=== PATIENT | male | born 1975 | race Two or more races ===

== ENCOUNTER 2023-03-20 00:01 | Inpatient (IN) | payer MEDICAID, SELFPAY ==
--- NOTE | ~2023-03-20 | CT_ITS ---
EXAMINATION: CT ABDOMEN AND PELVIS WITHOUT CONTRAST CLINICAL INFORMATION: Question pancreatitis COMPARISON: 12/30/2011 TECHNIQUE: Multidetector volumetric imaging was performed from the superior aspect of the liver through the pubic symphysis. Sagittal and coronal reformatted images were obtained on the technologist's workstation. This CT examination was performed using dose optimization techniques as appropriate, variously including the following: *Automated exposure control *Adjustment of mA and/or kV according to patient size (this includes techniques or standardized protocols for targeted exams where dose is matched to indication/reason for exam; i.e. extremities or head) *Use of iterative reconstruction technique DLP: 356 mGy-cm FINDINGS: LUNG BASES: Limited evaluation due to motion artifact. Streaky right middle lobe opacity suggests atelectasis. There is also suspected right middle lobe bronchiolitis. LIVER, GALLBLADDER, AND BILIARY TREE: The liver is normal in size, shape, and attenuation. No focal hepatic lesion or biliary ductal dilatation is identified on this noncontrast exam. Gallbladder is contracted and not adequately evaluated. PANCREAS: No significant peripancreatic inflammation is seen, though assessment is somewhat limited in the absence of intravenous contrast. SPLEEN: Unremarkable. ADRENAL GLANDS: Unremarkable. KIDNEYS AND URETERS: Bilateral extrarenal pelvises are noted. No significant hydronephrosis or obstructing calculus identified. There is a tiny calculus in the lower left kidney. BLADDER: Partially distended with mild diffuse mural prominence. A tiny calcification along the anterior bladder wall appears similar to prior. GASTROINTESTINAL TRACT: There is a moderate volume of stool throughout the colon. No evidence of bowel obstruction. No significant bowel wall thickening is seen. No free fluid or free air is seen. ABDOMINAL WALL: No significant hernia is appreciated. LYMPH NODES: Multiple lymph nodes are noted in the retroperitoneum, a few of which measure near the upper limits of normal in size, nonspecific. VASCULAR: Mild atherosclerotic calcification. PELVIC VISCERA: Unremarkable. OSSEOUS STRUCTURES: Unremarkable. CT/CT abdomen pelvis wo IV con IMPRESSION: 1. No significant peripancreatic inflammation identified, though assessment is somewhat limited in the absence of intravenous contrast. Correlation with laboratory values would be helpful. 2. Mild diffuse mural prominence of the urinary bladder, for which cystitis would be difficult to exclude. Correlation with urinalysis is recommended. 3. Right middle lobe subsegmental atelectasis and suspected bronchiolitis. 4. Multiple retroperitoneal lymph nodes, a few of which measure near the upper limits of normal in size. These are nonspecific and may be reactive.
[2023-03-20 00:06] VITALS: BP 161/92; PULSE 83; RESP 18; TEMP 36.8; O2SAT 99; BMI 21.4
[2023-03-20 00:27] LABS: MANUAL DIFF FLAG NO
[2023-03-20 00:41] LABS: Basophils Absolute Auto 0.1 X10*3/uL (0.0-0.2); Basophils Percent Auto 0.7 % (0-2); Eosinophils Absolute Auto 0.4 X10*3/uL (0.0-0.4); Eosinophils Percent Auto 5.8 % (0-4); Hematocrit 28.4 % (42.0-52.0); Imm Gran Abs Auto 0.03 X10*3/uL (0.00-0.03); Imm Gran Pct Auto 0.4 % (0.0-0.4); Lymphocytes Absolute Auto 1.9 X10*3/uL (1.2-4.9); Lymphocytes Percent Auto 25.9 % (20-40); Mean Corpuscular HGB Conc 31.7 g/dl (31.0-36.0); Mean Corpuscular Hemoglobin 27.8 pg (27.0-33.0); Mean Corpuscular Volume 87.7 fL (80.0-98.0); Mean Platelet Volume 10.6 fL (9.4-12.4); Monocytes Absolute Auto 0.5 X10*3/uL (0.1-1.2); Monocytes Percent Auto 6.6 % (2-11); Neutrophils Absolute Auto 4.5 x10*3/uL (2.0-8.3); Neutrophils Percent Auto 60.6 % (45-73); Platelet Count 308 X10*3/uL (160-400); Red Blood Count 3.24 X10*6/uL (4.60-5.80); Red Cell Distribution Width 15.5 % (11.0-16.0); White Blood Count 7.4 X10*3/uL (4.8-10.8)
[2023-03-20 00:56] LABS: Alanine Aminotransferase 40 U/L (0-40); Albumin Level 3.5 g/dL (3.5-5.0); Alkaline Phosphatase 151 U/L (39-117); Anion Gap 14 (12-20); Aspartate Amino Transferase 20 U/L (5-37); Bilirubin Direct < 0.2 mg/dL (0.0-0.5); Bilirubin Total 0.2 mg/dL (0.0-1.0); Blood Urea Nitrogen 65 mg/dL (9-16); Calcium 8.5 mg/dL (8.4-10.2); Carbon Dioxide 15 mmol/L (22-29); Chloride 110 mmol/L (96-108); Creatinine Clr Calc Pharmacy 16.5; Estimated Glomerular Filt Rate 14; Glucose Random 558 mg/dL (60-115); Lipase 789 U/L (8-78); Potassium 5.1 mmol/L (3.3-5.1); Sodium 134 mmol/L (135-145); Total Protein 6.4 g/dL (6.5-8.0)
--- NOTE | 2023-03-20 01:09 | ED.GENADULT ---
HPI - General Adult General Chief complaint: General Medical Stated complaint: leg pain,discomfort Time Seen by Provider: 03/20/23 01:08 Source: patient, family (mother and brother) and interpreter and translator Mode of arrival: ambulatory Limitations: language barrier History of Present Illness HPI narrative: Patient is a 47 year old assigned male at with a history of diabetes presenting to the emergency department today with elevated blood sugar and weak legs. Patient states that he was in a rehab in [place] but was brought to [place] by his mother and brother. Patient states that he was told that his kidneys were close to shutting down but was not taking anything or doing anything for it. Patient states that he is on insulin for his diabetes. Patient denies any dizziness, lightheadedness, abdominal pain, nausea, vomiting, fever, chills, blurry vision, double vision, loss of vision, chest pain, difficulty breathing, shortness of breath, back pain, night sweats, pain with urination, increased urinary frequency, increased urinary urgency, blood in his urine or stool, syncope or a near syncopal episode, recent trauma or falls, bowel incontinence, bladder incontinence, bowel retention, bladder retention, or any other complaints at this time. Onset (ago): day(s) Relieving factors: none Exacerbating factors: none Associated symptoms: weakness Treatments prior to arrival: none Related Data Allergies Allergy/AdvReac Type Severity Reaction Status Date / Time No Known Allergies Allergy Unverified 11/01/19 16:01 Review of Systems Constitutional: Constitutional: Reports no additional constitutional complaints, Denies chills, Denies fever(s), Denies night sweats and Reports weakness Eyes: Eyes: Reports no additional eye complaints, Denies blurry vision, Denies change in vision, Denies diplopia, Denies eye discharge, Denies loss of vision and Denies eye pain ENT: Denies dizziness Cardiovascular: Cardiovascular: Reports no additional cardiovascular complaints, Denies chest pain, Denies lightheadedness, Denies Loss of Consciousness and Denies dyspnea Respiratory: Respiratory: Reports no additional respiratory complaints and Denies dyspnea Gastrointestinal: Gastrointestinal: Reports no additional gastrointestinal complaints, Denies abdominal pain, Denies melena, Denies hematochezia, Denies change in bowel habits and Denies change in stool character Genitourinary: Genitourinary: Reports no additional male genitourinary complaints, Denies hematuria, Denies oliguria, Denies difficulty urinating, Denies dysuria, Denies urinary frequency, Denies urinary hesitancy, Denies urinary incontinence and Denies urinary urgency Musculoskeletal: Musculoskeletal: Reports no additional musculoskeletal complaints, Denies numbness and Denies tingling Neurologic: Denies dizziness, Denies loss of vision, Denies numbness, Denies tingling and Reports weakness Psychiatric: Psychiatric: Reports no additional psychiatric complaints Endocrine: Endocrine: Reports no additional endocrine complaints Hematologic/Lymphatic: Hematologic/Lymphatic: Reports no additional hematologic/lymphatic complaints Allergic/Immunologic: Allergic/Immunologic: Reports no additional allergic/immunologic complaints PMFSH Past Medical History Attestation statement: The following information was validated with the patient. (patient's mother and brother validated all information.) Source: old records reviewed, obtained from family (patient's mother and brother provided additional history and confirmed the history provided by the patient.) and nursing notes reviewed Social History Social History Advance Directives: No Advance Directives Information Provided: No Physical Exam ED Vital Signs: Vital Signs - 24 hr 03/20/23 00:06 Temperature 98.3 F Pulse Rate 83 Respiratory Rate 18 Blood Pressure 161/92 H Pulse Oximetry 99 Oxygen Delivery Method Room Air BMI result Body Mass Index 21.4 Const General: cooperative, no acute distress, alert and awake Nutritional Appearance: well nourished Orientation/consciousness: patient oriented x3 Limitations: no limitations HENMT Head: Yes normal to inspection and Yes atraumatic Ears: hearing grossly normal bilaterally and external ears normal General nose exam: Normal external nose present, no nasal discharge noted and no epistaxis Face and sinus: Yes normal facial exam, No abrasion and No laceration Mouth: Normal oral and palatal mucosa present, no drooling and no muffled voice Eyes General: appearance normal, both eyes and all related structures Periorbital: periorbital findings normal Eyelids: Yes eyelids normal Conjunctivae: conjunctivae normal Pupils: Equal, round and reactive pupils present EOM: EOMs intact bilaterally Neck Neck: Yes normal visual inspection, Yes full ROM and Yes no lymphadenopathy Chest Chest palpation & inspection: normal inspection of the chest Resp Effort & Inspection: normal respiratory effort and able to speak in complete sentences GI Inspection: Yes normal to inspection Neuro General: patient oriented x3 and moves all extremities Cranial nerves: Yes Equal, round and reactive pupils present Cognition (Neuro): normal cognition Motor exam (neuro): 5/5 motor strength present throughout Sensory Exam: Normal double simultaneous stimulation for sensation Coordination: [id number] test normal Extrem General: Yes normal to inspection, Yes full ROM and Yes capillary refill normal Psych Appearance: grossly normal Mental Status: mental status grossly normal Affect: normal affect Attitude: cooperative Thought process: Normal thought process present Thought content: Normal thought content present Insight: Good insight present (Psych) Medical Decision Making Medical Decision Making [facility] Narrative: Patient is a 47 year old assigned male at with a history of DM presenting to the emergency department today with weakness. Patient's physical exam was unremarkable. Patient's blood work showed an elevated CR of 4.52, BUN of 65, glucose of 558, and lipase of 789. Patient's urine showed no acute process. Patient's clinical presentation is most consistent with hyperglycemia and kidney failure. I spoke to the hospitalist who agreed to admission. I explained my physical exam findings as well as all test results to the patient, the patient's mother, and the patient's brother. I answered all questions asked by the patient, the patient's mother, and the patient's brother. Patient, the patient's mother, and the patient's brother verbalized agreement and understanding with this treatment plan and admission. Differential Diagnosis Differential Diagnoses: The differential diagnosis associated with the presentation includes Kidney failure Hyperglycemia Weakness Admission/Observation Consideration of admission/observation: Escalation of care including admission/observation considered Patient admitted. Consult Healthcare Provider Management of the patient was discussed with: Hospitalist (Agreed to admission.) Lab Data [facility] Lab Attestation statement: I reviewed the patient's lab results. My interpretation of these results are in the [facility] Rationale portion of this note. 03/20/23 00:23 03/20/23 00:23 Labs: Lab Results 03/20/23 03/20/23 Range/Units 00:23 01:50 WBC 7.4 (4.8-10.8) X10*3/uL RBC 3.24 L (4.60-5.80) X10*6/uL Hgb 9.0 L (14.0-18.0) g/dl Hct 28.4 L (42.0-52.0) % MCV 87.7 (80.0-98.0) fL MCH 27.8 (27.0-33.0) pg MCHC 31.7 (31.0-36.0) g/dl RDW 15.5 (11.0-16.0) % Plt Count 308 (160-400) X10*3/uL MPV 10.6 (9.4-12.4) fL Immature Gran % (Auto) 0.4 (0.0-0.4) % Neut % (Auto) 60.6 (45-73) % Lymph % (Auto) 25.9 (20-40) % [place] % (Auto) 6.6 (2-11) % Eos % (Auto) 5.8 H (0-4) % Baso % (Auto) 0.7 (0-2) % Lymph # (Auto) 1.9 (1.2-4.9) X10*3/uL [place] # (Auto) 0.5 (0.1-1.2) X10*3/uL Eos # (Auto) 0.4 (0.0-0.4) X10*3/uL Baso # (Auto) 0.1 (0.0-0.2) X10*3/uL Abs Immat Gran (auto) 0.03 (0.00-0.03) X10*3/uL Absolute Neuts (auto) 4.5 (2.0-8.3) x10*3/uL Absolute Nucleated RBC 0.000 (0.0-0.012) X10*3/uL Nucleated RBC % (auto) 0.0 (0.0-0.2) /100WBC Sodium 134 L (135-145) mmol/L Potassium 5.1 (3.3-5.1) mmol/L Chloride 110 H (96-108) mmol/L Carbon Dioxide 15 L (22-29) mmol/L Anion Gap 14 (12-20) BUN 65 H (9-16) mg/dL Creatinine 4.52 H* (0.5-1.4) mg/dL Estim Creat Clear Calc 16.5 Estimated GFR 14 Random Glucose 558 H* (60-115) mg/dL Calcium 8.5 (8.4-10.2) mg/dL Total Bilirubin 0.2 (0.0-1.0) mg/dL Direct Bilirubin < 0.2 (0.0-0.5) mg/dL AST 20 (5-37) U/L ALT 40 (0-40) U/L Alkaline Phosphatase 151 H (39-117) U/L Total Creatine Kinase 79 (38-174) U/L Total Protein 6.4 L (6.5-8.0) g/dL Albumin 3.5 (3.5-5.0) g/dL Lipase 789 H (8-78) U/L Beta-Hydroxybutyrate 0.11 (0.02-0.27) mmol/L Urine Color Yellow Urine Appearance Clear Urine pH 5.5 (5.0-9.0) Ur Specific [place] 1.015 (1.005-1.025) Urine Protein 100 (2+) H (Neg-Trace) mg/dL Urine Glucose (UA) >=1000 H (Negative) mg/dL Urine Ketones Negative (Negative) mg/dL Urine Blood Negative (Negative) Urine Nitrite Negative (Negative) Ur Leukocyte Esterase Negative (Negative) Urine RBC 0-2 (0-2) /HPF Urine WBC 6-10 H (0-5) /HPF Ur Squamous Epith Cells 0-2 (0-2) /HPF Urine Bacteria None Seen (None Seen) Hyaline Casts 0-2 (0-2) /LPF Independent Historian Clinical information obtained from an independent historian. History obtained from or confirmed by: Parent (patient's mother provided additional history and confirmed the history provided by the patient.) and Other (patient's brother provided additional history and confirmed the history provided by the patient.) Chronic Conditions Patient?s care impacted by: Diabetes Critical Care Time Critical Care Time Critical Care Time: Yes Total Critical Care Time: 45 Attestation: I spent 45 minutes of Critical Care Time with this patient. This does not include time spent on separately reported billable procedures. Discharge Plan Discharge Clinical Impression: Hyperglycemia, Acute kidney failure Patient Disposition: Admitted As Inpatient
[2023-03-20 01:49] LABS: Beta-Hydroxybutyrate 0.11 mmol/L (0.02-0.27)
--- NOTE | 2023-03-20 01:56 | P.HPHOSP_ITS ---
History of Present Illness Date of Service: 03/20/23 Chief Complaint: Elevated blood glucose This is a 47-year-old male with pertinent history of CVA, DVT on Eliquis, mood disorder, vascular dementia, history of IV drugs (cocaine) use disorder, chronic kidney disease, gastroesophageal reflux disease, mood disorder who presents to the emergency department for evaluation of elevated blood glucose. Patient was discharged from a rehab facility in [place] after an acute CVA yesterday. He was brought to [place] to be closer to family. Patient did not picker / packer his basal insulin and was only taking sliding scale. His blood glucose was found to be elevated and he was brought to the ER. Patient states he was told at the facility in [place] that his kidney function is poor. Does not know baseline levels. He denies fever, chills, chest discomfort, palpitations, shortness of breath, abdominal pain, changes in urinary or bowel habits. In the emergency department, blood glucose and serum creatinine found to be elevated. Review of Systems 2 Constitutional: Constitutional: Reports no additional constitutional complaints Cardiovascular: Cardiovascular: Reports no additional cardiovascular complaints Respiratory: Respiratory: Reports no additional respiratory complaints Gastrointestinal: Gastrointestinal: Reports no additional gastrointestinal complaints Genitourinary: Genitourinary: Reports no additional male genitourinary complaints [facility] Medical History (Updated 03/20/23 @ 03:22 by Chaya Cesar MD) Chronic kidney disease History of insulin dependent diabetes mellitus Mood disorder Vascular dementia CVA (cerebral vascular accident) DVT (deep venous thrombosis) Pertinent family history: No family history of early CAD Social History Household Members: Family Housing: Apartment Patient Tobacco Use Status: Former Tobacco user Tobacco use type: Cigarette Smoked in Last 30 Days: No e-Cigarette/Vaping Use: Never Used Patient Interested in Nicotine Replacement: No Patient Given Instructions on How to Stop Smoking: No Second Hand Smoke Exposure: No Use of substances other than those prescribed or required for medical reasons: No Currently Displaying Signs/Symptoms of Drug Intoxication Withdrawal: No Any prior treatment program specific to substance use: No Have you been hit, kicked, punched, or otherwise hurt by someone within the past year? If so, by whom?: No Do you feel safe in your current relationship?: No Current Relationship Is there a partner from a previous relationship who is making you feel unsafe now?: No Are you made to feel afraid or neglected: No Advance Directives: No Advance Directives Information Provided: No Do you have thoughts of harming others: None Do you have a plan to hurt others: No Plan Recently lost weight without trying: No Eating poorly because of decreased appetite: No Nutrition Risks: No Nutritional Risk Poor oral hygiene: No Meds Allergies Allergy/AdvReac Type Severity Reaction Status Date / Time No Known Allergies Allergy Unverified 11/01/19 16:01 Active Medications: Current Medications Dextrose (Dextrose 50 % 25 Gm/50 Ml Syringe) 25 gm IVPUSH Q15M PRN; Protocol PRN Reason: per Hypoglycemia Standing Ord. Glucose (Glucose Gel 15 Gm Gel..Gram.) 15 gm PO Q15M PRN; Protocol PRN Reason: per Hypoglycemia Standing Ord. Lactated Ringer's (Lr) 1,000 mls @ 999 mls/hr IV .Q1H1M ONE Stop: 03/20/23 02:53 Insulin Glargine (Insulin Glargine,Hum.Rec.Anlog 100 Unit/Ml 10 Ml Vial) 10 unit SUBCUT BEDTIME JETHRO Insulin Human Lispro (Insulin Lispro 100 Unit/Ml 3 Ml Vial) 0 unit SUBCUT QIDACHS JETHRO; Protocol Insulin Human Regular (Insulin Regular, Human 100 Unit/Ml 3 Ml Vial) 10 unit IVPUSH ONCE ONE Stop: 03/20/23 01:54 Physical Exam 2 Vital Signs and Narrative: Vital Signs: Last Vital Signs Temp 98.3 F 03/20/23 00:06 Pulse 83 03/20/23 00:06 Resp 18 03/20/23 00:06 BP 161/92 H 03/20/23 00:06 Pulse Ox 99 03/20/23 00:06 O2 Del Method Room Air 03/20/23 00:06 BMI result Body Mass Index 21.4 Middle-aged male lying in bed in no distress Neck supple, no JVD Regular rate and rhythm, S1-S2 heard Regular breath sounds bilaterally, no wheezing or crackles appreciated Abdomen soft nontender, no guarding, no rigidity Patient is awake, alert and oriented to self, place, time and person ; no focal motor deficit Psych: Normal mood No pedal edema Results Labs 03/20/23 04:52 03/20/23 04:52 Labs: Laboratory Results - last 24 hr 03/20/23 00:23 MCV 87.7 MCH 27.8 MCHC 31.7 RDW 15.5 Plt Count 308 MPV 10.6 Immature Gran % (Auto) 0.4 Neut % (Auto) 60.6 Lymph % (Auto) 25.9 [place] % (Auto) 6.6 Eos % (Auto) 5.8 H Baso % (Auto) 0.7 Lymph # (Auto) 1.9 [place] # (Auto) 0.5 Eos # (Auto) 0.4 Baso # (Auto) 0.1 Abs Immat Gran (auto) 0.03 Absolute Neuts (auto) 4.5 Absolute Nucleated RBC 0.000 Nucleated RBC % (auto) 0.0 Anion Gap 14 Estim Creat Clear Calc 16.5 Estimated GFR 14 Random Glucose 558 H* Calcium 8.5 Total Bilirubin 0.2 Direct Bilirubin < 0.2 AST 20 ALT 40 Alkaline Phosphatase 151 H Total Creatine Kinase 79 Total Protein 6.4 L Albumin 3.5 Lipase 789 H Beta-Hydroxybutyrate 0.11 Assessment and Plan (1) Elevated serum creatinine: Status: Acute (2) Hyperglycemia: Status: Acute Plan This is a 47-year-old male with pertinent history of CVA, DVT on Eliquis, mood disorder, vascular dementia, history of IV drugs (cocaine) use disorder, chronic kidney disease, gastroesophageal reflux disease, mood disorder who presents to the emergency department for evaluation of elevated blood glucose. #. Uncontrolled Insulin-dependent diabetes mellitus with hyperglycemia: Initiating basal plus insulin regimen. Monitor glucose and titrate insulin regimen accordingly #. Elevated serum creatinine, unknown baseline: Does have a history of CKD. On serum bicarb. Urine studies pending. Consulting Nephrology to establish care. Obtain records #. History of CVA: On Plavix and high-intensity statin #. Vascular dementia: Maintain sleep-wake cycle. On Aricept #. History of DVT: On Eliquis #. Gastroesophageal reflux disease: On PPI #. Mood disorder: Continue home mood stabilizers #. Normocytic anemia, likely of chronic disease: On iron and folic acid supplementation. Hemoglobin above transfusion threshold #. Elevated serum lipase: Likely in a setting of renal failure and uncontrolled diabetes mellitus. Patient without abdominal pain, no clinical concern for pancreatitis Med rec pending DVT prophylaxis: Eliquis Full code Admit as inpatient and will require two night minimum hospital stay for close monitoring of serum glucose, serum creatinine (as above), which is not possible in a lesser acute setting. Specialist consult pending Quality Stroke Does the patient have a stroke diagnosis?: No VTE Prior VTE?: No VTE Risk Level:: Medical - moderate - high VTE Device Contraindication: Treatment Not Indicated VTE Drug Contraindication: N/A - Med Ordered
[2023-03-20 01:59] LABS: Venous Blood Gas Refer to POC result
[2023-03-20 01:59] LABS: Appearance Urine Clear; Color Urine Yellow; Glucose Urine UA >=1000 mg/dL (Negative); Leukocyte Esterase Urine Negative (Negative); Nitrite Urine Negative (Negative); PH 5.5 (5.0-9.0); Specific Gravity - Urine 1.015 (1.005-1.025); UMIC TRIGGER UACC YES; Urine Blood Negative (Negative); Urine Ketones Negative (Negative); Urine Protein 100 (2+) mg/dL (Neg-Trace)
[2023-03-20 02:01] LABS: VBG Base Excess -8.2 mmol/L; VBG HCO3 16 mmol/L (22-26); VBG pCO2 30 mmHg; VBG pH 7.33 (7.32-7.43); VBG pO2 83 mmHg
[2023-03-20 02:02] LABS: Bacteria Urine None Seen (None Seen); Hyaline Casts Urine 0-2 /LPF (0-2); RBC Urine 0-2 /HPF (0-2); Squamous Epithelial Cell Urine 0-2 /HPF (0-2); UACC Culture Trigger YES
[2023-03-20] MEDS: Insulin Glargine,Hum.rec.anlog 100 UNIT/ML 10 ML VIAL 10 UNIT SUBCUT ×2 (02:31→21:36)
[2023-03-20] MEDS: Lactated Ringers 1,000 ML 999 ML IV (02:31)
[2023-03-20] MEDS: Insulin Regular, Human 100 UNIT/ML 3 ML VIAL 10 UNIT IVPUSH (02:31)
[2023-03-20 03:32] LABS: Glucose, Whole Blood 208 mg/dL (60-115)
[2023-03-20 03:35] VITALS: BP 171/98; PULSE 91; RESP 14; O2SAT 100
[2023-03-20] MEDS: Melatonin 3 MG TABLET 6 MG PO (03:38)
[2023-03-20 04:57] LABS: MANUAL DIFF FLAG NO
[2023-03-20 05:01] LABS: Basophils Percent Auto 0.4 % (0-2); Eosinophils Absolute Auto 0.5 X10*3/uL (0.0-0.4); Eosinophils Percent Auto 6.1 % (0-4); Hematocrit 26.8 % (42.0-52.0); Hemoglobin 8.6 g/dl (14.0-18.0); Imm Gran Abs Auto 0.02 X10*3/uL (0.00-0.03); Imm Gran Pct Auto 0.3 % (0.0-0.4); Lymphocytes Absolute Auto 2.1 X10*3/uL (1.2-4.9); Lymphocytes Percent Auto 28.3 % (20-40); Mean Corpuscular HGB Conc 32.1 g/dl (31.0-36.0); Mean Platelet Volume 9.9 fL (9.4-12.4); Monocytes Absolute Auto 0.6 X10*3/uL (0.1-1.2); Monocytes Percent Auto 7.8 % (2-11); Neutrophils Absolute Auto 4.2 x10*3/uL (2.0-8.3); Neutrophils Percent Auto 57.1 % (45-73); Platelet Count 289 X10*3/uL (160-400); Red Blood Count 3.19 X10*6/uL (4.60-5.80); Red Cell Distribution Width 15.3 % (11.0-16.0); White Blood Count 7.4 X10*3/uL (4.8-10.8)
[2023-03-20 05:18] LABS: Anion Gap 15 (12-20); Blood Urea Nitrogen 66 mg/dL (9-16); Calcium 8.3 mg/dL (8.4-10.2); Carbon Dioxide 16 mmol/L (22-29); Chloride 115 mmol/L (96-108); Creatinine Clr Calc Pharmacy 17.6; Estimated Glomerular Filt Rate 15; Glucose Random 183 mg/dL (60-115); Potassium 4.7 mmol/L (3.3-5.1); Sodium 141 mmol/L (135-145)
[2023-03-20 06:06] VITALS: BMI 21.1
[2023-03-20 06:29] VITALS: BP 149/89; PULSE 79; RESP 20; TEMP 36.9; O2SAT 97
[2023-03-20 07:32] VITALS: BP 164/92; PULSE 85; RESP 18; TEMP 36.8; O2SAT 99
[2023-03-20 07:37] LABS: Glucose, Whole Blood 228 mg/dL (60-115)
[2023-03-20] MEDS: Insulin Lispro 100 UNIT/ML 3 ML VIAL SUBCUT ×4 (08:55→21:36)
--- NOTE | 2023-03-20 09:31 | PM.EVENT ---
Event Note Date of Service: 03/20/23 Event Note: This is a 47-year-old male with pertinent history of CVA, DVT on Eliquis, mood disorder, vascular dementia, history of IV drugs (cocaine) use disorder, chronic kidney disease, gastroesophageal reflux disease, mood disorder who presents to the emergency department for evaluation of elevated blood glucose. Uncontrolled Insulin-dependent diabetes mellitus with hyperglycemia 2 Initiating basal plus insulin regimen. Monitor glucose and titrate insulin regimen accordingly Elevated serum creatinine, unknown baseline Does have a history of CKD. On serum bicarb. Urine studies pending. Consulting Nephrology to establish care. Obtain records if able History of CVA On Plavix and high-intensity statin Vascular dementia Maintain sleep-wake cycle. On Aricept History of DVT On Eliquis Gastroesophageal reflux disease On PPI Mood disorder Continue home mood stabilizers Normocytic anemia, likely of chronic disease On iron and folic acid supplementation. Hemoglobin above transfusion threshold Elevated serum lipase Likely in a setting of renal failure and uncontrolled diabetes mellitus. Patient without abdominal pain, no clinical concern for pancreatitis DVT prophylaxis: Lionel Attending Dr. Doyle Full code Admit as inpatient and will require two night minimum hospital stay for close monitoring of serum glucose, serum creatinine (as above), which is not possible in a lesser acute setting. Specialist consult pending Time Spent With Patient Time: Total time managing care of this patient today ____ minutes.
[2023-03-20 11:22] LABS: Glucose, Whole Blood 166 mg/dL (60-115)
--- NOTE | 2023-03-20 12:14 | PHA.MEDREC ---
Pharmacy Consult ? Medication Reconciliation Pharmacy has completed the medication reconciliation. used list from [facility] in [place]. Per MD note, patient did not pick up operator basal insulin after discharge.
[2023-03-20] MEDS: Acetaminophen 325 MG TABLET 650 MG PO (13:46)
[2023-03-20 15:46] VITALS: BP 161/84; PULSE 78; RESP 18; TEMP 36.1; O2SAT 100
[2023-03-20 16:14] LABS: Glucose, Whole Blood 342 mg/dL (60-115)
--- NOTE | 2023-03-20 16:27 | PC.NURSE ---
informed MD of pt's BP
[2023-03-20 19:25] VITALS: BP 151/82; PULSE 83; RESP 18; TEMP 36.9; O2SAT 98
[2023-03-20 20:05] LABS: Glucose, Whole Blood 212 mg/dL (60-115)
[2023-03-20 20:18] LABS: Glucose, Whole Blood 197 mg/dL (60-115)
[2023-03-20] MEDS: 0.9 % Sodium Chloride Flush 3 ML SYRINGE IVFLUSH (21:37)
[2023-03-21 03:40] VITALS: BP 163/87; PULSE 80; RESP 18; TEMP 36.8; O2SAT 99
[2023-03-21 07:00] VITALS: BP 148/88; PULSE 82; RESP 16; TEMP 36.6; O2SAT 99
[2023-03-21 07:10] LABS: Glucose, Whole Blood 86 mg/dL (60-115)
[2023-03-21] MEDS: 0.9 % Sodium Chloride Flush 3 ML SYRINGE IVFLUSH (07:57)
--- NOTE | 2023-03-21 10:00 | P.CONNP_ITS ---
History of Present Illness Reason for Consult Consult date: 03/21/23 Reason for consult: Renal failure Chief Complaint Chief complaint: elevated blood sugar History of Present Illness Narrative: 47-year-old male with pertinent history of CVA, DVT on Eliquis, mood disorder, vascular dementia, history of IV drugs (cocaine) use disorder, chronic kidney disease, gastroesophageal reflux disease, mood disorder who presents to the emergency department for evaluation of elevated blood glucose. Patient was discharged from a rehab facility in [place] after an acute CVA Review of Systems Review of Systems Yes Unobtainable due to mental condition PMFSH Past Medical History Medical History (Updated 03/20/23 @ 03:22 by Chaya Cesar MD) Chronic kidney disease History of insulin dependent diabetes mellitus Mood disorder Vascular dementia CVA (cerebral vascular accident) DVT (deep venous thrombosis) Social History Social History Household Members: Family Housing: Apartment Patient Tobacco Use Status: Former Tobacco user Tobacco use type: Cigarette Smoked in Last 30 Days: No e-Cigarette/Vaping Use: Never Used Patient Interested in Nicotine Replacement: No Patient Given Instructions on How to Stop Smoking: No Second Hand Smoke Exposure: No Use of substances other than those prescribed or required for medical reasons: No Currently Displaying Signs/Symptoms of Drug Intoxication Withdrawal: No Any prior treatment program specific to substance use: No Have you been hit, kicked, punched, or otherwise hurt by someone within the past year? If so, by whom?: No Do you feel safe in your current relationship?: No Current Relationship Is there a partner from a previous relationship who is making you feel unsafe now?: No Are you made to feel afraid or neglected: No Advance Directives: No Advance Directives Information Provided: No Do you have thoughts of harming others: None Do you have a plan to hurt others: No Plan Recently lost weight without trying: No Eating poorly because of decreased appetite: No Nutrition Risks: No Nutritional Risk Poor oral hygiene: No Meds Allergies Allergy/AdvReac Type Severity Reaction Status Date / Time No Known Allergies Allergy Unverified 11/01/19 16:01 Active Medications: Current Medications Acetaminophen (Acetaminophen 325 Mg Tablet) 650 mg PO Q6H PRN PRN Reason: Pain, Mild (Pain Scale 1-3) Last Admin: 03/20/23 13:46 Dose: 650 mg Dextrose (Dextrose 50 % 25 Gm/50 Ml Syringe) 25 gm IVPUSH Q15M PRN; Protocol PRN Reason: per Hypoglycemia Standing Ord. Glucose (Glucose Gel 15 Gm Gel..Gram.) 15 gm PO Q15M PRN; Protocol PRN Reason: per Hypoglycemia Standing Ord. Insulin Glargine (Insulin Glargine,Hum.Rec.Anlog 100 Unit/Ml 10 Ml Vial) 10 unit SUBCUT BEDTIME [facility] Last Admin: 03/20/23 21:36 Dose: 10 unit Insulin Human Lispro (Insulin Lispro 100 Unit/Ml 3 Ml Vial) 0 unit SUBCUT QIDACHS [facility]; Protocol Last Admin: 03/21/23 07:25 Dose: Not Given Melatonin (Melatonin 3 Mg Tablet) 6 mg PO BEDTIME PRN PRN Reason: Insomnia Last Admin: 03/20/23 03:38 Dose: 6 mg Ondansetron HCl (Ondansetron Hcl 4 Mg/2 Ml Vial) 4 mg IVPUSH Q8H PRN PRN Reason: Nausea and Vomiting Sodium Chloride (0.9 % Sodium Chloride Flush 3 Ml Syringe) [facility] Last Admin: 03/21/23 07:57 Dose: 3 ml Home Medications Medication Instructions Recorded Confirmed Last Taken Type acetaminophen 325 mg tablet 650 mg PO Q4H PRN Fever Or Pain 03/20/23 03/20/23 Unknown History apixaban 2.5 mg tablet (Eliquis) 2.5 mg PO BID 03/20/23 03/20/23 Unknown History atorvastatin 80 mg tablet 80 mg PO BEDTIME 03/20/23 03/20/23 Unknown History clopidogrel 75 mg tablet 75 mg PO DAILY 03/20/23 03/20/23 Unknown History donepezil 5 mg tablet (Aricept) 5 mg PO BEDTIME 03/20/23 03/20/23 Unknown History ferrous sulfate 325 mg (65 mg 325 mg PO DAILY 03/20/23 03/20/23 Unknown History iron) tablet folic acid 1 mg tablet 1 mg PO DAILY 03/20/23 03/20/23 Unknown History insulin glargine 100 unit/mL (3 18 unit subcut BEDTIME 03/20/23 03/20/23 Unknown History mL) subcutaneous pen insulin lispro 100 unit/mL 1 sliding scale dose subcut 03/20/23 03/20/23 Unknown History subcutaneous pen (Humalog KwikPen USEASDIRECTD (U-100) Insulin) melatonin 3 mg tablet 6 mg PO BEDTIME 03/20/23 03/20/23 Unknown History midodrine 5 mg tablet 5 mg PO TID 03/20/23 03/20/23 Unknown History mirtazapine 30 mg tablet (Remeron) 30 mg PO BEDTIME 03/20/23 03/20/23 Unknown History multivitamin with minerals 1 tab PO DAILY 03/20/23 03/20/23 Unknown History pantoprazole 40 mg tablet,delayed 40 mg PO QAM 03/20/23 03/20/23 Unknown History release sennosides 8.6 mg tablet (senna) 8.6 mg PO QPM 03/20/23 03/20/23 Unknown History sodium bicarbonate 650 mg tablet 650 mg PO TID 03/20/23 03/20/23 Unknown History Physical Exam Vital Signs: Last Vital Signs Temp 98 F 03/21/23 07:00 Pulse 82 03/21/23 07:00 Resp 16 03/21/23 07:00 BP 148/88 H 03/21/23 07:00 Pulse Ox 99 03/21/23 07:00 O2 Del Method Room Air 03/21/23 07:00 BMI result Body Mass Index 21.1 Awake. Comfortable. Neck is supple. Mucosa moist. Lungs bilateral scattered rhonchi. Heart S1-S2 heard no gallop. Abdomen soft. Extremities no edema. No involuntary movements. No myoclonus. Results Lab Results 03/20/23 04:52 03/20/23 04:52 Lab results: Chemistry 03/20/23 03/20/23 00:23 04:52 Sodium 134 L 141 Potassium 5.1 4.7 Carbon Dioxide 15 L 16 L BUN 65 H 66 H Creatinine 4.52 H* 4.22 H* Calcium 8.5 8.3 L Hematology 03/20/23 03/20/23 00:23 04:52 WBC 7.4 7.4 Hgb 9.0 L 8.6 L Plt Count 308 289 Urinalysis 03/20/23 01:50 Urine Color Yellow Urine Appearance Clear Urine pH 5.5 Ur Specific [place] 1.015 Urine Protein 100 (2+) H Urine Glucose (UA) >=1000 H Urine Ketones Negative Urine Blood Negative Urine Nitrite Negative Ur Leukocyte Esterase Negative Urine RBC 0-2 Urine WBC 6-10 H Ur Squamous Epith Cells 0-2 Hyaline Casts 0-2 Urine Studies 03/20/23 08:15 Urine Creatinine 38.90 Assessment and Plan (1) Chronic kidney disease: Status: Acute (2) CVA (cerebral vascular accident): Status: Acute Plan 47 yr old man with CVA and h/o Cocaine abuse with renal failure Baseline unknown NO over s/s of uremia or fluid overload Probably has advanced CKD Anemia- r/o EPO deficiency Hyperchloremic metabolic acidosis - due to CKD Suggest Try to obtain old records/baseline renal function from [place] Check Iron,TIBC,FErritin, PTH ( ordered) Urine protein: creatinine (ordered) Optimize BP Continue to avoid nephrotoxins Keep I > O Needs OP follow up Procedures Date of Service Date of Service: 03/21/23
--- NOTE | 2023-03-21 10:19 | PM.DS ---
DS: Providers Provider Date of Service: 03/21/23 Date of admission: 03/20/23 01:55 Primary care physician: Unknown Physician Consults: 03/20/23 02:57 Consult to Nephrology Routine Consulting Provider: [facility] Reason for consultation: elevated creatinine DS: Diagnosis Discharge Diagnosis (1) Chronic kidney disease: Status: Acute (2) CVA (cerebral vascular accident): Status: Acute DS: Summary Hospital Course Hospital Course: History and physical as per admitting provider. This is a 47-year-old male with pertinent history of CVA, DVT on Eliquis, mood disorder, vascular dementia, history of IV drugs (cocaine) use disorder, chronic kidney disease, gastroesophageal reflux disease, mood disorder who presents to the emergency department for evaluation of elevated blood glucose. Patient was discharged from a rehab facility in [place] after an acute CVA yesterday. He was brought to [place] to be closer to family. Patient did not bulk picker his basal insulin and was only taking sliding scale. His blood glucose was found to be elevated and he was brought to the ER. Patient states he was told at the facility in [place] that his kidney function is poor. Does not know baseline levels. He denies fever, chills, chest discomfort, palpitations, shortness of breath, abdominal pain, changes in urinary or bowel habits. In the emergency department, blood glucose and serum creatinine found to be elevated. 39-year-old man admitted with uncontrolled diabetes mellitus. Apparently the patient had moved from [place] to be closer to his family and was not taking his insulin as prescribed. His blood sugar was over 500, now with good control. He was also noted to have an elevated serum creatinine but according to his mother he has a history of chronic kidney disease from [place]. Discussed with Nephrology, likely his baseline, he should follow-up with Nephrology outpatient for continued management. Plan is for discharge home with family. He needs new prescriptions for insulin lispro and Lantus, sent to patient's pharmacy History of CVA. Continue Plavix and statin Vascular dementia. On Aricept History of DVT on Eliquis GERD. Ppi Mental health. Continue home medications Normocytic anemia. Chronic. Continue supplementations Time Attestation Discharge coordination time: Greater than 30 minutes Quality: Safe Use of Opioids Does Pt have an Active Cancer Diagnosis on the Problem List?: No Quality: Stroke Does the patient have a stroke diagnosis?: No Physical Exam Vital Signs: Vital Signs: Last Vital Signs Temp 98 F 03/21/23 07:00 Pulse 82 03/21/23 07:00 Resp 16 03/21/23 07:00 BP 148/88 H 03/21/23 07:00 Pulse Ox 99 03/21/23 07:00 O2 Del Method Room Air 03/21/23 07:00 BMI result Body Mass Index 21.1 Appearing in no acute distress head is normocephalic atraumatic eyes pupils are PERRLA sclera is anicteric mouth throat mucous membranes are intact and moist neck is supple no lymphadenopathy, no JVD noted lung sounds are clear to auscultation heart regular rate rhythm, clear S1, S2 positive bowel sounds, abdomen is soft, nontender neuro patient is alert x3 but forgetful DS: Data Data Completed and Pending Labs on day of discharge: Laboratory Results - last 24 hr 03/20/23 03/20/23 03/20/23 11:18 16:10 19:16 POC Glucose 166 H 342 H 197 H 03/20/23 03/21/23 20:01 07:07 POC Glucose 212 H 86 Discharge Plan Discharge Anticipated Discharge Date/Time: 03/21/23 10:12 Patient Disposition: Home, Self-Care Discharge Diagnosis: Uncontrolled diabetes mellitus type 2 Chronic kidney disease, likely stage IV Referrals: Timi Steinberg MD [Physician] - 1 Week Discharge Medications: Continued atorvastatin 80 mg Tablet 80 mg PO BEDTIME sennosides [senna] 8.6 mg Tablet 8.6 mg PO QPM acetaminophen 325 mg Tablet 650 mg PO Q4H PRN (Reason: Fever Or Pain) donepezil [Aricept] 5 mg Tablet 5 mg PO BEDTIME midodrine 5 mg Tablet 5 mg PO TID Rx Instructions: do not give last dose of day after 6PM or within 4 hrs of bedtime hold for SBP >140 and DBP >90 melatonin 3 mg Tablet 6 mg PO BEDTIME clopidogrel 75 mg Tablet 75 mg PO DAILY sodium bicarbonate 650 mg Tablet 650 mg PO TID pantoprazole 40 mg Tablet,Delayed Release (Dr/Ec) 40 mg PO QAM mirtazapine [Remeron] 30 mg Tablet 30 mg PO BEDTIME ferrous sulfate 325 mg (65 mg iron) Tablet 325 mg PO DAILY folic acid 1 mg Tablet 1 mg PO DAILY multivitamin with minerals Tablet 1 tab PO DAILY Eliquis 2.5 mg Tablet 2.5 mg PO BID insulin lispro [Humalog KwikPen Insulin] 100 unit/mL Insulin Pen 1 sliding scale dose SUBCUT USEASDIRECTD Qty: 15 0RF Protocol: Insulin Correction Scale Less than or equal to 110 ---- Give (units): 0 111 to 150 Give (units): 0 151 to 200 Give (units): 2 201 to 250 Give (units): 4 251 to 300 Give (units): 6 301 to 350 Give (units): 8 Greater than 350 Give (units): 10 Call MD if Blood Glucose > : 450 insulin glargine 100 unit/mL (3 mL) Insulin Pen 18 unit SUBCUT BEDTIME Qty: 15 0RF Discharge Orders: Discharge Order (Routine); Ordered 03/21/23 Ordered By: Antonietta Ng Diet: Advance to usual diet Activity on Discharge: As tolerated Stand Alone Forms: Patient Portal Discharge page Care Plan Goals: Take all medications as prescribed Health Concerns: Uncontrolled diabetes mellitus type 2 Chronic kidney disease, likely stage IV Plan of Treatment: Schedule an appointment to see the seed tester Schedule an appointment for primary care provider Assessment: See discharge summary
[2023-03-21 11:04] LABS: Glucose, Whole Blood 197 mg/dL (60-115)
[2023-03-21 11:05] LABS: Iron 109 mcg/dL (45-160); Percent Iron Saturation 38 % (15-50); Total Iron Binding Capacity 288 mcg/dL (228-428); Unsaturated Iron Binding 179 ug/dL
[2023-03-21 11:08] LABS: Anion Gap 14 (12-20); Blood Urea Nitrogen 70 mg/dL (9-16); Calcium 8.3 mg/dL (8.4-10.2); Carbon Dioxide 18 mmol/L (22-29); Chloride 111 mmol/L (96-108); Creatinine Clr Calc Pharmacy 17.9; Estimated Glomerular Filt Rate 16; Glucose Random 207 mg/dL (60-115); Potassium 5.5 mmol/L (3.3-5.1); Sodium 137 mmol/L (135-145)
[2023-03-21 11:13] LABS: Parathyroid Hormone Intact 158.2 pg/mL (8.7-77.1)
[2023-03-21] MEDS: Insulin Lispro 100 UNIT/ML 3 ML VIAL SUBCUT (11:16)
--- NOTE | 2023-03-21 13:35 | MHC.CM.PN ---
pt dcd home no services pordered by
== END 2023-03-21 13:08 | disposition home or self-care (01) | DRG 638 ==
LOC: HO.ED 01:08 → HO.EDOVER 01:59 → HO.S3 04:50
PROVIDERS: Internal Medicine Hypertension Specialist; Admitting Provider Student in an Organized Health Care Education/Training Program; Emergency Provider Emergency Medicine; Visit Provider Nurse Practitioner Acute Care
DX: E11.65 Type 2 diabetes mellitus with hyperglycemia (principal); E87.0 Hyperosmolality and hypernatremia; N17.9 Acute kidney failure, unspecified; K21.9 Gastro-esophageal reflux disease without esophagitis; F39 Unspecified mood [affective] disorder; I12.9 Hypertensive chronic kidney disease with stage 1 through stage 4 chronic kidney disease, or unspecified chronic kidney disease; N18.9 Chronic kidney disease, unspecified; E11.22 Type 2 diabetes mellitus with diabetic chronic kidney disease; D63.1 Anemia in chronic kidney disease; F01.50 Vascular dementia, unspecified severity, without behavioral disturbance, psychotic disturbance, mood disturbance, and anxiety; Z87.891 Personal history of nicotine dependence; Z86.718 Personal history of other venous thrombosis and embolism; Z86.73 Personal history of transient ischemic attack (TIA), and cerebral infarction without residual deficits; Z79.4 Long term (current) use of insulin; Z79.01 Long term (current) use of anticoagulants; Z79.02 Long term (current) use of antithrombotics/antiplatelets; Z79.899 Other long term (current) drug therapy
CPT/HCPCS: 36415; 74176; 80048; 80076; 81001; 82010; 82550; 82570; 82803; 82947; 83540; 83690; 83970; 84300; 85025; 87086; 99285; J7120

== ENCOUNTER → 2023-03-20 01:55 | Outpatient (BNV) | payer MEDICAID, SELFPAY | PROVIDERS: Admitting Provider Student in an Organized Health Care Education/Training Program; Emergency Provider Emergency Medicine; Visit Provider Student in an Organized Health Care Education/Training Program | DX: N18.9 Chronic kidney disease, unspecified (principal); I63.9 Cerebral infarction, unspecified; E11.69 Type 2 diabetes mellitus with other specified complication | CPT/HCPCS: 99222; 99239; 99499 ==

== ENCOUNTER → 2023-03-20 01:55 | Outpatient (BNV) | payer MEDICAID, SELFPAY | PROVIDERS: Admitting Provider Student in an Organized Health Care Education/Training Program; Emergency Provider Emergency Medicine; Visit Provider Internal Medicine Hypertension Specialist | DX: N18.9 Chronic kidney disease, unspecified (principal); I63.9 Cerebral infarction, unspecified; N25.89 Other disorders resulting from impaired renal tubular function | CPT/HCPCS: 99223 ==

== ENCOUNTER 2023-03-24 13:45 | Outpatient (AMB) | payer MEDICAID, SELFPAY ==
[2023-03-24 13:51] VITALS: BP 148/82; PULSE 88; O2SAT 99
--- NOTE | 2023-03-24 13:51 | HO.NEPHOV ---
HPI HPI Comments History of Present Illness Details 47-year-old male with pertinent history of CVA, DVT on Eliquis, mood disorder, vascular dementia, history of IV drugs (cocaine) use disorder, chronic kidney disease, gastroesophageal reflux disease, mood disorder who presents to the emergency department for evaluation of elevated blood glucose. Patient was discharged from a rehab facility in [place] after an acute CVA Recently seen in [facility] for GRIS[facility] Creatinine is trending down Accompanied by brother and mother Interpretor service was used [facility] Medical History (Updated 03/20/23 @ 03:22 by Chaya Cesar MD) Chronic kidney disease History of insulin dependent diabetes mellitus Mood disorder Vascular dementia CVA (cerebral vascular accident) DVT (deep venous thrombosis) Social History Household Members: Family Housing: Apartment Patient Tobacco Use Status: Former Tobacco user Tobacco use type: Cigarette e-Cigarette/Vaping Use: Never Used Second Hand Smoke Exposure: No Vital Signs 03/24/23 13:51 Height 55 ft Weight 132 lb 4 oz BMI 0.2 BP 148/82 H Blood Pressure Location Rt brachial Position Sitting Pulse 88 Pulse Source Pulse Oximeter Pulse Oximetry (%) 99 Oxygen Delivery Method Room Air Physical Exam Vital Signs: Last Vital Signs Pulse 88 03/24/23 13:51 BP 148/82 H 03/24/23 13:51 Pulse Ox 99 03/24/23 13:51 Oxygen Delivery Method Room Air 03/24/23 13:51 BMI result Body Mass Index 0.2 Const General: comfortable Nutritional Appearance: well nourished Orientation/consciousness: patient oriented x3 HEENT Head: No normal to inspection Mouth: moist mucous membranes Neck Neck: Yes supple and Yes no JVD Resp Auscultation: clear to auscultation bilaterally, no rales and rub present Cardio Jugular venous distension: no JVD Palpation: no palpable S3 and no palpable S4 Heart sounds: no rubs GI Palpation (GI): Soft to palpation and nontender Percussion: No Fluid wave present General: Yes no CVA tenderness Back/Spine/Pelvis Back: no CVA tenderness Skin General skin exam: no rashes or lesions noted Neuro General: patient oriented x3 Extrem General: Yes no pedal edema and No clubbing Assessment & Plan Assessment & Plan (1) Chronic kidney disease: Code(s): N18.9 - Chronic kidney disease, unspecified (2) Vascular dementia: Code(s): F01.50 - Vascular dementia, unspecified severity, without behavioral disturbance, psychotic disturbance, mood disturbance, and anxiety Plan 47 yr old man with CVA and h/o Cocaine abuse with renal failure Baseline unknown NO over s/s of uremia or fluid overload Probably has advanced CKD Anemia- r/o EPO deficiency Hyperchloremic metabolic acidosis - due to CKD Suggest obtain old records/baseline renal function from [place] Check Iron,TIBC,FErritin, PTH ( ordered) Urine protein: creatinine (ordered) Optimize BP Continue to avoid nephrotoxins Keep I > O Will arrange for EPO if needed At families request, will refer to psychiatry No absolute indication for dialysis Discussed possible need for dialysis in near future. Orders: Referrals Psychiatry Referral F39 - Unspecified mood [affective] disorder Coding Level of Care Code Est Pt Level 4 (61897) Diagnoses Chronic kidney disease N18.9 Vascular dementia F01.50 Results Reviewed Nephrology Results: Hgb 8.6 g/dl (14.0-18.0) L 03/20/23 WBC 7.4 X10*3/uL (4.8-10.8) 03/20/23 Plt Count 289 X10*3/uL (160-400) 03/20/23 Sodium 137 mmol/L (135-145) 03/21/23 Potassium 5.5 mmol/L (3.3-5.1) H 03/21/23 Chloride 111 mmol/L (96-108) H 03/21/23 Carbon Dioxide 18 mmol/L (22-29) L 03/21/23 BUN 70 mg/dL (9-16) H 03/21/23 Creatinine 4.11 mg/dL (0.5-1.4) H* 03/21/23 Calcium 8.3 mg/dL (8.4-10.2) L 03/21/23 PTH Intact 158.2 pg/mL (8.7-77.1) H 03/21/23 Urine Protein 100 (2+) mg/dL (Neg-Trace) H 03/20/23 Urine Creatinine 38.90 mg/dL 03/20/23
== END 2023-03-24 14:22 | disposition home or self-care (01) ==
PROVIDERS: Visit Provider Internal Medicine Hypertension Specialist
DX: N18.9 Chronic kidney disease, unspecified (principal); F01.50 Vascular dementia, unspecified severity, without behavioral disturbance, psychotic disturbance, mood disturbance, and anxiety
CPT/HCPCS: 99214

== ENCOUNTER → 2023-03-24 13:45 | Outpatient (BNVA) | payer MEDICAID, SELFPAY | PROVIDERS: Visit Provider Internal Medicine Hypertension Specialist | DX: N18.9 Chronic kidney disease, unspecified (principal); F01.50 Vascular dementia, unspecified severity, without behavioral disturbance, psychotic disturbance, mood disturbance, and anxiety; D64.9 Anemia, unspecified; Z86.73 Personal history of transient ischemic attack (TIA), and cerebral infarction without residual deficits | CPT/HCPCS: 99212 ==

== ENCOUNTER 2023-03-30 18:15 | Inpatient (IN) | payer MEDICAID, SELFPAY ==
--- NOTE | ~2023-03-30 | XR_ITS ---
EXAMINATION: XR chest 1V CLINICAL INFORMATION: Reason for Exam hypoxia COMPARISON: 1 day earlier TECHNIQUE: Single portable frontal view. Tubes and lines: None Lungs and pleura: Redemonstration of diffuse pulmonary opacification diffuse infiltrates, slightly worsened.. There are bilateral subpulmonic pleural effusions right more than left. Heart and mediastinum: The mediastinum is within normal limits.. Bones/soft tissue: Skeletal structures included are normal for patient's age. XR/XR chest 1V IMPRESSION: 1. Worsening diffuse pulmonary opacification diffuse infiltrates. 2. Bilateral subpulmonic pleural effusions right more than left.
--- NOTE | ~2023-03-30 | XR_ITS ---
EXAMINATION: XR CHEST CLINICAL INFORMATION: Rhonchi. COMPARISON: Chest radiograph 06/15/2013. TECHNIQUE: Frontal view of the chest was obtained. FINDINGS: Extensive multifocal patchy and consolidative airspace opacities with fatty sparing of the subpleural margins. No significant pleural effusion. No pneumothorax. Heart is mildly enlarged. No acute osseous findings. XR/XR chest 1V IMPRESSION: Extensive multifocal airspace opacities with relative sparing of the subpleural lung, nonspecific differential considerations include pneumonia, alveolar hemorrhage, drug toxicity, severe inflammatory response, among others. Recommend close attention on follow-up.
--- NOTE | ~2023-03-30 | US_ITS ---
EXAMINATION: US VENOUS ULTRASOUND WITH DOPPLER LOWER EXTREMITY, RIGHT CLINICAL INFORMATION: Calf pain. COMPARISON: None available. TECHNIQUE: Ultrasound of the deep veins is performed from the hip to the calf with compression sonography and color and pulse Doppler assessment. Spectral analysis with color-flow imaging is performed. FINDINGS: There is normal venous compression and respiratory variation and augmented flow. The visualized common femoral vein, superficial femoral vein, profunda femoral vein, popliteal vein, and the trifurcation region shows no evidence of deep venous thrombosis. There is no significant popliteal fossa cyst. Prominent right groin lymph nodes are noted measuring up to 1.7 cm. If the patient's symptoms persist, followup ultrasound in 5 days 7 days might be of value to exclude proximal propagation from a non-visualized calf vein. US/US venous duplex LE RT IMPRESSION: No DVT demonstrated in the right lower extremity.
--- NOTE | ~2023-03-30 | US_ITS ---
EXAMINATION: US RETROPERITONEAL LIMITED (RENAL ONLY) CLINICAL INFORMATION: Renal failure. COMPARISON: None available. TECHNIQUE: Bilateral renal ultrasound performed. FINDINGS: RIGHT KIDNEY: 11.4 x 4 by 5.4 cm (SAG x AP x TRV). The kidney is normal in size, and contour. The right kidney is of mildly increased parenchymal echotexture. Renal cortical thickness is normal. No calculi or focal parenchymal lesions. No hydronephrosis. LEFT KIDNEY: 11 x 5.4 x 5.1 cm (SAG x AP x TRV). The kidney is normal in size, and contour. The left kidney is of mildly increased parenchymal echotexture Renal cortical thickness is normal. No calculi or focal parenchymal lesions. No hydronephrosis. US/US renal BI IMPRESSION: 1. There is mild increase in renal parenchymal echotexture, suggests medical renal disease. 2. No renal mass, calculus or hydronephrosis is seen bilaterally.
[2023-03-30 18:39] VITALS: BP 155/95; PULSE 88; RESP 18; TEMP 36.6; O2SAT 96; BMI 31.3
--- NOTE | 2023-03-30 18:45 | ED.GENADULT ---
HPI - General Adult General Chief complaint: Extremity Injury, Lower Stated complaint: leg pain Time Seen by Provider: 03/30/23 22:19 Source: patient and RN notes reviewed Mode of arrival: ambulatory Limitations: no limitations History of Present Illness HPI narrative: This is a 47-year-old citizen of [place] speaking male with pertinent history of CVA, DVT on Eliquis, mood disorder, vascular dementia, history of IV drugs (cocaine) use disorder - in recovery x 11 years, chronic kidney disease, gastroesophageal reflux disease, mood disorder who presents to the emergency department for evaluation of right calf heaviness x 1.5 hours. Patient states that he is currently feeling well. No current complaints. No headaches, dizziness, chest pain, shortness of breath, abdominal pain, nausea, vomiting or diarrhea. No other complaints or concerns at this time. MD complaint: Leg pain, resolved Relieving factors: none Exacerbating factors: none Associated symptoms: denies other symptoms Treatments prior to arrival: none Related Data Home Medications Medication Instructions Recorded Confirmed acetaminophen 325 mg tablet 650 mg PO Q4H PRN Fever Or Pain 03/20/23 03/20/23 apixaban 2.5 mg tablet (Eliquis) 2.5 mg PO BID 03/20/23 03/20/23 atorvastatin 80 mg tablet 80 mg PO BEDTIME 03/20/23 03/20/23 clopidogrel 75 mg tablet 75 mg PO DAILY 03/20/23 03/20/23 donepezil 5 mg tablet (Aricept) 5 mg PO BEDTIME 03/20/23 03/20/23 ferrous sulfate 325 mg (65 mg 325 mg PO DAILY 03/20/23 03/20/23 iron) tablet folic acid 1 mg tablet 1 mg PO DAILY 03/20/23 03/20/23 melatonin 3 mg tablet 6 mg PO BEDTIME 03/20/23 03/20/23 midodrine 5 mg tablet 5 mg PO TID 03/20/23 03/20/23 mirtazapine 30 mg tablet (Remeron) 30 mg PO BEDTIME 03/20/23 03/20/23 multivitamin with minerals 1 tab PO DAILY 03/20/23 03/20/23 pantoprazole 40 mg tablet,delayed 40 mg PO QAM 03/20/23 03/20/23 release sennosides 8.6 mg tablet (senna) 8.6 mg PO QPM 03/20/23 03/20/23 sodium bicarbonate 650 mg tablet 650 mg PO TID 03/20/23 03/20/23 Previous Rx's Medication Instructions Recorded insulin glargine 100 unit/mL (3 18 unit (0.18 mL) subcut BEDTIME 03/21/23 mL) subcutaneous pen #15 mL insulin lispro 100 unit/mL 1 sliding scale dose subcut 03/21/23 subcutaneous pen (Humalog KwikPen USEASDIRECTD #15 mL (U-100) Insulin) Allergies Allergy/AdvReac Type Severity Reaction Status Date / Time No Known Allergies Allergy Verified 03/30/23 18:39 Review of Systems Review of Systems: Yes all other systems are reviewed and are negative Constitutional: Constitutional: Reports as per [facility] Past Medical History Medical History Hyperglycemia Elevated serum creatinine Chronic kidney disease History of insulin dependent diabetes mellitus Mood disorder Vascular dementia CVA (cerebral vascular accident) DVT (deep venous thrombosis) Social History Social History Household Members: Family Housing: Apartment Patient Tobacco Use Status: Former Tobacco user Tobacco use type: Cigarette e-Cigarette/Vaping Use: Never Used Second Hand Smoke Exposure: No Advance Directives: No Advance Directives Information Provided: No Physical Exam ED Vital Signs: Vital Signs - 24 hr 03/30/23 18:39 03/30/23 20:49 03/30/23 23:16 Temperature 97.8 F 98.6 F 98.6 F Pulse Rate 88 91 90 Respiratory Rate 18 15 18 Blood Pressure 155/95 H 167/97 H 147/82 H Pulse Oximetry 96 98 95 Oxygen Delivery Method Room Air Room Air Room Air BMI result Body Mass Index 31.3 Const General: cooperative, comfortable and no acute distress Orientation/consciousness: patient oriented x3 Limitations: no limitations HENMT Head: Yes normal to inspection, Yes normocephalic and Yes atraumatic Ears: hearing grossly normal bilaterally General nose exam: Normal external nose present Face and sinus: Yes normal facial exam Mouth: Normal oral and palatal mucosa present, oropharynx normal and moist mucous membranes Throat: Yes posterior oropharynx normal Eyes General: appearance normal, both eyes and all related structures Eyelids: Yes eyelids normal Conjunctivae: conjunctivae normal Sclerae: sclerae normal Pupils: Equal, round and reactive pupils present EOM: EOMs intact bilaterally Neck Neck: Yes normal visual inspection, Yes full ROM and Yes no lymphadenopathy Lymphatic: no lymphadenopathy noted Chest Chest palpation & inspection: normal inspection of the chest Resp Effort & Inspection: normal respiratory effort and able to speak in complete sentences Auscultation: clear to auscultation bilaterally, no crackles, no rales, no rhonchi and no wheezes Cardio Rate: regular rate Rhythm: regular rhythm Heart sounds: S1 normal heart sound present and S2 normal heart sound present GI Inspection: Yes normal to inspection Skin General skin exam: no rashes or lesions noted Trauma: no lacerations or abrasions Wounds: no wounds Neuro General: patient oriented x3 and moves all extremities Cranial nerves: Yes Equal, round and reactive pupils present Extrem Other: Calf is nontender, nonedematous, nonerythematous, DP pulse 2 +, full range of motion of the right knee and ankle. General: Yes normal to inspection Right upper extremity: normal to inspection Left upper extremity: normal to inspection Right lower extremity: normal to inspection Left lower extremity: normal to inspection Course Course Course Narrative: Patient complains of left leg and foot tingling as well as pain in the left leg, he does have renal failure Labs are ordered, he can walk and bear weight which he says is at his baseline This is rapid medical exam done in triage pending full evaluation and dispo from ER provider Call from lab for potassium of 5.8 and bicarb of 9 EKG ordered Discussed case with attending physician kojo who advised initiate 10 mg of Lokelma Spoke with charge nurse and patient to be placed on monitor Reevaluation(s) Reevaluation #1: VBG significant for pH 7.28 HCO3 10. Chloride 116, BUN 73, creatinine 4.04 consistent with hyperchloremic metabolic acidosis secondary to DKA. Spoke to Dr. Chucho Bates, from Nephrology, recommending D5w 1L with 150 mEq NaHCO3 @ 100/hr. Recommending renal ultrasound after discontinuing PO NaHCO3 which he has not received in the ER today. Recommends labs in the morning and Dr. Chucho Bates will see in the morning. Discussed case with Dr. Cesar, transfer of care initiated. Time: 00:25 Medications Administered Discontinued Medications Generic Name Dose Route Start Last Admin Trade Name Freq PRN Reason Stop Dose Admin Insulin Glargine 10 unit 03/31/23 00:38 03/31/23 00:53 Insulin Glargine,Hum.Rec.Anlog 100 Unit/Ml 10 Ml Vial SUBCUT 03/31/23 00:39 10 unit ONCE ONE Administration Sodium Zirconium Cyclosilicate 10 gm 03/30/23 19:50 03/30/23 20:49 Sodium Zirconium Cyclosilicate 10 Gm Powd.Pack PO 03/30/23 19:51 10 gm ONCE ONE Administration Medical Decision Making Medical Decision Making [facility] Narrative: This is a 47-year-old citizen of [place] speaking male with pertinent history of CVA, DVT on Eliquis, mood disorder, vascular dementia, history of IV drugs (cocaine) use disorder - in recovery x 11 years, chronic kidney disease, gastroesophageal reflux disease, mood disorder who presents to the emergency department for evaluation of right calf heaviness x 1.5 hours. Patient was discharged from a rehab facility in [place] after an acute CVA which occurred on 05/04/2023. He was brought to [place] to be closer to family. He was seen in the emergency department on 03/20/2023 due to elevated blood sugar and weak legs. He was admitted for hyperglycemia and acute kidney failure. He was discharged on March 21, 2023 with follow-up with Nephrology. He was seen by Dr. Steinberg on 03/24/2023 we discussed possible need for dialysis in the near future however was not initiated time. Today's visit, he was only complaining of an episode of calf heaviness which lasted for an hour and a half and resolved on its own. Calf is nontender, nonedematous however given history of DVT, will obtain ultrasound. Labs were ordered out in triage, significant for hyperkalemia at 5.8 as well as hyperchloremia at 116 and CO2 at 9. VBG was added as well as lactic acid. Plan: Labs, ultrasound, UA Differential Diagnosis Differential Diagnoses: The differential diagnosis associated with the presentation includes GRISEL, chronic kidney disease, hyperchloremic metabolic acidosis, electrolyte derangement, DVT Consult Healthcare Provider Management of the patient was discussed with: Hospitalist and Perforator See course Lab Data [facility] Lab Attestation statement: I reviewed the patient's lab results. No leukocytosis, normocytic anemia noted at 9.1/29.8 similar to previous. pH 7.28, PCO2 21, HCO3 10, K 5.8, Chloride 116, Carbon dioxide 9, BUN 73, Creatinine 4.04 unclear what patient's baseline is as patient is new to the area. 03/30/23 19:07 03/30/23 19:07 Labs: Lab Results 03/30/23 03/30/23 03/30/23 Range/Units 19:07 22:59 23:06 WBC 10.4 (4.8-10.8) X10*3/uL RBC 3.35 L (4.60-5.80) X10*6/uL Hgb 9.1 L (14.0-18.0) g/dl Hct 29.8 L (42.0-52.0) % MCV 89.0 (80.0-98.0) fL MCH 27.2 (27.0-33.0) pg MCHC 30.5 L (31.0-36.0) g/dl RDW 16.1 H (11.0-16.0) % Plt Count 144 L D (160-400) X10*3/uL MPV 10.9 (9.4-12.4) fL Immature Gran % (Auto) 0.3 (0.0-0.4) % Neut % (Auto) 65.0 (45-73) % Lymph % (Auto) 23.6 (20-40) % [place] % (Auto) 6.4 (2-11) % Eos % (Auto) 4.1 H (0-4) % Baso % (Auto) 0.6 (0-2) % Lymph # (Auto) 2.5 (1.2-4.9) X10*3/uL [place] # (Auto) 0.7 (0.1-1.2) X10*3/uL Eos # (Auto) 0.4 (0.0-0.4) X10*3/uL Baso # (Auto) 0.1 (0.0-0.2) X10*3/uL Abs Immat Gran (auto) 0.03 (0.00-0.03) X10*3/uL Absolute Neuts (auto) 6.8 (2.0-8.3) x10*3/uL Absolute Nucleated RBC 0.000 (0.0-0.012) X10*3/uL Nucleated RBC % (auto) 0.0 (0.0-0.2) /100WBC Smear Tech's Comments VERIFIED VBG pH 7.28 L (7.32-7.43) VBG pCO2 21 mmHg VBG pO2 182 mmHg VBG HCO3 10 L (22-26) mmol/L VBG O2 Saturation 98.0 % VBG Base Excess -14.2 mmol/L Sodium 138 (135-145) mmol/L Potassium 5.8 H (3.3-5.1) mmol/L Chloride 116 H (96-108) mmol/L Carbon Dioxide 9 L* D (22-29) mmol/L Anion Gap 19 (12-20) BUN 73 H (9-16) mg/dL Creatinine 4.04 H* (0.5-1.4) mg/dL Estim Creat Clear Calc 22.4 Estimated GFR 16 Random Glucose 168 H (60-115) mg/dL Lactic Acid 0.7 (0.5-2.0) mmol/L Calcium 8.8 D (8.4-10.2) mg/dL Magnesium 2.1 (1.6-2.6) mg/dL Total Bilirubin 0.4 (0.0-1.0) mg/dL Direct Bilirubin 0.2 (0.0-0.5) mg/dL AST 29 (5-37) U/L ALT 28 (0-40) U/L Alkaline Phosphatase 152 H (39-117) U/L Total Protein 7.2 (6.5-8.0) g/dL Albumin 3.9 (3.5-5.0) g/dL Radiology Impression Discussion of test interpretation with radiology: I have reviewed the radiologist's reading. Radiologist Impression: EXAMINATION: US VENOUS ULTRASOUND WITH DOPPLER LOWER EXTREMITY, RIGHT CLINICAL INFORMATION: Calf pain. COMPARISON: None available. TECHNIQUE: Ultrasound of the deep veins is performed from the hip to the calf with compression sonography and color and pulse Doppler assessment. Spectral analysis with color-flow imaging is performed. FINDINGS: There is normal venous compression and respiratory variation and augmented flow. The visualized common femoral vein, superficial femoral vein, profunda femoral vein, popliteal vein, and the trifurcation region shows no evidence of deep venous thrombosis. There is no significant popliteal fossa cyst. Prominent right groin lymph nodes are noted measuring up to 1.7 cm. If the patient's symptoms persist, followup ultrasound in 5 days 7 days might be of value to exclude proximal propagation from a non-visualized calf vein. US/US venous duplex LE RT IMPRESSION: No DVT demonstrated in the right lower extremity. Dictated By: Robert Garcia External Record Review External record reviewed: Inpatient record, Office record, Outpatient record and Prior outpatient labs Chronic Conditions Patient?s care impacted by: Other (CVA, DVT on Eliquis) Social Determinants Patient?s care significantly limited by Social Determinants of Health including: Alcoholism and drug addiction in family Critical Care Time Critical Care Time Critical Care Time: Yes Total Critical Care Time: 40 Attestation: I have personally provided critical care time exclusive of time spent on separately billable procedures. Time includes review of lab data, radiology results, discussion with consultants, and monitoring for potential decompensation. Intervention performed as documented. Discharge Plan Discharge Clinical Impression: CKD (chronic kidney disease), Hyperchloremic metabolic acidosis, GRISEL (acute kidney injury) Patient Disposition: Admitted As Inpatient
[2023-03-30 19:14] LABS: Basophils Absolute Auto 0.1 X10*3/uL (0.0-0.2); Basophils Percent Auto 0.6 % (0-2); Eosinophils Absolute Auto 0.4 X10*3/uL (0.0-0.4); Eosinophils Percent Auto 4.1 % (0-4); Hematocrit 29.8 % (42.0-52.0); Hemoglobin 9.1 g/dl (14.0-18.0); Imm Gran Abs Auto 0.03 X10*3/uL (0.00-0.03); Imm Gran Pct Auto 0.3 % (0.0-0.4); Lymphocytes Absolute Auto 2.5 X10*3/uL (1.2-4.9); Lymphocytes Percent Auto 23.6 % (20-40); MANUAL DIFF FLAG SCAN; Mean Corpuscular HGB Conc 30.5 g/dl (31.0-36.0); Mean Corpuscular Hemoglobin 27.2 pg (27.0-33.0); Mean Platelet Volume 10.9 fL (9.4-12.4); Monocytes Absolute Auto 0.7 X10*3/uL (0.1-1.2); Monocytes Percent Auto 6.4 % (2-11); Neutrophils Absolute Auto 6.8 x10*3/uL (2.0-8.3); PLT CLUMP 1; Red Blood Count 3.35 X10*6/uL (4.60-5.80); Red Cell Distribution Width 16.1 % (11.0-16.0); SCAN SMEAR FLAG 1
[2023-03-30 19:33] LABS: Platelet Count 144 X10*3/uL (160-400); SLIDE REVIEW VERIFIED; White Blood Count 10.4 X10*3/uL (4.8-10.8)
[2023-03-30 19:38] LABS: Alanine Aminotransferase 28 U/L (0-40); Albumin Level 3.9 g/dL (3.5-5.0); Alkaline Phosphatase 152 U/L (39-117); Anion Gap 19 (12-20); Aspartate Amino Transferase 29 U/L (5-37); Bilirubin Direct 0.2 mg/dL (0.0-0.5); Bilirubin Total 0.4 mg/dL (0.0-1.0); Blood Urea Nitrogen 73 mg/dL (9-16); Calcium 8.8 mg/dL (8.4-10.2); Carbon Dioxide 9 mmol/L (22-29); Chloride 116 mmol/L (96-108); Creatinine Clr Calc Pharmacy 22.4; Estimated Glomerular Filt Rate 16; Glucose Random 168 mg/dL (60-115); Magnesium 2.1 mg/dL (1.6-2.6); Potassium 5.8 mmol/L (3.3-5.1); Sodium 138 mmol/L (135-145); Total Protein 7.2 g/dL (6.5-8.0)
--- NOTE | 2023-03-30 19:42 | ECG_ITS ---
Test Reason : hyperkalemia Blood Pressure : / mmHG Vent. Rate : 089 BPM Atrial Rate : 089 BPM P-R Int : 106 ms QRS Dur : 076 ms QT Int : 378 ms P-R-T Axes : 014 026 093 degrees QTc Int : 459 ms Sinus rhythm with short NC Nonspecific ST and T wave abnormality Abnormal ECG When compared to the previous EKG of No significant changes seen Referred By: Thong Zhang Electronically Signed By:Otis Robles
[2023-03-30 20:49] VITALS: BP 167/97; PULSE 91; RESP 15; TEMP 37; O2SAT 98
[2023-03-30] MEDS: Sodium Zirconium Cyclosilicate 10 GM POWD.PACK PO (20:49)
--- NOTE | 2023-03-30 22:21 | ED_ITS ---
HPI - General Adult General Chief complaint: Extremity Injury, Lower Stated complaint: leg pain Time Seen by Provider: 03/30/23 22:19 Related Data Home Medications Medication Instructions Recorded Confirmed acetaminophen 325 mg tablet 650 mg PO Q4H PRN Fever Or Pain 03/20/23 03/20/23 apixaban 2.5 mg tablet (Eliquis) 2.5 mg PO BID 03/20/23 03/20/23 atorvastatin 80 mg tablet 80 mg PO BEDTIME 03/20/23 03/20/23 clopidogrel 75 mg tablet 75 mg PO DAILY 03/20/23 03/20/23 donepezil 5 mg tablet (Aricept) 5 mg PO BEDTIME 03/20/23 03/20/23 ferrous sulfate 325 mg (65 mg 325 mg PO DAILY 03/20/23 03/20/23 iron) tablet folic acid 1 mg tablet 1 mg PO DAILY 03/20/23 03/20/23 melatonin 3 mg tablet 6 mg PO BEDTIME 03/20/23 03/20/23 midodrine 5 mg tablet 5 mg PO TID 03/20/23 03/20/23 mirtazapine 30 mg tablet (Remeron) 30 mg PO BEDTIME 03/20/23 03/20/23 multivitamin with minerals 1 tab PO DAILY 03/20/23 03/20/23 pantoprazole 40 mg tablet,delayed 40 mg PO QAM 03/20/23 03/20/23 release sennosides 8.6 mg tablet (senna) 8.6 mg PO QPM 03/20/23 03/20/23 sodium bicarbonate 650 mg tablet 650 mg PO TID 03/20/23 03/20/23 Previous Rx's Medication Instructions Recorded insulin glargine 100 unit/mL (3 18 unit (0.18 mL) subcut BEDTIME 03/21/23 mL) subcutaneous pen #15 mL insulin lispro 100 unit/mL 1 sliding scale dose subcut 03/21/23 subcutaneous pen (Humalog KwikPen USEASDIRECTD #15 mL (U-100) Insulin) Allergies Allergy/AdvReac Type Severity Reaction Status Date / Time No Known Allergies Allergy Verified 03/30/23 18:39 [facility] Past Medical History Medical History (Updated 03/29/23 @ 00:01 by Background Rachel) Hyperglycemia Elevated serum creatinine Chronic kidney disease History of insulin dependent diabetes mellitus Mood disorder Vascular dementia CVA (cerebral vascular accident) DVT (deep venous thrombosis) Social History Social History Household Members: Family Housing: Apartment Patient Tobacco Use Status: Former Tobacco user Tobacco use type: Cigarette e-Cigarette/Vaping Use: Never Used Second Hand Smoke Exposure: No Advance Directives: No Advance Directives Information Provided: No Physical Exam ED Vital Signs: Vital Signs - 24 hr 03/30/23 18:39 03/30/23 20:49 Temperature 97.8 F 98.6 F Pulse Rate 88 91 Respiratory Rate 18 15 Blood Pressure 155/95 H 167/97 H Pulse Oximetry 96 98 Oxygen Delivery Method Room Air Room Air BMI result Body Mass Index 31.3 Medications Administered Discontinued Medications Generic Name Dose Route Start Last Admin Trade Name Freq PRN Reason Stop Dose Admin Sodium Zirconium Cyclosilicate 10 gm 03/30/23 19:50 03/30/23 20:49 Sodium Zirconium Cyclosilicate 10 Gm Powd.Pack PO 03/30/23 19:51 10 gm ONCE ONE Administration Medical Decision Making Lab Data 03/30/23 19:07 03/30/23 19:07 Labs: Lab Results 03/30/23 Range/Units 19:07 WBC 10.4 (4.8-10.8) X10*3/uL RBC 3.35 L (4.60-5.80) X10*6/uL Hgb 9.1 L (14.0-18.0) g/dl Hct 29.8 L (42.0-52.0) % MCV 89.0 (80.0-98.0) fL MCH 27.2 (27.0-33.0) pg MCHC 30.5 L (31.0-36.0) g/dl RDW 16.1 H (11.0-16.0) % Plt Count 144 L D (160-400) X10*3/uL MPV 10.9 (9.4-12.4) fL Immature Gran % (Auto) 0.3 (0.0-0.4) % Neut % (Auto) 65.0 (45-73) % Lymph % (Auto) 23.6 (20-40) % [place] % (Auto) 6.4 (2-11) % Eos % (Auto) 4.1 H (0-4) % Baso % (Auto) 0.6 (0-2) % Lymph # (Auto) 2.5 (1.2-4.9) X10*3/uL [place] # (Auto) 0.7 (0.1-1.2) X10*3/uL Eos # (Auto) 0.4 (0.0-0.4) X10*3/uL Baso # (Auto) 0.1 (0.0-0.2) X10*3/uL Abs Immat Gran (auto) 0.03 (0.00-0.03) X10*3/uL Absolute Neuts (auto) 6.8 (2.0-8.3) x10*3/uL Absolute Nucleated RBC 0.000 (0.0-0.012) X10*3/uL Nucleated RBC % (auto) 0.0 (0.0-0.2) /100WBC Smear Tech's Comments VERIFIED Sodium 138 (135-145) mmol/L Potassium 5.8 H (3.3-5.1) mmol/L Chloride 116 H (96-108) mmol/L Carbon Dioxide 9 L* D (22-29) mmol/L Anion Gap 19 (12-20) BUN 73 H (9-16) mg/dL Creatinine 4.04 H* (0.5-1.4) mg/dL Estim Creat Clear Calc 22.4 Estimated GFR 16 Random Glucose 168 H (60-115) mg/dL Calcium 8.8 D (8.4-10.2) mg/dL Magnesium 2.1 (1.6-2.6) mg/dL Total Bilirubin 0.4 (0.0-1.0) mg/dL Direct Bilirubin 0.2 (0.0-0.5) mg/dL AST 29 (5-37) U/L ALT 28 (0-40) U/L Alkaline Phosphatase 152 H (39-117) U/L Total Protein 7.2 (6.5-8.0) g/dL Albumin 3.9 (3.5-5.0) g/dL Discharge Plan Discharge Prescriptions: No Action atorvastatin 80 mg Tablet 80 mg PO BEDTIME sennosides [senna] 8.6 mg Tablet 8.6 mg PO QPM acetaminophen 325 mg Tablet 650 mg PO Q4H PRN (Reason: Fever Or Pain) donepezil [Aricept] 5 mg Tablet 5 mg PO BEDTIME midodrine 5 mg Tablet 5 mg PO TID Rx Instructions: do not give last dose of day after 6PM or within 4 hrs of bedtime hold for SBP >140 and DBP >90 melatonin 3 mg Tablet 6 mg PO BEDTIME clopidogrel 75 mg Tablet 75 mg PO DAILY sodium bicarbonate 650 mg Tablet 650 mg PO TID pantoprazole 40 mg Tablet,Delayed Release (Dr/Ec) 40 mg PO QAM mirtazapine [Remeron] 30 mg Tablet 30 mg PO BEDTIME ferrous sulfate 325 mg (65 mg iron) Tablet 325 mg PO DAILY folic acid 1 mg Tablet 1 mg PO DAILY multivitamin with minerals Tablet 1 tab PO DAILY Eliquis 2.5 mg Tablet 2.5 mg PO BID insulin lispro [Humalog KwikPen Insulin] 100 unit/mL Insulin Pen 1 sliding scale dose SUBCUT USEASDIRECTD Qty: 15 0RF Protocol: Insulin Correction Scale Less than or equal to 110 ---- Give (units): 0 111 to 150 Give (units): 0 151 to 200 Give (units): 2 201 to 250 Give (units): 4 251 to 300 Give (units): 6 301 to 350 Give (units): 8 Greater than 350 Give (units): 10 Call MD if Blood Glucose > : 450 insulin glargine 100 unit/mL (3 mL) Insulin Pen 18 unit SUBCUT BEDTIME Qty: 15 0RF
[2023-03-30 23:11] LABS: Venous Blood Gas Refer to POC result
[2023-03-30 23:12] LABS: VBG Base Excess -14.2 mmol/L; VBG HCO3 10 mmol/L (22-26); VBG pCO2 21 mmHg; VBG pH 7.28 (7.32-7.43); VBG pO2 182 mmHg
[2023-03-30 23:16] VITALS: BP 147/82; PULSE 90; RESP 18; TEMP 37; O2SAT 95
[2023-03-30 23:17] LABS: Lactic Acid 0.7 mmol/L (0.5-2.0)
--- NOTE | 2023-03-31 00:41 | P.HPHOSP_ITS ---
History of Present Illness Date of Service: 03/31/23 Chief Complaint: Leg pain This is a 47-year-old male with pertinent history of CVA, DVT on Eliquis, mood disorder, vascular dementia, history of IV drugs (cocaine) use disorder, chronic kidney disease, gastroesophageal reflux disease, mood disorder who presents to the emergency department for evaluation of right leg discomfort. Patient states he started having right leg tingling and numbness on the day of presentation. It had resolved during my evaluation. Patient recently moved about 2 weeks ago from [place] to [place] to be closer to family. He denies loose stools, abdominal discomfort, nausea, vomiting. He has no complaints at the time of my evaluation. Patient's bicarb was found to be low and Nephrology was consulted who requested admission and initiating patient on bicarb fluids. No fever, chills, chest discomfort, palpitations, shortness of breath, changes in urinary or bowel habits. Review of Systems 2 Constitutional: Constitutional: Reports no additional constitutional complaints Cardiovascular: Cardiovascular: Reports no additional cardiovascular complaints Respiratory: Respiratory: Reports no additional respiratory complaints Gastrointestinal: Gastrointestinal: Reports no additional gastrointestinal complaints Genitourinary: Genitourinary: Reports no additional male genitourinary complaints [facility] Medical History Hyperglycemia Elevated serum creatinine Chronic kidney disease History of insulin dependent diabetes mellitus Mood disorder Vascular dementia CVA (cerebral vascular accident) DVT (deep venous thrombosis) Pertinent family history: No family history of early CAD Social History Household Members: Family Housing: Apartment Patient Tobacco Use Status: Former Tobacco user Tobacco use type: Cigarette e-Cigarette/Vaping Use: Never Used Second Hand Smoke Exposure: No Advance Directives: No Advance Directives Information Provided: No Meds Allergies Allergy/AdvReac Type Severity Reaction Status Date / Time No Known Allergies Allergy Verified 03/30/23 18:39 Active Medications: Current Medications Acetaminophen (Acetaminophen 325 Mg Tablet) 650 mg PO Q6H PRN PRN Reason: Pain, Mild (Pain Scale 1-3) Sodium Bicarbonate 150 meq/ (Dextrose) 1,000 mls @ 100 mls/hr IV .Q10H JETHRO Insulin Glargine (Insulin Glargine,Hum.Rec.Anlog 100 Unit/Ml 10 Ml Vial) 10 unit SUBCUT ONCE ONE Stop: 03/31/23 00:39 Melatonin (Melatonin 3 Mg Tablet) 6 mg PO BEDTIME PRN PRN Reason: Insomnia Ondansetron HCl (Ondansetron Hcl 4 Mg/2 Ml Vial) 4 mg IVPUSH Q8H PRN PRN Reason: Nausea and Vomiting Sodium Chloride (0.9 % Sodium Chloride Flush 3 Ml Syringe) 3 ml IVFLUSH [facility] Medications Medication Instructions Recorded Confirmed Last Taken Type acetaminophen 325 mg tablet 650 mg PO Q4H PRN Fever Or Pain 03/20/23 03/20/23 Unknown History apixaban 2.5 mg tablet (Eliquis) 2.5 mg PO BID 03/20/23 03/20/23 Unknown History atorvastatin 80 mg tablet 80 mg PO BEDTIME 03/20/23 03/20/23 Unknown History clopidogrel 75 mg tablet 75 mg PO DAILY 03/20/23 03/20/23 Unknown History donepezil 5 mg tablet (Aricept) 5 mg PO BEDTIME 03/20/23 03/20/23 Unknown History ferrous sulfate 325 mg (65 mg 325 mg PO DAILY 03/20/23 03/20/23 Unknown History iron) tablet folic acid 1 mg tablet 1 mg PO DAILY 03/20/23 03/20/23 Unknown History melatonin 3 mg tablet 6 mg PO BEDTIME 03/20/23 03/20/23 Unknown History midodrine 5 mg tablet 5 mg PO TID 03/20/23 03/20/23 Unknown History mirtazapine 30 mg tablet (Remeron) 30 mg PO BEDTIME 03/20/23 03/20/23 Unknown History multivitamin with minerals 1 tab PO DAILY 03/20/23 03/20/23 Unknown History pantoprazole 40 mg tablet,delayed 40 mg PO QAM 03/20/23 03/20/23 Unknown History release sennosides 8.6 mg tablet (senna) 8.6 mg PO QPM 03/20/23 03/20/23 Unknown History sodium bicarbonate 650 mg tablet 650 mg PO TID 03/20/23 03/20/23 Unknown History Physical Exam 2 Vital Signs and Narrative: Vital Signs: Last Vital Signs Temp 98.6 F 03/30/23 23:16 Pulse 90 03/30/23 23:16 Resp 18 03/30/23 23:16 BP 147/82 H 03/30/23 23:16 Pulse Ox 95 03/30/23 23:16 O2 Del Method Room Air 03/30/23 23:16 BMI result Body Mass Index 31.3 Middle-aged male lying in bed in no distress Neck supple, no JVD Regular rate and rhythm, S1-S2 heard Regular breath sounds bilaterally, no wheezing or crackles appreciated Abdomen soft nontender, no guarding, no rigidity Patient is awake, alert and oriented to self, place, time and person ; no focal motor deficit Psych: Normal mood No pedal edema Results Labs 03/30/23 19:07 03/30/23 19:07 Labs: Laboratory Results - last 24 hr 03/30/23 03/30/23 03/30/23 19:07 22:59 23:06 MCV 89.0 MCH 27.2 MCHC 30.5 L RDW 16.1 H Plt Count 144 L D MPV 10.9 Immature Gran % (Auto) 0.3 Neut % (Auto) 65.0 Lymph % (Auto) 23.6 Bowman % (Auto) 6.4 Eos % (Auto) 4.1 H Baso % (Auto) 0.6 Lymph # (Auto) 2.5 Bowman # (Auto) 0.7 Eos # (Auto) 0.4 Baso # (Auto) 0.1 Abs Immat Gran (auto) 0.03 Absolute Neuts (auto) 6.8 Absolute Nucleated RBC 0.000 Nucleated RBC % (auto) 0.0 Smear Tech's Comments VERIFIED VBG pH 7.28 L VBG pCO2 21 VBG pO2 182 VBG HCO3 10 L VBG O2 Saturation 98.0 VBG Base Excess -14.2 Anion Gap 19 Estim Creat Clear Calc 22.4 Estimated GFR 16 Random Glucose 168 H Lactic Acid 0.7 Calcium 8.8 D Magnesium 2.1 Total Bilirubin 0.4 Direct Bilirubin 0.2 AST 29 ALT 28 Alkaline Phosphatase 152 H Total Protein 7.2 Albumin 3.9 Imaging Radiologist's Impressions: Impressions Venous Duplex 03/30/23 22:56 IMPRESSION: No DVT demonstrated in the right lower extremity. Assessment and Plan (1) Hyperchloremic metabolic acidosis: Status: Acute Plan This is a 47-year-old male with pertinent history of CVA, DVT on Eliquis, mood disorder, vascular dementia, history of IV drugs (cocaine) use disorder, chronic kidney disease, gastroesophageal reflux disease, mood disorder who presents to the emergency department for evaluation of right leg discomfort. #. Metabolic acidosis, hyperchloremic non-anion gap: Patient initiated on bicarb fluids. Consulted Nephrology, appreciate assistance. Urine studies pending. #. Chronic kidney disease: Creatinine appears to be at baseline #. Insulin-dependent diabetes mellitus: Initiating basal plus insulin regimen #. History of CVA: On Plavix and high-intensity statin #. Vascular dementia: Maintain sleep-wake cycle. On Aricept #. History of DVT: On Eliquis #. Gastroesophageal reflux disease: On PPI #. Mood disorder: Continue home mood stabilizers #. Anemia of chronic kidney disease: On iron and folic acid supplementation. Hemoglobin above transfusion threshold Med rec pending DVT prophylaxis: Eliquis Full code Admit as inpatient and will require two night minimum hospital stay for close monitoring of electrolytes, kidney function (as above), which is not possible in a lesser acute setting. Specialist consult pending Quality Stroke Does the patient have a stroke diagnosis?: No VTE Prior VTE?: No VTE Risk Level:: Medical - moderate - high VTE Device Contraindication: Treatment Not Indicated VTE Drug Contraindication: N/A - Med Ordered
[2023-03-31] MEDS: Insulin Glargine,Hum.rec.anlog 100 UNIT/ML 10 ML VIAL 10 UNIT SUBCUT (00:53)
[2023-03-31 01:23] LABS: Appearance Urine Clear; Color Urine Yellow; Glucose Urine UA Negative (Negative); Leukocyte Esterase Urine Negative (Negative); Nitrite Urine Negative (Negative); PH 5.5 (5.0-9.0); UMIC TRIGGER UACC YES; Urine Blood Trace (Negative); Urine Ketones Negative (Negative); Urine Protein 100 (2+) mg/dL (Neg-Trace)
[2023-03-31 01:28] LABS: Bacteria Urine None Seen (None Seen); Hyaline Casts Urine 0-2 /LPF (0-2); RBC Urine 0-2 /HPF (0-2); Squamous Epithelial Cell Urine 0-2 /HPF (0-2); WBC Urine 0-5 /HPF (0-5)
[2023-03-31 01:31] LABS: Potassium Urine Random 17.7 mmol/L
[2023-03-31 01:36] LABS: Creatinine Urine 36.79 mg/dL
[2023-03-31 01:39] LABS: Osmolality Urine 394 mosm/kg (373-1093)
[2023-03-31] MEDS: Sodium Bicarbonate 8.4% 150 MEQ in Dextrose 5 % 850 ML 100 MEQ IV (02:13)
--- NOTE | 2023-03-31 02:14 | PC.NURSE ---
IV established after multiple attempts. Sod Bicarb infusing per MAR.
[2023-03-31 02:28] VITALS: BP 161/91; PULSE 94; RESP 22; TEMP 37.3; O2SAT 93
[2023-03-31 05:29] LABS: Basophils Absolute Auto 0.1 X10*3/uL (0.0-0.2); Basophils Percent Auto 0.5 % (0-2); Eosinophils Absolute Auto 0.3 X10*3/uL (0.0-0.4); Eosinophils Percent Auto 3.5 % (0-4); Hematocrit 24.2 % (42.0-52.0); Hemoglobin 7.8 g/dl (14.0-18.0); Imm Gran Abs Auto 0.03 X10*3/uL (0.00-0.03); Imm Gran Pct Auto 0.3 % (0.0-0.4); Lymphocytes Absolute Auto 1.9 X10*3/uL (1.2-4.9); Lymphocytes Percent Auto 20.5 % (20-40); MANUAL DIFF FLAG NO; Mean Corpuscular HGB Conc 32.2 g/dl (31.0-36.0); Mean Corpuscular Hemoglobin 27.9 pg (27.0-33.0); Mean Corpuscular Volume 86.4 fL (80.0-98.0); Mean Platelet Volume 10.6 fL (9.4-12.4); Monocytes Absolute Auto 0.6 X10*3/uL (0.1-1.2); Monocytes Percent Auto 6.8 % (2-11); Neutrophils Absolute Auto 6.3 x10*3/uL (2.0-8.3); Neutrophils Percent Auto 68.4 % (45-73); Platelet Count 170 X10*3/uL (160-400); Red Cell Distribution Width 15.9 % (11.0-16.0); White Blood Count 9.2 X10*3/uL (4.8-10.8)
[2023-03-31 05:50] VITALS: BP 157/82; PULSE 104; RESP 18; TEMP 37.2; O2SAT 97
[2023-03-31 05:51] LABS: Anion Gap 18 (12-20); Blood Urea Nitrogen 74 mg/dL (9-16); Calcium 8.4 mg/dL (8.4-10.2); Carbon Dioxide 12 mmol/L (22-29); Chloride 115 mmol/L (96-108); Creatinine Clr Calc Pharmacy 23.5; Estimated Glomerular Filt Rate 17; Glucose Random 191 mg/dL (60-115); Potassium 4.8 mmol/L (3.3-5.1); Sodium 140 mmol/L (135-145)
--- NOTE | 2023-03-31 07:00 | CA_ITS ---
Transthoracic Echocardiogram Patient (Last, First, Middle): Ben Soto, Gender: Male Date of : 1975 Age: 47 Procedure Date: 03/31/2023 Procedure Type: Transthoracic Echocardiogram Location: ER Height: 165.1 cm Weight: 85.28 kg BSA: 1.93 m2 Heart Rate: bpm BP: 172 / 92 mmHg Pants Busheler: CARIE Referring MD: Catrachita Laam MD Symptoms: r/o amyloid Study Quality: Adequate Conclusions: - Normal left ventricular cavity size. There is mildly increased left ventricular wall thickness. The left ventricular systolic function is low normal. The visually estimated ejection fraction is between 50-55%. - Global strain is low -12%. Francis on top appearance on strain imaging- suspicious for amyloidosis. - Normal right ventricular cavity size and systolic function. - Mildly elevated right atrial pressure. Mild pulmonary hypertension is present. Findings Left Ventricle Normal left ventricular cavity size. There is mildly increased left ventricular wall thickness. The left ventricular systolic function is low normal. The visually estimated ejection fraction is between 50-55%. Abnormal diastolic function is noted. Spectral Doppler is indicative of a pseudonormal filling pattern. Elevated filling pressures. Global strain is low -12%. Francis on top appearance on strain imaging- suspicious for amyloidosis. Right Ventricle Normal right ventricular cavity size and systolic function. Atria The left atrium is likely dilated. The right atrium is normal in size. Aortic Valve Normal aortic valve structure and function. There is no aortic valve stenosis. There is no aortic valve regurgitation. Mitral Valve The mitral valve appears normal. There is trace mitral valve regurgitation. There is no mitral valve stenosis. Pulmonic Valve The pulmonic valve is likely normal. Tricuspid Valve Normal tricuspid valve structure. There is no tricuspid valve regurgitation. The right ventricular systolic pressure is 44 mmHg. Mildly elevated right atrial pressure. Mild pulmonary hypertension is present. Great Vessels All visible segments of the aorta are normal in size. Venous The inferior vena cava is dilated and collapses greater than 50% with inspiration. Pericardium/Pleural There is no evidence of pericardial effusion. Prior Study Comparison No prior study available for comparison. Measurements 2D Linear Measurements IVSd: 1.28 0.6-0.9/0.6-1.0 cm LVIDd: 4.81 3.9-5.3/4.2-5.9 cm LVIDd Index: 2.49 2.4-3.2/2.2-3.1 cm/m2 LVIDs: 3.75 2.0-3.6 cm LVPWd: 1.22 0.7-1.1 cm LA Diam: 3.70 2.7-3.8/3.0-4.0 cm LAIDs Index: 1.92 1.5-2.3 cm/m2 LV Mass: 290.51 67-162/88-224 g LV Mass Index: 150.52 43-95/49-115 g/m2 LVOT Diam: 2.00 3.0+(-)1.3 cm 2D Systolic Function EF 4C: 47.30 >55% EF 2C: 51.40 >55% EF BiP: 51.00 >55% Mitral Valve MV Pk E: 1.15 MV PK A: 0.71 MV Decel Time: 125.00 E/A: 1.60 E'Lateral: 7.62 E'Medial: 6.42 E/E' Med: 17.90 E/E' Lat: 15.10 PHT: 36.00 MVA PHT: 6.11 Decel Kerr: 9.22 Aortic Valve AoV Pk Deandre: 1.22 AoV Mn Deandre: 0.84 AoV VTI: 0.26 AoV Pk Grad: 6.00 Aov Mn Grad: 3.00 NOE Cont.VTI: 2.92 LVOT LVOT Pk Deandre: 1.21 LVOT Mn Deandre: 0.89 LVOT VTI: 0.24 LVOT Pk Grad: 6.00 LVOT Mn Grad: 4.00 LVOT Diam: 2.00 LVOT Area: 3.14 Diastolic Function MV Pk E: 1.15 MV Pk A: 0.71 E/A: 1.60 E'Medial: 6.42 E/E' Med: 17.90 E' Laterial: 7.62 E/E' Lat: 15.10 Right Ventricle TAPSE (mm): 20.70 TVS' Deandre: 11.50 Tricuspid Valve TR Pk Deandre: 3.00 TR Pk Grad: 36.00 RA Press: 8.00 RVSP: 44.00 Great Vessels Aorta Sinus of Valsalva: 2.99 2.0-3.[address] Ridge: 2.18 1.7-3.4 cm Ao Asc: 3.20 2.1-3.4 cm Updated in Other Vendor System with Status of Final Otis Robles MD electronically signed on 03/31/2023 1:06:30 PM with status of Final
[2023-03-31 08:35] VITALS: BP 172/92; PULSE 102; RESP 16; TEMP 37.6; O2SAT 95
[2023-03-31 08:49] LABS: Amphetamine Screen Urine Not Detected (Not Detect); Barbiturates, Urine Not Detected (Not Detect); Benzodiazepines Screen Urine Not Detected (Not Detect); Cannabinoid Screen Urine Not Detected (Not Detect); Cocaine Screen Urine Not Detected (Not Detect); Fentanyl, urine Not Detected (Not Detect); Opiate Screen Urine Not Detected (Not Detect); Phencyclidine Screen Urine Not Detected (Not Detect)
[2023-03-31 08:50] LABS: Total Protein Urine Random 145 mg/dL (<12)
[2023-03-31 08:52] LABS: Iron 24 mcg/dL (45-160); Percent Iron Saturation 9 % (15-50); Total Iron Binding Capacity 266 mcg/dL (228-428); Unsaturated Iron Binding 242 ug/dL
[2023-03-31 09:14] LABS: Ferritin 329 ng/mL (20-250)
--- NOTE | 2023-03-31 10:29 | PHA.MEDREC ---
Pharmacy Consult ? Medication Reconciliation Pharmacy has completed the medication reconciliation. Spoke to patient (via truck caterer). Patient was discharged on 03/21/23 and said he's taking all the meds that were on the discharge list.
--- NOTE | 2023-03-31 10:47 | PC.NURSE ---
pharmacy called to make iron/bicarb drips
--- NOTE | 2023-03-31 11:14 | PC.NURSE ---
pharmacy called for iron/bicarb drips stating they have not started making iron infusion yet and will send once it is made
[2023-03-31 11:19] LABS: Creatinine Urine 37.31 mg/dL; Protein/Creatinine Ratio, Ur 4.88 (<0.2); Total Protein Urine Random 182 mg/dL (<12)
[2023-03-31] MEDS: Sodium Bicarbonate 8.4% 150 MEQ in Dextrose 5 % 850 ML IV ×2 (11:23→18:19)
[2023-03-31] MEDS: Iron Sucrose Complex 200 MG in 0.9 % Sodium Chloride 100 ML 440 MG IV (11:23)
[2023-03-31 11:50] LABS: Glucose, Whole Blood 211 mg/dL (60-115)
[2023-03-31] MEDS: Insulin Lispro 100 UNIT/ML 3 ML VIAL SUBCUT ×2 (12:02→20:29)
[2023-03-31] MEDS: Benzonatate 100 MG CAPSULE 200 MG PO ×2 (12:35→20:47)
--- NOTE | 2023-03-31 13:14 | PM.EVENT ---
Event Note Date of Service: 03/31/23 Event Note: Day hospitalist update S: denies pain mild dry cough previously lived in [place], [place] but doesn't remember the names of his doctors O: VS- T 99.6, BP 172/92, P 102, R 16, SaO2 95 on RA Gen: in no acute distress HEENT: sclera anicteric, moist mucus membranes Neck: supple Lungs: clear to auscultation bilaterally Heart: regular rate and rhythm, no murmurs Abd: soft, non-tender, non-distended Ext: no edema Skin: warm/well-perfused Neuro: alert and oriented x3, no focal findings Psych: appropriate affect Labs: FeSat 9%, iron 24, BUN 74, Cr 3.85, Hb 7.8 A/P: d1 47yo M who recently moved to the area, PMHx of CVA, DVT on apixaban, mood disorder, vascular dementia, cocaine abuse, CKD ?stage, GERD presented with RLE discomfort [resolved], found to have severe acidosis non-anion gap metabolic acidosis CKD ?stage - bicarbonate IV, Nephrology consult, monitor BMP anemia of CKD + iron deficiency - replete Fe; per Nephrology 200 mg of Fe sucrose daily x 5 doses - recheck H+H in AM and also T+S - FOBT DM2 - basal-bolus insulin hx CVA - statin, clopidogrel vascular dementia? - donepezil hx DVT - apixaban GERD - PPI mood disorder - mirtazapine VTE ppx - apixaban dispo - TBD In my clinical judgment, the patient requires continued inpatient hospitalization for the following reasons: severe acidosis - Time Spent With Patient Time: Total time managing care of this patient today ____ minutes.
[2023-03-31 13:16] LABS: Influenza A PCR NEGATIVE (Negative); Influenza B PCR NEGATIVE (Negative); Resp Syncy Virus RNA Qual PCR NEGATIVE (Negative); SARS COV2 PCR INHOUSE NEGATIVE (Negative)
--- NOTE | 2023-03-31 14:08 | PM.CNNEP ---
History of Present Illness Reason for Consult Consult date: 03/31/23 Chief Complaint Chief complaint: leg pain History of Present Illness Narrative: 47-year-old male with pertinent history of CVA, DVT on Eliquis, history of IV drugs (cocaine) use disorder, advanced chronic kidney disease presented to the emergency department for evaluation of right leg discomfort. Patient states he started having right leg tingling and numbness on the day of presentation. It had resolved . Patient recently moved about 2 weeks ago from [place] to [place] to be closer to family. He denies loose stools, abdominal discomfort, nausea, vomiting. He has no specific complaints . No fever, chills, chest discomfort, palpitations, shortness of breath, changes in urinary or bowel habits. His bicarb was profoundly low and was admitted for further management. Nephrology has been consulted to assist in his clinical care during his current hospital stay Review of Systems Review of Systems Yes all other systems are reviewed and are negative PMFSH Past Medical History Medical History Hyperglycemia Elevated serum creatinine Chronic kidney disease History of insulin dependent diabetes mellitus Mood disorder Vascular dementia CVA (cerebral vascular accident) DVT (deep venous thrombosis) Social History Social History Household Members: Family Housing: Apartment Patient Tobacco Use Status: Former Tobacco user Tobacco use type: Cigarette e-Cigarette/Vaping Use: Never Used Second Hand Smoke Exposure: No Advance Directives: No Advance Directives Information Provided: No Meds Allergies Allergy/AdvReac Type Severity Reaction Status Date / Time No Known Allergies Allergy Verified 03/30/23 18:39 Active Medications: Current Medications Acetaminophen (Acetaminophen 325 Mg Tablet) 650 mg PO Q6H PRN PRN Reason: Pain, Mild (Pain Scale 1-3) Apixaban (Apixaban 2.5 Mg Tablet) 2.5 mg PO BID JETHRO Atorvastatin Calcium (Atorvastatin Calcium 80 Mg Tablet) 80 mg PO BEDTIME JETHRO Benzonatate (Benzonatate 100 Mg Capsule) 200 mg PO TID PRN PRN Reason: cough Last Admin: 03/31/23 12:35 Dose: 200 mg Clopidogrel Bisulfate (Clopidogrel Bisulfate 75 Mg Tablet) 75 mg PO DAILY JETHRO Dextrose (Dextrose 50 % 25 Gm/50 Ml Syringe) 25 gm IVPUSH Q15M PRN; Protocol PRN Reason: per Hypoglycemia Standing Ord. Donepezil HCl (Donepezil Hcl 5 Mg Tablet) 5 mg PO BEDTIME [facility] Folic Acid (Folic Acid 1 Mg Tablet) 1 mg PO DAILY [facility] Glucose (Glucose Gel 15 Gm Gel..Gram.) 15 gm PO Q15M PRN; Protocol PRN Reason: per Hypoglycemia Standing Ord. Sodium Bicarbonate 150 meq/ (Dextrose) 1,000 mls @ 150 mls/hr IV .Q6H40M [facility] Last Infusion: 03/31/23 11:34 Dose: 150 mls/hr Iron Sucrose 200 mg/ Sodium (Chloride) 110 mls @ 440 mls/hr IV DAILY [facility] Stop: 04/04/23 09:14 Last Infusion: 03/31/23 12:13 Dose: Infused Insulin Glargine (Insulin Glargine,Hum.Rec.Anlog 100 Unit/Ml 10 Ml Vial) 18 unit SUBCUT BEDTIME [facility] Insulin Human Lispro (Insulin Lispro 100 Unit/Ml 3 Ml Vial) 0 unit SUBCUT QIDACHS [facility]; Protocol Last Admin: 03/31/23 12:02 Dose: 4 unit Melatonin (Melatonin 3 Mg Tablet) 6 mg PO BEDTIME PRN PRN Reason: Insomnia Midodrine (Midodrine Hcl 5 Mg Tablet) 5 mg PO TID [facility] Mirtazapine (Mirtazapine 30 Mg Tablet) 30 mg PO BEDTIME [facility] Multivitamins/Vitamin C (Multivitamin Tablet) 1 tab PO DAILY [facility] Nicotine Polacrilex (Nicotine Polacrilex 2 Mg Gum) 2 mg BUCCAL Q1H PRN PRN Reason: Nicotine Cravings Omeprazole (Omeprazole 20 Mg Capsule.Dr) 20 mg PO DAILY@0630 [facility] Ondansetron HCl (Ondansetron Hcl 4 Mg/2 Ml Vial) 4 mg IVPUSH Q8H PRN PRN Reason: Nausea and Vomiting Senna (Sennosides 8.6 Mg Tablet) 8.6 mg PO BEDTIME [facility] Sodium Chloride (0.9 % Sodium Chloride Flush 3 Ml Syringe) 3 ml IVFLUSH QSHIFT [facility] Last Admin: 03/31/23 07:19 Dose: Not Given Home Medications Medication Instructions Recorded Confirmed Last Taken Type acetaminophen 325 mg tablet 650 mg PO Q4H PRN Fever Or Pain 03/20/23 03/31/23 03/29/23 History apixaban 2.5 mg tablet (Eliquis) 2.5 mg PO BID 03/20/23 03/31/23 03/29/23 History atorvastatin 80 mg tablet 80 mg PO BEDTIME 03/20/23 03/31/23 03/29/23 History clopidogrel 75 mg tablet 75 mg PO DAILY 03/20/23 03/31/23 03/29/23 History donepezil 5 mg tablet (Aricept) 5 mg PO BEDTIME 03/20/23 03/31/23 03/29/23 History ferrous sulfate 325 mg (65 mg 325 mg PO DAILY 03/20/23 03/31/23 03/29/23 History iron) tablet folic acid 1 mg tablet 1 mg PO DAILY 03/20/23 03/31/23 03/29/23 History melatonin 3 mg tablet 6 mg PO BEDTIME 03/20/23 03/31/23 03/29/23 History midodrine 5 mg tablet 5 mg PO TID 03/20/23 03/31/23 03/29/23 History mirtazapine 30 mg tablet (Remeron) 30 mg PO BEDTIME 03/20/23 03/31/23 03/29/23 History multivitamin with minerals 1 tab PO DAILY 03/20/23 03/31/23 03/29/23 History pantoprazole 40 mg tablet,delayed 40 mg PO QAM 03/20/23 03/31/23 03/29/23 History release sennosides 8.6 mg tablet (senna) 8.6 mg PO QPM 03/20/23 03/31/23 03/29/23 History sodium bicarbonate 650 mg tablet 650 mg PO TID 03/20/23 03/31/23 03/29/23 History Physical Exam Vital Signs: Last Vital Signs Temp 99.6 F 03/31/23 08:35 Pulse 102 H 03/31/23 08:35 Resp 16 03/31/23 08:35 BP 172/92 H 03/31/23 08:35 Pulse Ox 95 03/31/23 08:35 O2 Del Method Room Air 03/31/23 08:35 BMI result Body Mass Index 31.3 Const General: comfortable and no acute distress Orientation/consciousness: patient oriented x3 HEENT Head: Yes normocephalic Mouth: Normal oral and palatal mucosa present Eyes EOM: EOMs intact bilaterally Neck Neck: Yes supple Resp Auscultation: clear to auscultation bilaterally Cardio Jugular venous distension: no JVD Rate: regular rate GI Palpation (GI): Soft to palpation Auscultation: normal bowel sounds General: Yes no CVA tenderness Back/Spine/Pelvis Back: no CVA tenderness Skin General skin exam: no rashes or lesions noted Neuro General: patient oriented x3 and moves all extremities Extrem General: Yes no pedal edema Results Lab Results 03/31/23 04:34 03/31/23 04:34 Lab results: Chemistry 03/30/23 03/31/23 19:07 04:34 Sodium 138 140 Potassium 5.8 H 4.8 Carbon Dioxide 9 L* D 12 L BUN 73 H 74 H Creatinine 4.04 H* 3.85 H Calcium 8.8 D 8.4 Hematology 03/30/23 03/31/23 19:07 04:34 WBC 10.4 9.2 Hgb 9.1 L 7.8 L Plt Count 144 L D 170 Urinalysis 03/31/23 01:14 Urine Color Yellow Urine Appearance Clear Urine pH 5.5 Ur Specific Balko 1.010 Urine Protein 100 (2+) H Urine Glucose (UA) Negative Urine Ketones Negative Urine Blood Trace H Urine Nitrite Negative Ur Leukocyte Esterase Negative Urine RBC 0-2 Urine WBC 0-5 Ur Squamous Epith Cells 0-2 Hyaline Casts 0-2 Urine Studies 03/31/23 03/31/23 01:14 10:57 Urine Osmolality 394 Urine Creatinine 36.79 37.31 Assessment and Plan (1) GRISEL (acute kidney injury): Status: Acute (2) CKD (chronic kidney disease) stage 4, GFR 15-29 ml/min: Status: Acute (3) Iron deficiency: Status: Acute (4) Anemia in chronic kidney disease (CKD): Qualifiers: Chronic kidney disease stage: stage 4 (severe) Qualified Code(s): N18.4 - Chronic kidney disease, stage 4 (severe); D63.1 - Anemia in chronic kidney disease Status: Acute Plan Ben has advanced chronic kidney disease at baseline. He has GRISEL due to compromise in renal perfusion. He is profoundly metabolically acidotic. He has been started on intravenous bicarb which I will increase to 150 mL/hour. We shall watch his serum potassium closely. Serum bicarb is marginally better since presentation. He has iron deficient. Will start him on Venofer 200 mg IV once daily for 5 days for a total of 1 g. Once his transferrin saturation is over 20% he will be a candidate for Procrit injections. I have ordered a calcium, phosphorus, PTH, vitamin-D levels as well. There is no indication for any renal replacement therapy. Further management is pending wellbeing data. Procedures Date of Service Date of Service: 03/31/23
[2023-03-31 14:55] VITALS: BP 147/84; RESP 18
[2023-03-31 17:06] VITALS: BMI 22.0
[2023-03-31 17:14] LABS: Glucose, Whole Blood 149 mg/dL (60-115)
[2023-03-31 17:15] VITALS: BP 165/96; PULSE 70; RESP 20; TEMP 37; O2SAT 92
[2023-03-31] MEDS: Acetaminophen 325 MG TABLET 650 MG PO (18:52)
[2023-03-31 19:09] VITALS: BP 149/79; PULSE 95; RESP 20; TEMP 36.9; O2SAT 92
[2023-03-31] MEDS: Insulin Glargine,Hum.rec.anlog 100 UNIT/ML 10 ML VIAL 18 UNIT SUBCUT (20:29)
[2023-03-31] MEDS: Midodrine HCl 5 MG TABLET PO (20:30)
[2023-03-31] MEDS: Atorvastatin Calcium 80 MG TABLET PO (20:30)
[2023-03-31] MEDS: Sennosides 8.6 MG TABLET PO (20:30)
[2023-03-31] MEDS: Apixaban 2.5 MG TABLET PO (20:30)
[2023-03-31] MEDS: Donepezil HCl 5 MG TABLET PO (20:30)
[2023-03-31] MEDS: Mirtazapine 30 MG TABLET PO (20:30)
[2023-03-31] MEDS: Melatonin 3 MG TABLET 6 MG PO (20:35)
[2023-03-31 20:38] LABS: Glucose, Whole Blood 252 mg/dL (60-115)
[2023-03-31] MEDS: guaiFENesin DM 200/20/10 ML 10 ML SYRUP PO (22:40)
[2023-04-01] VITALS (11 sets, daily range): BP systolic 144–164; BP diastolic 72–88; PULSE 80–103; RESP 16–24; TEMP 36.2–37.4; O2SAT 88–95
[2023-04-01] MEDS: Sodium Bicarbonate 8.4% 150 MEQ in Dextrose 5 % 850 ML IV (03:37)
[2023-04-01] MEDS: Omeprazole 20 MG CAPSULE.DR PO (06:12)
[2023-04-01 06:42] LABS: Hemoglobin 7.6 g/dl (14.0-18.0); Mean Corpuscular Hemoglobin 27.2 pg (27.0-33.0); Mean Corpuscular Volume 82.4 fL (80.0-98.0); Mean Platelet Volume 10.8 fL (9.4-12.4); Platelet Count 181 X10*3/uL (160-400); Red Blood Count 2.79 X10*6/uL (4.60-5.80); Red Cell Distribution Width 16.2 % (11.0-16.0); White Blood Count 11.7 X10*3/uL (4.8-10.8)
[2023-04-01 07:00] LABS: Anion Gap 15 (12-20); Blood Urea Nitrogen 69 mg/dL (9-16); Calcium 8.4 mg/dL (8.4-10.2); Carbon Dioxide 25 mmol/L (22-29); Chloride 107 mmol/L (96-108); Creatinine Clr Calc Pharmacy 20.7; Estimated Glomerular Filt Rate 18; Glucose Random 157 mg/dL (60-115); Phosphorus 4.3 mg/dL (2.7-4.5); Potassium 4.1 mmol/L (3.3-5.1); Sodium 143 mmol/L (135-145)
[2023-04-01 07:03] LABS: Parathyroid Hormone Intact 288.5 pg/mL (8.7-77.1)
[2023-04-01 07:15] LABS: Glucose, Whole Blood 144 mg/dL (60-115)
[2023-04-01 07:16] LABS: Vitamin D 25-OH Total 19.3 ng/mL (>30)
[2023-04-01 07:17] LABS: HBS Num1 19.57 mIU/mL (0-7.99); HBc Num1 0.14 S/CO (0.00-0.79); HBsAGNum1 0.47 S/CO (0.00-0.99); HIV AB/AG Nonreactive (Nonreactive); HIV Num 1 0.14 S/CO (0.00-0.99); Hepatitis B Core Antibody Nonreactive (Nonreactive); Hepatitis B Surface Antigen Negative (Negative); ~HepC Num1 1.89 S/CO (0.00-0.79); ~Hepatitis B Surface Antibody REACTIVE (Nonreactive); ~Hepatitis C Antibody Reactive (Nonreactive)
[2023-04-01 07:31] LABS: Folate 12.2 ng/mL (> or = 4.0); Vitamin B12 560 pg/mL (200-900)
[2023-04-01] MEDS: Midodrine HCl 5 MG TABLET PO (08:48)
[2023-04-01] MEDS: Acetaminophen 325 MG TABLET 650 MG PO ×2 (08:48→17:17)
[2023-04-01] MEDS: Clopidogrel Bisulfate 75 MG TABLET PO (08:49)
[2023-04-01] MEDS: Folic Acid 1 MG TABLET PO (08:49)
[2023-04-01] MEDS: Multivitamin TABLET 1 TAB PO (08:49)
[2023-04-01] MEDS: 0.9 % Sodium Chloride Flush 3 ML SYRINGE IVFLUSH ×3 (08:49→20:28)
[2023-04-01] MEDS: Iron Sucrose Complex 200 MG in 0.9 % Sodium Chloride 100 ML 440 MG IV (08:49)
[2023-04-01] MEDS: Apixaban 2.5 MG TABLET PO ×2 (08:49→20:26)
--- NOTE | 2023-04-01 10:37 | MHC.CM.PN ---
CM MET WITH PT AND DAUGHTER AT BEDSIDE THEY REPORT THE PT LIVES WITH HIS MOTHER WHO ASSISTS WITH HIS CARE PT RECENTLY MOVED HERE FROM [place] DUE TO HEALTH CONCERNS PT IS NOT YET ESTABLISHED WITH A PCP OR ANY LOCAL HEALTHCARE PROVIDERS RESOURCE BOOKLET AND PCP LIST PROVIDED PT COMPLETED A HCP TODAY NAMING HIS MOTHER AND DAUGHTER HIS AGENTS DCP: HOME WITH FAMILY SUPPORT FAMILY TO TRANSPORT *PT AND DAUGHTER SPEAK BOTH [facility] AND [facility] MOTHER REQUIRES A EMPLOYEE HEALTH RN
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
[2023-04-01] MEDS: Furosemide 20 MG/2 ML VIAL IVPUSH ×2 (11:11→14:06)
[2023-04-01 11:52] LABS: Glucose, Whole Blood 273 mg/dL (60-115)
[2023-04-01] MEDS: Insulin Lispro 100 UNIT/ML 3 ML VIAL SUBCUT ×3 (11:54→20:35)
--- NOTE | 2023-04-01 12:33 | HO.PM.IMPN ---
Subjective Subjective Date of Service: 04/01/23 Interval History: denies dyspnea though is wheezing TTE suggestive of amyloidosis now hypoxic SCr improved, bicarb normalized Review of Systems Review of Systems: Yes all other systems are reviewed and are negative Physical Exam Vital Signs: Vital Signs: Last Vital Signs Temp 99.4 F 04/01/23 11:37 Pulse 80 04/01/23 11:37 Resp 16 04/01/23 11:37 BP 147/76 H 04/01/23 11:37 Pulse Ox 94 04/01/23 12:02 O2 Del Method Nasal Cannula 04/01/23 12:02 O2 Flow Rate 1.5 04/01/23 12:02 BMI result Body Mass Index 22.0 Gen: in no acute distress HEENT: sclera anicteric, moist mucus membranes Neck: supple, JVD Lungs: diffuse exp wheezing Heart: regular rate and rhythm, no murmurs Abd: soft, non-tender, non-distended Ext: no edema Skin: warm/well-perfused Neuro: alert and oriented x3, no focal findings Psych: appropriate affect Objective Data Active Medications Acetaminophen (Acetaminophen 325 Mg Tablet) 650 mg PO Q6H PRN PRN Reason: Pain, Mild (Pain Scale 1-3) Last Admin: 04/01/23 08:48 Dose: 650 mg Documented By: WILL Apixaban (Apixaban 2.5 Mg Tablet) 2.5 mg PO BID [facility] Last Admin: 04/01/23 08:49 Dose: 2.5 mg Documented By: WILL Atorvastatin Calcium (Atorvastatin Calcium 80 Mg Tablet) 80 mg PO BEDTIME [facility] Last Admin: 03/31/23 20:30 Dose: 80 mg Documented By: HELEN Benzonatate (Benzonatate 100 Mg Capsule) 200 mg PO TID PRN PRN Reason: cough Last Admin: 03/31/23 20:47 Dose: 200 mg Documented By: HELEN Clopidogrel Bisulfate (Clopidogrel Bisulfate 75 Mg Tablet) 75 mg PO DAILY [facility] Last Admin: 04/01/23 08:49 Dose: 75 mg Documented By: WILL Dextrose (Dextrose 50 % 25 Gm/50 Ml Syringe) 25 gm IVPUSH Q15M PRN; Protocol PRN Reason: per Hypoglycemia Standing Ord. Donepezil HCl (Donepezil Hcl 5 Mg Tablet) 5 mg PO BEDTIME [facility] Last Admin: 03/31/23 20:30 Dose: 5 mg Documented By: HELEN Folic Acid (Folic Acid 1 Mg Tablet) 1 mg PO DAILY [facility] Last Admin: 04/01/23 08:49 Dose: 1 mg Documented By: WILL Furosemide (Furosemide 20 Mg/2 Ml Vial) 20 mg IVPUSH ONCE ONE; Protocol Stop: 04/01/23 16:01 Glucose (Glucose Gel 15 Gm Gel..Gram.) 15 gm PO Q15M PRN; Protocol PRN Reason: per Hypoglycemia Standing Ord. Guaifenesin/Dextromethorphan (Guaifenesin Dm 200/20/10 Ml 10 Ml Syrup) 10 ml PO Q4H PRN PRN Reason: Cough Last Admin: 03/31/23 22:40 Dose: 10 ml Documented By: HELEN Iron Sucrose 200 mg/ Sodium (Chloride) 110 mls @ 440 mls/hr IV DAILY [facility] Stop: 04/04/23 09:14 Last Infusion: 04/01/23 10:04 Dose: Infused Documented By: WILL Insulin Glargine (Insulin Glargine,Hum.Rec.Anlog 100 Unit/Ml 10 Ml Vial) 18 unit SUBCUT BEDTIME [facility] Last Admin: 03/31/23 20:29 Dose: 18 unit Documented By: HELEN Insulin Human Lispro (Insulin Lispro 100 Unit/Ml 3 Ml Vial) 0 unit SUBCUT QIDACHS [facility]; Protocol Last Admin: 04/01/23 11:54 Dose: 6 unit Documented By: WILL Melatonin (Melatonin 3 Mg Tablet) 6 mg PO BEDTIME PRN PRN Reason: Insomnia Last Admin: 03/31/23 20:35 Dose: 6 mg Documented By: HELEN Midodrine (Midodrine Hcl 5 Mg Tablet) 5 mg PO TID [facility] Last Admin: 04/01/23 08:48 Dose: 5 mg Documented By: WILL Mirtazapine (Mirtazapine 30 Mg Tablet) 30 mg PO BEDTIME [facility] Last Admin: 03/31/23 20:30 Dose: 30 mg Documented By: HELEN Multivitamins/Vitamin C (Multivitamin Tablet) 1 tab PO DAILY [facility] Last Admin: 04/01/23 08:49 Dose: 1 tab Documented By: WILL Nicotine Polacrilex (Nicotine Polacrilex 2 Mg Gum) 2 mg BUCCAL Q1H PRN PRN Reason: Nicotine Cravings Omeprazole (Omeprazole 20 Mg Capsule.Dr) 20 mg PO DAILY@0630 [facility] Last Admin: 04/01/23 06:12 Dose: 20 mg Documented By: HELEN Ondansetron HCl (Ondansetron Hcl 4 Mg/2 Ml Vial) 4 mg IVPUSH Q8H PRN PRN Reason: Nausea and Vomiting Senna (Sennosides 8.6 Mg Tablet) 8.6 mg PO BEDTIME [facility] Last Admin: 03/31/23 20:30 Dose: 8.6 mg Documented By: HELEN Sodium Chloride (0.9 % Sodium Chloride Flush 3 Ml Syringe) 3 ml IVFLUSH QSHIFT [facility] Last Admin: 04/01/23 08:49 Dose: 3 ml Documented By: WILL Labs 04/01/23 06:26 04/01/23 06:26 Labs: Laboratory Results - last 24 hr 03/31/23 03/31/23 03/31/23 12:14 17:10 20:17 MCV MCH MCHC RDW Plt Count MPV Absolute Nucleated RBC Nucleated RBC % (auto) Anion Gap Estim Creat Clear Calc Estimated GFR POC Glucose 149 H 252 H Random Glucose Calcium Phosphorus Vitamin B12 25-OH Vitamin D Total Folate PTH Intact Hep Bs Antigen Hep Bs Antibody Hep B Core Total Ab Hepatitis C Ab (EIA) HIV 1&2 Ab/P24 Ag 4thGn Influenza Type A (PCR) NEGATIVE Influenza Type B (PCR) NEGATIVE RSV RNA Qual (PCR) NEGATIVE SARS-CoV-2 RNA (RT-PCR) NEGATIVE Blood Type Antibody Screen Crossmatch 04/01/23 04/01/23 04/01/23 06:26 07:01 07:10 MCV 82.4 MCH 27.2 MCHC 33.0 RDW 16.2 H Plt Count 181 MPV 10.8 Absolute Nucleated RBC 0.000 Nucleated RBC % (auto) 0.0 Anion Gap 15 Estim Creat Clear Calc 20.7 Estimated GFR 18 POC Glucose 144 H Random Glucose 157 H Calcium 8.4 Phosphorus 4.3 Vitamin B12 560 25-OH Vitamin D Total 19.3 L Folate 12.2 PTH Intact 288.5 H Hep Bs Antigen Negative Hep Bs Antibody REACTIVE Hep B Core Total Ab Nonreactive Hepatitis C Ab (EIA) Reactive H HIV 1&2 Ab/P24 Ag 4thGn Nonreactive Influenza Type A (PCR) Influenza Type B (PCR) RSV RNA Qual (PCR) SARS-CoV-2 RNA (RT-PCR) Blood Type A Positive Antibody Screen NEGATIVE Crossmatch See Detail 04/01/23 11:38 MCV MCH MCHC RDW Plt Count MPV Absolute Nucleated RBC Nucleated RBC % (auto) Anion Gap Estim Creat Clear Calc Estimated GFR POC Glucose 273 H Random Glucose Calcium Phosphorus Vitamin B12 25-OH Vitamin D Total Folate PTH Intact Hep Bs Antigen Hep Bs Antibody Hep B Core Total Ab Hepatitis C Ab (EIA) HIV 1&2 Ab/P24 Ag 4thGn Influenza Type A (PCR) Influenza Type B (PCR) RSV RNA Qual (PCR) SARS-CoV-2 RNA (RT-PCR) Blood Type Antibody Screen Crossmatch TTE 03/31/23 - Normal left ventricular cavity size. There is mildly increased left ventricular wall thickness. The left ventricular systolic function is low normal. The visually estimated ejection fraction is between 50-55%. - Global strain is low -12%. Francis on top appearance on strain imaging- suspicious for amyloidosis. - Normal right ventricular cavity size and systolic function. - Mildly elevated right atrial pressure. Mild pulmonary hypertension is present. Assessment and Plan (1) Congestive heart failure: Status: Acute Plan d2 47yo M who recently moved to the area, PMHx of CVA, DVT on apixaban, mood disorder, vascular dementia, cocaine abuse, CKD ?stage, GERD presented with RLE discomfort [resolved], found to have severe acidosis question of amyloidosis on TTE anemic and in CHF exacerbation non-anion gap metabolic acidosis CKD4 - acidosis normalized, will d/c bicarbonate drip. Needs close Nephrology follow-up including renal biopsy and genetic testing given question of amyloidosis infiltrative cardiomyopathy acute hypoxic resp failure due to acute-chronic HFpEF - will diurses with IV furosemide. Cardiology consulted. Will need cose outpt Cardiology follow-up including cardiac MRI. wean O2 as tolerated anemia of CKD + iron deficiency - repleting Fe; per Nephrology 200 mg of Fe sucrose daily x 5 doses - will transfuse 1u pRBCs and give IV furosemide before and after HCV Ab+ - viral load pending DM2 - basal-bolus insulin hx CVA - statin, clopidogrel vascular dementia? - donepezil hx DVT - apixaban GERD - PPI mood disorder - mirtazapine VTE ppx - apixaban dispo - anticipate home with VNA In my clinical judgment, the patient requires continued inpatient hospitalization for the following reasons: diuresis Total time managing care of this patient today: 50 minutes. Quality Stroke Does the patient have a stroke diagnosis?: No VTE Prior VTE?: No VTE Risk Level:: Medical - moderate - high VTE Device Contraindication: Treatment Not Indicated VTE Drug Contraindication: N/A - Med Ordered
[2023-04-01 15:12] LABS: OBS Int Ctl Valid YES; OBS1 NEGATIVE (NEGATIVE)
[2023-04-01 16:10] LABS: Glucose, Whole Blood 161 mg/dL (60-115)
[2023-04-01] MEDS: guaiFENesin DM 200/20/10 ML 10 ML SYRUP PO (17:10)
[2023-04-01] MEDS: Albuterol Sulfate 2.5 MG, Albuterol/Iprat 2.5/0.5MG 3 ML 3 ML INHALE (18:10)
[2023-04-01] MEDS: Furosemide 40 MG/4 ML VIAL IVPUSH (18:40)
--- NOTE | 2023-04-01 18:57 | P.PNNP_ITS ---
Subjective Subjective Date of Service: 04/01/23 Interval history: Seen AM. D/W cardiology, Med Attending/ daughter; TTE suggestive of amyloidosis; SCr improved, bicarb normalized Physical Exam 2 Vital Signs: Vital Signs: Last Vital Signs Temp 97.2 F 04/01/23 16:00 Pulse 103 H 04/01/23 18:10 Resp 24 H 04/01/23 18:10 BP 144/77 H 04/01/23 16:00 Pulse Ox 90 L 04/01/23 16:00 O2 Del Method Nasal Cannula 04/01/23 16:00 O2 Flow Rate 1.0 04/01/23 16:00 BMI result Body Mass Index 22.0 Const: General: comfortable and no acute distress HEENT: Head: Yes normocephalic Mouth: Normal oral and palatal mucosa present Eyes: EOM: EOMs intact bilaterally Neck: Neck: Yes supple Resp: Auscultation: clear to auscultation bilaterally Cardio: Jugular venous distension: no JVD Rate: regular rate GI: Palpation (GI): Soft to palpation Auscultation: normal bowel sounds : General: Yes no CVA tenderness Back/Spine/Pelvis: Back: no CVA tenderness Skin: General skin exam: no rashes or lesions noted Neuro: General: moves all extremities Extrem: General: Yes no pedal edema Objective Data Labs 04/01/23 06:26 04/01/23 06:26 Labs: Laboratory Results - last 24 hr 03/31/23 04/01/23 04/01/23 20:17 06:26 07:01 WBC 11.7 H RBC 2.79 L Hgb 7.6 L Hct 23.0 L MCV 82.4 MCH 27.2 MCHC 33.0 RDW 16.2 H Plt Count 181 MPV 10.8 Absolute Nucleated RBC 0.000 Nucleated RBC % (auto) 0.0 Sodium 143 Potassium 4.1 Chloride 107 Carbon Dioxide 25 Anion Gap 15 BUN 69 H Creatinine 3.69 H Estim Creat Clear Calc 20.7 Estimated GFR 18 POC Glucose 252 H Random Glucose 157 H Calcium 8.4 Phosphorus 4.3 Vitamin B12 560 25-OH Vitamin D Total 19.3 L Folate 12.2 PTH Intact 288.5 H Stool Occult Blood Hep Bs Antigen Negative Hep Bs Antibody REACTIVE Hep B Core Total Ab Nonreactive Hepatitis C Ab (EIA) Reactive H HIV 1&2 Ab/P24 Ag 4thGn Nonreactive Blood Type A Positive Antibody Screen NEGATIVE Crossmatch See Detail 04/01/23 04/01/23 04/01/23 07:10 11:38 14:38 WBC RBC Hgb Hct MCV MCH MCHC RDW Plt Count MPV Absolute Nucleated RBC Nucleated RBC % (auto) Sodium Potassium Chloride Carbon Dioxide Anion Gap BUN Creatinine Estim Creat Clear Calc Estimated GFR POC Glucose 144 H 273 H Random Glucose Calcium Phosphorus Vitamin B12 25-OH Vitamin D Total Folate PTH Intact Stool Occult Blood NEGATIVE Hep Bs Antigen Hep Bs Antibody Hep B Core Total Ab Hepatitis C Ab (EIA) HIV 1&2 Ab/P24 Ag 4thGn Blood Type Antibody Screen Crossmatch 04/01/23 16:07 WBC RBC Hgb Hct MCV MCH MCHC RDW Plt Count MPV Absolute Nucleated RBC Nucleated RBC % (auto) Sodium Potassium Chloride Carbon Dioxide Anion Gap BUN Creatinine Estim Creat Clear Calc Estimated GFR POC Glucose 161 H Random Glucose Calcium Phosphorus Vitamin B12 25-OH Vitamin D Total Folate PTH Intact Stool Occult Blood Hep Bs Antigen Hep Bs Antibody Hep B Core Total Ab Hepatitis C Ab (EIA) HIV 1&2 Ab/P24 Ag 4thGn Blood Type Antibody Screen Crossmatch Procedures Date of Service Date of Service: 04/01/23 Assessment & Plan Assessment and plan (1) Anemia in chronic kidney disease (CKD): Status: Acute (2) Infiltrative cardiomyopathy: Status: Acute (3) CKD (chronic kidney disease) stage 4, GFR 15-29 ml/min: Status: Acute Time Spent With Patient Time: Ben has advanced chronic kidney disease at baseline. He has GRISEL due to compromise in renal perfusion. His renal functions are better. . Metabolic acidosis resolved. Hypervolemic. Initiated diuresis. Will need cardiac MRI/ renal biopsy/ EMG as outpatient. He has iron deficient. On Venofer 200 mg IV . Once his transferrin saturation is over 20% he will be a candidate for Procrit injections. There is no indication for any renal replacement therapy. Further management is pending evolving data. Progress Note: Quality Stroke Does the patient have a stroke diagnosis?: No
[2023-04-01] MEDS: Donepezil HCl 5 MG TABLET PO (20:26)
[2023-04-01] MEDS: Mirtazapine 30 MG TABLET PO (20:26)
[2023-04-01] MEDS: Sennosides 8.6 MG TABLET PO (20:26)
[2023-04-01] MEDS: Atorvastatin Calcium 80 MG TABLET PO (20:26)
[2023-04-01 20:34] LABS: Glucose, Whole Blood 202 mg/dL (60-115)
[2023-04-01] MEDS: Insulin Glargine,Hum.rec.anlog 100 UNIT/ML 10 ML VIAL 18 UNIT SUBCUT (20:35)
--- NOTE | 2023-04-02 | ECG_ITS ---
Test Reason : chest pain Blood Pressure : / mmHG Vent. Rate : 092 BPM Atrial Rate : 092 BPM P-R Int : 102 ms QRS Dur : 080 ms QT Int : 380 ms P-R-T Axes : 015 047 065 degrees QTc Int : 469 ms Sinus rhythm with short HI Nonspecific T wave abnormality Prolonged QT Abnormal ECG When compared with ECG of 30-MAR-2023 19:54, No significant change was found Referred By: Catrachita Lama Electronically Signed By:Otis Robles
[2023-04-02 04:00] VITALS: BP 140/70; PULSE 98; RESP 19; TEMP 36.8; O2SAT 91
[2023-04-02] MEDS: Omeprazole 20 MG CAPSULE.DR PO (05:55)
[2023-04-02 06:29] LABS: Hematocrit 25.1 % (42.0-52.0); Hemoglobin 8.1 g/dl (14.0-18.0); Mean Corpuscular HGB Conc 32.3 g/dl (31.0-36.0); Mean Corpuscular Hemoglobin 27.7 pg (27.0-33.0); Mean Platelet Volume 11.3 fL (9.4-12.4); Platelet Count 170 X10*3/uL (160-400); Red Blood Count 2.92 X10*6/uL (4.60-5.80); Red Cell Distribution Width 16.3 % (11.0-16.0); White Blood Count 9.7 X10*3/uL (4.8-10.8)
[2023-04-02 06:57] LABS: Anion Gap 17 (12-20); Blood Urea Nitrogen 73 mg/dL (9-16); Calcium 8.5 mg/dL (8.4-10.2); Carbon Dioxide 24 mmol/L (22-29); Chloride 103 mmol/L (96-108); Creatinine Clr Calc Pharmacy 20.1; Estimated Glomerular Filt Rate 17; Glucose Random 157 mg/dL (60-115); Potassium 4.5 mmol/L (3.3-5.1); Sodium 139 mmol/L (135-145)
[2023-04-02] MEDS: 0.9 % Sodium Chloride Flush 3 ML SYRINGE IVFLUSH ×3 (07:08→20:10)
[2023-04-02 07:10] VITALS: BP 174/94; PULSE 93; RESP 18; TEMP 36.5
[2023-04-02 07:18] LABS: Glucose, Whole Blood 124 mg/dL (60-115)
--- NOTE | 2023-04-02 08:13 | PC.NURSE ---
EKG shows sinus rhythm with short GA, Nonspecific T wave abnormality, prolonged QT, abnormal ECG, MD notified. via [place].
[2023-04-02 08:27] LABS: Procalcitonin 0.63 ng/mL
[2023-04-02] MEDS: Multivitamin TABLET 1 TAB PO (08:30)
[2023-04-02] MEDS: Clopidogrel Bisulfate 75 MG TABLET PO (08:31)
[2023-04-02] MEDS: Folic Acid 1 MG TABLET PO (08:31)
[2023-04-02] MEDS: Apixaban 2.5 MG TABLET PO ×2 (08:31→20:11)
[2023-04-02] MEDS: Furosemide 40 MG/4 ML VIAL IVPUSH ×2 (08:31→17:00)
[2023-04-02] MEDS: Iron Sucrose Complex 200 MG in 0.9 % Sodium Chloride 100 ML 440 MG IV (08:44)
[2023-04-02] MEDS: Acetaminophen 325 MG TABLET 650 MG PO ×2 (09:02→19:22)
--- NOTE | 2023-04-02 09:23 | PC.NURSE ---
New orders to question transfusion reaction from yesterday? TRALI/CHF/Hypoxia? Documented in [facility], Urine sent to the lab, CXR completed, MD notified.
[2023-04-02 09:33] LABS: Urine Hemoglobin Trace
[2023-04-02 09:39] LABS: Troponin-I High Sensitivity 30.8 ng/L (<3.5-35.0)
--- NOTE | 2023-04-02 10:47 | PM.PNCARD ---
Subjective Subjective Date of Service: 04/02/23 Interval history: Seen examined at bedside. Sitting upright on supplemental oxygen. Denying any symptoms currently. Chest x-ray has raise concern for congestive heart failure. Physical Exam Vital Signs: Last Vital Signs Temp 97.7 F 04/02/23 07:10 Pulse 93 04/02/23 07:10 Resp 18 04/02/23 07:10 BP 174/94 H 04/02/23 07:10 Pulse Ox 91 L 04/02/23 04:00 O2 Del Method Room Air 04/02/23 07:10 O2 Flow Rate 2 04/02/23 07:10 BMI result Body Mass Index 22.0 GENERAL APPEARANCE: In no distress. On supplemental oxygen. NECK: no carotid bruit, + jugular venous distention. SKIN: no suspicious lesions, warm and dry. HEART: no murmurs, regular rate and rhythm. LUNGS: Bilateral rhonchi and wheezes. Basilar crackles. ABDOMEN: soft, nontender. EXTREMITIES: no edema. PERIPHERAL PULSES: equal. NEUROLOGIC: No gross deficits. Objective Labs and Meds 04/02/23 05:41 04/02/23 05:41 Lab results: Laboratory Results - last 24 hr 04/01/23 04/01/23 04/01/23 07:01 11:38 14:38 WBC RBC Hgb Hct MCV MCH MCHC RDW Plt Count MPV Absolute Nucleated RBC Nucleated RBC % (auto) Sodium Potassium Chloride Carbon Dioxide Anion Gap BUN Creatinine Estim Creat Clear Calc Estimated GFR POC Glucose 273 H Random Glucose Calcium Troponin I High Sens Procalcitonin Urine Hemoglobin Stool Occult Blood NEGATIVE Blood Type A Positive Antibody Screen NEGATIVE Crossmatch See Detail 04/01/23 04/01/23 04/02/23 16:07 20:25 05:41 WBC 9.7 RBC 2.92 L Hgb 8.1 L Hct 25.1 L MCV 86.0 MCH 27.7 MCHC 32.3 RDW 16.3 H Plt Count 170 MPV 11.3 Absolute Nucleated RBC 0.000 Nucleated RBC % (auto) 0.0 Sodium 139 Potassium 4.5 Chloride 103 Carbon Dioxide 24 Anion Gap 17 BUN 73 H Creatinine 3.79 H Estim Creat Clear Calc 20.1 Estimated GFR 17 POC Glucose 161 H 202 H Random Glucose 157 H Calcium 8.5 Troponin I High Sens Procalcitonin 0.63 Urine Hemoglobin Stool Occult Blood Blood Type Antibody Screen Crossmatch 02/17/24 02/17/24 02/17/24 07:13 09:06 09:15 WBC RBC Hgb Hct MCV MCH MCHC RDW Plt Count MPV Absolute Nucleated RBC Nucleated RBC % (auto) Sodium Potassium Chloride Carbon Dioxide Anion Gap BUN Creatinine Estim Creat Clear Calc Estimated GFR POC Glucose 124 H Random Glucose Calcium Troponin I High Sens 30.8 Procalcitonin Urine Hemoglobin Trace H Stool Occult Blood Blood Type Antibody Screen Crossmatch Imaging Radiologist's impression: Impressions Chest X-Ray 04/01/23 18:35 IMPRESSION: Extensive multifocal airspace opacities with relative sparing of the subpleural lung, nonspecific differential considerations include pneumonia, alveolar hemorrhage, drug toxicity, severe inflammatory response, among others. Recommend close attention on follow-up. Chest X-Ray 04/02/23 08:23 IMPRESSION: 1. Worsening diffuse pulmonary opacification diffuse infiltrates. 2. Bilateral subpulmonic pleural effusions right more than left. Progress Note: A&P Assessment and plan (1) Congestive heart failure: Status: Acute Plan [age] year gentleman with multiple comorbidities who presented with leg and back pain and was noticed to have significant kidney issues, anemia and metabolic acidosis. Clinically he was overloaded yesterday and was given IV diuretics. Chest x-ray is showing evidence of congestive heart failure. Start him on IV Lasix 40 mg twice a day. Monitor electrolytes closely. He is on midodrine, unclear why he is on that. He was a heavy drinker and diabetic and it is possible that he had some autonomic issues due to that. Currently blood pressure is too high and midodrine should be decreased to 2.5 mg 3 times a day. Other possibility is to put a hold parameter on 2 so it has not given if his blood pressure is more than 130s. He will need workup for amyloid as outpatient and we will arrange a cardiac MRI for him. Thank you for allowing me to participate in the care of your patient. Please feel free to contact me if you have any questions. Time Spent With Patient Time: Total time managing care of this patient today ____ minutes. Progress Note: Quality Stroke Does the patient have a stroke diagnosis?: No Procedures Date of Service Date of Service: 04/02/23
[2023-04-02 11:39] LABS: Glucose, Whole Blood 260 mg/dL (60-115)
[2023-04-02 11:43] LABS: Troponin-I High Sensitivity 23.7 ng/L (<3.5-35.0)
[2023-04-02] MEDS: Insulin Lispro 100 UNIT/ML 3 ML VIAL SUBCUT ×3 (11:45→20:19)
[2023-04-02 11:52] VITALS: O2SAT 96
[2023-04-02 11:52] LABS: B Type Natriuretic Peptide 1472 pg/mL (<100)
[2023-04-02 12:00] LABS: B Type Natriuretic Peptide 542 pg/mL (<100)
[2023-04-02 12:56] LABS: B Type Natriuretic Peptide 1311 pg/mL (<100)
--- NOTE | 2023-04-02 13:24 | P.PNIM_ITS ---
Subjective Subjective Date of Service: 04/02/23 Interval History: Became hypoxic and short of breath yesterday Diuresing now and feels better Review of Systems Review of Systems: Yes all other systems are reviewed and are negative Physical Exam 2 Vital Signs: Vital Signs: Last Vital Signs Temp 97.7 F 04/02/23 07:10 Pulse 93 04/02/23 07:10 Resp 18 04/02/23 07:10 BP 174/94 H 04/02/23 07:10 Pulse Ox 96 04/02/23 11:52 O2 Del Method Nasal Cannula 04/02/23 11:52 O2 Flow Rate 2 04/02/23 07:10 BMI result Body Mass Index 22.0 Gen: in no acute distress HEENT: sclera anicteric, moist mucus membranes Neck: supple, JVD Lungs: diffuse insp crackles Heart: regular rate and rhythm, no murmurs Abd: soft, non-tender, non-distended Ext: no edema Skin: warm/well-perfused Neuro: alert and oriented x3, no focal findings Psych: appropriate affect Objective Data Active Medications Acetaminophen (Acetaminophen 325 Mg Tablet) 650 mg PO Q6H PRN PRN Reason: Pain, Mild (Pain Scale 1-3) Last Admin: 04/02/23 09:02 Dose: 650 mg Documented By: MALU Albuterol/Ipratropium (Albuterol/Iprat 2.5/0.5mg 3 Ml Ampul.Neb) 3 ml INHALE RQ4H WHILE AWAKE PRN PRN Reason: sob Apixaban (Apixaban 2.5 Mg Tablet) 2.5 mg PO BID [facility] Last Admin: 04/02/23 08:31 Dose: 2.5 mg Documented By: MALU Atorvastatin Calcium (Atorvastatin Calcium 80 Mg Tablet) 80 mg PO BEDTIME [facility] Last Admin: 04/01/23 20:26 Dose: 80 mg Documented By: SHLOMO Benzonatate (Benzonatate 100 Mg Capsule) 200 mg PO TID PRN PRN Reason: cough Last Admin: 03/31/23 20:47 Dose: 200 mg Documented By: HELEN Clopidogrel Bisulfate (Clopidogrel Bisulfate 75 Mg Tablet) 75 mg PO DAILY [facility] Last Admin: 04/02/23 08:31 Dose: 75 mg Documented By: MALU Dextrose (Dextrose 50 % 25 Gm/50 Ml Syringe) 25 gm IVPUSH Q15M PRN; Protocol PRN Reason: per Hypoglycemia Standing Ord. Donepezil HCl (Donepezil Hcl 5 Mg Tablet) 5 mg PO BEDTIME [facility] Last Admin: 04/01/23 20:26 Dose: 5 mg Documented By: SHLOMO Folic Acid (Folic Acid 1 Mg Tablet) 1 mg PO DAILY [facility] Last Admin: 04/02/23 08:31 Dose: 1 mg Documented By: MALU Furosemide (Furosemide 40 Mg/4 Ml Vial) 40 mg IVPUSH BID@0900,1800 [facility]; Protocol Last Admin: 04/02/23 08:31 Dose: 40 mg Documented By: MALU Glucose (Glucose Gel 15 Gm Gel..Gram.) 15 gm PO Q15M PRN; Protocol PRN Reason: per Hypoglycemia Standing Ord. Guaifenesin/Dextromethorphan (Guaifenesin Dm 200/20/10 Ml 10 Ml Syrup) 10 ml PO Q4H PRN PRN Reason: Cough Last Admin: 04/01/23 17:10 Dose: 10 ml Documented By: SHLOMO Iron Sucrose 200 mg/ Sodium (Chloride) 110 mls @ 440 mls/hr IV DAILY [facility] Stop: 04/04/23 09:14 Last Infusion: 04/02/23 09:00 Dose: Infused Documented By: MALU Insulin Glargine (Insulin Glargine,Hum.Rec.Anlog 100 Unit/Ml 10 Ml Vial) 18 unit SUBCUT BEDTIME [facility] Last Admin: 04/01/23 20:35 Dose: 18 unit Documented By: SHLOMO Insulin Human Lispro (Insulin Lispro 100 Unit/Ml 3 Ml Vial) 0 unit SUBCUT QIDACHS [facility]; Protocol Last Admin: 04/02/23 11:45 Dose: 6 unit Documented By: MALU Melatonin (Melatonin 3 Mg Tablet) 6 mg PO BEDTIME PRN PRN Reason: Insomnia Last Admin: 03/31/23 20:35 Dose: 6 mg Documented By: HELEN Midodrine (Midodrine Hcl 2.5 Mg Tablet) 2.5 mg PO TID [facility] Mirtazapine (Mirtazapine 30 Mg Tablet) 30 mg PO BEDTIME [facility] Last Admin: 04/01/23 20:26 Dose: 30 mg Documented By: SHLOMO Multivitamins/Vitamin C (Multivitamin Tablet) 1 tab PO DAILY [facility] Last Admin: 04/02/23 08:30 Dose: 1 tab Documented By: MALU Nicotine Polacrilex (Nicotine Polacrilex 2 Mg Gum) 2 mg BUCCAL Q1H PRN PRN Reason: Nicotine Cravings Omeprazole (Omeprazole 20 Mg Capsule.) 20 mg PO DAILY@0630 [facility] Last Admin: 04/02/23 05:55 Dose: 20 mg Documented By: SHLOMO Ondansetron HCl (Ondansetron Hcl 4 Mg/2 Ml Vial) 4 mg IVPUSH Q8H PRN PRN Reason: Nausea and Vomiting Senna (Sennosides 8.6 Mg Tablet) 8.6 mg PO BEDTIME [facility] Last Admin: 04/01/23 20:26 Dose: 8.6 mg Documented By: SHLOMO Sodium Chloride (0.9 % Sodium Chloride Flush 3 Ml Syringe) 3 ml IVFLUSH QSHIFT [facility] Last Admin: 04/02/23 07:08 Dose: 3 ml Documented By: MALU Labs 04/02/23 05:41 04/02/23 05:41 Labs: Laboratory Results - last 24 hr 03/31/23 04/01/23 04/01/23 04:34 06:26 07:01 MCV MCH MCHC RDW Plt Count MPV Absolute Nucleated RBC Nucleated RBC % (auto) Anion Gap Estim Creat Clear Calc Estimated GFR POC Glucose Random Glucose Calcium Troponin I High Sens B-Natriuretic Peptide 542 H 1472 H Procalcitonin Urine Hemoglobin Stool Occult Blood Crossmatch See Detail Clerical Work Check Hemolysis Bld Bag Check Icterus Blood Bag Check Pre-Trans Blood Type Post-Trans Blood Type Post-Trans ANIYAH Poly Post-Tx Rxn ANIYAH Result 04/01/23 04/01/23 04/01/23 14:38 16:07 20:25 MCV MCH MCHC RDW Plt Count MPV Absolute Nucleated RBC Nucleated RBC % (auto) Anion Gap Estim Creat Clear Calc Estimated GFR POC Glucose 161 H 202 H Random Glucose Calcium Troponin I High Sens B-Natriuretic Peptide Procalcitonin Urine Hemoglobin Stool Occult Blood NEGATIVE Crossmatch Clerical Work Check Hemolysis Bld Bag Check Icterus Blood Bag Check Pre-Trans Blood Type Post-Trans Blood Type Post-Trans ANIYAH Poly Post-Tx Rxn ANIYAH Result 04/02/23 04/02/23 04/02/23 05:41 07:13 09:06 MCV 86.0 MCH 27.7 MCHC 32.3 RDW 16.3 H Plt Count 170 MPV 11.3 Absolute Nucleated RBC 0.000 Nucleated RBC % (auto) 0.0 Anion Gap 17 Estim Creat Clear Calc 20.1 Estimated GFR 17 POC Glucose 124 H Random Glucose 157 H Calcium 8.5 Troponin I High Sens 30.8 B-Natriuretic Peptide Cancelled Procalcitonin 0.63 Urine Hemoglobin Stool Occult Blood Crossmatch Clerical Work Check Hemolysis Bld Bag Check Icterus Blood Bag Check Pre-Trans Blood Type Post-Trans Blood Type Post-Trans ANIYAH Poly Post-Tx Rxn ANIYAH Result 04/02/23 04/02/23 04/02/23 09:06 09:15 11:04 MCV MCH MCHC RDW Plt Count MPV Absolute Nucleated RBC Nucleated RBC % (auto) Anion Gap Estim Creat Clear Calc Estimated GFR POC Glucose Random Glucose Calcium Troponin I High Sens 23.7 B-Natriuretic Peptide 1311 H Procalcitonin Urine Hemoglobin Trace H Stool Occult Blood Crossmatch Clerical Work Check No Error Found Hemolysis Bld Bag Check None in Pre and Post Icterus Blood Bag Check None in Pre and Post Pre-Trans Blood Type A POSITIVE Post-Trans Blood Type A Positive Post-Trans ANIYAH Poly NEGATIVE Post-Tx Rxn ANIYAH Result TNP 04/02/23 11:34 MCV MCH MCHC RDW Plt Count MPV Absolute Nucleated RBC Nucleated RBC % (auto) Anion Gap Estim Creat Clear Calc Estimated GFR POC Glucose 260 H Random Glucose Calcium Troponin I High Sens B-Natriuretic Peptide Procalcitonin Urine Hemoglobin Stool Occult Blood Crossmatch Clerical Work Check Hemolysis Bld Bag Check Icterus Blood Bag Check Pre-Trans Blood Type Post-Trans Blood Type Post-Trans ANIYAH Poly Post-Tx Rxn ANIYAH Result Assessment and Plan (1) Congestive heart failure: Status: Acute Plan d3 47yo M who recently moved to the area, PMHx of CVA, DVT on apixaban, mood disorder, vascular dementia, cocaine abuse, CKD4, GERD presented with RLE discomfort [resolved], found to have severe acidosis suspicion of amyloidosis on TTE anemic and in CHF exacerbation non-anion gap metabolic acidosis CKD4 - acidosis normalized, stopped bicarbonate drip 04/01. Needs close Nephrology follow-up including renal biopsy and genetic testing given suspicion of amyloidosis infiltrative cardiomyopathy acute hypoxic resp failure due to acute-chronic HFpEF - Diurese with IV furosemide 40 mg bid. Cardiology following. Will need close outpt Cardiology follow-up including cardiac MRI. Wean O2 as tolerated anemia of CKD + iron deficiency - repleting Fe; per Nephrology 200 mg of Fe sucrose daily 03/31-04/04; epo per Nephrology - transfused 1u pRBCs 04/01. CHF exacerbation possibly due to transfusion [though got furosemide before and afterwards]; doubt TRALI but will do transfusion reaction workup HCV Ab+ - viral load pending DM2 - basal-bolus insulin hx CVA - statin, clopidogrel vascular dementia? - could also be due to amyloidosis - donepezil hx DVT - apixaban GERD - PPI mood disorder - mirtazapine VTE ppx - apixaban dispo - anticipate home with VNA In my clinical judgment, the patient requires continued inpatient hospitalization for the following reasons: diuresis, hypoxia Total time managing care of this patient today: 50 minutes. Quality Stroke Does the patient have a stroke diagnosis?: No VTE Prior VTE?: No VTE Risk Level:: Medical - moderate - high VTE Device Contraindication: Treatment Not Indicated VTE Drug Contraindication: N/A - Med Ordered
[2023-04-02 14:04] VITALS: BP 162/83; PULSE 82
--- NOTE | 2023-04-02 15:01 | P.CDIM_ITS ---
PROVIDER RESPONSE TEXT: To clarify, the appropriate diagnosis supported by the clinical indicators: Acute QUERY TEXT: PHYSICIAN'S DOCUMENTATION REQUEST Date of Query: 04/01/2023 08:13 AM EST Patient Name: Ben Soto Admit Date: 03/31/2023 Dear Catrachita Lama, A review of the medical record indicates additional documentation may be needed. Please review below and update the documentation accordingly. Clinical Indicators: H&P: Plan: Metabolic acidosis, hyperchloremic non-anion gap. Patient initiated on bicarb fluids. Clarify which of the following accurately represents the acuity of the metabolic acidosis: Possible options might include: Acute Acute on chronic Other Other (explain) Clinically unable to determine (explain) Thank you, Darlyn Patel, CCS, CDIS Use of terms such as suspected, likely, concern for, or probable (associated with a specific diagnosi s that is being evaluated, monitored, or treated as if it exists) are acceptable and can be coded in the inpatient se tting, when documented at the time of discharge. Please use your independent medical judgment in providing your response. THIS QUERY IS PART OF THE PERMANENT MEDICAL RECORD
[2023-04-02 15:21] VITALS: BP 142/74; PULSE 91; RESP 18; TEMP 36.6; O2SAT 94
[2023-04-02 16:14] LABS: Glucose, Whole Blood 251 mg/dL (60-115)
--- NOTE | 2023-04-02 16:41 | PC.NURSE ---
Pt asked if he could stand with his mother in the room next to him to void. This sports writer OK with that, pt staeady on his feet. Camera for vascular dementia.
[2023-04-02 19:33] VITALS: BP 150/75; PULSE 97; RESP 18; TEMP 36.8; O2SAT 92
[2023-04-02] MEDS: Atorvastatin Calcium 80 MG TABLET PO (20:11)
[2023-04-02] MEDS: Sennosides 8.6 MG TABLET PO (20:11)
[2023-04-02] MEDS: Mirtazapine 30 MG TABLET PO (20:11)
[2023-04-02] MEDS: Melatonin 3 MG TABLET 6 MG PO (20:11)
[2023-04-02] MEDS: Donepezil HCl 5 MG TABLET PO (20:11)
[2023-04-02 20:15] LABS: Glucose, Whole Blood 227 mg/dL (60-115)
[2023-04-02] MEDS: Insulin Glargine,Hum.rec.anlog 100 UNIT/ML 10 ML VIAL 18 UNIT SUBCUT (20:20)
[2023-04-03 03:21] VITALS: BP 156/88; PULSE 88; RESP 18; TEMP 37.2; O2SAT 95
[2023-04-03] MEDS: Omeprazole 20 MG CAPSULE.DR PO (05:30)
[2023-04-03 06:18] LABS: Hematocrit 27.8 % (42.0-52.0); Hemoglobin 8.9 g/dl (14.0-18.0); Mean Corpuscular Hemoglobin 27.6 pg (27.0-33.0); Mean Corpuscular Volume 86.3 fL (80.0-98.0); Mean Platelet Volume 10.8 fL (9.4-12.4); Platelet Count 223 X10*3/uL (160-400); Red Blood Count 3.22 X10*6/uL (4.60-5.80); Red Cell Distribution Width 15.9 % (11.0-16.0); White Blood Count 11.3 X10*3/uL (4.8-10.8)
[2023-04-03 06:37] LABS: B Type Natriuretic Peptide 914 pg/mL (<100)
[2023-04-03 06:44] LABS: Anion Gap 17 (12-20); Blood Urea Nitrogen 79 mg/dL (9-16); Calcium 8.6 mg/dL (8.4-10.2); Carbon Dioxide 25 mmol/L (22-29); Chloride 101 mmol/L (96-108); Creatinine Clr Calc Pharmacy 18.5; Estimated Glomerular Filt Rate 16; Glucose Random 83 mg/dL (60-115); Magnesium 1.7 mg/dL (1.6-2.6); Potassium 4.6 mmol/L (3.3-5.1); Sodium 138 mmol/L (135-145)
[2023-04-03 07:50] LABS: Glucose, Whole Blood 89 mg/dL (60-115)
[2023-04-03 08:00] VITALS: BP 168/92; PULSE 87; RESP 18; TEMP 36.9; O2SAT 95
[2023-04-03] MEDS: Apixaban 2.5 MG TABLET PO (08:02)
[2023-04-03] MEDS: Clopidogrel Bisulfate 75 MG TABLET PO (08:02)
[2023-04-03] MEDS: Midodrine HCl 2.5 MG TABLET PO (08:02)
[2023-04-03] MEDS: Folic Acid 1 MG TABLET PO (08:03)
[2023-04-03] MEDS: 0.9 % Sodium Chloride Flush 3 ML SYRINGE IVFLUSH (08:04)
[2023-04-03] MEDS: Furosemide 40 MG/4 ML VIAL IVPUSH (08:06)
[2023-04-03] MEDS: Iron Sucrose Complex 200 MG in 0.9 % Sodium Chloride 100 ML 440 MG IV (08:09)
[2023-04-03] MEDS: Multivitamin TABLET 1 TAB PO (08:17)
--- NOTE | 2023-04-03 08:38 | P.PNIM_ITS ---
Subjective Subjective Date of Service: 04/03/23 Interval History: much improved Physical Exam 2 Vital Signs: Vital Signs: Last Vital Signs Temp 98.4 F 04/03/23 08:00 Pulse 87 04/03/23 08:00 Resp 18 04/03/23 08:00 BP 168/92 H 04/03/23 08:00 Pulse Ox 95 04/03/23 08:00 O2 Del Method Nasal Cannula 04/03/23 08:00 O2 Flow Rate 2 04/03/23 08:00 BMI result Body Mass Index 22.0 General: AO X 3, no acute distress Resp: CTA bilateral, no accessory muscles used CVS: S1,S2,RRR GI: soft, non tender, non distended Neuro: motor grossly intact, alert Psych: appropriate affect, appropriate insight Objective Data Active Medications Acetaminophen (Acetaminophen 325 Mg Tablet) 650 mg PO Q6H PRN PRN Reason: Pain, Mild (Pain Scale 1-3) Last Admin: 04/02/23 19:22 Dose: 650 mg Documented By: ASUNCION Albuterol/Ipratropium (Albuterol/Iprat 2.5/0.5mg 3 Ml Ampul.Neb) 3 ml INHALE RQ4H WHILE AWAKE PRN PRN Reason: sob Apixaban (Apixaban 2.5 Mg Tablet) 2.5 mg PO BID [facility] Last Admin: 04/03/23 08:02 Dose: 2.5 mg Documented By: DIANA Atorvastatin Calcium (Atorvastatin Calcium 80 Mg Tablet) 80 mg PO BEDTIME [facility] Last Admin: 04/02/23 20:11 Dose: 80 mg Documented By: ASUNCION Benzonatate (Benzonatate 100 Mg Capsule) 200 mg PO TID PRN PRN Reason: cough Last Admin: 03/31/23 20:47 Dose: 200 mg Documented By: HELEN Clopidogrel Bisulfate (Clopidogrel Bisulfate 75 Mg Tablet) 75 mg PO DAILY [facility] Last Admin: 04/03/23 08:02 Dose: 75 mg Documented By: DIANA Dextrose (Dextrose 50 % 25 Gm/50 Ml Syringe) 25 gm IVPUSH Q15M PRN; Protocol PRN Reason: per Hypoglycemia Standing Ord. Donepezil HCl (Donepezil Hcl 5 Mg Tablet) 5 mg PO BEDTIME [facility] Last Admin: 04/02/23 20:11 Dose: 5 mg Documented By: ASUNCION Folic Acid (Folic Acid 1 Mg Tablet) 1 mg PO DAILY [facility] Last Admin: 04/03/23 08:03 Dose: 1 mg Documented By: DIANA Furosemide (Furosemide 40 Mg/4 Ml Vial) 40 mg IVPUSH BID@0900,1800 [facility]; Protocol Last Admin: 04/03/23 08:06 Dose: 40 mg Documented By: DIANA Glucose (Glucose Gel 15 Gm Gel..Gram.) 15 gm PO Q15M PRN; Protocol PRN Reason: per Hypoglycemia Standing Ord. Guaifenesin/Dextromethorphan (Guaifenesin Dm 200/20/10 Ml 10 Ml Syrup) 10 ml PO Q4H PRN PRN Reason: Cough Last Admin: 04/01/23 17:10 Dose: 10 ml Documented By: SHLOMO Iron Sucrose 200 mg/ Sodium (Chloride) 110 mls @ 440 mls/hr IV DAILY [facility] Stop: 04/04/23 09:14 Last Infusion: 04/03/23 08:30 Dose: Infused Documented By: DIANA Insulin Glargine (Insulin Glargine,Hum.Rec.Anlog 100 Unit/Ml 10 Ml Vial) 18 unit SUBCUT BEDTIME [facility] Last Admin: 04/02/23 20:20 Dose: 18 unit Documented By: ASUNCION Insulin Human Lispro (Insulin Lispro 100 Unit/Ml 3 Ml Vial) 0 unit SUBCUT QIDACHS [facility]; Protocol Last Admin: 04/03/23 07:52 Dose: Not Given Documented By: DIANA Non-Admin Reason: No Insulin Coverage Melatonin (Melatonin 3 Mg Tablet) 6 mg PO BEDTIME PRN PRN Reason: Insomnia Last Admin: 04/02/23 20:11 Dose: 6 mg Documented By: ASUNCION Midodrine (Midodrine Hcl 2.5 Mg Tablet) 2.5 mg PO TID [facility] Last Admin: 04/03/23 08:02 Dose: 2.5 mg Documented By: DIANA Mirtazapine (Mirtazapine 30 Mg Tablet) 30 mg PO BEDTIME [facility] Last Admin: 04/02/23 20:11 Dose: 30 mg Documented By: ASUNCION Multivitamins/Vitamin C (Multivitamin Tablet) 1 tab PO DAILY [facility] Last Admin: 04/03/23 08:17 Dose: 1 tab Documented By: DIANA Nicotine Polacrilex (Nicotine Polacrilex 2 Mg Gum) 2 mg BUCCAL Q1H PRN PRN Reason: Nicotine Cravings Omeprazole (Omeprazole 20 Mg Capsule.) 20 mg PO DAILY@0630 [facility] Last Admin: 04/03/23 05:30 Dose: 20 mg Documented By: ASUNCION Ondansetron HCl (Ondansetron Hcl 4 Mg/2 Ml Vial) 4 mg IVPUSH Q8H PRN PRN Reason: Nausea and Vomiting Senna (Sennosides 8.6 Mg Tablet) 8.6 mg PO BEDTIME [facility] Last Admin: 04/02/23 20:11 Dose: 8.6 mg Documented By: ASUNCION Sodium Chloride (0.9 % Sodium Chloride Flush 3 Ml Syringe) 3 ml IVFLUSH QSHIFT [facility] Last Admin: 04/03/23 08:04 Dose: 3 ml Documented By: DIANA Labs 04/03/23 05:44 04/03/23 05:44 Labs: Laboratory Results - last 24 hr 03/31/23 04/01/23 04/02/23 04:34 06:26 09:06 MCV MCH MCHC RDW Plt Count MPV Absolute Nucleated RBC Nucleated RBC % (auto) Anion Gap Estim Creat Clear Calc Estimated GFR POC Glucose Random Glucose Calcium Magnesium Troponin I High Sens 30.8 B-Natriuretic Peptide 542 H 1472 H Cancelled Urine Hemoglobin Clerical Work Check Hemolysis Bld Bag Check Icterus Blood Bag Check Pre-Trans Blood Type Post-Trans Blood Type Post-Trans ANIYAH Poly Post-Trans Add Testing Post-Tx Rxn ANIYAH Result 04/02/23 04/02/23 04/02/23 09:06 09:15 11:04 MCV MCH MCHC RDW Plt Count MPV Absolute Nucleated RBC Nucleated RBC % (auto) Anion Gap Estim Creat Clear Calc Estimated GFR POC Glucose Random Glucose Calcium Magnesium Troponin I High Sens 23.7 B-Natriuretic Peptide 1311 H Urine Hemoglobin Trace H Clerical Work Check No Error Found Hemolysis Bld Bag Check None in Pre and Post Icterus Blood Bag Check None in Pre and Post Pre-Trans Blood Type A POSITIVE Post-Trans Blood Type A Positive Post-Trans ANIYAH Poly NEGATIVE Post-Trans Add Testing TNP Post-Tx Rxn ANIYAH Result TNP 04/02/23 04/02/23 04/02/23 11:34 16:10 20:11 MCV MCH MCHC RDW Plt Count MPV Absolute Nucleated RBC Nucleated RBC % (auto) Anion Gap Estim Creat Clear Calc Estimated GFR POC Glucose 260 H 251 H 227 H Random Glucose Calcium Magnesium Troponin I High Sens B-Natriuretic Peptide Urine Hemoglobin Clerical Work Check Hemolysis Bld Bag Check Icterus Blood Bag Check Pre-Trans Blood Type Post-Trans Blood Type Post-Trans ANIYAH Poly Post-Trans Add Testing Post-Tx Rxn ANIYAH Result 04/03/23 04/03/23 05:44 07:46 MCV 86.3 MCH 27.6 MCHC 32.0 RDW 15.9 Plt Count 223 D MPV 10.8 Absolute Nucleated RBC 0.000 Nucleated RBC % (auto) 0.0 Anion Gap 17 Estim Creat Clear Calc 18.5 Estimated GFR 16 POC Glucose 89 Random Glucose 83 Calcium 8.6 Magnesium 1.7 Troponin I High Sens B-Natriuretic Peptide 914 H Urine Hemoglobin Clerical Work Check Hemolysis Bld Bag Check Icterus Blood Bag Check Pre-Trans Blood Type Post-Trans Blood Type Post-Trans ANIYAH Poly Post-Trans Add Testing Post-Tx Rxn ANIYAH Result Assessment and Plan (1) Congestive heart failure: Status: Acute Plan d4 47yo M who recently moved to the area, PMHx of CVA, DVT on apixaban, mood disorder, vascular dementia, cocaine abuse, CKD4, GERD presented with RLE discomfort [resolved], found to have severe acidosis suspicion of amyloidosis on TTE anemic and in CHF exacerbation non-anion gap metabolic acidosis CKD4 - acidosis normalized, stopped bicarbonate drip 04/01. Needs close Nephrology follow-up including renal biopsy and genetic testing given suspicion of amyloidosis infiltrative cardiomyopathy acute hypoxic resp failure due to acute-chronic HFpEF - Diurese with IV furosemide 40 mg bid. Cardiology following. Will need close outpt Cardiology follow-up including cardiac MRI. Wean O2 as tolerated anemia of CKD + iron deficiency - repleting Fe; per Nephrology 200 mg of Fe sucrose daily 03/31-04/04; epo per Nephrology - transfused 1u pRBCs 04/01. CHF exacerbation possibly due to transfusion [though got furosemide before and afterwards]; doubt TRALI but will do transfusion reaction workup HCV Ab+ - viral load pending DM2 - basal-bolus insulin hx CVA - statin, clopidogrel vascular dementia? - could also be due to amyloidosis - donepezil hx DVT - apixaban GERD - PPI mood disorder - mirtazapine VTE ppx - apixaban dispo - anticipate home with VNA In my clinical judgment, the patient requires continued inpatient hospitalization for the following reasons: diuresis, hypoxia Total time managing care of this patient today: 50 minutes. Quality Stroke Does the patient have a stroke diagnosis?: No VTE Prior VTE?: No VTE Risk Level:: Medical - moderate - high VTE Device Contraindication: Treatment Not Indicated VTE Drug Contraindication: N/A - Med Ordered
--- NOTE | 2023-04-03 09:48 | P.DS_ITS ---
DS: Providers Provider Date of Service: 04/03/23 Date of admission: 03/31/23 00:38 Primary care physician: Unknown Physician Consults: 03/31/23 00:40 Consult to Nephrology Routine Consulting Provider: [facility] Reason for consultation: non anion gap metabolic acidosis 04/01/23 08:23 Consult to Cardiology Routine Consulting Provider: [facility] Reason for consultation: Suspect amyloid on TTE DS: Diagnosis Discharge Diagnosis (1) Congestive heart failure: Status: Acute DS: Summary Hospital Course Hospital Course: from initial hpi: 47-year-old male with pertinent history of CVA, DVT on Eliquis, mood disorder, vascular dementia, history of IV drugs (cocaine) use disorder, chronic kidney disease, gastroesophageal reflux disease, mood disorder who presents to the emergency department for evaluation of right leg discomfort. Patient states he started having right leg tingling and numbness on the day of presentation. It had resolved during my evaluation. Patient recently moved about 2 weeks ago from [place] to [place] to be closer to family. He denies loose stools, abdominal discomfort, nausea, vomiting. He has no complaints at the time of my evaluation. Patient's bicarb was found to be low and Nephrology was consulted who requested admission and initiating patient on bicarb fluids. No fever, chills, chest discomfort, palpitations, shortness of breath, changes in urinary or bowel habits. hospital course: Patient was admitted for non anion gap metabolic acidosis. Was treated with bicarbonate drip and acidosis resolved. Bicarbonate was discontinued. Also noted to have acute hypoxic respiratory failure secondary to acute on chronic CHF with preserved ejection fraction. 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 He was treated with IV Lasix and significantly improved. He was weaned off oxygen. He will continue on Lasix 20 mg daily for maintenance. He should follow up with Cardiology as outpatient to arrange for cardiac MRI. For anemia of chronic kidney disease IV with iron deficiency he received IV iron infusion and 1 unit of PRBC. He should follow up closely with Nephrology as outpatient, may need Procrit. May also need kidney biopsy. 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 Viral load was sent and is still pending. This should be followed up as outpatient. For diabetes he received basal bolus insulin. For history of CVA was continued on statin and Plavix. For dementia due to possible vascular versus amyloid he was continued on Aricept. For history of DVT was continued on apixaban. For GERD he was continued on PPI. For mood disorder he was continued on mirtazapine. Patient is feeling much better will be discharged home with VNA. Time Attestation Discharge coordination time: Greater than 30 minutes Quality: Safe Use of Opioids Does Pt have an Active Cancer Diagnosis on the Problem List?: No Quality: Stroke Does the patient have a stroke diagnosis?: No Physical Exam Vital Signs: Vital Signs: Last Vital Signs Temp 98.4 F 04/03/23 08:00 Pulse 87 04/03/23 08:00 Resp 18 04/03/23 08:00 BP 168/92 H 04/03/23 08:00 Pulse Ox 95 04/03/23 08:00 O2 Del Method Nasal Cannula 04/03/23 08:00 O2 Flow Rate 2 04/03/23 08:00 BMI result Body Mass Index 22.0 General: AO X 3, no acute distress Resp: CTA bilateral, no accessory muscles used CVS: S1,S2,RRR GI: soft, non tender, non distended Neuro: motor grossly intact, alert Psych: appropriate affect, appropriate insight DS: Data Data Completed and Pending Labs on day of discharge: Laboratory Results - last 24 hr 03/31/23 04/01/23 04/02/23 04:34 06:26 09:06 WBC RBC Hgb Hct MCV MCH MCHC RDW Plt Count MPV Absolute Nucleated RBC Nucleated RBC % (auto) Sodium Potassium Chloride Carbon Dioxide Anion Gap BUN Creatinine Estim Creat Clear Calc Estimated GFR POC Glucose Random Glucose Calcium Magnesium Troponin I High Sens B-Natriuretic Peptide 542 H 1472 H Cancelled Clerical Work Check Hemolysis Bld Bag Check Icterus Blood Bag Check Pre-Trans Blood Type Post-Trans Blood Type Post-Trans ANIYAH Poly Post-Trans Add Testing Post-Tx Rxn ANIYAH Result 04/02/23 04/02/23 04/02/23 09:06 11:04 11:34 WBC RBC Hgb Hct MCV MCH MCHC RDW Plt Count MPV Absolute Nucleated RBC Nucleated RBC % (auto) Sodium Potassium Chloride Carbon Dioxide Anion Gap BUN Creatinine Estim Creat Clear Calc Estimated GFR POC Glucose 260 H Random Glucose Calcium Magnesium Troponin I High Sens 23.7 B-Natriuretic Peptide 1311 H Clerical Work Check No Error Found Hemolysis Bld Bag Check None in Pre and Post Icterus Blood Bag Check None in Pre and Post Pre-Trans Blood Type A POSITIVE Post-Trans Blood Type A Positive Post-Trans ANIYAH Poly NEGATIVE Post-Trans Add Testing TNP Post-Tx Rxn ANIYAH Result TNP 04/02/23 04/02/23 04/03/23 16:10 20:11 05:44 WBC 11.3 H RBC 3.22 L Hgb 8.9 L Hct 27.8 L MCV 86.3 MCH 27.6 MCHC 32.0 RDW 15.9 Plt Count 223 D MPV 10.8 Absolute Nucleated RBC 0.000 Nucleated RBC % (auto) 0.0 Sodium 138 Potassium 4.6 Chloride 101 Carbon Dioxide 25 Anion Gap 17 BUN 79 H Creatinine 4.13 H* Estim Creat Clear Calc 18.5 Estimated GFR 16 POC Glucose 251 H 227 H Random Glucose 83 Calcium 8.6 Magnesium 1.7 Troponin I High Sens B-Natriuretic Peptide 914 H Clerical Work Check Hemolysis Bld Bag Check Icterus Blood Bag Check Pre-Trans Blood Type Post-Trans Blood Type Post-Trans ANIYAH Poly Post-Trans Add Testing Post-Tx Rxn ANIYAH Result 04/03/23 07:46 WBC RBC Hgb Hct MCV MCH MCHC RDW Plt Count MPV Absolute Nucleated RBC Nucleated RBC % (auto) Sodium Potassium Chloride Carbon Dioxide Anion Gap BUN Creatinine Estim Creat Clear Calc Estimated GFR POC Glucose 89 Random Glucose Calcium Magnesium Troponin I High Sens B-Natriuretic Peptide Clerical Work Check Hemolysis Bld Bag Check Icterus Blood Bag Check Pre-Trans Blood Type Post-Trans Blood Type Post-Trans ANIYAH Poly Post-Trans Add Testing Post-Tx Rxn ANIYAH Result Discharge Plan Discharge Anticipated Discharge Date/Time: 04/03/23 09:43 Patient Disposition: Home Health Service Discharge Diagnosis: amyloid, chf, hyupoxia Referrals: Timi Steinberg MD [Physician] - 1 Week Keren Reyes [employer] [Nurse Practitioner] - 1 Week Physician,Terry Valentin [Primary Care Provider] - 1 Week Discharge Medications: New midodrine 2.5 mg Tablet 2.5 mg PO TID Qty: 270 0RF furosemide 20 mg tablet 20 mg PO DAILY Qty: 90 0RF Continued atorvastatin 80 mg Tablet 80 mg PO BEDTIME sennosides [senna] 8.6 mg Tablet 8.6 mg PO QPM acetaminophen 325 mg Tablet 650 mg PO Q4H PRN (Reason: Fever Or Pain) donepezil [Aricept] 5 mg Tablet 5 mg PO BEDTIME melatonin 3 mg Tablet 6 mg PO BEDTIME clopidogrel 75 mg Tablet 75 mg PO DAILY pantoprazole 40 mg Tablet,Delayed Release (Dr/Ec) 40 mg PO QAM mirtazapine [Remeron] 30 mg Tablet 30 mg PO BEDTIME ferrous sulfate 325 mg (65 mg iron) Tablet 325 mg PO DAILY folic acid 1 mg Tablet 1 mg PO DAILY multivitamin with minerals Tablet 1 tab PO DAILY Eliquis 2.5 mg Tablet 2.5 mg PO BID insulin lispro [Humalog KwikPen Insulin] 100 unit/mL Insulin Pen 1 sliding scale dose SUBCUT USEASDIRECTD Qty: 15 0RF Protocol: Insulin Correction Scale Less than or equal to 110 ---- Give (units): 0 111 to 150 Give (units): 0 151 to 200 Give (units): 2 201 to 250 Give (units): 4 251 to 300 Give (units): 6 301 to 350 Give (units): 8 Greater than 350 Give (units): 10 Call MD if Blood Glucose > : 450 insulin glargine 100 unit/mL (3 mL) Insulin Pen 18 unit SUBCUT BEDTIME Qty: 15 0RF Discontinued midodrine 5 mg Tablet 5 mg PO TID Rx Instructions: do not give last dose of day after 6PM or within 4 hrs of bedtime hold for SBP >140 and DBP >90 sodium bicarbonate 650 mg Tablet 650 mg PO TID Discharge Orders: Discharge Order (Routine); Ordered 04/03/23 Ordered By: Raymond Boggs Diet: Low salt diet Activity on Discharge: As tolerated Stand Alone Forms: Patient Portal Discharge page Care Plan Goals: recovery Health Concerns: amyloid, chf, CKD, anemia Plan of Treatment: med changes as prescribed. follow up with cardiology (cardiac mri), follow up with nephro (may need biopsy, procrit) Assessment: see above Patient Instructions: Heart Failure (GEN)
--- NOTE | 2023-04-03 09:51 | W.MHC.F2F ---
Service Date Service Date: 04/03/23 Encounter Date of encounter: 04/03/23 Reasons for Services Signs and symptoms assessed: weakness Reason for [facility]: medication management, medication treatment and teach disease management Homebound: Leaving the home is medically contraindicated at this time without the asist of a device and/or another person due th the listed conditions above and below. Reason homebound: shortness of breath with minimal effort Certification: Based on the above findings, I certify that this patient is confined to the home and needs intermittent [facility] care, physical therapy and/or speech therapy, or continues to need occupational therapy. The patient is under my care, and I have initiated the establishment of the plan of care. The patient will be followed by a physician who will periodically review the plan of care. Time Spent With Patient Time: Total time managing care of this patient today ____ minutes.
--- NOTE | 2023-04-03 10:15 | MHC.CM.PN ---
PT CLEARED TO HI TODAY WITH HOME HEALTH SERVICES HOWEVER HE DOES NOT HAVE A PCP AT THIS TIME CM SPOKE TO PT AND PROVIDED A LIST OF PRIMARY CARE PROVIDERS PT REPORTS HE DID CALL HIS MOTHER BUT SHE SAID SHE COULD NOT COME GET HIM UNTIL LATER IN THE DAY CM CALLED PTS DAUGHTER, GUERDA [phone], CM DISCUSSED THE IMPORTANCE OF PT GETTING A PCP AND THE PROCESS TO GET ONE WITH HIS INSURANCE. SHE REPORTED THE PTS MOTHER WOULD BE PROVIDING HIS TRANSPORT. SHE ALSO STATED SHE DID NOT THINK THAT THE PT ACTUALLY SPOKE TO HER TODAY. CM ATTEMPTED TO CONTACT PTS MOTHER, EMILY [phone] USING [employer] #[id number] EMILY DID NOT ANSWER, A VM MESSAGE WAS LEFT INFORMING HER THE PT WOULD BE READY FOR [employer] COMM[employer]ICATIONS AFTER 1100 HOURS
[2023-04-04 16:04] LABS: HCV Log PCR <1.18 NOT DETECTED Log IU/mL (NOT DETECTED); HepC Viral Load <15 NOT DETECTED IU/mL (NOT DETECTED)
[2023-04-05 09:44] LABS: IgA 155 mg/dL (47-310); IgG 595 mg/dL (600-1640); IgM 131 mg/dL (50-300)
== END 2023-04-03 10:34 | disposition home or self-care (01) | DRG 194 ==
LOC: HO.ED 03-31 00:27 → HO.EDOVER 03-31 00:42 → HO.S3 03-31 14:06
PROVIDERS: Family Medicine; Internal Medicine Nephrology; Pathology Anatomic Pathology & Clinical Pathology; Physician Assistant Medical; Admitting Provider Student in an Organized Health Care Education/Training Program; Emergency Provider Emergency Medicine; Visit Provider Internal Medicine
DX: I50.33 Acute on chronic diastolic (congestive) heart failure (principal); N17.9 Acute kidney failure, unspecified; E85.4 Organ-limited amyloidosis; E87.21 Acute metabolic acidosis; D63.1 Anemia in chronic kidney disease; N18.4 Chronic kidney disease, stage 4 (severe); B19.20 Unspecified viral hepatitis C without hepatic coma; I43 Cardiomyopathy in diseases classified elsewhere; R20.2 Paresthesia of skin; E11.22 Type 2 diabetes mellitus with diabetic chronic kidney disease; F01.50 Vascular dementia, unspecified severity, without behavioral disturbance, psychotic disturbance, mood disturbance, and anxiety; D50.9 Iron deficiency anemia, unspecified; F14.91 Cocaine use, unspecified, in remission; K21.9 Gastro-esophageal reflux disease without esophagitis; Z20.822 Contact with and (suspected) exposure to COVID-19; Z87.891 Personal history of nicotine dependence; Z79.4 Long term (current) use of insulin; Z79.01 Long term (current) use of anticoagulants; Z79.02 Long term (current) use of antithrombotics/antiplatelets; Z79.899 Other long term (current) drug therapy
CPT/HCPCS: 0241U; 36415; 71045; 76775; 80048; 80076; 80307; 81001; 82272; 82306; 82436; 82570; 82607; 82728; 82746; 82784; 82803; 82947; 83540; 83605; 83735; 83880; 83935; 83970; 84100; 84133; 84145; 84156; 84300; 84484; 85025; 85027; 86078; 86334; 86704; 86706; 86803; 86850; 86900; 86901; 86923; 87340; 87389; 87522; 93005; 93306; 93356; 93971; 94640; 97162; 99221; 99285; J1756; J1940; P9016

== ENCOUNTER → 2023-03-30 19:42 | Outpatient (BNV) | payer MEDICAID, SELFPAY | PROVIDERS: Admitting Provider Student in an Organized Health Care Education/Training Program; Emergency Provider Emergency Medicine; Visit Provider Internal Medicine Cardiovascular Disease | DX: I45.6 Pre-excitation syndrome (principal); E87.5 Hyperkalemia; R94.31 Abnormal electrocardiogram [ECG] [EKG] | CPT/HCPCS: 93010 ==

== ENCOUNTER 2023-03-31 00:38 | Outpatient (BNV) | payer MEDICAID, SELFPAY | END 2023-04-02 07:45 | PROVIDERS: Admitting Provider Student in an Organized Health Care Education/Training Program; Emergency Provider Emergency Medicine; Visit Provider Internal Medicine Cardiovascular Disease | DX: R07.9 Chest pain, unspecified (principal); I45.81 Long QT syndrome | CPT/HCPCS: 93010 ==

== ENCOUNTER 2023-03-31 00:38 | Outpatient (BNV) | payer MEDICAID, SELFPAY | END 2023-03-31 07:00 | PROVIDERS: Admitting Provider Student in an Organized Health Care Education/Training Program; Emergency Provider Emergency Medicine; Visit Provider Internal Medicine Cardiovascular Disease | DX: I27.20 Pulmonary hypertension, unspecified (principal); E87.29 Other acidosis | CPT/HCPCS: 93306 ==

== ENCOUNTER → 2023-03-31 00:38 | Outpatient (BNV) | payer MEDICAID, SELFPAY | PROVIDERS: Admitting Provider Student in an Organized Health Care Education/Training Program; Emergency Provider Emergency Medicine; Visit Provider Internal Medicine Nephrology | DX: N18.4 Chronic kidney disease, stage 4 (severe) (principal); I42.8 Other cardiomyopathies; N17.9 Acute kidney failure, unspecified; D63.1 Anemia in chronic kidney disease | CPT/HCPCS: 99223; 99232 ==

== ENCOUNTER → 2023-03-31 00:38 | Outpatient (BNV) | payer MEDICAID, SELFPAY | PROVIDERS: Admitting Provider Student in an Organized Health Care Education/Training Program; Emergency Provider Emergency Medicine; Visit Provider Student in an Organized Health Care Education/Training Program | DX: I50.9 Heart failure, unspecified (principal); E87.29 Other acidosis; J96.01 Acute respiratory failure with hypoxia; I42.9 Cardiomyopathy, unspecified | CPT/HCPCS: 99222; 99233; 99238; 99499; G0180 ==

== ENCOUNTER → 2023-03-31 00:38 | Outpatient (BNV) | payer MEDICAID, SELFPAY | PROVIDERS: Admitting Provider Student in an Organized Health Care Education/Training Program; Emergency Provider Emergency Medicine; Visit Provider Internal Medicine Cardiovascular Disease | DX: I50.9 Heart failure, unspecified (principal) | CPT/HCPCS: 99222; 99233 ==

== ENCOUNTER 2023-04-09 17:40 | Inpatient (IN) | payer OTHER, SELFPAY ==
[2023-04-09] VITALS (7 sets, daily range): BP systolic 116–156; BP diastolic 66–88; PULSE 102–125; RESP 14–20; TEMP 37.1–39.4; O2SAT 93–96; BMI 21.1
--- NOTE | ~2023-04-09 | XR_ITS ---
EXAMINATION: XR CHEST CLINICAL INFORMATION: Fever COMPARISON: Previous chest x-ray 04/02/2023 TECHNIQUE: Frontal view of the chest was obtained. FINDINGS: The cardiac silhouette does not appear enlarged. There is bilateral perihilar airspace disease, left greater than right. Differential would include pneumonia and pulmonary edema. Small bilateral pleural effusions. No pneumothorax. XR/XR chest 1V IMPRESSION: Bilateral perihilar airspace disease, left greater than right. Differential would include pneumonia and pulmonary edema.
--- NOTE | 2023-04-09 18:14 | ECG_ITS ---
Test Reason : SOB Blood Pressure : / mmHG Vent. Rate : 110 BPM Atrial Rate : 110 BPM P-R Int : 098 ms QRS Dur : 070 ms QT Int : 334 ms P-R-T Axes : 031 049 089 degrees QTc Int : 452 ms Sinus tachycardia with short MI Nonspecific ST and T wave abnormality Abnormal ECG When compared with ECG of 02-APR-2023 07:45, No significant change was found Referred By: Alexandria Lynn Electronically Signed By:SHY TRENT MD
--- NOTE | 2023-04-09 18:22 | ED.GENADULT ---
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 Did receive IV Fe and one unit PRBC. He comes back today with c/o 1 hour of shakes. He states he doesn't feel well. Family is here and states this came on abruptly no one else is sick. No other symptoms. MD complaint: chills Onset (ago): hour(s) (1) Radiation: non-radiation Severity: moderate Quality: constant Relieving factors: none Exacerbating factors: none Associated symptoms: fever/chills Treatments prior to arrival: none Related Data Home Medications Medication Instructions Recorded Confirmed acetaminophen 325 mg tablet 650 mg PO Q4H PRN Fever Or Pain 03/20/23 03/31/23 apixaban 2.5 mg tablet (Eliquis) 2.5 mg PO BID 03/20/23 03/31/23 atorvastatin 80 mg tablet 80 mg PO BEDTIME 03/20/23 03/31/23 clopidogrel 75 mg tablet 75 mg PO DAILY 03/20/23 03/31/23 donepezil 5 mg tablet (Aricept) 5 mg PO BEDTIME 03/20/23 03/31/23 ferrous sulfate 325 mg (65 mg 325 mg PO DAILY 03/20/23 03/31/23 iron) tablet folic acid 1 mg tablet 1 mg PO DAILY 03/20/23 03/31/23 melatonin 3 mg tablet 6 mg PO BEDTIME 03/20/23 03/31/23 mirtazapine 30 mg tablet (Remeron) 30 mg PO BEDTIME 03/20/23 03/31/23 multivitamin with minerals 1 tab PO DAILY 03/20/23 03/31/23 pantoprazole 40 mg tablet,delayed 40 mg PO QAM 03/20/23 03/31/23 release sennosides 8.6 mg tablet (senna) 8.6 mg PO QPM 03/20/23 03/31/23 Previous Rx's Medication Instructions Recorded insulin glargine 100 unit/mL (3 18 unit (0.18 mL) subcut BEDTIME 03/21/23 mL) subcutaneous pen #15 mL insulin lispro 100 unit/mL 1 sliding scale dose subcut 03/21/23 subcutaneous pen (Humalog KwibethPen USEASDIRECTD #15 mL (U-100) Insulin) furosemide 20 mg tablet 20 mg PO DAILY #90 tabs 04/03/23 melatonin 3 mg tablet 6 mg (2 x 3 mg) PO BEDTIME PRN 04/03/23 Insomnia #60 tabs Allergies Allergy/AdvReac Type Severity Reaction Status Date / Time No Known Allergies Allergy Verified 04/09/23 18:34 Review of Systems Review of Systems: Constitutional : No Fever, pos Chills, pos Fatigue ENT/Mouth : No sore throat, No Rhinorrhea Eyes: No Eye Pain, No Swelling, No Redness Cardiovascular : No Chest Pain, No SOB, No Dyspnea on Exertion Respiratory : No Cough, No Sputum Gastrointestinal : No Nausea, No Vomiting, No Diarrhea, No abdominal Pain Genitourinary : No Dysuria, No Urinary Frequency, No Hematuria, Musculoskeletal : No joint pain, No Myalgias, No Joint Swelling Skin : No Skin Lesions, No rash Neuro : No Weakness, No Numbness, No Dizziness, no Headache Psych : No Anxiety/Panic, No Depression Heme/Lymph: No Bruising, No Bleeding,No Lymphadenopathy All other systems reviewed and are negative [facility] Past Medical History Attestation statement: The following information was validated with the patient. Source: old records reviewed Medical History Hyperglycemia Elevated serum creatinine Chronic kidney disease History of insulin dependent diabetes mellitus Mood disorder Vascular dementia CVA (cerebral vascular accident) DVT (deep venous thrombosis) Social History Social History Household Members: Family Housing: Apartment Do you presently have visiting nurse or other home services: No Patient Tobacco Use Status: Former Tobacco user Quit Date: 4 months Tobacco use type: Cigarette Smoked in Last 30 Days: No e-Cigarette/Vaping Use: Never Used Second Hand Smoke Exposure: No Use of substances other than those prescribed or required for medical reasons: No Advance Directives: No Advance Directives Information Provided: No service: No Physical Exam ED Vital Signs: Vital Signs - 24 hr 04/09/23 18:34 04/09/23 19:38 04/09/23 20:22 Temperature 102 F H 103.0 F H 100.1 F Pulse Rate 114 H 114 H 125 H Respiratory Rate 20 14 18 Blood Pressure 150/72 H 156/88 H 147/79 H Pulse Oximetry 93 94 93 Oxygen Delivery Method Room Air Nasal Cannula Room Air Nasal Cannula Oxygen Flow Rate 2 04/09/23 20:37 04/09/23 21:37 Temperature 102.0 F H 99.2 F Pulse Rate 115 H 107 H Respiratory Rate 16 16 Blood Pressure 142/76 H 116/68 Pulse Oximetry 94 94 Oxygen Delivery Method Nasal Cannula Nasal Cannula Oxygen Flow Rate 3 2 BMI result Body Mass Index 21.1 Appearance: Alert. Oriented X 2. No acute distress. having rigors Eyes: Pupils equal, round and reactive to light. ENT: Pharynx normal. Neck: Normal inspection. Neck supple. CVS: Normal heart rate and rhythm. Pulses normal. Respiratory: No respiratory distress. Breath sounds bases are diminished Abdomen: Soft and nontender. Skin: Skin warm and dry. pale skin color. Normal skin turgor. Extremities: No lower extremity edema. Neuro: Oriented X to person and place. No motor deficit. No sensory deficit. Course Course Course Narrative: K 5.8 no EKG changes will give PO medications and repeat labs Medications Administered Discontinued Medications Generic Name Dose Route Start Last Admin Trade Name Merry PRN Reason Stop Dose Admin Acetaminophen 650 mg 04/09/23 18:34 04/09/23 19:54 Acetaminophen 325 Mg Tablet PO 04/09/23 18:35 650 mg ONCE ONE Administration Albuterol Sulfate 5 mg 04/09/23 19:39 04/09/23 19:54 Albuterol Sulfate (0.083%) 2.5 Mg/3 Ml Vial.Neb INHALE 04/09/23 19:40 5 mg ONCE ONE Administration Cefepime HCl 1 gm/ Sodium 50 mls @ 100 mls/hr 04/09/23 18:44 04/09/23 20:30 Chloride IV 04/09/23 19:13 Infused ONCE ONE Infusion Insulin Human Regular 5 unit 04/09/23 19:39 04/09/23 20:06 Insulin Regular, Human 100 Unit/Ml 3 Ml Vial IVPUSH 04/09/23 19:40 5 unit ONCE ONE Administration Oseltamivir Phosphate 30 mg 04/09/23 20:35 04/09/23 21:33 Oseltamivir Phosphate 75 Mg Capsule PO 04/09/23 20:36 30 mg ONCE ONE Administration Sodium Bicarbonate 50 meq 04/09/23 19:39 04/09/23 20:00 Sodium Bicarbonate 8.4% 50 Meq/50 Ml Syringe IVPUSH 04/09/23 19:40 50 meq ONCE ONE Administration Sodium Zirconium Cyclosilicate 5 gm 04/09/23 19:39 04/09/23 19:54 Sodium Zirconium Cyclosilicate 5 Gm Powd.Pack PO 04/09/23 19:40 5 gm ONCE ONE Administration Medical Decision Making Medical Decision Making [facility] Narrative: 47 yo male with PMH of CVA, DVT on eliquis, mood disorder, vascular dementia, prior IVDA cocaine use, CKD Cr was around 3.8 to 4.2, GERD, mood disorder, cardiomyopathy here with c/o abrupt onset of not feeling well with shaking chills and not feeling well. He has no localized symptoms. Temperature checked by me on arrival 102. Family denies sick contacts. He will need labs, cultures, PO tylenol, empiric cefepime given recent hospitalization. Viral panel. UA and CXR ordered. Likely admit. Differential Diagnosis Differential Diagnoses: The differential diagnosis associated with the presentation includes viral panel, UTI, pneumonia, fever, bacteremia Admission/Observation Consideration of admission/observation: Escalation of care including admission/observation considered plan to admit for flu, hypoxia, monitoring Consult Healthcare Provider Management of the patient was discussed with: Hospitalist (will admit) Lab Data [facility] Lab Attestation statement: I reviewed the patient's lab results. 04/09/23 19:04 04/09/23 21:17 Labs: Lab Results 04/09/23 04/09/23 04/09/23 Range/Units 19:03 19:04 19:26 WBC 10.4 (4.8-10.8) X10*3/uL RBC 3.35 L (4.60-5.80) X10*6/uL Hgb 9.3 L (14.0-18.0) g/dl Hct 28.8 L (42.0-52.0) % MCV 86.0 (80.0-98.0) fL MCH 27.8 (27.0-33.0) pg MCHC 32.3 (31.0-36.0) g/dl RDW 16.1 H (11.0-16.0) % Plt Count 457 H D (160-400) X10*3/uL MPV 10.1 (9.4-12.4) fL Immature Gran % (Auto) 0.6 H (0.0-0.4) % Neut % (Auto) 80.9 H (45-73) % Lymph % (Auto) 6.9 L (20-40) % Moore % (Auto) 6.2 (2-11) % Eos % (Auto) 4.8 H (0-4) % Baso % (Auto) 0.6 (0-2) % Lymph # (Auto) 0.7 L (1.2-4.9) X10*3/uL Moore # (Auto) 0.7 (0.1-1.2) X10*3/uL Eos # (Auto) 0.5 H (0.0-0.4) X10*3/uL Baso # (Auto) 0.1 (0.0-0.2) X10*3/uL Abs Immat Gran (auto) 0.06 H (0.00-0.03) X10*3/uL Absolute Neuts (auto) 8.4 H (2.0-8.3) x10*3/uL Absolute Nucleated RBC 0.000 (0.0-0.012) X10*3/uL Nucleated RBC % (auto) 0.0 (0.0-0.2) /100WBC VBG pH (7.32-7.43) VBG pCO2 mmHg VBG pO2 mmHg VBG HCO3 (22-26) mmol/L VBG O2 Saturation % VBG Base Excess mmol/L Sodium 138 (135-145) mmol/L Potassium 5.8 H D (3.3-5.1) mmol/L Chloride 107 (96-108) mmol/L Carbon Dioxide 16 L (22-29) mmol/L Anion Gap 21 H (12-20) BUN 84 H (9-16) mg/dL Creatinine 4.03 H* (0.5-1.4) mg/dL Estim Creat Clear Calc 18.2 Estimated GFR 16 Random Glucose 351 H* (60-115) mg/dL Lactic Acid 1.8 (0.5-2.0) mmol/L Calcium 8.8 (8.4-10.2) mg/dL Magnesium 2.1 (1.6-2.6) mg/dL Total Bilirubin 0.4 (0.0-1.0) mg/dL Direct Bilirubin 0.2 (0.0-0.5) mg/dL AST 24 (5-37) U/L ALT 44 H (0-40) U/L Alkaline Phosphatase 218 H (39-117) U/L Total Protein 7.0 (6.5-8.0) g/dL Albumin 3.5 (3.5-5.0) g/dL Procalcitonin ng/mL Urine Color Yellow Urine Appearance Clear Urine pH 5.5 (5.0-9.0) Ur Specific Gordon 1.015 (1.005-1.025) Urine Protein 300 (3+) H (Neg-Trace) mg/dL Urine Glucose (UA) 500 H (Negative) mg/dL Urine Ketones Negative (Negative) mg/dL Urine Blood Negative (Negative) Urine Nitrite Negative (Negative) Ur Leukocyte Esterase Negative (Negative) Urine RBC 0-2 (0-2) /HPF Urine WBC 0-5 (0-5) /HPF Ur Squamous Epith Cells 0-2 (0-2) /HPF Urine Bacteria None Seen (None Seen) Hyaline Casts 0-2 (0-2) /LPF COVID-19 (LASHA) (Negative) COVID-19 Clin Com Influenza Type A (PCR) (Negative) Influenza Type B (PCR) (Negative) RSV RNA Qual (PCR) (Negative) SARS-CoV-2 RNA (RT-PCR) (Negative) 04/09/23 04/09/23 04/09/23 Range/Units 19:28 19:37 20:45 WBC (4.8-10.8) X10*3/uL RBC (4.60-5.80) X10*6/uL Hgb (14.0-18.0) g/dl Hct (42.0-52.0) % MCV (80.0-98.0) fL MCH (27.0-33.0) pg MCHC (31.0-36.0) g/dl RDW (11.0-16.0) % Plt Count (160-400) X10*3/uL MPV (9.4-12.4) fL Immature Gran % (Auto) (0.0-0.4) % Neut % (Auto) (45-73) % Lymph % (Auto) (20-40) % Moore % (Auto) (2-11) % Eos % (Auto) (0-4) % Baso % (Auto) (0-2) % Lymph # (Auto) (1.2-4.9) X10*3/uL Moore # (Auto) (0.1-1.2) X10*3/uL Eos # (Auto) (0.0-0.4) X10*3/uL Baso # (Auto) (0.0-0.2) X10*3/uL Abs Immat Gran (auto) (0.00-0.03) X10*3/uL Absolute Neuts (auto) (2.0-8.3) x10*3/uL Absolute Nucleated RBC (0.0-0.012) X10*3/uL Nucleated RBC % (auto) (0.0-0.2) /100WBC VBG pH 7.42 (7.32-7.43) VBG pCO2 28 mmHg VBG pO2 57 mmHg VBG HCO3 18 L (22-26) mmol/L VBG O2 Saturation 85.0 % VBG Base Excess -4.6 mmol/L Sodium (135-145) mmol/L Potassium (3.3-5.1) mmol/L Chloride (96-108) mmol/L Carbon Dioxide (22-29) mmol/L Anion Gap (12-20) BUN (9-16) mg/dL Creatinine (0.5-1.4) mg/dL Estim Creat Clear Calc Estimated GFR Random Glucose (60-115) mg/dL Lactic Acid (0.5-2.0) mmol/L Calcium (8.4-10.2) mg/dL Magnesium (1.6-2.6) mg/dL Total Bilirubin (0.0-1.0) mg/dL Direct Bilirubin (0.0-0.5) mg/dL AST (5-37) U/L ALT (0-40) U/L Alkaline Phosphatase (39-117) U/L Total Protein (6.5-8.0) g/dL Albumin (3.5-5.0) g/dL Procalcitonin 0.20 ng/mL Urine Color Urine Appearance Urine pH (5.0-9.0) Ur Specific Gordon (1.005-1.025) Urine Protein (Neg-Trace) mg/dL Urine Glucose (UA) (Negative) mg/dL Urine Ketones (Negative) mg/dL Urine Blood (Negative) Urine Nitrite (Negative) Ur Leukocyte Esterase (Negative) Urine RBC (0-2) /HPF Urine WBC (0-5) /HPF Ur Squamous Epith Cells (0-2) /HPF Urine Bacteria (None Seen) Hyaline Casts (0-2) /LPF COVID-19 (LASHA) Negative (Negative) COVID-19 Clin Com See Note Influenza Type A (PCR) POSITIVE A (Negative) Influenza Type B (PCR) NEGATIVE (Negative) RSV RNA Qual (PCR) NEGATIVE (Negative) SARS-CoV-2 RNA (RT-PCR) NEGATIVE (Negative) 04/09/23 Range/Units 21:17 WBC (4.8-10.8) X10*3/uL RBC (4.60-5.80) X10*6/uL Hgb (14.0-18.0) g/dl Hct (42.0-52.0) % MCV (80.0-98.0) fL MCH (27.0-33.0) pg MCHC (31.0-36.0) g/dl RDW (11.0-16.0) % Plt Count (160-400) X10*3/uL MPV (9.4-12.4) fL Immature Gran % (Auto) (0.0-0.4) % Neut % (Auto) (45-73) % Lymph % (Auto) (20-40) % Moore % (Auto) (2-11) % Eos % (Auto) (0-4) % Baso % (Auto) (0-2) % Lymph # (Auto) (1.2-4.9) X10*3/uL Moore # (Auto) (0.1-1.2) X10*3/uL Eos # (Auto) (0.0-0.4) X10*3/uL Baso # (Auto) (0.0-0.2) X10*3/uL Abs Immat Gran (auto) (0.00-0.03) X10*3/uL Absolute Neuts (auto) (2.0-8.3) x10*3/uL Absolute Nucleated RBC (0.0-0.012) X10*3/uL Nucleated RBC % (auto) (0.0-0.2) /100WBC VBG pH (7.32-7.43) VBG pCO2 mmHg VBG pO2 mmHg VBG HCO3 (22-26) mmol/L VBG O2 Saturation % VBG Base Excess mmol/L Sodium (135-145) mmol/L Potassium 4.8 (3.3-5.1) mmol/L Chloride (96-108) mmol/L Carbon Dioxide (22-29) mmol/L Anion Gap (12-20) BUN (9-16) mg/dL Creatinine (0.5-1.4) mg/dL Estim Creat Clear Calc Estimated GFR Random Glucose (60-115) mg/dL Lactic Acid (0.5-2.0) mmol/L Calcium (8.4-10.2) mg/dL Magnesium (1.6-2.6) mg/dL Total Bilirubin (0.0-1.0) mg/dL Direct Bilirubin (0.0-0.5) mg/dL AST (5-37) U/L ALT (0-40) U/L Alkaline Phosphatase (39-117) U/L Total Protein (6.5-8.0) g/dL Albumin (3.5-5.0) g/dL Procalcitonin ng/mL Urine Color Urine Appearance Urine pH (5.0-9.0) Ur Specific Gordon (1.005-1.025) Urine Protein (Neg-Trace) mg/dL Urine Glucose (UA) (Negative) mg/dL Urine Ketones (Negative) mg/dL Urine Blood (Negative) Urine Nitrite (Negative) Ur Leukocyte Esterase (Negative) Urine RBC (0-2) /HPF Urine WBC (0-5) /HPF Ur Squamous Epith Cells (0-2) /HPF Urine Bacteria (None Seen) Hyaline Casts (0-2) /LPF COVID-19 (LASHA) (Negative) COVID-19 Clin Com Influenza Type A (PCR) (Negative) Influenza Type B (PCR) (Negative) RSV RNA Qual (PCR) (Negative) SARS-CoV-2 RNA (RT-PCR) (Negative) Independent Interpretation I performed an independent interpretation of an: EKG and Plain X-Ray (pneumonia vs edema) Interpretation: Rate: 110 Rhythm: sinus tachycardia Noble: normal Normal P waves. Normal [place]. Normal QRS complex. ST T wave : nonspecific ST T wave changes V5-V6, no ANNI qTC: 452 prior studies: no acute ischemia but sinus tach The study has been interpreted contemporaneously by me. . Radiology Impression Discussion of test interpretation with radiology: I have reviewed the radiologist's reading. Independent Historian Clinical information obtained from an independent historian. History obtained from or confirmed by: Parent External Record Review External record reviewed: Inpatient record Critical Care Time Critical Care Time Critical Care Time: Yes Total Critical Care Time: 60 Attestation: repeat K - correction of hyperkalemia, hypoxia intervention, review of records, sepsis protocol I attest to this time spent taking care of the patient Discharge Plan Discharge Clinical Impression: Acute hyperkalemia, Influenza A, Hypoxia CKD (chronic kidney disease) Qualifiers: Chronic kidney disease stage: unspecified stage Qualified Code(s): N18.9 - Chronic kidney disease, unspecified Fever Qualifiers: Fever type: unspecified Qualified Code(s): R50.9 - Fever, unspecified Patient Disposition: Admitted As Inpatient
[2023-04-09 19:11] LABS: MANUAL DIFF FLAG NO
[2023-04-09 19:25] LABS: Lactic Acid 1.8 mmol/L (0.5-2.0)
[2023-04-09 19:30] LABS: Basophils Absolute Auto 0.1 X10*3/uL (0.0-0.2); Basophils Percent Auto 0.6 % (0-2); Eosinophils Absolute Auto 0.5 X10*3/uL (0.0-0.4); Eosinophils Percent Auto 4.8 % (0-4); Hematocrit 28.8 % (42.0-52.0); Hemoglobin 9.3 g/dl (14.0-18.0); Imm Gran Abs Auto 0.06 X10*3/uL (0.00-0.03); Imm Gran Pct Auto 0.6 % (0.0-0.4); Lymphocytes Absolute Auto 0.7 X10*3/uL (1.2-4.9); Lymphocytes Percent Auto 6.9 % (20-40); Mean Corpuscular HGB Conc 32.3 g/dl (31.0-36.0); Mean Corpuscular Hemoglobin 27.8 pg (27.0-33.0); Mean Platelet Volume 10.1 fL (9.4-12.4); Monocytes Absolute Auto 0.7 X10*3/uL (0.1-1.2); Monocytes Percent Auto 6.2 % (2-11); Neutrophils Absolute Auto 8.4 x10*3/uL (2.0-8.3); Neutrophils Percent Auto 80.9 % (45-73); Platelet Count 457 X10*3/uL (160-400); Red Blood Count 3.35 X10*6/uL (4.60-5.80); Red Cell Distribution Width 16.1 % (11.0-16.0); White Blood Count 10.4 X10*3/uL (4.8-10.8)
[2023-04-09 19:33] LABS: Appearance Urine Clear; Color Urine Yellow; Glucose Urine UA 500 mg/dL (Negative); Leukocyte Esterase Urine Negative (Negative); Nitrite Urine Negative (Negative); PH 5.5 (5.0-9.0); Specific Gravity - Urine 1.015 (1.005-1.025); UMIC TRIGGER UACC YES; Urine Blood Negative (Negative); Urine Ketones Negative (Negative); Urine Protein 300 (3+) mg/dL (Neg-Trace)
[2023-04-09 19:35] LABS: Alanine Aminotransferase 44 U/L (0-40); Albumin Level 3.5 g/dL (3.5-5.0); Alkaline Phosphatase 218 U/L (39-117); Anion Gap 21 (12-20); Aspartate Amino Transferase 24 U/L (5-37); Bilirubin Direct 0.2 mg/dL (0.0-0.5); Bilirubin Total 0.4 mg/dL (0.0-1.0); Blood Urea Nitrogen 84 mg/dL (9-16); Calcium 8.8 mg/dL (8.4-10.2); Carbon Dioxide 16 mmol/L (22-29); Chloride 107 mmol/L (96-108); Creatinine Clr Calc Pharmacy 18.2; Estimated Glomerular Filt Rate 16; Glucose Random 351 mg/dL (60-115); Magnesium 2.1 mg/dL (1.6-2.6); Potassium 5.8 mmol/L (3.3-5.1); Sodium 138 mmol/L (135-145)
[2023-04-09 19:37] LABS: Bacteria Urine None Seen (None Seen); Hyaline Casts Urine 0-2 /LPF (0-2); RBC Urine 0-2 /HPF (0-2); Squamous Epithelial Cell Urine 0-2 /HPF (0-2); WBC Urine 0-5 /HPF (0-5)
[2023-04-09] MEDS: cefEPime HCl 1 GM in 0.9 % Sodium Chloride 50 ML IV (19:54)
[2023-04-09] MEDS: Acetaminophen 325 MG TABLET 650 MG PO (19:54)
[2023-04-09] MEDS: Sodium Zirconium Cyclosilicate 5 GM POWD.PACK PO (19:54)
[2023-04-09] MEDS: Albuterol Sulfate (0.083%) 2.5 MG/3 ML VIAL.NEB 5 MG INHALE (19:54)
[2023-04-09] MEDS: Sodium Bicarbonate 8.4% 50 MEQ/50 ML SYRINGE IVPUSH (20:00)
[2023-04-09] MEDS: Insulin Regular, Human 100 UNIT/ML 3 ML VIAL IVPUSH (20:06)
[2023-04-09 20:09] LABS: COVID-19 Test Negative (Negative); IDNOW Serial# 152EDE1D
[2023-04-09 20:27] LABS: Influenza A PCR POSITIVE (Negative); Influenza B PCR NEGATIVE (Negative); Resp Syncy Virus RNA Qual PCR NEGATIVE (Negative); SARS COV2 PCR INHOUSE NEGATIVE (Negative)
[2023-04-09 20:50] LABS: Venous Blood Gas Refer to POC result
[2023-04-09 20:50] LABS: VBG Base Excess -4.6 mmol/L; VBG HCO3 18 mmol/L (22-26); VBG pCO2 28 mmHg; VBG pH 7.42 (7.32-7.43); VBG pO2 57 mmHg
[2023-04-09 21:28] LABS: Potassium 4.8 mmol/L (3.3-5.1)
[2023-04-09] MEDS: Oseltamivir Phosphate 75 MG CAPSULE 30 MG PO (21:33)
--- NOTE | 2023-04-09 21:38 | PC.NURSE ---
pt and family educated on flu results, additional masks provided. pt and family verbalized understanding. vitals obtained and pt medicated per provider order.
[2023-04-09 22:01] LABS: Anion Gap 18 (12-20)
[2023-04-09 22:03] LABS: Blood Urea Nitrogen 82 mg/dL (9-16); Calcium 8.1 mg/dL (8.4-10.2); Carbon Dioxide 15 mmol/L (22-29); Chloride 109 mmol/L (96-108); Creatinine Clr Calc Pharmacy 18.7; Estimated Glomerular Filt Rate 16; Glucose Random 327 mg/dL (60-115); Sodium 137 mmol/L (135-145)
--- NOTE | 2023-04-09 22:48 | P.HPHOSP_ITS ---
History of Present Illness Date of Service: 04/09/23 Attending physician on admission: Edis Jimenez Chief Complaint: Shortness on breath Ben Jimenez is a 47 years old man with past medical history significant for type 2 diabetes mellitus on insulin, CVA, cardiomyopathy, chronic Hep C, CKD, DVT on Eliquis and hyperlipidemia presents to the emergency department complaining of shortness on breath that started this morning associated with chest tightness and cough. He has been having fever. He denied any headache, sore throat, abdominal pain, nausea or vomiting. He has had episodes of nonbloody diarrhea. He denies pain with urination. He is a former IV drug user (heroin). Denies tobacco smoking or alcohol use.\ He was recently discharged from the hospital (Apr 03) after he was admitted with diagnosis of acute hypoxic respiratory failure due to congestive heart failure and metabolic acidosis. At that time he was treated with bicarb drip. On discharge bicarb tablets and midodrine were discontinued. In the ED, he was found to have tachycardia and fever. According to ED physician patient is O2 sat dropped to 89%. Blood pressure stable. Blood workup showed no leukocytosis. Lactic acid is normal. His creatinine was found to have 4.03 (baseline is around (3.6-3.8). Hyperkalemia, 5.8 (resolved after bicarb IV given and Lokelma, now is 4.8) bicarb is 15. Glucose also elevated 351, however trending down. AST and alk-phos elevated. Bilirubin and AST are normal. CXR showed bilateral perihilar airspace disease. EKG showed no peaked T-waves. ED tx: Tamiflu 30 mg p.o., APAP 650, Lokelma 5 mg. Bicarb 50 mEq IV, ceftriaxone 1 g. Review of Systems 2 Review of Systems: All 12 systems were reviewed and normal except as noted in HPI. [facility] Medical History Hyperglycemia Elevated serum creatinine Chronic kidney disease History of insulin dependent diabetes mellitus Mood disorder Vascular dementia CVA (cerebral vascular accident) DVT (deep venous thrombosis) Social History Household Members: Family Housing: Apartment Do you presently have visiting nurse or other home services: No Patient Tobacco Use Status: Former Tobacco user Quit Date: 4 months Tobacco use type: Cigarette Smoked in Last 30 Days: No e-Cigarette/Vaping Use: Never Used Second Hand Smoke Exposure: No Use of substances other than those prescribed or required for medical reasons: No Advance Directives: No Advance Directives Information Provided: No service: No Meds Allergies Allergy/AdvReac Type Severity Reaction Status Date / Time No Known Allergies Allergy Verified 04/09/23 18:34 Active Medications: Current Medications Acetaminophen (Acetaminophen 325 Mg Tablet) 975 mg PO Q6H PRN PRN Reason: Pain, Mild (Pain Scale 1-3) Dextrose (Dextrose 50 % 25 Gm/50 Ml Syringe) 25 gm IVPUSH Q15M PRN; Protocol PRN Reason: per Hypoglycemia Standing Ord. Glucose (Glucose Gel 15 Gm Gel..Gram.) 15 gm PO Q15M PRN; Protocol PRN Reason: per Hypoglycemia Standing Ord. Heparin Sodium (Porcine) (Heparin Sodium,Porcine 5,000 Unit/Ml Vial) 5,000 unit SUBCUT Q8H [facility] Azithromycin 500 mg/ Sodium (Chloride) 250 mls @ 125 mls/hr IV Q24H [facility] Ceftriaxone Sodium 1 gm/ (Sodium Chloride) 50 mls @ 100 mls/hr IV DAILY [facility] Insulin Human Lispro (Insulin Lispro 100 Unit/Ml 3 Ml Vial) 0 unit SUBCUT QIDACHS [facility]; Protocol Oseltamivir Phosphate (Oseltamivir Phosphate 30 Mg Capsule) 30 mg PO Q12H [facility] Stop: 04/14/23 09:01 Sodium Chloride (0.9 % Sodium Chloride Flush 3 Ml Syringe) 3 ml IVFLUSH QSHIFT [facility] Home Medications Medication Instructions Recorded Confirmed Last Taken Type acetaminophen 325 mg tablet 650 mg PO Q4H PRN Fever Or Pain 03/20/23 03/31/23 03/29/23 History apixaban 2.5 mg tablet (Eliquis) 2.5 mg PO BID 03/20/23 04/09/23 03/29/23 History atorvastatin 80 mg tablet 80 mg PO BEDTIME 03/20/23 04/09/23 03/29/23 History clopidogrel 75 mg tablet 75 mg PO DAILY 03/20/23 03/31/23 03/29/23 History donepezil 5 mg tablet (Aricept) 5 mg PO BEDTIME 03/20/23 03/31/23 03/29/23 History ferrous sulfate 325 mg (65 mg 325 mg PO DAILY 03/20/23 04/09/23 03/29/23 History iron) tablet folic acid 1 mg tablet 1 mg PO DAILY 03/20/23 04/09/23 03/29/23 History melatonin 3 mg tablet 6 mg PO BEDTIME 03/20/23 03/31/23 03/29/23 History mirtazapine 30 mg tablet (Remeron) 30 mg PO BEDTIME 03/20/23 03/31/23 03/29/23 History multivitamin with minerals 1 tab PO DAILY 03/20/23 03/31/23 03/29/23 History pantoprazole 40 mg tablet,delayed 40 mg PO QAM 03/20/23 03/31/23 03/29/23 History release sennosides 8.6 mg tablet (senna) 8.6 mg PO QPM 03/20/23 03/31/23 03/29/23 History melatonin 3 mg tablet 6 mg PO BEDTIME PRN insomnia 04/09/23 04/09/23 Unknown History Physical Exam 2 Vital Signs and Narrative: Vital Signs: Last Vital Signs Temp 99.9 F 04/09/23 22:37 Pulse 102 H 04/09/23 22:37 Resp 16 04/09/23 22:37 BP 130/73 04/09/23 22:37 Pulse Ox 94 04/09/23 22:37 O2 Del Method Room Air 04/09/23 22:37 O2 Flow Rate 2 04/09/23 21:37 BMI result Body Mass Index 21.1 Constitutional - Awake and Alert, No apparent distress. Interactive. HEENT - normocephalic, atraumatic, no scleral icterus. Dry oral mucosa. Heart - Tachycardia. Regular rhythm. Lungs - Normal lung expansion, Normal respiratory effort, No respiratory distress, tachypnea, bilateral rhonchi. Abdomen - NT / ND; +BS; No rebound or guarding Extremities - no calf tenderness bilaterally, no swelling Musculoskeletal - Normal inspection, normal ROM Skin - Warm/Dry Neurological - Alert & oriented x3. No focal weakness. Normal speech. Normal behavior. Psychological - Appropriate affect Results Labs 04/09/23 19:04 04/09/23 21:17 Labs: Laboratory Results - last 24 hr 04/09/23 04/09/23 04/09/23 19:03 19:04 19:26 MCV 86.0 MCH 27.8 MCHC 32.3 RDW 16.1 H Plt Count 457 H D MPV 10.1 Immature Gran % (Auto) 0.6 H Neut % (Auto) 80.9 H Lymph % (Auto) 6.9 L [place] % (Auto) 6.2 Eos % (Auto) 4.8 H Baso % (Auto) 0.6 Lymph # (Auto) 0.7 L [place] # (Auto) 0.7 Eos # (Auto) 0.5 H Baso # (Auto) 0.1 Abs Immat Gran (auto) 0.06 H Absolute Neuts (auto) 8.4 H Absolute Nucleated RBC 0.000 Nucleated RBC % (auto) 0.0 VBG pH VBG pCO2 VBG pO2 VBG HCO3 VBG O2 Saturation VBG Base Excess Anion Gap 21 H Estim Creat Clear Calc 18.2 Estimated GFR 16 Random Glucose 351 H* Lactic Acid 1.8 Calcium 8.8 Magnesium 2.1 Total Bilirubin 0.4 Direct Bilirubin 0.2 AST 24 ALT 44 H Alkaline Phosphatase 218 H Total Protein 7.0 Albumin 3.5 Procalcitonin Urine Color Yellow Urine Appearance Clear Urine pH 5.5 Ur Specific [place] 1.015 Urine Protein 300 (3+) H Urine Glucose (UA) 500 H Urine Ketones Negative Urine Blood Negative Urine Nitrite Negative Ur Leukocyte Esterase Negative Urine RBC 0-2 Urine WBC 0-5 Ur Squamous Epith Cells 0-2 Urine Bacteria None Seen Hyaline Casts 0-2 COVID-19 ([facility]) COVID-19 Clin Com Influenza Type A (PCR) Influenza Type B (PCR) RSV RNA Qual (PCR) SARS-CoV-2 RNA (RT-PCR) 04/09/23 04/09/23 04/09/23 19:28 19:37 20:45 MCV MCH MCHC RDW Plt Count MPV Immature Gran % (Auto) Neut % (Auto) Lymph % (Auto) [place] % (Auto) Eos % (Auto) Baso % (Auto) Lymph # (Auto) [place] # (Auto) Eos # (Auto) Baso # (Auto) Abs Immat Gran (auto) Absolute Neuts (auto) Absolute Nucleated RBC Nucleated RBC % (auto) VBG pH 7.42 VBG pCO2 28 VBG pO2 57 VBG HCO3 18 L VBG O2 Saturation 85.0 VBG Base Excess -4.6 Anion Gap Estim Creat Clear Calc Estimated GFR Random Glucose Lactic Acid Calcium Magnesium Total Bilirubin Direct Bilirubin AST ALT Alkaline Phosphatase Total Protein Albumin Procalcitonin 0.20 Urine Color Urine Appearance Urine pH Ur Specific [place] Urine Protein Urine Glucose (UA) Urine Ketones Urine Blood Urine Nitrite Ur Leukocyte Esterase Urine RBC Urine WBC Ur Squamous Epith Cells Urine Bacteria Hyaline Casts COVID-19 ([facility]) Negative COVID-19 Clin Com See Note Influenza Type A (PCR) POSITIVE A Influenza Type B (PCR) NEGATIVE RSV RNA Qual (PCR) NEGATIVE SARS-CoV-2 RNA (RT-PCR) NEGATIVE 04/09/23 21:17 MCV MCH MCHC RDW Plt Count MPV Immature Gran % (Auto) Neut % (Auto) Lymph % (Auto) [place] % (Auto) Eos % (Auto) Baso % (Auto) Lymph # (Auto) [place] # (Auto) Eos # (Auto) Baso # (Auto) Abs Immat Gran (auto) Absolute Neuts (auto) Absolute Nucleated RBC Nucleated RBC % (auto) VBG pH VBG pCO2 VBG pO2 VBG HCO3 VBG O2 Saturation VBG Base Excess Anion Gap 18 Estim Creat Clear Calc 18.7 Estimated GFR 16 Random Glucose 327 H Lactic Acid Calcium 8.1 L D Magnesium Total Bilirubin Direct Bilirubin AST ALT Alkaline Phosphatase Total Protein Albumin Procalcitonin Urine Color Urine Appearance Urine pH Ur Specific [place] Urine Protein Urine Glucose (UA) Urine Ketones Urine Blood Urine Nitrite Ur Leukocyte Esterase Urine RBC Urine WBC Ur Squamous Epith Cells Urine Bacteria Hyaline Casts COVID-19 ([facility]) COVID-19 Clin Com Influenza Type A (PCR) Influenza Type B (PCR) RSV RNA Qual (PCR) SARS-CoV-2 RNA (RT-PCR) Imaging Radiologist's Impressions: Impressions Chest X-Ray 04/09/23 20:07 IMPRESSION: Bilateral perihilar airspace disease, left greater than right. Differential would include pneumonia and pulmonary edema. Assessment and Plan (1) Hypoxia: Status: Acute (2) Influenza A: Status: Acute (3) Acute hyperkalemia: Status: Acute (4) Infiltrative cardiomyopathy: Status: Acute (5) Congestive heart failure: Qualifiers: Heart failure type: systolic Heart failure chronicity: chronic Qualified Code(s): I50.22 - Chronic systolic (congestive) heart failure Status: Acute (6) Anemia in chronic kidney disease (CKD): Qualifiers: Chronic kidney disease stage: stage 4 (severe) Qualified Code(s): N18.4 - Chronic kidney disease, stage 4 (severe); D63.1 - Anemia in chronic kidney disease Status: Acute (7) Mood disorder: Status: Acute (8) DVT (deep venous thrombosis): Qualifiers: DVT location: non-extremity vein Chronicity: chronic Qualified Code(s): I82.91 - Chronic embolism and thrombosis of unspecified vein Status: Acute Plan Ben Jimenez is a 47 years old man admitted with: * Hypoxic respiratory failure secondary to pneumonia/influenza infection. Admit to hospitalist service. Telemetry. Pulse oximetry. Continue supplemental oxygen to keep oxygen saturation > 90%. Bronchodilator therapy as needed. Complete Tamiflu course. Empiric IV antibiotic therapy with ceftriaxone and azithromycin. * Type 2 diabetes mellitus on insulin. Blood glucose monitoring before meals at bedtime. Diabetic diet. Continue insulin. * Chronic kidney disease, stage 4. Continue to monitor renal function. Check phosphate. Nephrology consult. Avoid nephrotoxic agents. * Hx of DVT. Continue Eliquis * Metabolic acidosis likely secondary to chronic kidney disease. Start bicarb 650 mg PO t.i.d.. Continue to monitor bicarb. Nephrology consult. * Hyperkalemia secondary to chronic kidney disease, resolved after IV bicarb and Lokelma. Low-potassium diet. Continue to monitor potassium level. * Hyperlipidemia. Continue statin. * Infiltrative cardiomyopathy. ? Amyloidosis. Continue Lasix. * Chronic anemia. Continue iron pills. That hospitalization he required blood transfusions. * History of hep C. Need follow up as an outpatient * GERD. PPI IV. * Mood disorder. Continue mirtazapine. * Hx of CVA. Continue Plavix and statin. DVT prophylaxis: On Eliquis Code status: Full Patient will need hospitalization for at least 2 midnights for hypoxic respiratory failure treatment secondary to influenza treatment with supplemental oxygen, Tamiflu, bronchodilator therapy and empiric IV antibiotic therapy. Quality Stroke Does the patient have a stroke diagnosis?: Yes Reason for No Anti-thrombotic by Day Two: N/A - Med Ordered VTE Prior VTE?: Yes VTE Risk Level:: Medical - moderate - high VTE Device Contraindication: Treatment Not Indicated VTE Drug Contraindication: N/A - Med Ordered
[2023-04-09] MEDS: Azithromycin 500 MG in 0.9 % Sodium Chloride 250 ML 125 MG IV (23:00)
[2023-04-09 23:04] LABS: Glucose, Whole Blood 279 mg/dL (60-115)
[2023-04-09] MEDS: Insulin Lispro 100 UNIT/ML 3 ML VIAL SUBCUT (23:38)
[2023-04-10] VITALS (10 sets, daily range): BP systolic 106–159; BP diastolic 58–88; PULSE 82–111; RESP 16–22; TEMP 36.8–39.5; O2SAT 90–95
[2023-04-10 01:45] LABS: Glucose, Whole Blood 222 mg/dL (60-115)
[2023-04-10] MEDS: Apixaban 2.5 MG TABLET PO ×3 (02:03→20:42)
[2023-04-10] MEDS: Insulin Glargine,Hum.rec.anlog 100 UNIT/ML 10 ML VIAL 18 UNIT SUBCUT ×2 (02:03→20:43)
[2023-04-10] MEDS: Melatonin 3 MG TABLET PO ×2 (02:03→20:42)
[2023-04-10] MEDS: 0.9 % Sodium Chloride Flush 3 ML SYRINGE IVFLUSH ×4 (02:04→20:52)
[2023-04-10] MEDS: Mirtazapine 30 MG TABLET PO ×2 (02:10→20:42)
[2023-04-10 06:14] LABS: MANUAL DIFF FLAG NO
[2023-04-10] MEDS: Pantoprazole Sodium 40 MG/10 ML VIAL IVPUSH (06:14)
[2023-04-10 06:26] LABS: Basophils Percent Auto 0.5 % (0-2); Eosinophils Absolute Auto 0.1 X10*3/uL (0.0-0.4); Eosinophils Percent Auto 1.5 % (0-4); Hematocrit 25.6 % (42.0-52.0); Hemoglobin 8.2 g/dl (14.0-18.0); Imm Gran Abs Auto 0.03 X10*3/uL (0.00-0.03); Imm Gran Pct Auto 0.5 % (0.0-0.4); Lymphocytes Absolute Auto 0.7 X10*3/uL (1.2-4.9); Lymphocytes Percent Auto 10.1 % (20-40); Mean Corpuscular Hemoglobin 27.6 pg (27.0-33.0); Mean Corpuscular Volume 86.2 fL (80.0-98.0); Mean Platelet Volume 10.1 fL (9.4-12.4); Monocytes Absolute Auto 0.7 X10*3/uL (0.1-1.2); Monocytes Percent Auto 10.1 % (2-11); Neutrophils Absolute Auto 5.1 x10*3/uL (2.0-8.3); Neutrophils Percent Auto 77.3 % (45-73); Platelet Count 337 X10*3/uL (160-400); Red Blood Count 2.97 X10*6/uL (4.60-5.80); Red Cell Distribution Width 16.1 % (11.0-16.0); White Blood Count 6.6 X10*3/uL (4.8-10.8)
[2023-04-10 06:44] LABS: Alanine Aminotransferase 32 U/L (0-40); Albumin Level 2.9 g/dL (3.5-5.0); Alkaline Phosphatase 174 U/L (39-117); Anion Gap 17 (12-20); Aspartate Amino Transferase 15 U/L (5-37); Bilirubin Total 0.4 mg/dL (0.0-1.0); Blood Urea Nitrogen 82 mg/dL (9-16); Calcium 8.3 mg/dL (8.4-10.2); Carbon Dioxide 17 mmol/L (22-29); Chloride 111 mmol/L (96-108); Glucose Random 255 mg/dL (60-115); Phosphorus 4.7 mg/dL (2.7-4.5); Potassium 5.2 mmol/L (3.3-5.1); Sodium 140 mmol/L (135-145); Total Protein 5.9 g/dL (6.5-8.0)
[2023-04-10 06:47] LABS: Creatinine Clr Calc Pharmacy 17.5; Estimated Glomerular Filt Rate 15
--- NOTE | 2023-04-10 07:25 | PHA.MEDREC ---
Pharmacy Consult ? Medication Reconciliation Pharmacy has completed the medication reconciliation. Pt recently discharged 04/03/23. Utilized discharge packet and cross-referenced with claim history to confirm meds.
[2023-04-10 08:11] LABS: Glucose, Whole Blood 237 mg/dL (60-115)
[2023-04-10] MEDS: Sodium Zirconium Cyclosilicate 5 GM POWD.PACK PO (08:24)
[2023-04-10] MEDS: Sodium Bicarbonate 650 MG TABLET PO ×3 (08:25→20:42)
[2023-04-10] MEDS: Clopidogrel Bisulfate 75 MG TABLET PO (08:25)
[2023-04-10] MEDS: Ferrous Sulfate 324 MG TABLET.DR PO (08:25)
[2023-04-10] MEDS: Acetaminophen 325 MG TABLET 975 MG PO ×2 (08:25→16:59)
[2023-04-10] MEDS: Folic Acid 1 MG TABLET PO (08:25)
[2023-04-10] MEDS: Oseltamivir Phosphate 30 MG CAPSULE PO ×2 (08:25→20:42)
[2023-04-10] MEDS: Insulin Lispro 100 UNIT/ML 3 ML VIAL SUBCUT ×2 (08:25→16:59)
[2023-04-10] MEDS: cefTRIAXone sodium 1 GM in 0.9 % Sodium Chloride 50 ML IV (08:26)
[2023-04-10 11:45] LABS: Glucose, Whole Blood 106 mg/dL (60-115)
[2023-04-10 12:26] LABS: MRSA Nasal PCR NEGATIVE (Negative); SA Nasal PCR NEGATIVE (Negative)
--- NOTE | 2023-04-10 13:42 | HO.PM.IMPN ---
Subjective Subjective Date of Service: 04/10/23 Interval History: hypoxia ,influenza Review of Systems sob ,fevers, headaches denies chest pain Physical Exam Vital Signs: Vital Signs: Last Vital Signs Temp 996 F H 04/10/23 12:00 Pulse 92 04/10/23 12:00 Resp 22 H 04/10/23 12:00 BP 112/61 04/10/23 12:00 Pulse Ox 90 L 04/10/23 11:45 O2 Del Method Nasal Cannula 04/10/23 12:00 O2 Flow Rate 2 04/10/23 11:45 FiO2 90 04/10/23 12:00 BMI result Body Mass Index 21.1 Appearance: Alert.? Oriented X3.? cvs: [id number], [id number] , no murmur res: air entry fair ,has b/l rhonchii abd: no rebound or guarding ,nt, bs present. ext pulses present , no cyanosis . neuro: axo3 , nonfocal. Objective Data Active Medications Acetaminophen (Acetaminophen 325 Mg Tablet) 975 mg PO Q6H PRN PRN Reason: Pain, Mild (Pain Scale 1-3) Last Admin: 04/10/23 08:25 Dose: 975 mg Documented By: ALINA Albuterol/Ipratropium (Albuterol/Iprat 2.5/0.5mg 3 Ml Ampul.Neb) 3 ml INHALE RQ4H WHILE AWAKE PRN PRN Reason: Shortness of Breath/Wheezing Apixaban (Apixaban 2.5 Mg Tablet) 2.5 mg PO BID [facility] Last Admin: 04/10/23 08:25 Dose: 2.5 mg Documented By: ALINA Atorvastatin Calcium (Atorvastatin Calcium 80 Mg Tablet) 80 mg PO BEDTIME [facility] Clopidogrel Bisulfate (Clopidogrel Bisulfate 75 Mg Tablet) 75 mg PO DAILY [facility] Last Admin: 04/10/23 08:25 Dose: 75 mg Documented By: ALINA Dextrose (Dextrose 50 % 25 Gm/50 Ml Syringe) 25 gm IVPUSH Q15M PRN; Protocol PRN Reason: per Hypoglycemia Standing Ord. Donepezil HCl (Donepezil Hcl 5 Mg Tablet) 5 mg PO BEDTIME [facility] Ferrous Sulfate (Ferrous Sulfate 324 Mg Tablet.) 324 mg PO DAILY [facility] Last Admin: 04/10/23 08:25 Dose: 324 mg Documented By: ALINA Folic Acid (Folic Acid 1 Mg Tablet) 1 mg PO DAILY [facility] Last Admin: 04/10/23 08:25 Dose: 1 mg Documented By: ALINA Glucose (Glucose Gel 15 Gm Gel..Gram.) 15 gm PO Q15M PRN; Protocol PRN Reason: per Hypoglycemia Standing Ord. Azithromycin 500 mg/ Sodium (Chloride) 250 mls @ 125 mls/hr IV Q24H [facility] Last Infusion: 04/10/23 01:00 Dose: Infused Documented By: HELEN Ceftriaxone Sodium 1 gm/ (Sodium Chloride) 50 mls @ 100 mls/hr IV DAILY [facility] Last Infusion: 04/10/23 09:14 Dose: Infused Documented By: ALINA Insulin Glargine (Insulin Glargine,Hum.Rec.Anlog 100 Unit/Ml 10 Ml Vial) 18 unit SUBCUT BEDTIME [facility] Last Admin: 04/10/23 02:03 Dose: 18 unit Documented By: HELEN Insulin Human Lispro (Insulin Lispro 100 Unit/Ml 3 Ml Vial) 0 unit SUBCUT QIDACHS [facility]; Protocol Last Admin: 04/10/23 11:47 Dose: Not Given Documented By: ALINA Non-Admin Reason: No Insulin Coverage Comments: per sliding scale Melatonin (Melatonin 3 Mg Tablet) 3 mg PO BEDTIME [facility] Last Admin: 04/10/23 02:03 Dose: 3 mg Documented By: HELEN Melatonin (Melatonin 3 Mg Tablet) 6 mg PO BEDTIME PRN PRN Reason: insomnia Mirtazapine (Mirtazapine 30 Mg Tablet) 30 mg PO BEDTIME [facility] Last Admin: 04/10/23 02:10 Dose: 30 mg Documented By: HELEN Multivitamins/Minerals (Multivitamin With Minerals Liq 15 Ml Liquid) 15 ml PO DAILY [facility] Last Admin: 04/10/23 11:47 Dose: Not Given Documented By: ALINA Non-Admin Reason: Med Not Available Comments: called pharmacy, will send Oseltamivir Phosphate (Oseltamivir Phosphate 30 Mg Capsule) 30 mg PO Q12H [facility] Stop: 04/14/23 09:01 Last Admin: 04/10/23 08:25 Dose: 30 mg Documented By: ALINA Pantoprazole Sodium (Pantoprazole Sodium 40 Mg/10 Ml Vial) 40 mg IVPUSH DAILY@0630 [facility] Last Admin: 04/10/23 06:14 Dose: 40 mg Documented By: HELEN Senna (Sennosides 8.6 Mg Tablet) 8.6 mg PO BEDTIME [facility] Sodium Bicarbonate (Sodium Bicarbonate 650 Mg Tablet) 650 mg PO TID [facility] Last Admin: 04/10/23 08:25 Dose: 650 mg Documented By: ALINA Sodium Chloride (0.9 % Sodium Chloride Flush 3 Ml Syringe) 3 ml IVFLUSH QSHIFT [facility] Last Admin: 04/10/23 08:26 Dose: 3 ml Documented By: ALINA Labs 04/10/23 06:09 04/10/23 06:09 Labs: Laboratory Results - last 24 hr 04/09/23 04/09/23 04/09/23 19:03 19:04 19:26 MCV 86.0 MCH 27.8 MCHC 32.3 RDW 16.1 H Plt Count 457 H D MPV 10.1 Immature Gran % (Auto) 0.6 H Neut % (Auto) 80.9 H Lymph % (Auto) 6.9 L [place] % (Auto) 6.2 Eos % (Auto) 4.8 H Baso % (Auto) 0.6 Lymph # (Auto) 0.7 L [place] # (Auto) 0.7 Eos # (Auto) 0.5 H Baso # (Auto) 0.1 Abs Immat Gran (auto) 0.06 H Absolute Neuts (auto) 8.4 H Absolute Nucleated RBC 0.000 Nucleated RBC % (auto) 0.0 VBG pH VBG pCO2 VBG pO2 VBG HCO3 VBG O2 Saturation VBG Base Excess Anion Gap 21 H Estim Creat Clear Calc 18.2 Estimated GFR 16 POC Glucose Random Glucose 351 H* Lactic Acid 1.8 Calcium 8.8 Phosphorus Magnesium 2.1 Total Bilirubin 0.4 Direct Bilirubin 0.2 AST 24 ALT 44 H Alkaline Phosphatase 218 H Total Protein 7.0 Albumin 3.5 Procalcitonin Urine Color Yellow Urine Appearance Clear Urine pH 5.5 Ur Specific [place] 1.015 Urine Protein 300 (3+) H Urine Glucose (UA) 500 H Urine Ketones Negative Urine Blood Negative Urine Nitrite Negative Ur Leukocyte Esterase Negative Urine RBC 0-2 Urine WBC 0-5 Ur Squamous Epith Cells 0-2 Urine Bacteria None Seen Hyaline Casts 0-2 Nasal Screen MRSA (PCR) Nasal S. aureus Screen Nasal MRSA/S.aureus Interp COVID-19 ([facility]) COVID-19 Clin Com Influenza Type A (PCR) Influenza Type B (PCR) RSV RNA Qual (PCR) SARS-CoV-2 RNA (RT-PCR) 04/09/23 04/09/23 04/09/23 19:28 19:37 20:45 MCV MCH MCHC RDW Plt Count MPV Immature Gran % (Auto) Neut % (Auto) Lymph % (Auto) [place] % (Auto) Eos % (Auto) Baso % (Auto) Lymph # (Auto) [place] # (Auto) Eos # (Auto) Baso # (Auto) Abs Immat Gran (auto) Absolute Neuts (auto) Absolute Nucleated RBC Nucleated RBC % (auto) VBG pH 7.42 VBG pCO2 28 VBG pO2 57 VBG HCO3 18 L VBG O2 Saturation 85.0 VBG Base Excess -4.6 Anion Gap Estim Creat Clear Calc Estimated GFR POC Glucose Random Glucose Lactic Acid Calcium Phosphorus Magnesium Total Bilirubin Direct Bilirubin AST ALT Alkaline Phosphatase Total Protein Albumin Procalcitonin 0.20 Urine Color Urine Appearance Urine pH Ur Specific [place] Urine Protein Urine Glucose (UA) Urine Ketones Urine Blood Urine Nitrite Ur Leukocyte Esterase Urine RBC Urine WBC Ur Squamous Epith Cells Urine Bacteria Hyaline Casts Nasal Screen MRSA (PCR) Nasal S. aureus Screen Nasal MRSA/S.aureus Interp COVID-19 ([facility]) Negative COVID-19 Clin Com See Note Influenza Type A (PCR) POSITIVE A Influenza Type B (PCR) NEGATIVE RSV RNA Qual (PCR) NEGATIVE SARS-CoV-2 RNA (RT-PCR) NEGATIVE 04/09/23 04/09/23 04/10/23 21:17 23:01 01:42 MCV MCH MCHC RDW Plt Count MPV Immature Gran % (Auto) Neut % (Auto) Lymph % (Auto) [place] % (Auto) Eos % (Auto) Baso % (Auto) Lymph # (Auto) [place] # (Auto) Eos # (Auto) Baso # (Auto) Abs Immat Gran (auto) Absolute Neuts (auto) Absolute Nucleated RBC Nucleated RBC % (auto) VBG pH VBG pCO2 VBG pO2 VBG HCO3 VBG O2 Saturation VBG Base Excess Anion Gap 18 Estim Creat Clear Calc 18.7 Estimated GFR 16 POC Glucose 279 H 222 H Random Glucose 327 H Lactic Acid Calcium 8.1 L D Phosphorus Magnesium Total Bilirubin Direct Bilirubin AST ALT Alkaline Phosphatase Total Protein Albumin Procalcitonin Urine Color Urine Appearance Urine pH Ur Specific [place] Urine Protein Urine Glucose (UA) Urine Ketones Urine Blood Urine Nitrite Ur Leukocyte Esterase Urine RBC Urine WBC Ur Squamous Epith Cells Urine Bacteria Hyaline Casts Nasal Screen MRSA (PCR) Nasal S. aureus Screen Nasal MRSA/S.aureus Interp COVID-19 ([facility]) COVID-19 Clin Com Influenza Type A (PCR) Influenza Type B (PCR) RSV RNA Qual (PCR) SARS-CoV-2 RNA (RT-PCR) 04/10/23 04/10/23 04/10/23 06:09 08:06 10:16 MCV 86.2 MCH 27.6 MCHC 32.0 RDW 16.1 H Plt Count 337 D MPV 10.1 Immature Gran % (Auto) 0.5 H Neut % (Auto) 77.3 H Lymph % (Auto) 10.1 L [place] % (Auto) 10.1 Eos % (Auto) 1.5 Baso % (Auto) 0.5 Lymph # (Auto) 0.7 L [place] # (Auto) 0.7 Eos # (Auto) 0.1 Baso # (Auto) 0.0 Abs Immat Gran (auto) 0.03 Absolute Neuts (auto) 5.1 Absolute Nucleated RBC 0.000 Nucleated RBC % (auto) 0.0 VBG pH VBG pCO2 VBG pO2 VBG HCO3 VBG O2 Saturation VBG Base Excess Anion Gap 17 Estim Creat Clear Calc 17.5 Estimated GFR 15 POC Glucose 237 H Random Glucose 255 H Lactic Acid Calcium 8.3 L Phosphorus 4.7 H Magnesium Total Bilirubin 0.4 Direct Bilirubin AST 15 ALT 32 Alkaline Phosphatase 174 H Total Protein 5.9 L Albumin 2.9 L Procalcitonin Urine Color Urine Appearance Urine pH Ur Specific [place] Urine Protein Urine Glucose (UA) Urine Ketones Urine Blood Urine Nitrite Ur Leukocyte Esterase Urine RBC Urine WBC Ur Squamous Epith Cells Urine Bacteria Hyaline Casts Nasal Screen MRSA (PCR) NEGATIVE Nasal S. aureus Screen NEGATIVE Nasal MRSA/S.aureus Interp SEE NOTE COVID-19 ([facility]) COVID-19 Clin Com Influenza Type A (PCR) Influenza Type B (PCR) RSV RNA Qual (PCR) SARS-CoV-2 RNA (RT-PCR) 04/10/23 11:37 MCV MCH MCHC RDW Plt Count MPV Immature Gran % (Auto) Neut % (Auto) Lymph % (Auto) [place] % (Auto) Eos % (Auto) Baso % (Auto) Lymph # (Auto) [place] # (Auto) Eos # (Auto) Baso # (Auto) Abs Immat Gran (auto) Absolute Neuts (auto) Absolute Nucleated RBC Nucleated RBC % (auto) VBG pH VBG pCO2 VBG pO2 VBG HCO3 VBG O2 Saturation VBG Base Excess Anion Gap Estim Creat Clear Calc Estimated GFR POC Glucose 106 Random Glucose Lactic Acid Calcium Phosphorus Magnesium Total Bilirubin Direct Bilirubin AST ALT Alkaline Phosphatase Total Protein Albumin Procalcitonin Urine Color Urine Appearance Urine pH Ur Specific [place] Urine Protein Urine Glucose (UA) Urine Ketones Urine Blood Urine Nitrite Ur Leukocyte Esterase Urine RBC Urine WBC Ur Squamous Epith Cells Urine Bacteria Hyaline Casts Nasal Screen MRSA (PCR) Nasal S. aureus Screen Nasal MRSA/S.aureus Interp COVID-19 ([facility]) COVID-19 Clin Com Influenza Type A (PCR) Influenza Type B (PCR) RSV RNA Qual (PCR) SARS-CoV-2 RNA (RT-PCR) Assessment and Plan (1) Influenza A: Status: Acute (2) Hypoxia: Status: Acute (3) Acute hyperkalemia: Status: Acute (4) Fever: Status: Acute Assessment and Plan: 47 years old man admitted with: Hypoxic respiratory failure secondary to pneumonia/influenza infection. Telemetry and Pulse oximetry. has fevers ,blood culture pending plan: Continue supplemental oxygen to keep oxygen saturation > 90%,Bronchodilator therapy as needed, Tamiflu course,continue ceftriaxone and azithromycin, tylenol . Type 2 diabetes mellitus on insulin with hyperglycemia: moniter fs Diabetic diet and Continue insulin regimen. parminder on Chronic kidney disease, stage 4:cr some what worsening has 3+ proteinuria urine creatnine 37.3 , protein/cr : 4.88 Continue to monitor renal function. boderline phosphate. Avoid nephrotoxic agents. hyperkalemia-added loklema possible Hyperchloremic metabolic acidosis - due to CKD,continue sodium bicarbonate. ch anemia normocytic : possible aocd hold lasix,moniter renal function and electrolytes nephrology eval. Hx of DVT. Continue Eliquis Hyperlipidemia. Continue statin. Infiltrative cardiomyopathy. hold Lasix for today due to hyperglycemia and worsening renal function. Chronic anemia. Continue iron pills. That hospitalization he required blood transfusions. History of hep C.: viral load -not detected ( 04/01/23), Need follow up as an outpatient for further management . GERD. PPI IV. Mood disorder. Continue mirtazapine. Hx of CVA. Continue Plavix and statin. DVT prophylaxis: On Eliquis ongoing hospitalization need for hypoxic respiratory failure treatment secondary to influenza treatment with supplemental oxygen, Tamiflu, bronchodilator therapy and empiric IV antibiotic therapy,moniter fs for hyperglycemia as well renal function and electrolytes monitering as well as nephro consult . Quality Stroke Does the patient have a stroke diagnosis?: Yes Reason for No Anti-thrombotic by Day Two: N/A - Med Ordered VTE Prior VTE?: Yes VTE Risk Level:: Medical - moderate - high VTE Device Contraindication: Treatment Not Indicated VTE Drug Contraindication: N/A - Med Ordered
--- NOTE | 2023-04-10 13:52 | MHC.CM.PN ---
PT REPORTS HE LIVES WITH HIS MOTHER, HE RECENTLY MOVED HERE SO THAT SHE COULD ASSIST WITH HIS CARE HE REPORTS HE IS INDEPENDENT WITH AMBULATION AND SELF CARE, HOWEVER DOES HAVE MEMORY IMPAIRMENT AT TIMES PT REPORTS HE HAS NO YET BEEN ABLE TO OBTAIN A PCP OR ANY PROVIDERS IN THE AREA HE HAS A HCP FROM HIS LAST ADMISSION PT RECEIVED THE [facility] DURING HIS LAST ADMISSION AND REPORTS HE HAS IT DCP: HOME NO SERVICES VIA FAMILY TRANSPORT
[2023-04-10 16:50] LABS: Glucose, Whole Blood 160 mg/dL (60-115)
[2023-04-10 20:27] LABS: Glucose, Whole Blood 137 mg/dL (60-115)
[2023-04-10] MEDS: Atorvastatin Calcium 80 MG TABLET PO (20:42)
[2023-04-10] MEDS: Donepezil HCl 5 MG TABLET PO (20:42)
[2023-04-10] MEDS: Azithromycin 500 MG in 0.9 % Sodium Chloride 250 ML 125 MG IV (22:48)
[2023-04-11] VITALS (8 sets, daily range): BP systolic 130–144; BP diastolic 67–84; PULSE 77–98; RESP 16–20; TEMP 36.7–38.1; O2SAT 92–97
[2023-04-11] MEDS: Acetaminophen 325 MG TABLET 975 MG PO ×2 (01:11→15:18)
[2023-04-11] MEDS: Pantoprazole Sodium 40 MG/10 ML VIAL IVPUSH (05:27)
[2023-04-11 07:15] LABS: Hematocrit 24.2 % (42.0-52.0); Hemoglobin 7.8 g/dl (14.0-18.0)
[2023-04-11 07:37] LABS: Glucose, Whole Blood 96 mg/dL (60-115)
[2023-04-11 07:44] LABS: Anion Gap 16 (12-20); Blood Urea Nitrogen 74 mg/dL (9-16); Calcium 8.4 mg/dL (8.4-10.2); Carbon Dioxide 18 mmol/L (22-29); Chloride 109 mmol/L (96-108); Creatinine Clr Calc Pharmacy 16.2; Estimated Glomerular Filt Rate 14; Glucose Random 100 mg/dL (60-115); Iron 9 mcg/dL (45-160); Percent Iron Saturation 5 % (15-50); Potassium 4.4 mmol/L (3.3-5.1); Sodium 139 mmol/L (135-145); Total Iron Binding Capacity 192 mcg/dL (228-428); Unsaturated Iron Binding 183 ug/dL
[2023-04-11 07:57] LABS: Ferritin 915 ng/mL (20-250)
[2023-04-11] MEDS: Multivitamin with Minerals Liq 15 ML LIQUID PO (08:15)
[2023-04-11] MEDS: cefTRIAXone sodium 1 GM in 0.9 % Sodium Chloride 50 ML IV (08:15)
[2023-04-11] MEDS: 0.9 % Sodium Chloride Flush 3 ML SYRINGE IVFLUSH ×2 (08:16→15:15)
[2023-04-11] MEDS: Oseltamivir Phosphate 30 MG CAPSULE PO ×2 (08:16→20:22)
[2023-04-11] MEDS: Clopidogrel Bisulfate 75 MG TABLET PO (08:16)
[2023-04-11] MEDS: Ferrous Sulfate 324 MG TABLET.DR PO (08:16)
[2023-04-11] MEDS: Sodium Bicarbonate 650 MG TABLET PO ×3 (08:16→20:22)
[2023-04-11] MEDS: Folic Acid 1 MG TABLET PO (08:16)
[2023-04-11] MEDS: Apixaban 2.5 MG TABLET PO ×2 (08:16→20:22)
[2023-04-11 11:24] LABS: Glucose, Whole Blood 88 mg/dL (60-115)
--- NOTE | 2023-04-11 11:32 | MHC.CM.PN ---
Pt requiring ongoing acute care for treatment of influenza A. DC plan is home with family. CM to follow and assist as needed with DC plan.
--- NOTE | 2023-04-11 14:30 | P.PNIM_ITS ---
Subjective Subjective Date of Service: 04/11/23 Interval History: infleunza A,grisel Review of Systems sob and fever seems improved. grisel slightly worsenin Physical Exam 2 Vital Signs: Vital Signs: Last Vital Signs Temp 98.1 F 04/11/23 11:21 Pulse 97 04/11/23 11:21 Resp 20 04/11/23 11:21 BP 137/67 04/11/23 11:21 Pulse Ox 92 04/11/23 11:21 O2 Del Method Room Air 04/11/23 11:21 O2 Flow Rate 2 04/11/23 04:00 FiO2 90 04/10/23 12:00 BMI result Body Mass Index 21.1 Appearance: Alert.? Oriented X3.? cvs: rrr, [id number] , no murmur res: air entry fair ,has b/l rhonchii abd: no rebound or guarding ,nt, bs present. ext pulses present , no cyanosis . neuro: axo3 , nonfocal. Objective Data Active Medications Acetaminophen (Acetaminophen 325 Mg Tablet) 975 mg PO Q6H PRN PRN Reason: Pain, Mild (Pain Scale 1-3) Last Admin: 04/11/23 01:11 Dose: 975 mg Documented By: SARAH Albuterol/Ipratropium (Albuterol/Iprat 2.5/0.5mg 3 Ml Ampul.Neb) 3 ml INHALE RQ4H WHILE AWAKE PRN PRN Reason: Shortness of Breath/Wheezing Apixaban (Apixaban 2.5 Mg Tablet) 2.5 mg PO BID [facility] Last Admin: 04/11/23 08:16 Dose: 2.5 mg Documented By: JESENIA Atorvastatin Calcium (Atorvastatin Calcium 80 Mg Tablet) 80 mg PO BEDTIME [facility] Last Admin: 04/10/23 20:42 Dose: 80 mg Documented By: SARAH Clopidogrel Bisulfate (Clopidogrel Bisulfate 75 Mg Tablet) 75 mg PO DAILY [facility] Last Admin: 04/11/23 08:16 Dose: 75 mg Documented By: JESENIA Dextrose (Dextrose 50 % 25 Gm/50 Ml Syringe) 25 gm IVPUSH Q15M PRN; Protocol PRN Reason: per Hypoglycemia Standing Ord. Donepezil HCl (Donepezil Hcl 5 Mg Tablet) 5 mg PO BEDTIME [facility] Last Admin: 04/10/23 20:42 Dose: 5 mg Documented By: SARAH Ferrous Sulfate (Ferrous Sulfate 324 Mg [place].) 324 mg PO DAILY [facility] Last Admin: 04/11/23 08:16 Dose: 324 mg Documented By: JESENIA Folic Acid (Folic Acid 1 Mg Tablet) 1 mg PO DAILY [facility] Last Admin: 04/11/23 08:16 Dose: 1 mg Documented By: JESENIA Glucose (Glucose Gel 15 Gm Gel..Gram.) 15 gm PO Q15M PRN; Protocol PRN Reason: per Hypoglycemia Standing Ord. Azithromycin 500 mg/ Sodium (Chloride) 250 mls @ 125 mls/hr IV Q24H [facility] Last Infusion: 04/11/23 00:48 Dose: Infused Documented By: SARAH Ceftriaxone Sodium 1 gm/ (Sodium Chloride) 50 mls @ 100 mls/hr IV DAILY [facility] Last Infusion: 04/11/23 09:18 Dose: Infused Documented By: JESENIA Insulin Glargine (Insulin Glargine,Hum.Rec.Anlog 100 Unit/Ml 10 Ml Vial) 18 unit SUBCUT BEDTIME [facility] Last Admin: 04/10/23 20:43 Dose: 18 unit Documented By: SARAH Insulin Human Lispro (Insulin Lispro 100 Unit/Ml 3 Ml Vial) 0 unit SUBCUT QIDACHS [facility]; Protocol Last Admin: 04/11/23 11:31 Dose: Not Given Documented By: JESENIA Non-Admin Reason: No Insulin Coverage Melatonin (Melatonin 3 Mg Tablet) 3 mg PO BEDTIME [facility] Last Admin: 04/10/23 20:42 Dose: 3 mg Documented By: SARAH Melatonin (Melatonin 3 Mg Tablet) 6 mg PO BEDTIME PRN PRN Reason: insomnia Mirtazapine (Mirtazapine 30 Mg Tablet) 30 mg PO BEDTIME [facility] Last Admin: 04/10/23 20:42 Dose: 30 mg Documented By: SARAH Multivitamins/Minerals (Multivitamin With Minerals Liq 15 Ml Liquid) 15 ml PO DAILY [facility] Last Admin: 04/11/23 08:15 Dose: 15 ml Documented By: JESENIA Oseltamivir Phosphate (Oseltamivir Phosphate 30 Mg Capsule) 30 mg PO Q12H [facility] Stop: 04/14/23 09:01 Last Admin: 04/11/23 08:16 Dose: 30 mg Documented By: JESENIA Pantoprazole Sodium (Pantoprazole Sodium 40 Mg/10 Ml Vial) 40 mg IVPUSH DAILY@0630 [facility] Last Admin: 04/11/23 05:27 Dose: 40 mg Documented By: SARAH Senna (Sennosides 8.6 Mg Tablet) 8.6 mg PO BEDTIME [facility] Last Admin: 04/10/23 20:55 Dose: Not Given Documented By: SARAH Non-Admin Reason: Patient Refused Sodium Bicarbonate (Sodium Bicarbonate 650 Mg Tablet) 650 mg PO TID [facility] Last Admin: 04/11/23 08:16 Dose: 650 mg Documented By: JESENIA Sodium Chloride (0.9 % Sodium Chloride Flush 3 Ml Syringe) 3 ml IVFLUSH QSHIFT [facility] Last Admin: 04/11/23 08:16 Dose: 3 ml Documented By: JESENIA Labs 04/11/23 06:33 04/11/23 06:33 Labs: Laboratory Results - last 24 hr 04/10/23 04/10/23 04/11/23 16:45 20:22 06:33 Anion Gap 16 Estim Creat Clear Calc 16.2 Estimated GFR 14 POC Glucose 160 H 137 H Random Glucose 100 Calcium 8.4 Iron 9 L TIBC 192 L % Saturation 5 L Unsat Iron Binding 183 Ferritin 915 H 04/11/23 04/11/23 07:29 11:21 Anion Gap Estim Creat Clear Calc Estimated GFR POC Glucose 96 88 Random Glucose Calcium Iron TIBC % Saturation Unsat Iron Binding Ferritin Microbiology Microbiology Results: Microbiology 04/09/23 19:38 Blood Culture - Preliminary Blood - Venous No growth after 24 hours. 04/09/23 19:03 Blood Culture - Preliminary Blood - Venous No growth after 24 hours. Assessment and Plan (1) Influenza A: Status: Acute (2) GRISEL (acute kidney injury): Status: Acute Plan 47 years old man admitted with: Hypoxic respiratory failure secondary to pneumonia/influenza infection. Telemetry and Pulse oximetry. has fevers ,blood culture pending plan: Continue supplemental oxygen to keep oxygen saturation > 90%,Bronchodilator therapy as needed, Tamiflu course,continue ceftriaxone and azithromycin, tylenol . Type 2 diabetes mellitus on insulin with hyperglycemia: moniter fs Diabetic diet and Continue insulin regimen. grisel on Chronic kidney disease, stage 4:cr some what worsening has 3+ proteinuria urine creatnine 37.3 , protein/cr : 4.88 Continue to monitor renal function. boderline phosphate. Avoid nephrotoxic agents. hyperkalemia-added loklema possible Hyperchloremic metabolic acidosis - due to CKD,continue sodium bicarbonate. ch anemia normocytic : possible aocd hold lasix,moniter renal function and electrolytes nephrology eval. Hx of DVT. Continue Eliquis Hyperlipidemia. Continue statin. Infiltrative cardiomyopathy. hold Lasix for today due to hyperglycemia and worsening renal function. Chronic anemia. Continue iron pills. That hospitalization he required blood transfusions. History of hep C.: viral load -not detected ( 04/01/23), Need follow up as an outpatient for further management . GERD. PPI IV. Mood disorder. Continue mirtazapine. Hx of CVA. Continue Plavix and statin. DVT prophylaxis: On Eliquis ongoing hospitalization need for hypoxic respiratory failure treatment secondary to influenza treatment with supplemental oxygen, Tamiflu, bronchodilator therapy and empiric IV antibiotic therapy,moniter fs for hyperglycemia as well renal function and electrolytes monitering as well as nephro consult . Quality Stroke Does the patient have a stroke diagnosis?: Yes Reason for No Anti-thrombotic by Day Two: N/A - Med Ordered VTE Prior VTE?: Yes VTE Risk Level:: Medical - moderate - high VTE Device Contraindication: Treatment Not Indicated VTE Drug Contraindication: N/A - Med Ordered
[2023-04-11 16:23] LABS: Glucose, Whole Blood 113 mg/dL (60-115)
[2023-04-11 19:59] LABS: Glucose, Whole Blood 213 mg/dL (60-115)
[2023-04-11] MEDS: Insulin Lispro 100 UNIT/ML 3 ML VIAL SUBCUT (20:21)
[2023-04-11] MEDS: Insulin Glargine,Hum.rec.anlog 100 UNIT/ML 10 ML VIAL 18 UNIT SUBCUT (20:21)
[2023-04-11] MEDS: Melatonin 3 MG TABLET PO (20:22)
[2023-04-11] MEDS: Donepezil HCl 5 MG TABLET PO (20:22)
[2023-04-11] MEDS: Sennosides 8.6 MG TABLET PO (20:22)
[2023-04-11] MEDS: Mirtazapine 30 MG TABLET PO (20:22)
[2023-04-11] MEDS: Atorvastatin Calcium 80 MG TABLET PO (20:22)
[2023-04-12] VITALS (7 sets, daily range): BP systolic 111–147; BP diastolic 66–81; PULSE 74–81; RESP 16–18; TEMP 36.7–37.6; O2SAT 92–98
[2023-04-12 00:01] LABS: Glucose, Whole Blood 65 mg/dL (60-115)
[2023-04-12] MEDS: Azithromycin 500 MG in 0.9 % Sodium Chloride 250 ML 125 MG IV ×2 (00:18→22:55)
[2023-04-12] MEDS: 0.9 % Sodium Chloride Flush 3 ML SYRINGE IVFLUSH ×4 (00:19→21:01)
[2023-04-12] MEDS: Pantoprazole Sodium 40 MG/10 ML VIAL IVPUSH (05:35)
[2023-04-12 06:25] LABS: Glucose, Whole Blood 145 mg/dL (60-115)
[2023-04-12 06:25] LABS: Glucose, Whole Blood 54 mg/dL (60-115)
[2023-04-12 06:39] LABS: Hematocrit 25.2 % (42.0-52.0); Mean Corpuscular HGB Conc 31.7 g/dl (31.0-36.0); Mean Corpuscular Hemoglobin 27.6 pg (27.0-33.0); Mean Corpuscular Volume 86.9 fL (80.0-98.0); Mean Platelet Volume 10.2 fL (9.4-12.4); Platelet Count 339 X10*3/uL (160-400); Red Cell Distribution Width 15.5 % (11.0-16.0); White Blood Count 5.4 X10*3/uL (4.8-10.8)
[2023-04-12 06:59] LABS: Anion Gap 16 (12-20); Blood Urea Nitrogen 68 mg/dL (9-16); Calcium 8.1 mg/dL (8.4-10.2); Carbon Dioxide 16 mmol/L (22-29); Chloride 111 mmol/L (96-108); Creatinine Clr Calc Pharmacy 16.5; Estimated Glomerular Filt Rate 14; Glucose Random 156 mg/dL (60-115); Potassium 4.3 mmol/L (3.3-5.1); Sodium 139 mmol/L (135-145)
[2023-04-12 07:40] LABS: Glucose, Whole Blood 178 mg/dL (60-115)
[2023-04-12] MEDS: Sodium Bicarbonate 650 MG TABLET PO ×3 (08:00→21:01)
[2023-04-12] MEDS: Folic Acid 1 MG TABLET PO (08:00)
[2023-04-12] MEDS: Ferrous Sulfate 324 MG TABLET.DR PO (08:00)
[2023-04-12] MEDS: Insulin Lispro 100 UNIT/ML 3 ML VIAL SUBCUT ×3 (08:00→21:02)
[2023-04-12] MEDS: Apixaban 2.5 MG TABLET PO ×2 (08:00→21:00)
[2023-04-12] MEDS: Oseltamivir Phosphate 30 MG CAPSULE PO ×2 (08:00→21:01)
[2023-04-12] MEDS: Clopidogrel Bisulfate 75 MG TABLET PO (08:00)
[2023-04-12] MEDS: cefTRIAXone sodium 1 GM in 0.9 % Sodium Chloride 50 ML IV (08:12)
[2023-04-12] MEDS: Multivitamin with Minerals Liq 15 ML LIQUID PO (08:21)
[2023-04-12 09:38] LABS: Procalcitonin 1.41 ng/mL
[2023-04-12 11:29] LABS: Glucose, Whole Blood 131 mg/dL (60-115)
--- NOTE | 2023-04-12 13:19 | P.PNNP_ITS ---
Subjective Subjective Date of Service: 04/12/23 Interval history: Events noted. All recent data reviewed; D/W Hospitalist Physical Exam 2 Vital Signs: Vital Signs: Last Vital Signs Temp 99.3 F 04/12/23 11:21 Pulse 81 04/12/23 11:21 Resp 18 04/12/23 11:21 BP 137/78 04/12/23 11:21 Pulse Ox 96 04/12/23 11:21 O2 Del Method Room Air 04/12/23 11:21 O2 Flow Rate 2 04/11/23 04:00 FiO2 90 04/10/23 12:00 BMI result Body Mass Index 21.1 Const: General: comfortable and no acute distress HEENT: Head: Yes normocephalic Mouth: Normal oral and palatal mucosa present Eyes: EOM: EOMs intact bilaterally Neck: Neck: Yes supple Resp: Auscultation: clear to auscultation bilaterally Cardio: Jugular venous distension: no JVD Rate: regular rate GI: Palpation (GI): Soft to palpation Auscultation: normal bowel sounds : General: Yes no CVA tenderness Back/Spine/Pelvis: Back: no CVA tenderness Skin: General skin exam: no rashes or lesions noted Neuro: General: moves all extremities Extrem: General: Yes no pedal edema Objective Data Labs 04/12/23 06:30 04/12/23 06:30 Labs: Laboratory Results - last 24 hr 04/11/23 04/11/23 04/11/23 16:16 19:54 23:57 WBC RBC Hgb Hct MCV MCH MCHC RDW Plt Count MPV Absolute Nucleated RBC Nucleated RBC % (auto) Sodium Potassium Chloride Carbon Dioxide Anion Gap BUN Creatinine Estim Creat Clear Calc Estimated GFR POC Glucose 113 213 H 65 Random Glucose Calcium Procalcitonin 04/12/23 04/12/23 04/12/23 05:31 06:21 06:30 WBC 5.4 RBC 2.90 L Hgb 8.0 L Hct 25.2 L MCV 86.9 MCH 27.6 MCHC 31.7 RDW 15.5 Plt Count 339 MPV 10.2 Absolute Nucleated RBC 0.000 Nucleated RBC % (auto) 0.0 Sodium 139 Potassium 4.3 Chloride 111 H Carbon Dioxide 16 L Anion Gap 16 BUN 68 H Creatinine 4.45 H* Estim Creat Clear Calc 16.5 Estimated GFR 14 POC Glucose 54 L* 145 H Random Glucose 156 H Calcium 8.1 L Procalcitonin 1.41 04/12/23 04/12/23 07:26 11:22 WBC RBC Hgb Hct MCV MCH MCHC RDW Plt Count MPV Absolute Nucleated RBC Nucleated RBC % (auto) Sodium Potassium Chloride Carbon Dioxide Anion Gap BUN Creatinine Estim Creat Clear Calc Estimated GFR POC Glucose 178 H 131 H Random Glucose Calcium Procalcitonin Microbiology Microbiology Results: Microbiology 04/09/23 19:38 Blood - Venous Blood Culture - Preliminary No growth after 48 hours. 04/09/23 19:03 Blood - Venous Blood Culture - Preliminary No growth after 48 hours. Procedures Date of Service Date of Service: 04/12/23 Assessment & Plan Assessment and plan (1) CKD (chronic kidney disease) stage 4, GFR 15-29 ml/min: Status: Acute (2) Anemia in chronic kidney disease (CKD): Status: Acute Plan Ben has advanced chronic kidney disease at baseline. No indication for renal replacement at this visit. On NaHCO3 for metabolic acidosis. Will need cardiac MRI/ renal biopsy/ EMG as outpatient. He has been iron deficient. Would benefit from 5 more doses of Venofer 200 mg IV daily . Once his transferrin saturation is over 20% he will be a candidate for Procrit injections. Further management is pending evolving data. Progress Note: Quality Stroke Does the patient have a stroke diagnosis?: Yes Reason for No Anti-thrombotic by Day Two: N/A - Med Ordered
--- NOTE | 2023-04-12 14:12 | P.PNIM_ITS ---
Subjective Subjective Date of Service: 04/12/23 Interval History: off O2 BG low this AM Cr hopefully plateaued Review of Systems Review of Systems: Yes all other systems are reviewed and are negative Physical Exam 2 Vital Signs: Vital Signs: Last Vital Signs Temp 99.3 F 04/12/23 11:21 Pulse 81 04/12/23 11:21 Resp 18 04/12/23 11:21 BP 137/78 04/12/23 11:21 Pulse Ox 96 04/12/23 11:21 O2 Del Method Room Air 04/12/23 11:21 O2 Flow Rate 2 04/11/23 04:00 FiO2 90 04/10/23 12:00 BMI result Body Mass Index 21.1 Gen: in no acute distress HEENT: sclera anicteric, moist mucus membranes Neck: supple Lungs: clear to auscultation bilaterally Heart: regular rate and rhythm, no murmurs Abd: soft, non-tender, non-distended Ext: no edema Skin: warm/well-perfused Neuro: alert and oriented x3, mild LLE weakness Psych: appropriate affect Objective Data Active Medications Acetaminophen (Acetaminophen 325 Mg Tablet) 975 mg PO Q6H PRN PRN Reason: Pain, Mild (Pain Scale 1-3) Last Admin: 04/11/23 15:18 Dose: 975 mg Documented By: JESENIA Albuterol/Ipratropium (Albuterol/Iprat 2.5/0.5mg 3 Ml Ampul.Neb) 3 ml INHALE RQ4H WHILE AWAKE PRN PRN Reason: Shortness of Breath/Wheezing Apixaban (Apixaban 2.5 Mg Tablet) 2.5 mg PO BID [facility] Last Admin: 04/12/23 08:00 Dose: 2.5 mg Documented By: HAIM Atorvastatin Calcium (Atorvastatin Calcium 80 Mg Tablet) 80 mg PO BEDTIME [facility] Last Admin: 04/11/23 20:22 Dose: 80 mg Documented By: CLAYTON Clopidogrel Bisulfate (Clopidogrel Bisulfate 75 Mg Tablet) 75 mg PO DAILY [facility] Last Admin: 04/12/23 08:00 Dose: 75 mg Documented By: HAIM Dextrose (Dextrose 50 % 25 Gm/50 Ml Syringe) 25 gm IVPUSH Q15M PRN; Protocol PRN Reason: per Hypoglycemia Standing Ord. Donepezil HCl (Donepezil Hcl 5 Mg Tablet) 5 mg PO BEDTIME [facility] Last Admin: 04/11/23 20:22 Dose: 5 mg Documented By: CLATYON Ferrous Sulfate (Ferrous Sulfate 324 Mg Tablet.) 324 mg PO DAILY [facility] Last Admin: 04/12/23 08:00 Dose: 324 mg Documented By: HAIM Folic Acid (Folic Acid 1 Mg Tablet) 1 mg PO DAILY [facility] Last Admin: 04/12/23 08:00 Dose: 1 mg Documented By: HAIM Glucose (Glucose Gel 15 Gm Gel..Gram.) 15 gm PO Q15M PRN; Protocol PRN Reason: per Hypoglycemia Standing Ord. Azithromycin 500 mg/ Sodium (Chloride) 250 mls @ 125 mls/hr IV Q24H [facility] Last Infusion: 04/12/23 02:27 Dose: Infused Documented By: CRYSTAL Ceftriaxone Sodium 1 gm/ (Sodium Chloride) 50 mls @ 100 mls/hr IV DAILY [facility] Last Infusion: 04/12/23 08:42 Dose: Infused Documented By: HAIM Insulin Glargine (Insulin Glargine,Hum.Rec.Anlog 100 Unit/Ml 10 Ml Vial) 12 unit SUBCUT BEDTIME [facility] Insulin Human Lispro (Insulin Lispro 100 Unit/Ml 3 Ml Vial) 0 unit SUBCUT QIDAS [facility]; Protocol Last Admin: 04/12/23 11:32 Dose: Not Given Documented By: HAIM Non-Admin Reason: No Insulin Coverage Melatonin (Melatonin 3 Mg Tablet) 3 mg PO BEDTIME [facility] Last Admin: 04/11/23 20:22 Dose: 3 mg Documented By: CLAYTON Melatonin (Melatonin 3 Mg Tablet) 6 mg PO BEDTIME PRN PRN Reason: insomnia Mirtazapine (Mirtazapine 30 Mg Tablet) 30 mg PO BEDTIME [facility] Last Admin: 04/11/23 20:22 Dose: 30 mg Documented By: CLAYTON Multivitamins/Minerals (Multivitamin With Minerals Liq 15 Ml Liquid) 15 ml PO DAILY [facility] Last Admin: 04/12/23 08:21 Dose: 15 ml Documented By: HAIM Oseltamivir Phosphate (Oseltamivir Phosphate 30 Mg Capsule) 30 mg PO Q12H [facility] Stop: 04/14/23 09:01 Last Admin: 04/12/23 08:00 Dose: 30 mg Documented By: HAIM Pantoprazole Sodium (Pantoprazole Sodium 40 Mg/10 Ml Vial) 40 mg IVPUSH DAILY@0630 [facility] Last Admin: 04/12/23 05:35 Dose: 40 mg Documented By: CRYSTAL Senna (Sennosides 8.6 Mg Tablet) 8.6 mg PO BEDTIME [facility] Last Admin: 04/11/23 20:22 Dose: 8.6 mg Documented By: CLAYTON Sodium Bicarbonate (Sodium Bicarbonate 650 Mg Tablet) 650 mg PO BID [facility] Last Admin: 04/12/23 08:02 Dose: 650 mg Documented By: HAIM Sodium Chloride (0.9 % Sodium Chloride Flush 3 Ml Syringe) 3 ml IVFLUSH QSHIFT [facility] Last Admin: 04/12/23 08:01 Dose: 3 ml Documented By: HAIM Labs 04/12/23 06:30 04/12/23 06:30 Labs: Laboratory Results - last 24 hr 04/11/23 04/11/23 04/11/23 16:16 19:54 23:57 MCV MCH MCHC RDW Plt Count MPV Absolute Nucleated RBC Nucleated RBC % (auto) Anion Gap Estim Creat Clear Calc Estimated GFR POC Glucose 113 213 H 65 Random Glucose Calcium Procalcitonin 04/12/23 04/12/23 04/12/23 05:31 06:21 06:30 MCV 86.9 MCH 27.6 MCHC 31.7 RDW 15.5 Plt Count 339 MPV 10.2 Absolute Nucleated RBC 0.000 Nucleated RBC % (auto) 0.0 Anion Gap 16 Estim Creat Clear Calc 16.5 Estimated GFR 14 POC Glucose 54 L* 145 H Random Glucose 156 H Calcium 8.1 L Procalcitonin 1.41 04/12/23 04/12/23 07:26 11:22 MCV MCH MCHC RDW Plt Count MPV Absolute Nucleated RBC Nucleated RBC % (auto) Anion Gap Estim Creat Clear Calc Estimated GFR POC Glucose 178 H 131 H Random Glucose Calcium Procalcitonin Microbiology Microbiology Results: Microbiology 04/09/23 19:38 Blood Culture - Preliminary Blood - Venous No growth after 48 hours. 04/09/23 19:03 Blood Culture - Preliminary Blood - Venous No growth after 48 hours. Assessment and Plan (1) Influenza A: Status: Acute (2) GRISEL (acute kidney injury): Status: Acute Plan d4 47yo M with PMHx CVA, DVT on apixaban, mood disorder, vascular dementia, cocaine abuse, CKD4, GERD recent admission for severe metabolic acidosis during which possibility of amyloidosis was suggested on TTE re-admitted with hypoxia due to influenza with pneumonia acute hypoxic resp failure due to post-influenza PNA - oseltamivir 04/10- - ceftriaxone 04/10-, azithromcyin 04/09- - weaned off O2 - BCx negative; trend PCT GRISEL/CKD4 - Cr hopefully plateauing, Nephrology following; recheck BMP in AM - decrease bicarbonate dose - needs close outpatient follow-up with renal biopsy hyperK - resolved after Lokelma DM2 with hyperglycemia and now hypoglycemia - decrease Lantus dose, continue correction-dose Humalog anemia of CKD + ELIDA - H+H stable; continue PO Fe; got IV Fe, epo, and pRBCs last admission hx DVT - apixaban HLD - statin cardiomyopathy chronic HFpEF - furosemide held for GRISEL - outpatient Cardiology f/u for MRI GERD - PPI mood disorder - mirtazapine hx CVA - statin + clopidogrel dementia - donepezil VTE ppx - apixaban dispo - anticipate home once renal function improves In my clinical judgment, the patient requires continued inpatient hospitalization for the following reasons: renal failure Total time managing care of this patient today: 45 minutes. Quality Stroke Does the patient have a stroke diagnosis?: Yes Reason for No Anti-thrombotic by Day Two: N/A - Med Ordered VTE Prior VTE?: Yes VTE Risk Level:: Medical - moderate - high VTE Device Contraindication: Treatment Not Indicated VTE Drug Contraindication: N/A - Med Ordered
[2023-04-12 16:19] LABS: Glucose, Whole Blood 256 mg/dL (60-115)
[2023-04-12] MEDS: Magnesium Hydrox/Alum Hydrox 30 ML ORAL.SUSP PO (16:55)
[2023-04-12 19:49] LABS: Glucose, Whole Blood 194 mg/dL (60-115)
[2023-04-12] MEDS: Donepezil HCl 5 MG TABLET PO (21:00)
[2023-04-12] MEDS: Mirtazapine 30 MG TABLET PO (21:00)
[2023-04-12] MEDS: Atorvastatin Calcium 80 MG TABLET PO (21:00)
[2023-04-12] MEDS: Insulin Glargine,Hum.rec.anlog 100 UNIT/ML 10 ML VIAL 12 UNIT SUBCUT (21:01)
[2023-04-12] MEDS: Sennosides 8.6 MG TABLET PO (21:01)
[2023-04-12] MEDS: Melatonin 3 MG TABLET PO (21:05)
[2023-04-13 03:23] VITALS: BP 124/79; PULSE 72; RESP 18; TEMP 37.1; O2SAT 98
[2023-04-13] MEDS: Pantoprazole Sodium 40 MG/10 ML VIAL IVPUSH (05:36)
[2023-04-13 07:14] LABS: Anion Gap 17 (12-20); Blood Urea Nitrogen 59 mg/dL (9-16); Calcium 8.2 mg/dL (8.4-10.2); Carbon Dioxide 15 mmol/L (22-29); Chloride 112 mmol/L (96-108); Creatinine Clr Calc Pharmacy 16.6; Estimated Glomerular Filt Rate 14; Glucose Random 150 mg/dL (60-115); Potassium 4.5 mmol/L (3.3-5.1); Sodium 139 mmol/L (135-145)
[2023-04-13 07:48] VITALS: BP 143/81; PULSE 72; RESP 18; TEMP 36.7; O2SAT 95
[2023-04-13 07:58] LABS: Glucose, Whole Blood 149 mg/dL (60-115)
[2023-04-13] MEDS: Folic Acid 1 MG TABLET PO (08:42)
[2023-04-13] MEDS: Apixaban 2.5 MG TABLET PO (08:42)
[2023-04-13] MEDS: Multivitamin with Minerals Liq 15 ML LIQUID PO (08:42)
[2023-04-13] MEDS: Oseltamivir Phosphate 30 MG CAPSULE PO (08:42)
[2023-04-13] MEDS: Sodium Bicarbonate 650 MG TABLET PO (08:42)
[2023-04-13] MEDS: Ferrous Sulfate 324 MG TABLET.DR PO (08:42)
[2023-04-13] MEDS: Clopidogrel Bisulfate 75 MG TABLET PO (08:42)
[2023-04-13] MEDS: cefTRIAXone sodium 1 GM in 0.9 % Sodium Chloride 50 ML IV (08:49)
[2023-04-13] MEDS: 0.9 % Sodium Chloride Flush 3 ML SYRINGE IVFLUSH (08:49)
--- NOTE | 2023-04-13 09:18 | P.PNNP_ITS ---
Subjective Subjective Date of Service: 04/13/23 Interval history: Events noted. All recent data reviewed; D/W Hospitalist Physical Exam 2 Vital Signs: Vital Signs: Last Vital Signs Temp 98.1 F 04/13/23 07:48 Pulse 72 04/13/23 07:48 Resp 18 04/13/23 07:48 BP 143/81 H 04/13/23 07:48 Pulse Ox 95 04/13/23 07:48 O2 Del Method Room Air 04/13/23 07:48 O2 Flow Rate 2 04/11/23 04:00 FiO2 90 04/10/23 12:00 BMI result Body Mass Index 21.1 Const: General: comfortable and no acute distress O rientation/consciousness: patient oriented x3 HEENT: Head: Yes normocephalic Mouth: Normal oral and palatal mucosa present Eyes: EOM: EOMs intact bilaterally Neck: Neck: Yes supple Resp: Auscultation: clear to auscultation bilaterally Cardio: Jugular venous distension: no JVD Rate: regular rate GI: Palpation (GI): Soft to palpation Auscultation: normal bowel sounds : General: Yes no CVA tenderness Back/Spine/Pelvis: Back: no CVA tenderness Skin: General skin exam: no rashes or lesions noted Neuro: General: patient oriented x3 and moves all extremities Extrem: General: Yes no pedal edema Objective Data Labs 04/12/23 06:30 04/13/23 06:13 Labs: Laboratory Results - last 24 hr 04/12/23 04/12/23 04/12/23 06:30 11:22 16:14 Hold Purple Top Sodium Potassium Chloride Carbon Dioxide Anion Gap BUN Creatinine Estim Creat Clear Calc Estimated GFR POC Glucose 131 H 256 H Random Glucose Calcium Procalcitonin 1.41 04/12/23 04/13/23 04/13/23 19:41 06:13 07:54 Hold Purple Top SEE NOTE Sodium 139 Potassium 4.5 Chloride 112 H Carbon Dioxide 15 L Anion Gap 17 BUN 59 H Creatinine 4.42 H* Estim Creat Clear Calc 16.6 Estimated GFR 14 POC Glucose 194 H 149 H Random Glucose 150 H Calcium 8.2 L Procalcitonin Microbiology Microbiology Results: Microbiology 04/09/23 19:38 Blood - Venous Blood Culture - Preliminary No growth after 48 hours. 04/09/23 19:03 Blood - Venous Blood Culture - Preliminary No growth after 48 hours. Procedures Date of Service Date of Service: 04/13/23 Assessment & Plan Assessment and plan (1) Anemia in chronic kidney disease (CKD): Status: Acute (2) CKD (chronic kidney disease) stage 4, GFR 15-29 ml/min: Status: Acute (3) Metabolic acidosis: Status: Acute Plan Ben has advanced chronic kidney disease at baseline. No indication for renal replacement at this visit. On NaHCO3 for metabolic acidosis. Will need cardiac MRI/ renal biopsy/ EMG as outpatient. Had been iron deficient. Once his transferrin saturation is over 20% he will be a candidate for Procrit injections. Shall arrange office F/U in one week if D/[place] Progress Note: Quality Stroke Does the patient have a stroke diagnosis?: Yes Reason for No Anti-thrombotic by Day Two: N/A - Med Ordered
[2023-04-13 11:50] VITALS: BP 153/88; PULSE 79; RESP 20; TEMP 36.6; O2SAT 96
[2023-04-13 12:20] LABS: Glucose, Whole Blood 293 mg/dL (60-115)
[2023-04-13] MEDS: Insulin Lispro 100 UNIT/ML 3 ML VIAL SUBCUT (12:22)
--- NOTE | 2023-04-13 13:21 | PM.DS ---
DS: Providers Provider Date of Service: 04/13/23 Date of admission: 04/09/23 22:12 Date of discharge: 04/13/23 Primary care physician: None Physician Consults: 04/10/23 14:27 Consult to Nephrology Routine Consulting Provider: [facility] Reason for consultation: grisel ,electrolytic abnormalities Has provider been notified: No DS: Diagnosis Discharge Diagnosis (1) Anemia in chronic kidney disease (CKD): Status: Acute (2) CKD (chronic kidney disease) stage 4, GFR 15-29 ml/min: Status: Acute (3) Metabolic acidosis: Status: Acute (4) Influenza A: Status: Acute (5) GRISEL (acute kidney injury): Status: Acute (6) Acute respiratory failure with hypoxia: Status: Acute (7) Pneumonia: Status: Acute (8) Hyperkalemia: Status: Acute DS: Summary Hospital Course Hospital Course: From the history and physical by the admitting hospitalist, Edis Somers MD, 04/09/23: Ben Jimenez is a 47 years old man with past medical history significant for type 2 diabetes mellitus on insulin, CVA, cardiomyopathy, chronic Hep C, CKD, DVT on Eliquis and hyperlipidemia presents to the emergency department complaining of shortness on breath that started this morning associated with chest tightness and cough. He has been having fever. He denied any headache, sore throat, abdominal pain, nausea or vomiting. He has had episodes of nonbloody diarrhea. He denies pain with urination. He is a former IV drug user (heroin). Denies tobacco smoking or alcohol use.\ He was recently discharged from the hospital (Apr 03) after he was admitted with diagnosis of acute hypoxic respiratory failure due to congestive heart failure and metabolic acidosis. At that time he was treated with bicarb drip. On discharge bicarb tablets and midodrine were discontinued. In the ED, he was found to have tachycardia and fever. According to ED physician patient is O2 sat dropped to 89%. Blood pressure stable. Blood workup showed no leukocytosis. Lactic acid is normal. His creatinine was found to have 4.03 (baseline is around (3.6-3.8). Hyperkalemia, 5.8 (resolved after bicarb IV given and Lokelma, now is 4.8) bicarb is 15. Glucose also elevated 351, however trending down. AST and alk-phos elevated. Bilirubin and AST are normal. CXR showed bilateral perihilar airspace disease. EKG showed no peaked T-waves. ED tx: Tamiflu 30 mg p.o., APAP 650, Lokelma 5 mg. Bicarb 50 mEq IV, ceftriaxone 1 g. Mr Powell is a 47yo M who just moved to the area with PMHx CVA, DVT on apixaban, mood disorder, vascular dementia, cocaine abuse, CKD4, and GERD, with a recent admission to [facility] for severe metabolic acidosis during which possibility of amyloidosis was suggested on TTE. This time he was re-admitted with hypoxia due to influenza with pneumonia. Hospital course by problem: acute hypoxic resp failure due to influenza + pneumonia - Treated with oseltamivir x 7 doses; 3 doses prescribed upon discharge - Treated with ceftriaxone x 4 days; 3 days of cefuroxime prescribed upon discharged - Also completed azithromycin x 5 days - Weaned off of oxygen - Blood cultures negative GRISEL/CKD4 acute metabolic acidosis - Serum creatinine plateaued around 4.4-4.5. Furosemide discontinued. Started on oral bicarbonate supplementation. - Instructed to repeat BMP on 04/15/23 and then to follow up with Dr Chucho Wu from [facility] in 1 week. Needs close outpatient follow-up with renal biopsy and genetic testing for concern of amyloidosis. hyperkalemia - mild; resolved after Lokelma anemia of CKD + ELIDA - H+H stable; continue PO Fe; got IV Fe, epo, and pRBCs last admission He was discharged home and instructed to establish primary care ANIKA. Time Attestation Discharge coordination time: Greater than 30 minutes Quality: Safe Use of Opioids Does Pt have an Active Cancer Diagnosis on the Problem List?: No Quality: Stroke Does the patient have a stroke diagnosis?: No Physical Exam Vital Signs: Vital Signs: Last Vital Signs Temp 97.9 F 04/13/23 11:50 Pulse 79 04/13/23 11:50 Resp 20 04/13/23 11:50 BP 153/88 H 04/13/23 11:50 Pulse Ox 96 04/13/23 11:50 O2 Del Method Room Air 04/13/23 11:50 O2 Flow Rate 2 04/11/23 04:00 FiO2 90 04/10/23 12:00 BMI result Body Mass Index 21.1 Gen: in no acute distress HEENT: sclera anicteric, moist mucus membranes Neck: supple Lungs: clear to auscultation bilaterally Heart: regular rate and rhythm, no murmurs Abd: soft, non-tender, non-distended Ext: no edema Skin: warm/well-perfused Neuro: alert and oriented x3, mild LLE weakness Psych: appropriate affect DS: Data Data Completed and Pending Completed studies during hospitalization [Text1]: Laboratory Results WBC 5.4 X10*3/uL (4.8-10.8) 04/12/23 06:30 RBC 2.90 X10*6/uL (4.60-5.80) L 04/12/23 06:30 Hgb 8.0 g/dl (14.0-18.0) L 04/12/23 06:30 Hct 25.2 % (42.0-52.0) L 04/12/23 06:30 MCV 86.9 fL (80.0-98.0) 04/12/23 06:30 MCH 27.6 pg (27.0-33.0) 04/12/23 06:30 MCHC 31.7 g/dl (31.0-36.0) 04/12/23 06:30 RDW 15.5 % (11.0-16.0) 04/12/23 06:30 Plt Count 339 X10*3/uL (160-400) 04/12/23 06:30 MPV 10.2 fL (9.4-12.4) 04/12/23 06:30 Immature Gran % (Auto) 0.5 % (0.0-0.4) H 04/10/23 06:09 Neut % (Auto) 77.3 % (45-73) H 04/10/23 06:09 Lymph % (Auto) 10.1 % (20-40) L 04/10/23 06:09 Emery % (Auto) 10.1 % (2-11) 04/10/23 06:09 Eos % (Auto) 1.5 % (0-4) 04/10/23 06:09 Baso % (Auto) 0.5 % (0-2) 04/10/23 06:09 Lymph # (Auto) 0.7 X10*3/uL (1.2-4.9) L 04/10/23 06:09 Emery # (Auto) 0.7 X10*3/uL (0.1-1.2) 04/10/23 06:09 Eos # (Auto) 0.1 X10*3/uL (0.0-0.4) 04/10/23 06:09 Baso # (Auto) 0.0 X10*3/uL (0.0-0.2) 04/10/23 06:09 Abs Immat Gran (auto) 0.03 X10*3/uL (0.00-0.03) 04/10/23 06:09 Absolute Neuts (auto) 5.1 x10*3/uL (2.0-8.3) 04/10/23 06:09 Absolute Nucleated RBC 0.000 X10*3/uL (0.0-0.012) 04/12/23 06:30 Nucleated RBC % (auto) 0.0 /100WBC (0.0-0.2) 04/12/23 06:30 Hold Purple Top SEE NOTE 04/13/23 06:13 VBG pH 7.42 (7.32-7.43) 04/09/23 20:45 VBG pCO2 28 mmHg 04/09/23 20:45 VBG pO2 57 mmHg 04/09/23 20:45 VBG HCO3 18 mmol/L (22-26) L 04/09/23 20:45 VBG O2 Saturation 85.0 % 04/09/23 20:45 VBG Base Excess -4.6 mmol/L 04/09/23 20:45 Sodium 139 mmol/L (135-145) 04/13/23 06:13 Potassium 4.5 mmol/L (3.3-5.1) 04/13/23 06:13 Chloride 112 mmol/L (96-108) H 04/13/23 06:13 Carbon Dioxide 15 mmol/L (22-29) L 04/13/23 06:13 Anion Gap 17 (12-20) 04/13/23 06:13 BUN 59 mg/dL (9-16) H 04/13/23 06:13 Creatinine 4.42 mg/dL (0.5-1.4) H* 04/13/23 06:13 Estim Creat Clear Calc 16.6 04/13/23 06:13 Estimated GFR 14 04/13/23 06:13 POC Glucose 293 mg/dL (60-115) H 04/13/23 12:17 Random Glucose 150 mg/dL (60-115) H 04/13/23 06:13 Lactic Acid 1.8 mmol/L (0.5-2.0) 04/09/23 19:03 Calcium 8.2 mg/dL (8.4-10.2) L 04/13/23 06:13 Phosphorus 4.7 mg/dL (2.7-4.5) H 04/10/23 06:09 Magnesium 2.1 mg/dL (1.6-2.6) 04/09/23 19:04 Iron 9 mcg/dL (45-160) L 04/11/23 06:33 TIBC 192 mcg/dL (228-428) L 04/11/23 06:33 % Saturation 5 % (15-50) L 04/11/23 06:33 Unsat Iron Binding 183 ug/dL 04/11/23 06:33 Ferritin 915 ng/mL (20-250) H 04/11/23 06:33 Total Bilirubin 0.4 mg/dL (0.0-1.0) 04/10/23 06:09 Direct Bilirubin 0.2 mg/dL (0.0-0.5) 04/09/23 19:04 AST 15 U/L (5-37) 04/10/23 06:09 ALT 32 U/L (0-40) 04/10/23 06:09 Alkaline Phosphatase 174 U/L (39-117) H 04/10/23 06:09 Total Protein 5.9 g/dL (6.5-8.0) L 04/10/23 06:09 Albumin 2.9 g/dL (3.5-5.0) L 04/10/23 06:09 Procalcitonin 1.41 ng/mL 04/12/23 06:30 Urine Color Yellow 04/09/23 19:26 Urine Appearance Clear 04/09/23 19:26 Urine pH 5.5 (5.0-9.0) 04/09/23 19:26 Ur Specific Henley 1.015 (1.005-1.025) 04/09/23 19:26 Urine Protein 300 (3+) mg/dL (Neg-Trace) H 04/09/23 19:26 Urine Glucose (UA) 500 mg/dL (Negative) H 04/09/23 19:26 Urine Ketones Negative mg/dL (Negative) 04/09/23 19:26 Urine Blood Negative (Negative) 04/09/23 19:26 Urine Nitrite Negative (Negative) 04/09/23 19:26 Ur Leukocyte Esterase Negative (Negative) 04/09/23 19:26 Urine RBC 0-2 /HPF (0-2) 04/09/23 19:26 Urine WBC 0-5 /HPF (0-5) 04/09/23 19:26 Ur Squamous Epith Cells 0-2 /HPF (0-2) 04/09/23 19:26 Urine Bacteria None Seen (None Seen) 04/09/23 19: Hyaline Casts 0-2 /LPF (0-2) 04/09/23 19:26 Nasal Screen MRSA (PCR) NEGATIVE (Negative) 04/10/23 10:16 Nasal S. aureus Screen NEGATIVE (Negative) 04/10/23 10:16 Nasal MRSA/S.aureus Interp SEE NOTE 04/10/23 10:16 COVID-19 (LASHA) Negative (Negative) 04/09/23 19:28 COVID-19 Clin Com See Note 04/09/23 19:28 Influenza Type A (PCR) POSITIVE (Negative) A 04/09/23 19:28 Influenza Type B (PCR) NEGATIVE (Negative) 04/09/23 19:28 RSV RNA Qual (PCR) NEGATIVE (Negative) 04/09/23 19:28 SARS-CoV-2 RNA (RT-PCR) NEGATIVE (Negative) 04/09/23 19:28 Impressions Chest X-Ray 04/09/23 20:07 IMPRESSION: Bilateral perihilar airspace disease, left greater than right. Differential would include pneumonia and pulmonary edema. Discharge Plan Discharge Anticipated Discharge Date/Time: 04/13/23 11:45 Patient Disposition: Home, Self-Care Discharge Diagnosis: hypoxia due to influenza and pneumonia acute kidney injury plus CKD stage 4 Referrals: Chucho Bates MD [Physician] - 1 Week Otis Robles MD [Physician] - 2 Weeks Physician,None [Primary Care Provider] - 1 Week Discharge Medications: New sodium bicarbonate 650 mg Tablet 650 mg PO TID Qty: 90 0RF oseltamivir 30 mg Capsule 30 mg PO Q12H Qty: 3 0RF cefuroxime axetil 250 mg tablet 250 mg PO BID Qty: 6 0RF Continued melatonin 3 mg tablet 6 mg PO BEDTIME PRN (Reason: insomnia) atorvastatin 80 mg Tablet 80 mg PO BEDTIME sennosides [senna] 8.6 mg Tablet 8.6 mg PO BEDTIME acetaminophen 325 mg Tablet 650 mg PO Q4H PRN (Reason: Fever Or Pain) donepezil [Aricept] 5 mg Tablet 5 mg PO BEDTIME clopidogrel 75 mg Tablet 75 mg PO DAILY pantoprazole 40 mg Tablet,Delayed Release (Dr/Ec) 40 mg PO DAILY@0630 mirtazapine [Remeron] 30 mg Tablet 30 mg PO BEDTIME ferrous sulfate 325 mg (65 mg iron) Tablet 325 mg PO DAILY folic acid 1 mg Tablet 1 mg PO DAILY multivitamin with minerals Tablet 1 tab PO DAILY Eliquis 2.5 mg Tablet 2.5 mg PO BID insulin lispro [Humalog KwikPen Insulin] 100 unit/mL Insulin Pen 1 sliding scale dose SUBCUT USEASDIRECTD Qty: 15 0RF Protocol: Insulin Correction Scale Less than or equal to 110 ---- Give (units): 0 111 to 150 Give (units): 0 151 to 200 Give (units): 2 201 to 250 Give (units): 4 251 to 300 Give (units): 6 301 to 350 Give (units): 8 Greater than 350 Give (units): 10 Call MD if Blood Glucose > : 450 insulin glargine 100 unit/mL (3 mL) Insulin Pen 18 unit SUBCUT BEDTIME Qty: 15 0RF Discontinued furosemide 20 mg tablet 20 mg PO DAILY Qty: 90 0RF Discharge Orders: Discharge Order (Routine); Ordered 02/28/24 Ordered By: Catrachita Lama Diet: Diabetic diet Activity on Discharge: As tolerated Stand Alone Forms: Patient Portal Discharge page Care Plan Goals: hypoxia due to influenza and pneumonia acute kidney injury plus CKD stage 4 Health Concerns: recovery from pneumonia and flu renal health Plan of Treatment: take oseltamivir 30 mg twice daily for 3 more doses take cefuroxime 250 mg twice daily for 6 more doses [3 days] stop furosemide take sodium bicarbonate 650 mg 3x a day recheck labs [basic metabolic panel] on 04/15/[address] Wu from Nephrology in 1 week establish primary care as soon as possible Return to the hospital if you experience recurrent or worsening symptoms. Assessment: See Discharge Summary.
--- NOTE | 2023-04-13 13:27 | MHC.CM.PN ---
Pt has been medically cleared to return home, self care, family to transport.
[2023-04-13] MEDS: Azithromycin 500 MG TABLET PO (13:39)
--- NOTE | 2023-04-14 07:22 | P.CDIM_ITS ---
PROVIDER RESPONSE TEXT: To clarify, the appropriate diagnosis supported by the clinical indicators: Acute QUERY TEXT: PHYSICIAN'S DOCUMENTATION REQUEST Date of Query: 04/13/2023 07:16 AM EST Patient Name: Ben Soto Admit Date: 04/10/2023 Dear Catrachita Lama, A review of the medical record indicates additional documentation may be needed. Please review below and update the documentation accordingly. Clinical Indicators: H&P 04/09 - Assessment: Metabolic acidosis likely secondary to chronic kidney disease. Start bicarb 650 mg PO t.i.d.. Continue to monitor bicarb. Clarify which of the following accurately represents the acuity of the metabolic acidosis: Acute Acute on chronic Other (explain) Clinically unable to determine (explain) Thank you, Darlyn Patel, CCS, CDIS Use of terms such as suspected, likely, concern for, or probable (associated with a specific diagnosi s that is being evaluated, monitored, or treated as if it exists) are acceptable and can be coded in the inpatient se tting, when documented at the time of discharge. Please use your independent medical judgment in providing your response. THIS QUERY IS PART OF THE PERMANENT MEDICAL RECORD
== END 2023-04-13 14:46 | disposition home or self-care (01) | DRG 139 ==
LOC: HO.ED 20:36 → HO.EDOVER 22:22 → HO.IMC 04-10 00:41
PROVIDERS: Internal Medicine; Admitting Provider Internal Medicine; Emergency Provider Emergency Medicine; Visit Provider Family Medicine
DX: J10.00 Influenza due to other identified influenza virus with unspecified type of pneumonia (principal); E85.4 Organ-limited amyloidosis; E11.649 Type 2 diabetes mellitus with hypoglycemia without coma; N17.9 Acute kidney failure, unspecified; E87.21 Acute metabolic acidosis; D63.1 Anemia in chronic kidney disease; I43 Cardiomyopathy in diseases classified elsewhere; I50.22 Chronic systolic (congestive) heart failure; E78.5 Hyperlipidemia, unspecified; E11.22 Type 2 diabetes mellitus with diabetic chronic kidney disease; E11.65 Type 2 diabetes mellitus with hyperglycemia; D50.9 Iron deficiency anemia, unspecified; F39 Unspecified mood [affective] disorder; F01.50 Vascular dementia, unspecified severity, without behavioral disturbance, psychotic disturbance, mood disturbance, and anxiety; N18.4 Chronic kidney disease, stage 4 (severe); E87.5 Hyperkalemia; Z20.822 Contact with and (suspected) exposure to COVID-19; Z87.891 Personal history of nicotine dependence; Z86.19 Personal history of other infectious and parasitic diseases; Z86.718 Personal history of other venous thrombosis and embolism; Z79.4 Long term (current) use of insulin; Z79.01 Long term (current) use of anticoagulants; Z79.02 Long term (current) use of antithrombotics/antiplatelets; Z79.899 Other long term (current) drug therapy
CPT/HCPCS: 0241U; 36415; 71045; 80048; 80053; 80076; 81001; 82728; 82803; 82947; 83540; 83605; 83735; 84100; 84145; 85014; 85018; 85025; 85027; 87040; 87635; 87640; 87641; 93005; 97162; 99285; C9113; J0456; J0692; J0696

== ENCOUNTER → 2023-04-09 18:14 | Outpatient (BNV) | payer OTHER, SELFPAY | PROVIDERS: Admitting Provider Internal Medicine; Emergency Provider Emergency Medicine; Visit Provider Internal Medicine Cardiovascular Disease | DX: R06.02 Shortness of breath (principal); R00.0 Tachycardia, unspecified | CPT/HCPCS: 93010 ==

== ENCOUNTER → 2023-04-09 22:12 | Outpatient (BNV) | payer OTHER, SELFPAY | PROVIDERS: Admitting Provider Internal Medicine; Emergency Provider Emergency Medicine; Visit Provider Internal Medicine | DX: N17.9 Acute kidney failure, unspecified (principal); N18.4 Chronic kidney disease, stage 4 (severe); J96.01 Acute respiratory failure with hypoxia; D63.1 Anemia in chronic kidney disease; E87.21 Acute metabolic acidosis; J10.1 Influenza due to other identified influenza virus with other respiratory manifestations; J18.9 Pneumonia, unspecified organism; E87.5 Hyperkalemia | CPT/HCPCS: 99223; 99232; 99238 ==

== ENCOUNTER → 2023-04-09 22:12 | Outpatient (BNV) | payer OTHER, SELFPAY | PROVIDERS: Admitting Provider Internal Medicine; Emergency Provider Emergency Medicine; Visit Provider Internal Medicine Nephrology | DX: N18.4 Chronic kidney disease, stage 4 (severe) (principal); D63.1 Anemia in chronic kidney disease; E87.21 Acute metabolic acidosis | CPT/HCPCS: 99232 ==

== ENCOUNTER 2023-04-21 12:46 | Outpatient (AMB) | payer MEDICAID, SELFPAY ==
--- NOTE | 2023-04-21 13:02 | HO.NEPHOV_ITS ---
HPI HPI Comments History of Present Illness Details 47-year-old male with pertinent history of CVA, DVT on Eliquis, mood disorder, vascular dementia, history of IV drugs (cocaine) use disorder, chronic kidney disease, gastroesophageal reflux disease, mood disorder who presents to the emergency department for evaluation of elevated blood glucose. Patient was discharged from a rehab facility in [place] after an acute CVA Currently home with family Appetite is good No nausea or vomiting [facility] Medical History (Updated 04/21/23 @ 13:11 by Timi Steinberg MD) CKD (chronic kidney disease) stage 4, GFR 15-29 ml/min Infiltrative cardiomyopathy Congestive heart failure Anemia in chronic kidney disease (CKD) GRISEL (acute kidney injury) CKD (chronic kidney disease) Hyperglycemia Elevated serum creatinine Chronic kidney disease History of insulin dependent diabetes mellitus Mood disorder Vascular dementia CVA (cerebral vascular accident) DVT (deep venous thrombosis) Social History Household Members: Family Housing: Apartment Do you presently have visiting nurse or other home services: No Comment: pt is low falls risk Patient Tobacco Use Status: Former Tobacco user Quit Date: 4 months Tobacco use type: Cigarette e-Cigarette/Vaping Use: Never Used Second Hand Smoke Exposure: No Substance Use Type: Crack/Cocaine, IV Drugs and Opiates service: No Vital Signs 04/21/23 13:05 Height 5 ft 5 in Weight 127 lb BMI 21.1 BP 140/78 H Blood Pressure Location Lt brachial Position Sitting Pulse 81 Pulse Source Pulse Oximeter Pulse Oximetry (%) 98 Oxygen Delivery Method Room Air Physical Exam Vital Signs: Last Vital Signs Pulse 81 04/21/23 13:05 BP 140/78 H 04/21/23 13:05 Pulse Ox 98 04/21/23 13:05 Oxygen Delivery Method Room Air 04/21/23 13:05 BMI result Body Mass Index 21.1 Const General: comfortable Nutritional Appearance: well nourished Orientation/consciousness: patient oriented x3 HEENT Head: No normal to inspection Mouth: moist mucous membranes Neck Neck: Yes supple and Yes no JVD Resp Auscultation: clear to auscultation bilaterally, no rales and rub present Cardio Jugular venous distension: no JVD Palpation: no palpable S3 and no palpable S4 Heart sounds: no rubs GI Palpation (GI): Soft to palpation and nontender Percussion: No Fluid wave present General: Yes no CVA tenderness Back/Spine/Pelvis Back: no CVA tenderness Skin General skin exam: no rashes or lesions noted Neuro General: patient oriented x3 Extrem General: Yes no pedal edema and No clubbing Assessment & Plan Assessment & Plan (1) CKD (chronic kidney disease) stage 4, GFR 15-29 ml/min: Code(s): N18.4 - Chronic kidney disease, stage 4 (severe) Plan CKD approaching ESRD NO s/s of uremia Discussed renal replacement therapy in the very near future Once they agree, i will arrnage for AVF Will arrange for JESENIA based on HgB of 8.0 Optimze BP Low salt diet SHPT: Start Calcitriol No indication for dialysis today Discussed with family Orders: Orders Basic Metabolic Panel Today N18.4 - Chronic kidney disease, stage 4 (severe) Parathyroid Hormone Intact Today N18.4 - Chronic kidney disease, stage 4 (severe) Complete Blood Count Auto Diff Today N18.30 - Chronic kidney disease, stage 3 unspecified Medications: New calcitriol 0.25 mcg PO DAILY 30 caps 2RF Coding Level of Care Code Est Pt Level 4 (55124) Diagnoses CKD (chronic kidney disease) stage 4, GFR 15-29 ml/min N18.4 Results Reviewed Nephrology Results: Hgb 8.0 g/dl (14.0-18.0) L 04/12/23 WBC 5.4 X10*3/uL (4.8-10.8) 04/12/23 Plt Count 339 X10*3/uL (160-400) 04/12/23 Sodium 139 mmol/L (135-145) 04/13/23 Potassium 4.5 mmol/L (3.3-5.1) 04/13/23 Chloride 112 mmol/L (96-108) H 04/13/23 Carbon Dioxide 15 mmol/L (22-29) L 04/13/23 BUN 59 mg/dL (9-16) H 04/13/23 Creatinine 4.42 mg/dL (0.5-1.4) H* 04/13/23 Calcium 8.2 mg/dL (8.4-10.2) L 04/13/23 Phosphorus 4.7 mg/dL (2.7-4.5) H 04/10/23 PTH Intact 288.5 pg/mL (8.7-77.1) H 04/01/23 Urine Protein 300 (3+) mg/dL (Neg-Trace) H 04/09/23 Urine Creatinine 37.31 mg/dL 03/31/23 Protein/Creatinin Ratio 4.88 (<0.2) H 03/31/23 Renal US 03/31/23
[2023-04-21 13:05] VITALS: BP 140/78; PULSE 81; O2SAT 98; BMI 21.1
== END 2023-04-21 13:26 | disposition home or self-care (01) ==
PROVIDERS: Visit Provider Internal Medicine Hypertension Specialist
DX: N18.4 Chronic kidney disease, stage 4 (severe) (principal)
CPT/HCPCS: 99214

== ENCOUNTER → 2023-04-21 12:46 | Outpatient (BNVA) | payer MEDICAID, SELFPAY | PROVIDERS: Visit Provider Internal Medicine Hypertension Specialist | DX: I42.8 Other cardiomyopathies (principal); N18.4 Chronic kidney disease, stage 4 (severe); I50.22 Chronic systolic (congestive) heart failure | CPT/HCPCS: 99212 ==

== ENCOUNTER 2023-04-21 13:38 | Outpatient (AMB) | payer MEDICAID, SELFPAY ==
[2023-04-21 14:45] VITALS: BP 140/76; PULSE 79; BMI 21.1
--- NOTE | 2023-04-21 14:45 | A.OFFVIS_ITS ---
Intake Vital Signs 04/21/23 14:45 Height 5 ft 5 in Weight 126 lb 15.78 oz BMI 21.1 BP 140/76 H Pulse 79 Intake Visit Reasons: C dc fu /KM pt Intake Note: [place] [facility] [place] No Known Allergies Allergy (Verified 04/21/23 14:52) Medication List - Last Reconciled 04/21/23 by Katerin Hogue NP acetaminophen 650 mg PO Q4H PRN apixaban (Eliquis) 2.5 mg PO BID atorvastatin 80 mg PO BEDTIME calcitriol 0.25 mcg PO DAILY clopidogrel 75 mg PO DAILY donepezil (Aricept) 5 mg PO BEDTIME insulin glargine 18 units (0.18 mL) subcut BEDTIME insulin lispro (Humalog KwikPen (U-100) Insulin) 1 sliding scale dose See Protocol subcut USEASDIRECTD melatonin 6 mg PO BEDTIME PRN mirtazapine (Remeron) 30 mg PO BEDTIME multivitamin with minerals 1 tab PO DAILY pantoprazole 40 mg PO DAILY@0630 HPI HPI Comments History of Present Illness Details 47-year-old male presents today for a fo llow-up after being discharge from the hospital. He has a medical history of chronic kidney disease, diabetes, vascular dementia, and anemia. He was found to be fluid overloaded, with acute kidney injury, and his echo revealed suspicion for amyloidosis. He presents with his brother and mother today. His brother and mother do most of the talking. They all deny any reports of chest pains, shortness of breath, dizziness, or any other concerns. He has been eating well and home and has not smoked or drank. [facility] Medical History Infiltrative cardiomyopathy CKD (chronic kidney disease) stage 4, GFR 15-29 ml/min Congestive heart failure Anemia in chronic kidney disease (CKD) GRISEL (acute kidney injury) CKD (chronic kidney disease) Hyperglycemia Elevated serum creatinine Chronic kidney disease History of insulin dependent diabetes mellitus Mood disorder Vascular dementia CVA (cerebral vascular accident) DVT (deep venous thrombosis) Social History Household Members: Family Housing: Apartment Do you presently have visiting nurse or other home services: No Comment: pt is low falls risk Patient Tobacco Use Status: Former Tobacco user Quit Date: 4 months Tobacco use type: Cigarette e-Cigarette/Vaping Use: Never Used Second Hand Smoke Exposure: No Substance Use Type: Crack/Cocaine, IV Drugs and Opiates service: No Review of Systems Const Denies weakness ENT Denies dizziness Card Denies chest pain, Denies chest pain with activity, Denies syncope, Denies rapid heart rate, Denies pedal edema, Denies edema, Denies leg edema, Denies lightheadedness, Denies palpitations, Denies dyspnea, Denies dyspnea on exertion and Denies orthopnea Resp Denies cough, Denies dyspnea and Denies dyspnea on exertion GI Denies hematochezia and Denies change in stool character Musc Denies abnormal gait, Denies muscle cramps, Denies muscle weakness, Denies numbness, Denies radiating pain into limb and Denies tingling Neuro Denies abnormal gait, Denies dizziness, Denies syncope, Denies numbness, Denies tingling and Denies weakness Endo Denies palpitations Physical Exam Vital Signs: Last Vital Signs Pulse 79 04/21/23 14:45 BP 140/76 H 04/21/23 14:45 BMI result Body Mass Index 21.1 Const General: cooperative and no acute distress HEENT Head: Yes normal to inspection Eyes General: appearance normal, both eyes and all related structures Neck Neck: Yes normal visual inspection Chest Chest palpation & inspection: normal inspection of the chest Resp Effort & Inspection: normal respiratory effort Auscultation: clear to auscultation bilaterally Cardio Jugular venous distension: no JVD Palpation: normal PMI Rate: regular rate Rhythm: regular rhythm Heart sounds: S1 normal heart sound present, S2 normal heart sound present, no click, no gallops, no murmurs and no rubs GI Inspection: Yes normal to inspection Palpation (GI): Soft to palpation Skin General skin exam: no rashes or lesions noted Extrem General: Yes normal to inspection Psych Appearance: grossly normal Assessment & Plan Assessment & Plan (1) Infiltrative cardiomyopathy: Code(s): I42.8 - Other cardiomyopathies (2) CKD (chronic kidney disease) stage 4, GFR 15-29 ml/min: Code(s): N18.4 - Chronic kidney disease, stage 4 (severe) (3) Congestive heart failure: Code(s): I50.9 - Heart failure, unspecified Qualifiers: Heart failure chronicity: chronic Heart failure type: systolic Qualified Code(s): I50.22 - Chronic systolic (congestive) heart failure Plan 04/02/23 Echocardiogram showed suspicion of amyloidosis. Ordered Cardiac MRI to assess for amyloidosis. He just seen nephrology today. He has CKD approaching ESD. Dr Steinberg and myself discussed about a low salt diet. Does not appear to be fluid overloaded today. Continue to not smoke or drink alcohol. Orders: Orders MR cardiac morph fnct w con 04/21/23 I42.8 - Other cardiomyopathies Coding Level of Care Code Est Pt Level 4 (72684) Diagnoses Infiltrative cardiomyopathy I42.8 CKD (chronic kidney disease) stage 4, GFR 15-29 ml/min N18.4 Chronic systolic congestive heart failure I50.22 Heart failure chronicity: chronic Heart failure type: systolic
== END 2023-04-21 15:38 | disposition home or self-care (01) ==
PROVIDERS: Visit Provider Nurse Practitioner
DX: I42.8 Other cardiomyopathies (principal); N18.4 Chronic kidney disease, stage 4 (severe); I50.22 Chronic systolic (congestive) heart failure
CPT/HCPCS: 99214

== ENCOUNTER 2023-05-08 13:38 | Inpatient (IN) | payer MEDICAID, SELFPAY ==
--- NOTE | ~2023-05-08 | CT_ITS ---
EXAMINATION: CT CHEST WITHOUT CONTRAST CLINICAL INFORMATION: Hypoxia COMPARISON: Chest x-ray 05/08/2023 TECHNIQUE: Multidetector volumetric CT imaging of the chest was done. Axial MIP volume rendering provided. Sagittal and coronal reformatted images were obtained. This CT examination was performed using dose optimization techniques as appropriate, variously including the following: *Automated exposure control *Adjustment of mA and/or kV according to patient size (this includes techniques or standardized protocols for targeted exams where dose is matched to indication/reason for exam; i.e. extremities or head) *Use of iterative reconstruction technique DLP: 221 mGy-cm FINDINGS: FERRULER: Somewhat inflated lungs with diffuse bilateral parahilar interstitial and groundglass opacity. LUNGS: The lungs are somewhat expanded with diffuse patchy groundglass opacity seen all segments of both lungs consistent panlobular infiltrate. No focal or discrete mass or nodule seen. MEDIASTINUM: The thyroid lobes are symmetrical and normal. Central trachea and the bronchi are widely patent. Heart size and the great vessels are normal caliber. There are reactive left para-aortic and precarinal abnormal lymph nodes. Largest precarinal lymph node measures 2.2 x 1.3 cm.. No pericardial effusion seen CORONARY ARTERY CALCIFICATION: There is mild coronary artery calcifications. PLEURA: There are bilateral small pleural effusions minimally larger on the right no calcified pleural plaques or pneumothorax seen. AXILLA: There are reactive abnormal moderate-sized lymph nodes in bilateral axilla. The chest wall is unremarkable. UPPER ABDOMEN: Visualized liver, spleen, pancreas and bilateral adrenal glands are unremarkable. OSSEOUS STRUCTURES: No aggressive lytic or sclerotic process seen. CT/CT chest wo IV con IMPRESSION: Diffuse bilateral panlobular infiltrate with abnormal reactive lymph nodes in the mediastinum and bilateral axilla. Bilateral small pleural effusions minimally larger on the right. Fleischner guidelines were followed.
--- NOTE | ~2023-05-08 | XR_ITS ---
EXAMINATION: XR CHEST CLINICAL INFORMATION: Chest pain COMPARISON: 04/09/2023 TECHNIQUE: 2 views of the chest were obtained. FINDINGS: Lung volumes are symmetric. There are moderately extensive bilateral airspace opacities with perihilar predominance. Appearance is similar to 04/09/2023. No evidence of pneumothorax. Small right pleural effusion, increased from prior. The cardiomediastinal contour is unremarkable. No acute osseous findings are seen. XR/XR chest 2V IMPRESSION: 1. Moderately extensive bilateral airspace opacities with perihilar predominance, similar to 04/09/2023. Appearance may reflect pulmonary edema or multifocal pneumonia in the proper clinical setting. Radiographic follow-up is recommended to assess for resolution, as underlying nodules cannot be excluded. 2. Small right pleural effusion, increased from prior.
--- NOTE | 2023-05-08 13:40 | ECG_ITS ---
Test Reason : CP Blood Pressure : / mmHG Vent. Rate : 099 BPM Atrial Rate : 099 BPM P-R Int : 102 ms QRS Dur : 080 ms QT Int : 348 ms P-R-T Axes : 021 038 104 degrees QTc Int : 446 ms Sinus rhythm with short TX Nonspecific ST and T wave abnormality Abnormal ECG When compared to the previous EKG of No significant changes seen Referred By: Danika Underwood Electronically Signed By:Otis Robles
[2023-05-08 13:47] VITALS: BP 162/95; PULSE 98; RESP 18; TEMP 36.9; O2SAT 94; BMI 25.0
--- NOTE | 2023-05-08 13:47 | ED.CHESTPAIN ---
HPI - Chest Pain General Chief Complaint: Chest Pain Stated Complaint: Chest pain Time Seen by Provider: 05/08/23 16:02 Source: patient, RN notes reviewed and old records reviewed Mode of arrival: ambulatory Limitations: no limitations History of Present Illness HPI narrative: 48-year-old male past medical history significant for congestive heart failure, infiltrative cardiomyopathy, CKD, DVT on Eliquis, diabetes, history of CVA and vascular dementia presents for evaluation of chest pain and cough Patient reports his symptoms started yesterday. He reports his cough has been persistent. He also complains of shortness of breath. He denies any fevers or chills or sick contacts. The patient was admitted here and discharged 1 month ago from today with similar complaints and he was treated for both multifocal pneumonia and fluid overload The patient reports he is moved to the area over the last 5 months from [place] and does not have any local follow-up Denies any leg swelling or recent travel Related Data Home Medications Medication Instructions Recorded Confirmed apixaban 2.5 mg tablet (Eliquis) 2.5 mg PO BID 03/20/23 04/21/23 atorvastatin 80 mg tablet 80 mg PO BEDTIME 03/20/23 04/21/23 clopidogrel 75 mg tablet 75 mg PO DAILY 03/20/23 04/21/23 donepezil 5 mg tablet (Aricept) 5 mg PO BEDTIME 03/20/23 04/21/23 mirtazapine 30 mg tablet (Remeron) 30 mg PO BEDTIME 03/20/23 04/21/23 multivitamin with minerals 1 tab PO DAILY 03/20/23 04/21/23 pantoprazole 40 mg tablet,delayed 40 mg PO DAILY@0630 03/20/23 04/21/23 release melatonin 3 mg tablet 6 mg PO BEDTIME PRN insomnia 04/09/23 04/21/23 acetaminophen 325 mg tablet 650 mg PO Q4H PRN Fever Or Pain 04/21/23 04/21/23 Previous Rx's Medication Instructions Recorded insulin glargine 100 unit/mL (3 18 unit (0.18 mL) subcut BEDTIME 03/21/23 mL) subcutaneous pen #15 mL insulin lispro 100 unit/mL 1 sliding scale dose subcut 03/21/23 subcutaneous pen (Humalog KwikPen USEASDIRECTD #15 mL (U-100) Insulin) calcitriol 0.25 mcg capsule 0.25 mcg PO DAILY #30 caps 04/21/23 Allergies Allergy/AdvReac Type Severity Reaction Status Date / Time No Known Allergies Allergy Verified 05/08/23 13:47 Review of Systems Constitutional: Constitutional: Denies body ache(s), Denies chills, Denies fever(s), Reports malaise and Reports weakness Eyes: Eyes: Denies blurry vision ENT: Denies sore throat Cardiovascular: Cardiovascular: Reports chest pain, Denies leg edema and Reports dyspnea Respiratory: Respiratory: Reports cough and Reports dyspnea Musculoskeletal: Musculoskeletal: Denies back pain Integumentary/Breasts: Skin/Breast: Denies rash Neurologic: Reports weakness PMFSH Past Medical History Medical History Infiltrative cardiomyopathy CKD (chronic kidney disease) stage 4, GFR 15-29 ml/min Congestive heart failure Anemia in chronic kidney disease (CKD) GRISEL (acute kidney injury) CKD (chronic kidney disease) Hyperglycemia Elevated serum creatinine Chronic kidney disease History of insulin dependent diabetes mellitus Mood disorder Vascular dementia CVA (cerebral vascular accident) DVT (deep venous thrombosis) Social History Social History Household Members: Family Housing: Apartment Do you presently have visiting nurse or other home services: No Comment: pt is low falls risk Patient Tobacco Use Status: Former Tobacco user Quit Date: 4 months Tobacco use type: Cigarette Smoked in Last 30 Days: No e-Cigarette/Vaping Use: Never Used Second Hand Smoke Exposure: No Use of substances other than those prescribed or required for medical reasons: No Substance Use Type: Crack/Cocaine, IV Drugs and Opiates Advance Directives: No service: No Physical Exam Vital Signs: Vital Signs: Last Vital Signs Temp 98.5 F 05/08/23 18:10 Pulse 99 05/08/23 18:10 Resp 18 05/08/23 18:10 BP 165/94 H 05/08/23 18:10 Pulse Ox 90 L 05/08/23 18:10 O2 Del Method Nasal Cannula 05/08/23 18:10 O2 Flow Rate 2 05/08/23 18:10 BMI result Body Mass Index 25.0 Const: General: healthy appearing, comfortable, no acute distress, alert and awake Nutritional Appearance: well nourished Orientation/consciousness: patient oriented x3 HEENT: Head: Yes normocephalic and Yes atraumatic Eyes: Eyelids: Yes eyelids normal Conjunctivae: conjunctivae normal Sclerae: sclerae normal Corneas: corneas normal Pupils: Equal, round and reactive pupils present EOM: EOMs intact bilaterally Neck: Neck: Yes full ROM Resp: Effort & Inspection: normal respiratory effort, able to speak in complete sentences and not labored Auscultation: not clear to auscultation bilaterally and crackles (Bibasilar) Cardio: Other: No significant lower extremity edema bilaterally Rate: regular rate Rhythm: regular rhythm GI: Inspection: No distended Palpation (GI): Soft to palpation, not firm, nontender, no guarding and not rigid Skin: General skin exam: elasticity normal Neuro: General: patient oriented x3 Cranial nerves: Yes Equal, round and reactive pupils present and Yes Bilaterally intact EOM present Cognition (Neuro): normal cognition Course Course Course Narrative: RME:?48 yo male hx of CVA, stage 4 CKD, cardiomopathy, DVT on eliquis, mood disorder, vascular dementia, hx of IVDU (cocaine), GERD, initially complains of chest pain however when asked to point to wear is pain is, he points to his entire abdomen. admits to nose bleed this am that resolved on its own. denies fever, chills, n/v. denies illicit substance use or etoh consumption. patient poor historian, vague in his answers. labs, trop, ekg, and cxr ordered. Full HPI, ROS and PE to be performed by the primary ED provider. Reevaluation(s) Reevaluation #1: Patient's CT scan also shows awad lobar infiltrate suggestive of pneumonia. The patient does not meet criteria for sepsis. We will treat with vancomycin and Zosyn as he was treated for community-acquired pneumonia less than 1 month ago. He will be given a dose of Bumex for the fluid. Given the infectious process, the patient was given a small bolus of IV fluids but again, he does not meet sepsis criteria and does not require 30 mL per kg. Attempted to wean the patient off supplemental O2 the patient drops his O2 sat to 88% Time: 18:26 Medications Administered Discontinued Medications Generic Name Dose Route Start Last Admin Trade Name Freq PRN Reason Stop Dose Admin Benzonatate 200 mg 05/08/23 16:21 05/08/23 16:41 Benzonatate 100 Mg Capsule PO 05/08/23 16:22 200 mg ONCE ONE Administration Bumetanide 1 mg 05/08/23 18:12 05/08/23 18:20 Bumetanide 1 Mg/4 Ml Vial IVPUSH 05/08/23 18:13 1 mg ONCE ONE Administration Protocol Medical Decision Making Medical Decision Making [facility] Narrative: 48-year-old male with complex medical history as documented above presents for evaluation of chest pain and cough. He was admitted here a month ago for similar. Patient's initial EKG shows normal sinus rhythm with rate of [address] segment elevations or depressions. No peaked T-waves. His labs are significant for a normal white count of 8.5, a normocytic anemia consistent with his baseline labs and known history of hepatitis-C and chronic kidney disease. Patient's chemistries are significant for normal sodium potassium, chloride is elevated to 115, CO2 is low at 13 likely compensation for metabolic acidosis. His anion gap is normal at 15, BUN and creatinine are significantly elevated to 78 and 3.54 respectively. Patient's baseline creatinine is around 3.6. Initial troponin is 16.8. Plan for redraw. Patient's chest x-ray shows multifocal pneumonia versus pulmonary edema. In the absence of fever, leukocytosis or left shift in the known history of CHF, pulmonary edema so to be much more likely. Plan for CT chest to better evaluate Differential Diagnosis Differential Diagnoses: The differential diagnosis associated with the presentation includes Pulmonary edema CHF Chronic kidney disease Multifocal pneumonia Viral syndrome PE less likely Admission/Observation Consideration of admission/observation: Escalation of care including admission/observation considered Lab Data [facility] Lab Attestation statement: I reviewed the patient's lab results. Please see above 05/08/23 14:04 05/08/23 14:04 Labs: Lab Results 05/08/23 05/08/23 05/08/23 Range/Units 14:04 15:41 16:56 WBC 8.5 (4.8-10.8) X10*3/uL RBC 3.08 L (4.60-5.80) X10*6/uL Hgb 8.7 L (14.0-18.0) g/dl Hct 26.5 L (42.0-52.0) % MCV 86.0 (80.0-98.0) fL MCH 28.2 (27.0-33.0) pg MCHC 32.8 (31.0-36.0) g/dl RDW 17.1 H (11.0-16.0) % Plt Count 168 D (160-400) X10*3/uL MPV 10.4 (9.4-12.4) fL Immature Gran % (Auto) 0.7 H (0.0-0.4) % Neut % (Auto) 62.5 (45-73) % Lymph % (Auto) 22.8 (20-40) % Wilkin % (Auto) 8.7 (2-11) % Eos % (Auto) 4.9 H (0-4) % Baso % (Auto) 0.4 (0-2) % Lymph # (Auto) 1.9 (1.2-4.9) X10*3/uL Wilkin # (Auto) 0.7 (0.1-1.2) X10*3/uL Eos # (Auto) 0.4 (0.0-0.4) X10*3/uL Baso # (Auto) 0.0 (0.0-0.2) X10*3/uL Abs Immat Gran (auto) 0.06 H (0.00-0.03) X10*3/uL Absolute Neuts (auto) 5.3 (2.0-8.3) x10*3/uL Absolute Nucleated RBC 0.000 (0.0-0.012) X10*3/uL Nucleated RBC % (auto) 0.0 (0.0-0.2) /100WBC PT 11.3 (11.1-13.3) SEC INR 0.9 (0.9-1.1) VBG pH (7.32-7.43) VBG pCO2 mmHg VBG pO2 mmHg VBG HCO3 (22-26) mmol/L VBG O2 Saturation % VBG Base Excess mmol/L Sodium 138 (135-145) mmol/L Potassium 4.8 (3.3-5.1) mmol/L Chloride 115 H (96-108) mmol/L Carbon Dioxide 13 L (22-29) mmol/L Anion Gap 15 (12-20) BUN 78 H (9-16) mg/dL Creatinine 3.54 H (0.5-1.4) mg/dL Estim Creat Clear Calc 21.9 Estimated GFR 18 Random Glucose 314 H (60-115) mg/dL Calcium 8.4 (8.4-10.2) mg/dL Magnesium 2.0 (1.6-2.6) mg/dL Total Bilirubin 0.3 (0.0-1.0) mg/dL AST 17 (5-37) U/L ALT 32 (0-40) U/L Alkaline Phosphatase 159 H (39-117) U/L Troponin I High Sens 16.8 18.8 (<3.5-35.0) ng/L B-Natriuretic Peptide 1099 H (<100) pg/mL Total Protein 6.0 L (6.5-8.0) g/dL Albumin 3.4 L (3.5-5.0) g/dL Lipase 24 (8-78) U/L Urine Color Yellow Urine Appearance Clear Urine pH 5.5 (5.0-9.0) Ur Specific [place] 1.010 (1.005-1.025) Urine Protein 100 (2+) H (Neg-Trace) mg/dL Urine Glucose (UA) 500 H (Negative) mg/dL Urine Ketones Negative (Negative) mg/dL Urine Blood Negative (Negative) Urine Nitrite Negative (Negative) Ur Leukocyte Esterase Negative (Negative) Urine RBC 0-2 (0-2) /HPF Urine WBC 0-5 (0-5) /HPF Ur Squamous Epith Cells 0-2 (0-2) /HPF Urine Bacteria None Seen (None Seen) Hyaline Casts 0-2 (0-2) /LPF Urine Opiates Screen Not Detected (Not Detect) Urine Fentanyl Screen Not Detected (Not Detect) Ur Barbiturates Screen Not Detected (Not Detect) Ur Phencyclidine Scrn Not Detected (Not Detect) Ur Amphetamines Screen Not Detected (Not Detect) U Benzodiazepines Scrn Not Detected (Not Detect) Urine Cocaine Screen Not Detected (Not Detect) U Marijuana (THC) Screen Not Detected (Not Detect) 05/08/23 Range/Units 16:57 WBC (4.8-10.8) X10*3/uL RBC (4.60-5.80) X10*6/uL Hgb (14.0-18.0) g/dl Hct (42.0-52.0) % MCV (80.0-98.0) fL MCH (27.0-33.0) pg MCHC (31.0-36.0) g/dl RDW (11.0-16.0) % Plt Count (160-400) X10*3/uL MPV (9.4-12.4) fL Immature Gran % (Auto) (0.0-0.4) % Neut % (Auto) (45-73) % Lymph % (Auto) (20-40) % Wilkin % (Auto) (2-11) % Eos % (Auto) (0-4) % Baso % (Auto) (0-2) % Lymph # (Auto) (1.2-4.9) X10*3/uL Wilkin # (Auto) (0.1-1.2) X10*3/uL Eos # (Auto) (0.0-0.4) X10*3/uL Baso # (Auto) (0.0-0.2) X10*3/uL Abs Immat Gran (auto) (0.00-0.03) X10*3/uL Absolute Neuts (auto) (2.0-8.3) x10*3/uL Absolute Nucleated RBC (0.0-0.012) X10*3/uL Nucleated RBC % (auto) (0.0-0.2) /100WBC PT (11.1-13.3) SEC INR (0.9-1.1) VBG pH 7.41 (7.32-7.43) VBG pCO2 21 mmHg VBG pO2 78 mmHg VBG HCO3 14 L (22-26) mmol/L VBG O2 Saturation 97.0 % VBG Base Excess -8.6 mmol/L Sodium (135-145) mmol/L Potassium (3.3-5.1) mmol/L Chloride (96-108) mmol/L Carbon Dioxide (22-29) mmol/L Anion Gap (12-20) BUN (9-16) mg/dL Creatinine (0.5-1.4) mg/dL Estim Creat Clear Calc Estimated GFR Random Glucose (60-115) mg/dL Calcium (8.4-10.2) mg/dL Magnesium (1.6-2.6) mg/dL Total Bilirubin (0.0-1.0) mg/dL AST (5-37) U/L ALT (0-40) U/L Alkaline Phosphatase (39-117) U/L Troponin I High Sens (<3.5-35.0) ng/L B-Natriuretic Peptide (<100) pg/mL Total Protein (6.5-8.0) g/dL Albumin (3.5-5.0) g/dL Lipase (8-78) U/L Urine Color Urine Appearance Urine pH (5.0-9.0) Ur Specific [place] (1.005-1.025) Urine Protein (Neg-Trace) mg/dL Urine Glucose (UA) (Negative) mg/dL Urine Ketones (Negative) mg/dL Urine Blood (Negative) Urine Nitrite (Negative) Ur Leukocyte Esterase (Negative) Urine RBC (0-2) /HPF Urine WBC (0-5) /HPF Ur Squamous Epith Cells (0-2) /HPF Urine Bacteria (None Seen) Hyaline Casts (0-2) /LPF Urine Opiates Screen (Not Detect) Urine Fentanyl Screen (Not Detect) Ur Barbiturates Screen (Not Detect) Ur Phencyclidine Scrn (Not Detect) Ur Amphetamines Screen (Not Detect) U Benzodiazepines Scrn (Not Detect) Urine Cocaine Screen (Not Detect) U Marijuana (THC) Screen (Not Detect) Independent Interpretation I performed an independent interpretation of an: EKG (See above) Discharge Plan Discharge Clinical Impression: Chest pain, Pneumonia Patient Disposition: Admitted As Inpatient Prescriptions: No Action melatonin 3 mg tablet 6 mg PO BEDTIME PRN (Reason: insomnia) atorvastatin 80 mg Tablet 80 mg PO BEDTIME donepezil [Aricept] 5 mg Tablet 5 mg PO BEDTIME clopidogrel 75 mg Tablet 75 mg PO DAILY pantoprazole 40 mg Tablet,Delayed Release (Dr/Ec) 40 mg PO DAILY@0630 mirtazapine [Remeron] 30 mg Tablet 30 mg PO BEDTIME multivitamin with minerals Tablet 1 tab PO DAILY Eliquis 2.5 mg Tablet 2.5 mg PO BID insulin lispro [Humalog KwikPen Insulin] 100 unit/mL Insulin Pen 1 sliding scale dose SUBCUT USEASDIRECTD Qty: 15 0RF Protocol: Insulin Correction Scale Less than or equal to 110 ---- Give (units): 0 111 to 150 Give (units): 0 151 to 200 Give (units): 2 201 to 250 Give (units): 4 251 to 300 Give (units): 6 301 to 350 Give (units): 8 Greater than 350 Give (units): 10 Call MD if Blood Glucose > : 450 insulin glargine 100 unit/mL (3 mL) Insulin Pen 18 unit SUBCUT BEDTIME Qty: 15 0RF acetaminophen 325 mg tablet 650 mg PO Q4H PRN (Reason: Fever Or Pain) calcitriol 0.25 mcg capsule 0.25 mcg PO DAILY Qty: 30 2RF
[2023-05-08 14:08] LABS: MANUAL DIFF FLAG NO
[2023-05-08 14:10] LABS: Basophils Percent Auto 0.4 % (0-2); Eosinophils Absolute Auto 0.4 X10*3/uL (0.0-0.4); Eosinophils Percent Auto 4.9 % (0-4); Hematocrit 26.5 % (42.0-52.0); Hemoglobin 8.7 g/dl (14.0-18.0); Imm Gran Abs Auto 0.06 X10*3/uL (0.00-0.03); Imm Gran Pct Auto 0.7 % (0.0-0.4); Lymphocytes Absolute Auto 1.9 X10*3/uL (1.2-4.9); Lymphocytes Percent Auto 22.8 % (20-40); Mean Corpuscular HGB Conc 32.8 g/dl (31.0-36.0); Mean Corpuscular Hemoglobin 28.2 pg (27.0-33.0); Mean Platelet Volume 10.4 fL (9.4-12.4); Monocytes Absolute Auto 0.7 X10*3/uL (0.1-1.2); Monocytes Percent Auto 8.7 % (2-11); Neutrophils Absolute Auto 5.3 x10*3/uL (2.0-8.3); Neutrophils Percent Auto 62.5 % (45-73); Platelet Count 168 X10*3/uL (160-400); Red Blood Count 3.08 X10*6/uL (4.60-5.80); Red Cell Distribution Width 17.1 % (11.0-16.0); White Blood Count 8.5 X10*3/uL (4.8-10.8)
[2023-05-08 14:23] LABS: Alanine Aminotransferase 32 U/L (0-40); Albumin Level 3.4 g/dL (3.5-5.0); Alkaline Phosphatase 159 U/L (39-117); Anion Gap 15 (12-20); Aspartate Amino Transferase 17 U/L (5-37); Bilirubin Total 0.3 mg/dL (0.0-1.0); Blood Urea Nitrogen 78 mg/dL (9-16); Calcium 8.4 mg/dL (8.4-10.2); Carbon Dioxide 13 mmol/L (22-29); Chloride 115 mmol/L (96-108); Creatinine Clr Calc Pharmacy 21.9; Estimated Glomerular Filt Rate 18; Glucose Random 314 mg/dL (60-115); Lipase 24 U/L (8-78); Potassium 4.8 mmol/L (3.3-5.1); Sodium 138 mmol/L (135-145)
[2023-05-08 14:31] LABS: Troponin-I High Sensitivity 16.8 ng/L (<3.5-35.0)
[2023-05-08 15:35] VITALS: BP 153/91; PULSE 98; RESP 18; O2SAT 88
[2023-05-08 15:36] VITALS: O2SAT 94
[2023-05-08 15:47] LABS: Appearance Urine Clear; Color Urine Yellow; Glucose Urine UA 500 mg/dL (Negative); Leukocyte Esterase Urine Negative (Negative); Nitrite Urine Negative (Negative); PH 5.5 (5.0-9.0); UMIC TRIGGER UACC YES; Urine Blood Negative (Negative); Urine Ketones Negative (Negative); Urine Protein 100 (2+) mg/dL (Neg-Trace)
[2023-05-08 15:52] LABS: Bacteria Urine None Seen (None Seen); Hyaline Casts Urine 0-2 /LPF (0-2); RBC Urine 0-2 /HPF (0-2); Squamous Epithelial Cell Urine 0-2 /HPF (0-2); WBC Urine 0-5 /HPF (0-5)
[2023-05-08 16:04] LABS: Amphetamine Screen Urine Not Detected (Not Detect); Barbiturates, Urine Not Detected (Not Detect); Benzodiazepines Screen Urine Not Detected (Not Detect); Cannabinoid Screen Urine Not Detected (Not Detect); Cocaine Screen Urine Not Detected (Not Detect); Fentanyl, urine Not Detected (Not Detect); Opiate Screen Urine Not Detected (Not Detect); Phencyclidine Screen Urine Not Detected (Not Detect)
[2023-05-08] MEDS: Benzonatate 100 MG CAPSULE 200 MG PO (16:41)
[2023-05-08 17:04] LABS: VBG Base Excess -8.6 mmol/L; VBG HCO3 14 mmol/L (22-26); VBG pCO2 21 mmHg; VBG pH 7.41 (7.32-7.43); VBG pO2 78 mmHg
[2023-05-08 17:07] LABS: Venous Blood Gas Refer to POC result
[2023-05-08 17:09] LABS: INTERNATIONAL NORM RATIO 0.9 (0.9-1.1); Prothrombin Time 11.3 SEC (11.1-13.3)
[2023-05-08 17:25] LABS: B Type Natriuretic Peptide 1099 pg/mL (<100)
[2023-05-08 17:27] LABS: Troponin-I High Sensitivity 18.8 ng/L (<3.5-35.0)
[2023-05-08 18:10] VITALS: BP 165/94; PULSE 99; RESP 18; TEMP 36.9; O2SAT 90
[2023-05-08] MEDS: Bumetanide 1 MG/4 ML VIAL IVPUSH (18:20)
--- NOTE | 2023-05-08 18:23 | PC.NURSE ---
patient a&ox3, vitals obtained, pt on 2L NC and has an O2 sat in the low 90s, lungs are diminished with crackles in the bases, iv inserted, labs previously drawn, pt medicated per order, call pagan within reach, will continue to monitor
[2023-05-08 19:01] LABS: Lactic Acid 0.6 mmol/L (0.5-2.0)
[2023-05-08 20:08] VITALS: BP 163/92; PULSE 103; RESP 22; TEMP 36.8; O2SAT 92
--- NOTE | 2023-05-08 20:18 | P.HPHOSP_ITS ---
History of Present Illness Date of Service: 05/08/23 Attending physician on admission: Edis Jimenez Chief Complaint: Shortness on breath Ben Jimenez is a 47 years old man with past medical history significant for type 2 diabetes mellitus on insulin, CVA, cardiomyopathy, chronic Hep C, CKD, DVT on Eliquis and hyperlipidemia presents to the emergency department complaining of shortness on breath that started this afternoon associated with productive cough. He also complained of mid lower pressure-like chest pain with radiation. Pain has not intensity of 7/10. He has tried breathing treatments at home without significant improvement of symptoms. He denied any headache, sore throat, fever, chills, palpitation or dizziness. He denied any acute gastrointestinal genitourinary symptoms. 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 Denied tobacco smoking or alcohol abuse. Moderate who was at bedside said that patient ran out of [employer] 2 days ago. Last hospitalization was on April 09, 2023. He was diagnosed with hypoxic respiratory failure secondary to influenza infection. In the ED, he was found to have tachycardia and tachypnea. Last blood pressure is 162/92. Oxygen saturation dropped to 88% on room air. He is currently requiring 2 L/min O2 via nasal cannula. Blood workup was remarkable for creatinine of 3.54 (around baseline). BNP is 1099. There is no leukocytosis or lactic acidosis. Venous gas showed pH of 7.51. Bicarb is 13. Chest CTA without contrast showed diffuse bilateral lower infiltrate with a normal reactive lymph nodes in the mediastinum and bilateral axilla and bilateral small pleural effusion minimally larger on the right side. ED tx: Vancomycin 1.5 g IV, Zosyn 2.25 g IV, NS 250 mg IV, Zosyn 2.25 mg IV, Bumex 1 mg IV and Tessalon. Review of Systems 2 Review of Systems: All 12 systems were reviewed and normal except as noted in HPI. [facility] Medical History Infiltrative cardiomyopathy CKD (chronic kidney disease) stage 4, GFR 15-29 ml/min Congestive heart failure Anemia in chronic kidney disease (CKD) GRISEL (acute kidney injury) CKD (chronic kidney disease) Hyperglycemia Elevated serum creatinine Chronic kidney disease History of insulin dependent diabetes mellitus Mood disorder Vascular dementia CVA (cerebral vascular accident) DVT (deep venous thrombosis) Social History Household Members: Family Housing: Apartment Do you presently have visiting nurse or other home services: No Comment: pt is low falls risk Patient Tobacco Use Status: Former Tobacco user Quit Date: 4 months Tobacco use type: Cigarette Smoked in Last 30 Days: No e-Cigarette/Vaping Use: Never Used Second Hand Smoke Exposure: No Use of substances other than those prescribed or required for medical reasons: No Substance Use Type: Crack/Cocaine, IV Drugs and Opiates Advance Directives: No service: No Meds Allergies Allergy/AdvReac Type Severity Reaction Status Date / Time No Known Allergies Allergy Verified 05/08/23 13:47 Active Medications: Current Medications Acetaminophen (Acetaminophen Supp 650 Mg Supp.Rect) 650 mg [place] Q6H PRN PRN Reason: Pain, Mild (Pain Scale 1-3) Sodium Chloride (0.9 % Sodium Chloride Flush 3 Ml Syringe) 3 ml IVFLUSH [facility] Home Medications Medication Instructions Recorded Confirmed Last Taken Type apixaban 2.5 mg tablet (Eliquis) 2.5 mg PO BID 03/20/23 05/08/23 03/29/23 History atorvastatin 80 mg tablet 80 mg PO BEDTIME 03/20/23 05/08/23 03/29/23 History clopidogrel 75 mg tablet 75 mg PO DAILY 03/20/23 05/08/23 03/29/23 History donepezil 5 mg tablet (Aricept) 5 mg PO BEDTIME 03/20/23 05/08/23 03/29/23 History mirtazapine 30 mg tablet (Remeron) 30 mg PO BEDTIME 03/20/23 04/21/23 03/29/23 History multivitamin with minerals 1 tab PO DAILY 03/20/23 04/21/23 03/29/23 History pantoprazole 40 mg tablet,delayed 40 mg PO DAILY@0630 03/20/23 04/21/23 03/29/23 History release melatonin 3 mg tablet 6 mg PO BEDTIME PRN insomnia 04/09/23 04/21/23 Unknown History acetaminophen 325 mg tablet 650 mg PO Q4H PRN Fever Or Pain 04/21/23 04/21/23 Unknown History insulin glargine 100 unit/mL (3 15 unit subcut BEDTIME 05/08/23 05/08/23 Unknown History mL) subcutaneous pen Physical Exam 2 Vital Signs and Narrative: Vital Signs: Last Vital Signs Temp 98.2 F 05/08/23 20:08 Pulse 103 H 05/08/23 20:08 Resp 22 H 05/08/23 20:08 BP 163/92 H 05/08/23 20:08 Pulse Ox 92 05/08/23 20:08 O2 Del Method Nasal Cannula 05/08/23 20:08 O2 Flow Rate 2 05/08/23 20:08 BMI result Body Mass Index 25.0 Constitutional - Awake and Alert, No apparent distress. Nasal cannula in place HEENT - Pupils equally rounds. Moist oral mucosa. Heart - tachycardia. No murmur. Lungs - Normal lung expansion, Normal respiratory effort, No respiratory distress. Tachycardia. Bibasilar crackles. Abdomen - NT / ND; +BS; No rebound or guarding Extremities - no calf tenderness bilaterally, no swelling Musculoskeletal - Normal inspection, normal ROM Skin - Warm/Dry Neurological - Alert & oriented x3. No focal weakness. Normal speech. Psychological - Appropriate affect Results Labs 05/08/23 14:04 05/08/23 14:04 Labs: Laboratory Results - last 24 hr 05/08/23 05/08/23 05/08/23 14:04 15:41 16:56 MCV 86.0 MCH 28.2 MCHC 32.8 RDW 17.1 H Plt Count 168 D MPV 10.4 Immature Gran % (Auto) 0.7 H Neut % (Auto) 62.5 Lymph % (Auto) 22.8 Ed[place]ds % (Auto) 8.7 Eos % (Auto) 4.9 H Baso % (Auto) 0.4 Lymph # (Auto) 1.9 [place] # (Auto) 0.7 Eos # (Auto) 0.4 Baso # (Auto) 0.0 Abs Immat Gran (auto) 0.06 H Absolute Neuts (auto) 5.3 Absolute Nucleated RBC 0.000 Nucleated RBC % (auto) 0.0 PT 11.3 INR 0.9 VBG pH VBG pCO2 VBG pO2 VBG HCO3 VBG O2 Saturation VBG Base Excess Anion Gap 15 Estim Creat Clear Calc 21.9 Estimated GFR 18 Random Glucose 314 H Lactic Acid Calcium 8.4 Magnesium 2.0 Total Bilirubin 0.3 AST 17 ALT 32 Alkaline Phosphatase 159 H Troponin I High Sens 16.8 18.8 B-Natriuretic Peptide 1099 H Total Protein 6.0 L Albumin 3.4 L Lipase 24 Urine Color Yellow Urine Appearance Clear Urine pH 5.5 Ur Specific [place] 1.010 Urine Protein 100 (2+) H Urine Glucose (UA) 500 H Urine Ketones Negative Urine Blood Negative Urine Nitrite Negative Ur Leukocyte Esterase Negative Urine RBC 0-2 Urine WBC 0-5 Ur Squamous Epith Cells 0-2 Urine Bacteria None Seen Hyaline Casts 0-2 Urine Opiates Screen Not Detected Urine Fentanyl Screen Not Detected Ur Barbiturates Screen Not Detected Ur Phencyclidine Scrn Not Detected Ur Amphetamines Screen Not Detected U Benzodiazepines Scrn Not Detected Urine Cocaine Screen Not Detected U Marijuana (THC) Screen Not Detected 05/08/23 05/08/23 16:57 18:41 MCV MCH MCHC RDW Plt Count MPV Immature Gran % (Auto) Neut % (Auto) Lymph % (Auto) Ed[place] % (Auto) Eos % (Auto) Baso % (Auto) Lymph # (Auto) [place] # (Auto) Eos # (Auto) Baso # (Auto) Abs Immat Gran (auto) Absolute Neuts (auto) Absolute Nucleated RBC Nucleated RBC % (auto) PT INR VBG pH 7.41 VBG pCO2 21 VBG pO2 78 VBG HCO3 14 L VBG O2 Saturation 97.0 VBG Base Excess -8.6 Anion Gap Estim Creat Clear Calc Estimated GFR Random Glucose Lactic Acid 0.6 Calcium Magnesium Total Bilirubin AST ALT Alkaline Phosphatase Troponin I High Sens B-Natriuretic Peptide Total Protein Albumin Lipase Urine Color Urine Appearance Urine pH Ur Specific Wallace Urine Protein Urine Glucose (UA) Urine Ketones Urine Blood Urine Nitrite Ur Leukocyte Esterase Urine RBC Urine WBC Ur Squamous Epith Cells Urine Bacteria Hyaline Casts Urine Opiates Screen Urine Fentanyl Screen Ur Barbiturates Screen Ur Phencyclidine Scrn Ur Amphetamines Screen U Benzodiazepines Scrn Urine Cocaine Screen U Marijuana (THC) Screen Imaging Radiologist's Impressions: Impressions Chest X-Ray 05/08/23 14:05 IMPRESSION: 1. Moderately extensive bilateral airspace opacities with perihilar predominance, similar to 04/09/2023. Appearance may reflect pulmonary edema or multifocal pneumonia in the proper clinical setting. Radiographic follow-up is recommended to assess for resolution, as underlying nodules cannot be excluded. 2. Small right pleural effusion, increased from prior. Chest CT 03/24/24 16:34 IMPRESSION: Diffuse bilateral panlobular infiltrate with abnormal reactive lymph nodes in the mediastinum and bilateral axilla. Bilateral small pleural effusions minimally larger on the right. Fleischner guidelines were followed. Assessment and Plan (1) Pneumonia: Qualifiers: Pneumonia type: due to unspecified organism Laterality: unspecified laterality Lung location: unspecified part of lung Qualified Code(s): J18.9 - Pneumonia, unspecified organism Status: Acute (2) Infiltrative cardiomyopathy: Status: Acute (3) Acute respiratory failure with hypoxia: Status: Acute (4) Metabolic acidosis: Status: Acute (5) Hyperchloremic metabolic acidosis: Status: Acute (6) History of insulin dependent diabetes mellitus: Status: Acute (7) Vascular dementia: Qualifiers: Dementia severity: unspecified severity Dementia behavioral or psychological symptom: without behavioral, psychotic, or mood disturbance or anxiety Qualified Code(s): F01.50 - Vascular dementia, unspecified severity, without behavioral disturbance, psychotic disturbance, mood disturbance, and anxiety Status: Acute (8) Chest pain: Qualifiers: Chest pain type: unspecified Qualified Code(s): R07.9 - Chest pain, unspecified Status: Acute Plan Ben Jimenez is a 48 years old man admitted with: * Hypoxic respiratory failure secondary to pneumonia. Admit to hospitalist service. Telemetry. Pulse oximetry. Continue supplemental oxygen to keep O2 sat > 90%. Empiric IV antibiotic therapy with Zosyn. * Type 2 diabetes mellitus on insulin. Blood glucose monitoring before meals at bedtime. ADA diet. Continue Lantus and insulin sliding scale. * Chronic kidney disease, stage 4. Continue to monitor renal function. Check phosphate. Low salt and potassium diet. Continue calcitriol. Avoid nephrotoxic agents. Renal replacement therapy therapy in the near future has been discussed by analytics analyst. * Hx of DVT. Continue Eliquis * Acidosis likely secondary to chronic kidney disease. Normal pH. Continue 650 mg PO TID. Continue to monitor bicarb. * Hyperlipidemia. Continue statin. * Infiltrative cardiomyopathy. ?Amyloidosis. Patient does not seem to be in overload. Outpatient cardiac MRI was recommended but this has not been performed yet. * Chronic anemia. Continue ferrous sulfate. * History of hep C. Outpatient follow-up recommended. * GERD. Continue PPI * Mood disorder. Continue mirtazapine. * Hx of CVA. Continue Plavix and statin. * Vascular dementia. Continue donepezil. DVT prophylaxis: On Eliquis Code status: Full Patient will need hospitalization for at least 2 midnights for pneumonia treatment with IV antibiotics, supplemental therapy with oxygen and close monitoring of vital signs. Quality Stroke Does the patient have a stroke diagnosis?: No VTE Prior VTE?: No VTE Risk Level:: Medical - moderate - high VTE Device Contraindication: Treatment Not Indicated VTE Drug Contraindication: N/A - Med Ordered
[2023-05-08] MEDS: vancomycin HCL 1,500 MG in 0.9 % Sodium Chloride 500 ML 333.33 MG IV (20:37)
[2023-05-08] MEDS: Piperacillin Sodium/Tazobactam 2.25 GM in 0.9 % Sodium Chloride 50 ML IV (20:42)
[2023-05-08 22:54] LABS: Glucose, Whole Blood 265 mg/dL (60-115)
[2023-05-08] MEDS: Insulin Glargine,Hum.rec.anlog 100 UNIT/ML 10 ML VIAL 15 UNIT SUBCUT (23:01)
[2023-05-08] MEDS: Insulin Lispro 100 UNIT/ML 3 ML VIAL SUBCUT (23:01)
[2023-05-08] MEDS: Apixaban 2.5 MG TABLET PO (23:02)
[2023-05-08] MEDS: 0.9 % Sodium Chloride 250 ML 999 ML IV (23:04)
[2023-05-09] VITALS (7 sets, daily range): BP systolic 136–164; BP diastolic 75–92; PULSE 82–109; RESP 16–22; TEMP 36.6–37.4; O2SAT 93–97
[2023-05-09 06:26] LABS: MANUAL DIFF FLAG NO
[2023-05-09] MEDS: Pantoprazole Sodium 40 MG/10 ML VIAL IVPUSH (06:47)
[2023-05-09] MEDS: Piperacillin Sodium/Tazobactam 2.25 GM in 0.9 % Sodium Chloride 50 ML IV ×3 (06:48→20:45)
[2023-05-09 06:49] LABS: Alanine Aminotransferase 26 U/L (0-40); Albumin Level 3.3 g/dL (3.5-5.0); Alkaline Phosphatase 153 U/L (39-117); Anion Gap 15 (12-20); Aspartate Amino Transferase 12 U/L (5-37); Basophils Percent Auto 0.2 % (0-2); Bilirubin Total 0.6 mg/dL (0.0-1.0); Blood Urea Nitrogen 73 mg/dL (9-16); Calcium 8.6 mg/dL (8.4-10.2); Carbon Dioxide 15 mmol/L (22-29); Chloride 116 mmol/L (96-108); Creatinine Clr Calc Pharmacy 22.1; Eosinophils Absolute Auto 0.4 X10*3/uL (0.0-0.4); Eosinophils Percent Auto 3.8 % (0-4); Estimated Glomerular Filt Rate 19; Glucose Random 108 mg/dL (60-115); Hemoglobin 8.7 g/dl (14.0-18.0); Imm Gran Abs Auto 0.03 X10*3/uL (0.00-0.03); Imm Gran Pct Auto 0.3 % (0.0-0.4); Lymphocytes Absolute Auto 1.2 X10*3/uL (1.2-4.9); Lymphocytes Percent Auto 12.6 % (20-40); Mean Corpuscular HGB Conc 32.2 g/dl (31.0-36.0); Mean Corpuscular Volume 86.8 fL (80.0-98.0); Mean Platelet Volume 11.2 fL (9.4-12.4); Monocytes Absolute Auto 1.1 X10*3/uL (0.1-1.2); Monocytes Percent Auto 11.1 % (2-11); Neutrophils Absolute Auto 6.9 x10*3/uL (2.0-8.3); Platelet Count 197 X10*3/uL (160-400); Potassium 4.3 mmol/L (3.3-5.1); Red Blood Count 3.11 X10*6/uL (4.60-5.80); Red Cell Distribution Width 17.1 % (11.0-16.0); Sodium 142 mmol/L (135-145); Total Protein 6.1 g/dL (6.5-8.0); White Blood Count 9.5 X10*3/uL (4.8-10.8)
[2023-05-09 07:23] LABS: Glucose, Whole Blood 95 mg/dL (60-115)
[2023-05-09] MEDS: Ferrous Sulfate 324 MG TABLET.DR PO (09:37)
[2023-05-09] MEDS: Sodium Bicarbonate 650 MG TABLET PO ×4 (09:37→20:46)
[2023-05-09] MEDS: Clopidogrel Bisulfate 75 MG TABLET PO (09:37)
[2023-05-09] MEDS: 0.9 % Sodium Chloride Flush 3 ML SYRINGE IVFLUSH ×3 (09:37→20:48)
[2023-05-09] MEDS: Apixaban 2.5 MG TABLET PO ×2 (09:37→20:46)
[2023-05-09] MEDS: calcitrioL 0.25 MCG CAPSULE PO (09:46)
[2023-05-09] MEDS: Melatonin 3 MG TABLET 6 MG PO (09:46)
[2023-05-09] MEDS: Multivitamin with Minerals Liq 15 ML LIQUID PO (09:46)
--- NOTE | 2023-05-09 10:29 | PHA.MEDREC ---
Pharmacy Consult ? Medication Reconciliation Pharmacy has completed the medication reconciliation. Tried to confirm medications with patient but he's not a good historian. First he said that he hasn't had his medications in a month, then he said he hasn't had it in a week. Med rec was done based on discharge document on 04/13/23 and pharmacy claims. Patient said he no longer takes furosemide 20 mg which was discontinued on 04/13/23.
[2023-05-09 11:42] LABS: Glucose, Whole Blood 156 mg/dL (60-115)
[2023-05-09] MEDS: Insulin Lispro 100 UNIT/ML 3 ML VIAL SUBCUT ×3 (13:02→20:47)
--- NOTE | 2023-05-09 14:05 | MHC.CLN ---
NUTRITION DIET MODIFIED FOR DX DIABETES AND CKD STAGE 4. DIET=DIABETIC 1800 KCALS, 2 GRAM SODIUM.
--- NOTE | 2023-05-09 14:27 | HO.PM.IMPN ---
Subjective Subjective Date of Service: 05/09/23 Interval History: No acute issues overnight. Satting well on room air Review of Systems Denies chest pain Denies shortness of breath Denies nausea vomiting diarrhea Denies fever chills Physical Exam Vital Signs: Vital Signs: Last Vital Signs Temp 99.4 F 05/09/23 11:33 Pulse 97 05/09/23 11:33 Resp 20 05/09/23 11:33 BP 142/75 H 05/09/23 11:33 Pulse Ox 93 05/09/23 11:33 O2 Del Method Room Air 05/09/23 11:33 O2 Flow Rate 4 05/09/23 09:35 BMI result Body Mass Index 25.0 Const: Other: Awake alert no acute distress Resp: Other: Clear to auscultation bilaterally no rales or rhonchi or wheezes Cardio: Other: No S4; positive S1-S2; no S3 murmurs rubs or gallops GI: Other: Soft nontender nondistended normoactive bowel sounds Extrem: Other: No edema bilaterally Objective Data Active Medications Acetaminophen (Acetaminophen Supp 650 Mg Supp.Rect) 650 mg [place] Q6H PRN PRN Reason: Pain, Mild (Pain Scale 1-3) Apixaban (Apixaban 2.5 Mg Tablet) 2.5 mg PO BID [facility] Last Admin: 05/09/23 09:37 Dose: 2.5 mg Documented By: PENNY Atorvastatin Calcium (Atorvastatin Calcium 80 Mg Tablet) 80 mg PO BEDTIME [facility] Calcitriol (Calcitriol 0.25 Mcg Capsule) 0.25 mcg PO DAILY [facility] Last Admin: 05/09/23 09:46 Dose: 0.25 mcg Documented By: PENNY Clopidogrel Bisulfate (Clopidogrel Bisulfate 75 Mg Tablet) 75 mg PO DAILY [facility] Last Admin: 05/09/23 09:37 Dose: 75 mg Documented By: PENNY Dextrose (Dextrose 50 % 25 Gm/50 Ml Syringe) 25 gm IVPUSH Q15M PRN; Protocol PRN Reason: per Hypoglycemia Standing Ord. Ferrous Sulfate (Ferrous Sulfate 324 Mg Tablet.) 324 mg PO DAILY [facility] Last Admin: 05/09/23 09:37 Dose: 324 mg Documented By: PENNY Glucose (Glucose Gel 15 Gm Gel..Gram.) 15 gm PO Q15M PRN; Protocol PRN Reason: per Hypoglycemia Standing Ord. Piperacillin Sod/Tazobactam (Sod 2.25 gm/ Sodium Chloride) 50 mls @ 100 mls/hr IV Q8H [facility] Last Infusion: 05/09/23 13:39 Dose: Infused Documented By: PENNY Insulin Glargine (Insulin Glargine,Hum.Rec.Anlog 100 Unit/Ml 10 Ml Vial) 15 unit SUBCUT BEDTIME [facility] Last Admin: 05/08/23 23:01 Dose: 15 unit Documented By: KRISTOPHER Insulin Human Lispro (Insulin Lispro 100 Unit/Ml 3 Ml Vial) 0 unit SUBCUT QIDACHS [facility]; Protocol Last Admin: 05/09/23 13:02 Dose: 2 unit Documented By: DWAYNE Melatonin (Melatonin 3 Mg Tablet) 6 mg PO BEDTIME PRN PRN Reason: Insomnia Last Admin: 05/09/23 09:46 Dose: 6 mg Documented By: PENNY Multivitamins/Minerals (Multivitamin With Minerals Liq 15 Ml Liquid) 15 ml PO DAILY [facility] Last Admin: 05/09/23 09:46 Dose: 15 ml Documented By: PENNY Pantoprazole Sodium (Pantoprazole Sodium 40 Mg/10 Ml Vial) 40 mg IVPUSH DAILY@0630 [facility] Last Admin: 05/09/23 06:47 Dose: 40 mg Documented By: KRISTOPHER Senna (Senna [place] Extract Oral Syrup 15 Ml Syrup) 7.5 ml PO BEDTIME [facility] Sodium Bicarbonate (Sodium Bicarbonate 650 Mg Tablet) 650 mg PO QID [facility] Last Admin: 05/09/23 13:01 Dose: 650 mg Documented By: DWAYNE Sodium Chloride (0.9 % Sodium Chloride Flush 3 Ml Syringe) 3 ml IVFLUSH QSHIFT [facility] Last Admin: 05/09/23 09:37 Dose: 3 ml Documented By: PENNY Labs 05/09/23 05:06 05/09/23 05:06 Labs: Laboratory Results - last 24 hr 05/08/23 05/08/23 05/08/23 14:04 15:41 16:56 MCV MCH MCHC RDW Plt Count MPV Immature Gran % (Auto) Neut % (Auto) Lymph % (Auto) Garrett % (Auto) Eos % (Auto) Baso % (Auto) Lymph # (Auto) Garrett # (Auto) Eos # (Auto) Baso # (Auto) Abs Immat Gran (auto) Absolute Neuts (auto) Absolute Nucleated RBC Nucleated RBC % (auto) PT 11.3 INR 0.9 VBG pH VBG pCO2 VBG pO2 VBG HCO3 VBG O2 Saturation VBG Base Excess Anion Gap Estim Creat Clear Calc Estimated GFR POC Glucose Random Glucose Lactic Acid Calcium Total Bilirubin AST ALT Alkaline Phosphatase Troponin I High Sens 16.8 18.8 B-Natriuretic Peptide 1099 H Total Protein Albumin Urine Color Yellow Urine Appearance Clear Urine pH 5.5 Ur Specific [place] 1.010 Urine Protein 100 (2+) H Urine Glucose (UA) 500 H Urine Ketones Negative Urine Blood Negative Urine Nitrite Negative Ur Leukocyte Esterase Negative Urine RBC 0-2 Urine WBC 0-5 Ur Squamous Epith Cells 0-2 Urine Bacteria None Seen Hyaline Casts 0-2 Urine Opiates Screen Not Detected Urine Fentanyl Screen Not Detected Ur Barbiturates Screen Not Detected Ur Phencyclidine Scrn Not Detected Ur Amphetamines Screen Not Detected U Benzodiazepines Scrn Not Detected Urine Cocaine Screen Not Detected U Marijuana (THC) Screen Not Detected 05/08/23 05/08/23 05/08/23 16:57 18:41 22:50 MCV MCH MCHC RDW Plt Count MPV Immature Gran % (Auto) Neut % (Auto) Lymph % (Auto) Garrett % (Auto) Eos % (Auto) Baso % (Auto) Lymph # (Auto) Garrett # (Auto) Eos # (Auto) Baso # (Auto) Abs Immat Gran (auto) Absolute Neuts (auto) Absolute Nucleated RBC Nucleated RBC % (auto) PT INR VBG pH 7.41 VBG pCO2 21 VBG pO2 78 VBG HCO3 14 L VBG O2 Saturation 97.0 VBG Base Excess -8.6 Anion Gap Estim Creat Clear Calc Estimated GFR POC Glucose 265 H Random Glucose Lactic Acid 0.6 Calcium Total Bilirubin AST ALT Alkaline Phosphatase Troponin I High Sens B-Natriuretic Peptide Total Protein Albumin Urine Color Urine Appearance Urine pH Ur Specific [place] Urine Protein Urine Glucose (UA) Urine Ketones Urine Blood Urine Nitrite Ur Leukocyte Esterase Urine RBC Urine WBC Ur Squamous Epith Cells Urine Bacteria Hyaline Casts Urine Opiates Screen Urine Fentanyl Screen Ur Barbiturates Screen Ur Phencyclidine Scrn Ur Amphetamines Screen U Benzodiazepines Scrn Urine Cocaine Screen U Marijuana (THC) Screen 05/09/23 05/09/23 05/09/23 05:06 07:15 11:34 MCV 86.8 MCH 28.0 MCHC 32.2 RDW 17.1 H Plt Count 197 MPV 11.2 Immature Gran % (Auto) 0.3 Neut % (Auto) 72.0 Lymph % (Auto) 12.6 L Garrett % (Auto) 11.1 H Eos % (Auto) 3.8 Baso % (Auto) 0.2 Lymph # (Auto) 1.2 Garrett # (Auto) 1.1 Eos # (Auto) 0.4 Baso # (Auto) 0.0 Abs Immat Gran (auto) 0.03 Absolute Neuts (auto) 6.9 Absolute Nucleated RBC 0.000 Nucleated RBC % (auto) 0.0 PT INR VBG pH VBG pCO2 VBG pO2 VBG HCO3 VBG O2 Saturation VBG Base Excess Anion Gap 15 Estim Creat Clear Calc 22.1 Estimated GFR 19 POC Glucose 95 156 H Random Glucose 108 Lactic Acid Calcium 8.6 Total Bilirubin 0.6 AST 12 ALT 26 Alkaline Phosphatase 153 H Troponin I High Sens B-Natriuretic Peptide Total Protein 6.1 L Albumin 3.3 L Urine Color Urine Appearance Urine pH Ur Specific [place] Urine Protein Urine Glucose (UA) Urine Ketones Urine Blood Urine Nitrite Ur Leukocyte Esterase Urine RBC Urine WBC Ur Squamous Epith Cells Urine Bacteria Hyaline Casts Urine Opiates Screen Urine Fentanyl Screen Ur Barbiturates Screen Ur Phencyclidine Scrn Ur Amphetamines Screen U Benzodiazepines Scrn Urine Cocaine Screen U Marijuana (THC) Screen Assessment and Plan (1) Acute respiratory failure with hypoxia: Status: Acute (2) Pneumonia: Status: Acute (3) CKD (chronic kidney disease) stage 4, GFR 15-29 ml/min: Status: Acute Plan Ben Jimenez is a 48 years old man admitted with acute hypoxic respiratory failure secondary to pneumonia 1. Hypoxic respiratory failure secondary to pneumonia. -Zosyn (2) -titrate O2 to maintain sats greater than or equal to 92% 2. Diabetes type 2 -acceptable control on current therapy -lispro correctional scale -adjust as indicated 3.CKD 4 -slightly improved from baseline -follow renals/divalents 4. History of DVT -continue Eliquis 5.Hx CVA -Eliquis/statin/Plavix 6. Vascular dementia -continue donepezil. Eliquis Full Patient will need ongoing hospitalization for treatment of pneumonia with IV antibiotics Quality Stroke Does the patient have a stroke diagnosis?: No VTE Prior VTE?: No VTE Risk Level:: Medical - moderate - high VTE Device Contraindication: Treatment Not Indicated VTE Drug Contraindication: N/A - Med Ordered
--- NOTE | 2023-05-09 14:28 | MHC.CM.PN ---
Pt self-care, lives with his mother. Pts brother or mother to transport him home. HCP on file and verified. Pt has new PCP appointment on 06/02 at [facility].
[2023-05-09 16:13] LABS: Glucose, Whole Blood 170 mg/dL (60-115)
[2023-05-09] MEDS: Lidocaine 4 % Patch ADH..PATCH 1 PATCH TRANSDERMA (16:44)
[2023-05-09] MEDS: Acetaminophen 325 MG TABLET 975 MG PO ×2 (16:45→23:38)
[2023-05-09 20:34] LABS: Glucose, Whole Blood 262 mg/dL (60-115)
[2023-05-09] MEDS: Donepezil HCl 5 MG TABLET PO (20:46)
[2023-05-09] MEDS: Mirtazapine 30 MG TABLET PO (20:46)
[2023-05-09] MEDS: Atorvastatin Calcium 80 MG TABLET PO (20:46)
[2023-05-09] MEDS: Insulin Glargine,Hum.rec.anlog 100 UNIT/ML 10 ML VIAL 15 UNIT SUBCUT (20:47)
[2023-05-10 03:43] VITALS: BP 137/77; PULSE 87; RESP 18; TEMP 37.1; O2SAT 96
[2023-05-10] MEDS: Piperacillin Sodium/Tazobactam 2.25 GM in 0.9 % Sodium Chloride 50 ML IV (05:00)
[2023-05-10] MEDS: Pantoprazole Sodium 40 MG/10 ML VIAL IVPUSH (06:00)
[2023-05-10 06:49] LABS: MANUAL DIFF FLAG NO
[2023-05-10 07:06] VITALS: BP 130/69; PULSE 92; RESP 18; TEMP 37.5; O2SAT 94
[2023-05-10 07:16] LABS: Basophils Percent Auto 0.4 % (0-2); Eosinophils Absolute Auto 0.7 X10*3/uL (0.0-0.4); Eosinophils Percent Auto 8.8 % (0-4); Hemoglobin 7.8 g/dl (14.0-18.0); Imm Gran Abs Auto 0.03 X10*3/uL (0.00-0.03); Imm Gran Pct Auto 0.4 % (0.0-0.4); Lymphocytes Absolute Auto 1.7 X10*3/uL (1.2-4.9); Lymphocytes Percent Auto 20.7 % (20-40); Mean Corpuscular HGB Conc 32.5 g/dl (31.0-36.0); Mean Corpuscular Hemoglobin 27.8 pg (27.0-33.0); Mean Corpuscular Volume 85.4 fL (80.0-98.0); Mean Platelet Volume 11.1 fL (9.4-12.4); Monocytes Absolute Auto 0.9 X10*3/uL (0.1-1.2); Monocytes Percent Auto 11.5 % (2-11); Neutrophils Absolute Auto 4.7 x10*3/uL (2.0-8.3); Neutrophils Percent Auto 58.2 % (45-73); Platelet Count 173 X10*3/uL (160-400); Red Blood Count 2.81 X10*6/uL (4.60-5.80); Red Cell Distribution Width 16.5 % (11.0-16.0)
[2023-05-10 07:23] LABS: Glucose, Whole Blood 140 mg/dL (60-115)
[2023-05-10 07:36] LABS: Alanine Aminotransferase 21 U/L (0-40); Alkaline Phosphatase 132 U/L (39-117); Anion Gap 17 (12-20); Aspartate Amino Transferase 13 U/L (5-37); Bilirubin Total 0.3 mg/dL (0.0-1.0); Blood Urea Nitrogen 80 mg/dL (9-16); Calcium 8.6 mg/dL (8.4-10.2); Carbon Dioxide 17 mmol/L (22-29); Chloride 112 mmol/L (96-108); Creatinine Clr Calc Pharmacy 19.7; Estimated Glomerular Filt Rate 16; Glucose Fasting 101 mg/dL (60-99); Potassium 4.1 mmol/L (3.3-5.1); Sodium 142 mmol/L (135-145); Total Protein 5.6 g/dL (6.5-8.0)
[2023-05-10] MEDS: Clopidogrel Bisulfate 75 MG TABLET PO (08:54)
[2023-05-10] MEDS: Lidocaine 4 % Patch ADH..PATCH 1 PATCH TRANSDERMA (08:54)
[2023-05-10] MEDS: Sodium Bicarbonate 650 MG TABLET PO (08:54)
[2023-05-10] MEDS: Ferrous Sulfate 324 MG TABLET.DR PO (08:54)
[2023-05-10] MEDS: Apixaban 2.5 MG TABLET PO (08:54)
[2023-05-10] MEDS: 0.9 % Sodium Chloride Flush 3 ML SYRINGE IVFLUSH (09:08)
[2023-05-10] MEDS: Multivitamin with Minerals Liq 15 ML LIQUID PO (09:08)
[2023-05-10] MEDS: calcitrioL 0.25 MCG CAPSULE PO (09:15)
[2023-05-10 11:22] LABS: Glucose, Whole Blood 127 mg/dL (60-115)
[2023-05-10 11:30] VITALS: BP 157/89; PULSE 100; RESP 18; TEMP 36.8; O2SAT 95
--- NOTE | 2023-05-10 14:06 | P.DS_ITS ---
DS: Providers Provider Date of Service: 05/10/23 Date of admission: 05/08/23 19:37 Date of discharge: 05/10/23 Primary care physician: [facility] DS: Diagnosis Discharge Diagnosis (1) Acute respiratory failure with hypoxia: Status: Acute (2) Pneumonia: Status: Acute (3) CKD (chronic kidney disease) stage 4, GFR 15-29 ml/min: Status: Acute DS: Summary Hospital Course Hospital Course: 47 years old man with past medical history significant for type 2 diabetes mellitus on insulin, CVA, cardiomyopathy, chronic Hep C, CKD, DVT on Eliquis and hyperlipidemia presents to the emergency department complaining of shortness on breath that started this afternoon associated with productive cough. He also complained of mid lower pressure-like chest pain with radiation. Pain has not intensity of 7/10. He has tried breathing treatments at home without significant improvement of symptoms. He denied any headache, sore throat, fever, chills, palpitation or dizziness. He denied any acute gastrointestinal genitourinary symptoms. 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 Denied tobacco smoking or alcohol abuse. Moderate who was at bedside said that patient ran out of [employer] 2 days ago. Last hospitalization was on April 09, 2023. He was diagnosed with hypoxic respiratory failure secondary to influenza infection. In the ED, he was found to have tachycardia and tachypnea. Last blood pressure is 162/92. Oxygen saturation dropped to 88% on room air. He is currently requiring 2 L/min O2 via nasal cannula. Blood workup was remarkable for creatinine of 3.54 (around baseline). BNP is 1099. There is no leukocytosis or lactic acidosis. Venous gas showed pH of 7.51. Bicarb is 13. Chest CTA without contrast showed diffuse bilateral lower infiltrate with a normal reactive lymph nodes in the mediastinum and bilateral axilla and bilateral small pleural effusion minimally larger on the right side. ED tx: Vancomycin 1.5 g IV, Zosyn 2.25 g IV, NS 250 mg IV, Zosyn 2.25 mg IV, Bumex 1 mg IV and Tessalon. Hospital course Admitted to telemetry and maintained on vanco and Zosyn; vanco DC given renal function. Over the next 24 hours patient had no O2 requirement. He remained afebrile without white count. On the day of discharge his mother came in to discuss his care. When queried, she states he has not had his meds in over a month. He has follow-up with renal in approximately 3 weeks at which time they will be discussing the need for dialysis. In retrospect his picture is more consistent with fluid overload then with infiltrate. He will be discharged home however to complete a course of Augmentin and will follow-up with renal as scheduled. All of his meds have been ordered with refills to aid in his compliance Time Attestation Discharge Coordination Time (in mins): 35 Quality: Safe Use of Opioids Does Pt have an Active Cancer Diagnosis on the Problem List?: No Quality: Stroke Does the patient have a stroke diagnosis?: No Physical Exam Vital Signs: Vital Signs: Last Vital Signs Temp 98.2 F 05/10/23 11:30 Pulse 100 05/10/23 11:30 Resp 18 05/10/23 11:30 BP 157/89 H 05/10/23 11:30 Pulse Ox 95 05/10/23 11:30 O2 Del Method Room Air 05/10/23 11:30 O2 Flow Rate 4 05/09/23 09:35 BMI result Body Mass Index 25.0 Const: Other: Awake alert no acute distress Resp: Other: Clear to auscultation bilaterally no rales or rhonchi or wheezes Cardio: Other: No S4; positive S1-S2; no S3 murmurs rubs or gallops GI: Other: Soft nontender nondistended normoactive bowel sounds Extrem: Other: No edema bilaterally DS: Data Data Completed and Pending Completed studies during hospitalization [Text1]: Procedures Transfusion of Nonautologous Red Blood Cells into Peripheral Vein, Percutaneous Approach (03/31/23) Labs on day of discharge: Laboratory Results - last 24 hr 05/09/23 05/09/23 05/10/23 16:09 20:25 06:12 WBC 8.0 RBC 2.81 L Hgb 7.8 L Hct 24.0 L MCV 85.4 MCH 27.8 MCHC 32.5 RDW 16.5 H Plt Count 173 MPV 11.1 Immature Gran % (Auto) 0.4 Neut % (Auto) 58.2 Lymph % (Auto) 20.7 [place] % (Auto) 11.5 H Eos % (Auto) 8.8 H Baso % (Auto) 0.4 Lymph # (Auto) 1.7 [place] # (Auto) 0.9 Eos # (Auto) 0.7 H Baso # (Auto) 0.0 Abs Immat Gran (auto) 0.03 Absolute Neuts (auto) 4.7 Absolute Nucleated RBC 0.000 Nucleated RBC % (auto) 0.0 Sodium 142 Potassium 4.1 Chloride 112 H Carbon Dioxide 17 L Anion Gap 17 BUN 80 H Creatinine 3.93 H Estim Creat Clear Calc 19.7 Estimated GFR 16 POC Glucose 170 H 262 H Fasting Glucose 101 H Calcium 8.6 Total Bilirubin 0.3 AST 13 ALT 21 Alkaline Phosphatase 132 H Total Protein 5.6 L Albumin 3.0 L 05/10/23 05/10/23 07:11 11:15 WBC RBC Hgb Hct MCV MCH MCHC RDW Plt Count MPV Immature Gran % (Auto) Neut % (Auto) Lymph % (Auto) [place] % (Auto) Eos % (Auto) Baso % (Auto) Lymph # (Auto) [place] # (Auto) Eos # (Auto) Baso # (Auto) Abs Immat Gran (auto) Absolute Neuts (auto) Absolute Nucleated RBC Nucleated RBC % (auto) Sodium Potassium Chloride Carbon Dioxide Anion Gap BUN Creatinine Estim Creat Clear Calc Estimated GFR POC Glucose 140 H 127 H Fasting Glucose Calcium Total Bilirubin AST ALT Alkaline Phosphatase Total Protein Albumin Preliminary micro results at discharge 05/08/23 18:51 Blood Culture - Preliminary Blood - Venous No growth after 24 hours. 05/08/23 18:41 Blood Culture - Preliminary Blood - Venous No growth after 24 hours. Discharge Plan Discharge Anticipated Discharge Date/Time: 05/10/23 13:27 Patient Disposition: Home Health Service Discharge Diagnosis: Acute respiratory failure with hypoxia Referrals: [facility] [Primary Care Provider] - 1 Week Discharge Medications: New atorvastatin 80 mg Tablet 80 mg PO BEDTIME Qty: 30 3RF donepezil 5 mg Tablet 5 mg PO BEDTIME Qty: 30 3RF pantoprazole [Protonix] 40 mg Recon Soln 40 mg IVPUSH DAILY@0630 Qty: 30 3RF melatonin 3 mg Tablet 6 mg PO BEDTIME PRN (Reason: Insomnia) Qty: 60 3RF clopidogrel 75 mg Tablet 75 mg PO DAILY Qty: 30 3RF sodium bicarbonate 650 mg Tablet 650 mg PO TID Qty: 90 3RF mirtazapine 30 mg Tablet 30 mg PO BEDTIME Qty: 30 3RF ferrous sulfate 324 mg (65 mg iron) Tablet,Delayed Release (Dr/Ec) 324 mg PO DAILY Qty: 30 3RF Eliquis 2.5 mg Tablet 2.5 mg PO BID Qty: 30 3RF calcitriol 0.25 mcg Capsule 0.25 mcg PO DAILY Qty: 30 3RF omeprazole 40 mg capsule,delayed release(DR/EC) 40 mg PO DAILY Qty: 30 3RF Continued insulin lispro [Humalog KwikPen Insulin] 100 unit/mL Insulin Pen 1 sliding scale dose SUBCUT USEASDIRECTD Qty: 15 0RF Protocol: Insulin Correction Scale Less than or equal to 110 ---- Give (units): 0 111 to 150 Give (units): 0 151 to 200 Give (units): 2 201 to 250 Give (units): 4 251 to 300 Give (units): 6 301 to 350 Give (units): 8 Greater than 350 Give (units): 10 Call MD if Blood Glucose > : 450 insulin glargine 100 unit/mL (3 mL) insulin pen 15 unit SUBCUT BEDTIME Discontinued melatonin 3 mg tablet 6 mg PO BEDTIME PRN (Reason: insomnia) atorvastatin 80 mg Tablet 80 mg PO BEDTIME donepezil [Aricept] 5 mg Tablet 5 mg PO BEDTIME clopidogrel 75 mg Tablet 75 mg PO DAILY pantoprazole 40 mg Tablet,Delayed Release (Dr/Ec) 40 mg PO DAILY@0630 mirtazapine [Remeron] 30 mg Tablet 30 mg PO BEDTIME multivitamin with minerals Tablet 1 tab PO DAILY Eliquis 2.5 mg Tablet 2.5 mg PO BID acetaminophen 325 mg tablet 650 mg PO Q4H PRN (Reason: Fever Or Pain) sodium bicarbonate 650 mg tablet 650 mg PO TID calcitriol 0.25 mcg capsule 0.25 mcg PO DAILY Qty: 30 2RF Discharge Orders: Discharge Order (Routine); Ordered 05/10/23 Ordered By: Jeyson Henry Diet: Advance to usual diet Activity on Discharge: As tolerated Stand Alone Forms: Patient Portal Discharge page Care Plan Goals: Take all meds as ordered on discharge Health Concerns: Spoke with kidney doctors. For you need to follow-up with your appointment as scheduled Plan of Treatment: Make an appointment with your PCP next available Assessment: See discharge summary
--- NOTE | 2023-05-10 14:20 | P.F2F_ITS ---
Service Date Service Date: 05/10/23 Encounter Date of encounter: 05/10/23 Encounter: Acute hospitalization Reasons for Services Signs and symptoms assessed: Med compliance and respiratory status associated with end-stage renal disease Reason for long term: diabetic teaching, medication management and teach disease management Homebound: Leaving the home is medically contraindicated at this time without the asist of a device and/or another person due th the listed conditions above and below. Reason homebound: unsteady gait / fall risk and cognitively impaired / unsafe Certification: Based on the above findings, I certify that this patient is confined to the home and needs intermittent long term care, physical therapy and/or speech therapy, or continues to need occupational therapy. The patient is under my care, and I have initiated the establishment of the plan of care. The patient will be followed by a physician who will periodically review the plan of care. Time Spent With Patient Time: Total time managing care of this patient today ____ minutes.
--- NOTE | 2023-05-10 14:28 | P.CDIM_ITS ---
PROVIDER RESPONSE TEXT: To clarify, the appropriate diagnosis supported by the clinical indicators: Acute QUERY TEXT: PHYSICIAN'S DOCUMENTATION REQUEST Date of Query: 05/10/2023 07:51 AM EDT Patient Name: Ben Soto Admit Date: 05/08/2023 Dear Jeyson Henry, A review of the medical record indicates additional documentation may be needed. Please review below and update the documentation accordingly. Clinical Indicators: Per Hospitalist Progress Note 05/09/23: Hypoxic Respiratory Failure secondary to pneumonia, treated with Zosyn and oxygen respiratory rate on admission 22 Clarify which of the following accurately represents the acuity of the Hypoxic Respiratory Failure. Possible options might include: Acute Acute on chronic Compensated Chronic stable condition Remission Other (explain) Clinically unable to determine (explain) Thank you, Noemi Haynes RN Use of terms such as suspected, likely, concern for, or probable (associated with a specific diagnosi s that is being evaluated, monitored, or treated as if it exists) are acceptable and can be coded in the inpatient se tting, when documented at the time of discharge. Please use your independent medical judgment in providing your response. THIS QUERY IS PART OF THE PERMANENT MEDICAL RECORD
--- NOTE | 2023-05-10 14:55 | MHC.CM.PN ---
Patient is discharged to home today with family support and transport home.
== END 2023-05-10 14:23 | disposition home or self-care (01) | DRG 139 ==
LOC: HO.ED 18:27 → HO.EDOVER 20:11 → HO.IMC 05-09 07:38
PROVIDERS: Physician Assistant; Physician Assistant Medical; Admitting Provider Internal Medicine; Emergency Provider Emergency Medicine; Visit Provider Hospitalist
DX: J18.9 Pneumonia, unspecified organism (principal); J96.01 Acute respiratory failure with hypoxia; E11.22 Type 2 diabetes mellitus with diabetic chronic kidney disease; F01.50 Vascular dementia, unspecified severity, without behavioral disturbance, psychotic disturbance, mood disturbance, and anxiety; D63.1 Anemia in chronic kidney disease; N18.4 Chronic kidney disease, stage 4 (severe); B18.2 Chronic viral hepatitis C; E78.5 Hyperlipidemia, unspecified; Z87.891 Personal history of nicotine dependence; I42.8 Other cardiomyopathies; Z86.718 Personal history of other venous thrombosis and embolism; K21.9 Gastro-esophageal reflux disease without esophagitis; Z79.4 Long term (current) use of insulin; Z79.01 Long term (current) use of anticoagulants; Z79.02 Long term (current) use of antithrombotics/antiplatelets; Z79.899 Other long term (current) drug therapy
CPT/HCPCS: 36415; 71046; 71250; 80053; 80307; 81001; 82803; 82947; 83605; 83690; 83735; 83880; 84484; 85025; 85610; 87040; 93005; 99285; C9113; J1939; J2543; J3371

== ENCOUNTER → 2023-05-08 13:40 | Outpatient (BNV) | payer MEDICAID, SELFPAY | PROVIDERS: Admitting Provider Internal Medicine; Emergency Provider Emergency Medicine; Visit Provider Internal Medicine Cardiovascular Disease | DX: R07.9 Chest pain, unspecified (principal); I49.8 Other specified cardiac arrhythmias | CPT/HCPCS: 93010 ==

== ENCOUNTER → 2023-05-08 19:37 | Outpatient (BNV) | payer MEDICAID, SELFPAY | PROVIDERS: Admitting Provider Internal Medicine; Emergency Provider Emergency Medicine; Visit Provider Internal Medicine | DX: J96.01 Acute respiratory failure with hypoxia (principal); J18.9 Pneumonia, unspecified organism; N18.4 Chronic kidney disease, stage 4 (severe) | CPT/HCPCS: 99223; 99233; 99239; G0180 ==

== ENCOUNTER 2023-05-21 12:34 | Emergency (ER) | payer MEDICAID, SELFPAY ==
--- NOTE | ~2023-05-21 | XR_ITS ---
EXAMINATION: XR CHEST CLINICAL INFORMATION: Assess for volume overload COMPARISON: Chest x-ray and CT chest 05/08/2023 TECHNIQUE: 2 views of the chest were obtained. FINDINGS: There is persistent right pleural effusion slightly increased compared to prior. There is some persistent patchy opacities in both lungs but much improved compared to prior. The cardiomediastinal silhouette normal. Bone and soft tissues unremarkable. XR/XR chest 2V IMPRESSION: 1. Persistent right pleural effusion slightly increased compared to prior. 2. Improving bilateral airspace opacities compared with April 2023.
[2023-05-21 12:53] VITALS: BP 153/86; PULSE 83; RESP 20; TEMP 37.1; O2SAT 97; BMI 25.0
--- NOTE | 2023-05-21 12:53 | ED_ITS ---
HPI - Extremity Problem General Chief complaint: General Medical Stated complaint: Swollen Feet Time Seen by Provider: 05/21/23 18:32 Related Data Home Medications ?Medication ?Instructions ?Recorded ?Confirmed insulin glargine 100 unit/mL (3 15 unit subcut BEDTIME 05/08/23 05/08/23 mL) subcutaneous pen Previous Rx's ?Medication ?Instructions ?Recorded insulin lispro 100 unit/mL 1 sliding scale dose subcut 03/21/23 subcutaneous pen (Humalog KwikPen USEASDIRECTD #15 mL (U-100) Insulin) apixaban 2.5 mg tablet (Eliquis) 2.5 mg PO BID #30 tabs 05/10/23 atorvastatin 80 mg tablet 80 mg PO BEDTIME #30 tabs 05/10/23 calcitriol 0.25 mcg capsule 0.25 mcg PO DAILY #30 caps 05/10/23 clopidogrel 75 mg tablet 75 mg PO DAILY #30 tabs 05/10/23 donepezil 5 mg tablet 5 mg PO BEDTIME #30 tabs 05/10/23 ferrous sulfate 324 mg (65 mg 324 mg PO DAILY #30 tabs 05/10/23 iron) tablet,delayed release melatonin 3 mg tablet 6 mg (2 x 3 mg) PO BEDTIME PRN 05/10/23 Insomnia #60 tabs mirtazapine 30 mg tablet 30 mg PO BEDTIME #30 tabs 05/10/23 omeprazole 40 mg capsule,delayed 40 mg PO DAILY #30 caps 05/10/23 release pantoprazole 40 mg intravenous 40 mg IVPUSH DAILY@0630 #30 ea 05/10/23 solution (Protonix) sodium bicarbonate 650 mg tablet 650 mg PO TID #90 tabs 05/10/23 insulin lispro 100 unit/mL 1 sliding scale dose subcut 05/21/23 subcutaneous pen USEASDIRECTD #15 mL torsemide 20 mg tablet 20 mg PO BID 14 days #28 tabs 05/21/23 Allergies Allergy/AdvReac Type Severity Reaction Status Date / Time No Known Allergies Allergy Verified 05/21/23 12:54 [facility] Past Medical History Medical History Pneumonia Infiltrative cardiomyopathy CKD (chronic kidney disease) stage 4, GFR 15-29 ml/min Congestive heart failure Anemia in chronic kidney disease (CKD) GRISEL (acute kidney injury) CKD (chronic kidney disease) Hyperglycemia Elevated serum creatinine Chronic kidney disease History of insulin dependent diabetes mellitus Mood disorder Vascular dementia CVA (cerebral vascular accident) DVT (deep venous thrombosis) Social History Social History Household Members: Family Housing: Apartment Do you presently have visiting nurse or other home services: No Comment: pt is low falls risk Patient Tobacco Use Status: Former Tobacco user Quit Date: 04/09/23 Tobacco use type: Cigarette Cigarette Packs Per Day: 0.5 Cigarettes Per Day: 10.0 Years Smoked: 7 Smoked in Last 30 Days: No e-Cigarette/Vaping Use: Never Used Second Hand Smoke Exposure: No Use of substances other than those prescribed or required for medical reasons: No Substance Use Type: Crack/Cocaine, IV Drugs and Opiates Advance Directives: No Advance Directives Information Provided: Yes service: No Physical Exam 2 Vital Signs: Vital Signs: Last Vital Signs Temp 98.1 F 05/21/23 19:54 Pulse 88 05/21/23 19:54 Resp 14 05/21/23 19:54 BP 142/74 H 05/21/23 19:54 Pulse Ox 93 05/21/23 19:54 O2 Del Method Room Air, CPAP 05/21/23 19:54 BMI result Body Mass Index 25.0 Course Course Course Narrative: This is a Rapid Medical Examination (RME) in triage, full HPI, ROS, assessment and plan per primary provider in the Main ED. 48 yo male with multiple medical problems including CHF, CKD IV, DVT on Eliquisd, DM, CVA, with 2 recent admissions for multifocal PNA and volume overload who presents to the ER for evaluation of 4 days of worsening LE edema. Complaint with diuretics. No SOB. 2+ LE edema bilaterally. VSS in triage Plan: labs and CXR Medical Decision Making Lab Data 05/21/23 13:15 05/21/23 13:15 Labs: Lab Results 05/21/23 Range/Units 13:15 WBC 10.5 (4.8-10.8) X10*3/uL RBC 2.95 L (4.60-5.80) X10*6/uL Hgb 8.2 L (14.0-18.0) g/dl Hct 25.4 L (42.0-52.0) % MCV 86.1 (80.0-98.0) fL MCH 27.8 (27.0-33.0) pg MCHC 32.3 (31.0-36.0) g/dl RDW 16.6 H (11.0-16.0) % Plt Count 399 D (160-400) X10*3/uL MPV 9.7 (9.4-12.4) fL Immature Gran % (Auto) 0.8 H (0.0-0.4) % Neut % (Auto) 62.6 (45-73) % Lymph % (Auto) 23.6 (20-40) % [place] % (Auto) 6.6 (2-11) % Eos % (Auto) 5.9 H (0-4) % Baso % (Auto) 0.5 (0-2) % Lymph # (Auto) 2.5 (1.2-4.9) X10*3/uL [place] # (Auto) 0.7 (0.1-1.2) X10*3/uL Eos # (Auto) 0.6 H (0.0-0.4) X10*3/uL Baso # (Auto) 0.1 (0.0-0.2) X10*3/uL Abs Immat Gran (auto) 0.08 H (0.00-0.03) X10*3/uL Absolute Neuts (auto) 6.6 (2.0-8.3) x10*3/uL Absolute Nucleated RBC 0.000 (0.0-0.012) X10*3/uL Nucleated RBC % (auto) 0.0 (0.0-0.2) /100WBC Sodium 139 (135-145) mmol/L Potassium 4.7 (3.3-5.1) mmol/L Chloride 115 H (96-108) mmol/L Carbon Dioxide 14 L (22-29) mmol/L Anion Gap 15 (12-20) BUN 80 H (9-16) mg/dL Creatinine 4.11 H* (0.5-1.4) mg/dL Estim Creat Clear Calc 18.9 Estimated GFR 16 Random Glucose 246 H (60-115) mg/dL Calcium 8.7 (8.4-10.2) mg/dL Magnesium 2.1 (1.6-2.6) mg/dL Total Bilirubin 0.2 (0.0-1.0) mg/dL Direct Bilirubin < 0.2 (0.0-0.5) mg/dL AST 16 (5-37) U/L ALT 26 (0-40) U/L Alkaline Phosphatase 229 H (39-117) U/L B-Natriuretic Peptide 803 H (<100) pg/mL Total Protein 6.3 L (6.5-8.0) g/dL Albumin 3.3 L (3.5-5.0) g/dL Discharge Plan Discharge Clinical Impression: Pedal edema Patient Disposition: Home, Self-Care Instructions: Leg Edema (ED) Prescriptions: New torsemide 20 mg tablet 20 mg PO BID 14 Days Qty: 28 0RF insulin lispro 100 unit/mL insulin pen 1 sliding scale dose subcut USEASDIRECTD Qty: 15 0RF No Action insulin lispro [Humalog KwikPen Insulin] 100 unit/mL Insulin Pen 1 sliding scale dose SUBCUT USEASDIRECTD Qty: 15 0RF Protocol: Insulin Correction Scale Less than or equal to 110 ---- Give (units): 0 111 to 150 Give (units): 0 151 to 200 Give (units): 2 201 to 250 Give (units): 4 251 to 300 Give (units): 6 301 to 350 Give (units): 8 Greater than 350 Give (units): 10 Call MD if Blood Glucose > : 450 insulin glargine 100 unit/mL (3 mL) insulin pen 15 unit SUBCUT BEDTIME atorvastatin 80 mg Tablet 80 mg PO BEDTIME Qty: 30 3RF donepezil 5 mg Tablet 5 mg PO BEDTIME Qty: 30 3RF pantoprazole [Protonix] 40 mg Recon Soln 40 mg IVPUSH DAILY@0630 Qty: 30 3RF melatonin 3 mg Tablet 6 mg PO BEDTIME PRN (Reason: Insomnia) Qty: 60 3RF clopidogrel 75 mg Tablet 75 mg PO DAILY Qty: 30 3RF sodium bicarbonate 650 mg Tablet 650 mg PO TID Qty: 90 3RF mirtazapine 30 mg Tablet 30 mg PO BEDTIME Qty: 30 3RF ferrous sulfate 324 mg (65 mg iron) Tablet,Delayed Release (Dr/Ec) 324 mg PO DAILY Qty: 30 3RF Eliquis 2.5 mg Tablet 2.5 mg PO BID Qty: 30 3RF calcitriol 0.25 mcg Capsule 0.25 mcg PO DAILY Qty: 30 3RF omeprazole 40 mg capsule,delayed release(DR/EC) 40 mg PO DAILY Qty: 30 3RF Referrals: Chucho Bates MD [Physician] - 05/25/23 Print Language: Finnish
[2023-05-21 13:19] LABS: MANUAL DIFF FLAG NO
[2023-05-21 13:20] LABS: Basophils Absolute Auto 0.1 X10*3/uL (0.0-0.2); Basophils Percent Auto 0.5 % (0-2); Eosinophils Absolute Auto 0.6 X10*3/uL (0.0-0.4); Eosinophils Percent Auto 5.9 % (0-4); Hematocrit 25.4 % (42.0-52.0); Hemoglobin 8.2 g/dl (14.0-18.0); Imm Gran Abs Auto 0.08 X10*3/uL (0.00-0.03); Imm Gran Pct Auto 0.8 % (0.0-0.4); Lymphocytes Absolute Auto 2.5 X10*3/uL (1.2-4.9); Lymphocytes Percent Auto 23.6 % (20-40); Mean Corpuscular HGB Conc 32.3 g/dl (31.0-36.0); Mean Corpuscular Hemoglobin 27.8 pg (27.0-33.0); Mean Corpuscular Volume 86.1 fL (80.0-98.0); Mean Platelet Volume 9.7 fL (9.4-12.4); Monocytes Absolute Auto 0.7 X10*3/uL (0.1-1.2); Monocytes Percent Auto 6.6 % (2-11); Neutrophils Absolute Auto 6.6 x10*3/uL (2.0-8.3); Neutrophils Percent Auto 62.6 % (45-73); Platelet Count 399 X10*3/uL (160-400); Red Blood Count 2.95 X10*6/uL (4.60-5.80); Red Cell Distribution Width 16.6 % (11.0-16.0); White Blood Count 10.5 X10*3/uL (4.8-10.8)
[2023-05-21 13:44] LABS: B Type Natriuretic Peptide 803 pg/mL (<100)
[2023-05-21 13:51] LABS: Alanine Aminotransferase 26 U/L (0-40); Albumin Level 3.3 g/dL (3.5-5.0); Alkaline Phosphatase 229 U/L (39-117); Anion Gap 15 (12-20); Aspartate Amino Transferase 16 U/L (5-37); Bilirubin Direct < 0.2 mg/dL (0.0-0.5); Bilirubin Total 0.2 mg/dL (0.0-1.0); Blood Urea Nitrogen 80 mg/dL (9-16); Calcium 8.7 mg/dL (8.4-10.2); Carbon Dioxide 14 mmol/L (22-29); Chloride 115 mmol/L (96-108); Creatinine Clr Calc Pharmacy 18.9; Estimated Glomerular Filt Rate 16; Glucose Random 246 mg/dL (60-115); Magnesium 2.1 mg/dL (1.6-2.6); Potassium 4.7 mmol/L (3.3-5.1); Sodium 139 mmol/L (135-145); Total Protein 6.3 g/dL (6.5-8.0)
[2023-05-21 18:23] VITALS: BP 153/86; PULSE 84; RESP 18; TEMP 36.5; O2SAT 98
--- NOTE | 2023-05-21 19:13 | ED.GENADULT ---
HPI - General Adult General Chief complaint: General Medical Stated complaint: Swollen Feet Time Seen by Provider: 05/21/23 18:32 History of Present Illness HPI narrative: Patient is a 48-year-old male with a history of chronic kidney disease. Presents today with having leg swelling. Patient was seen back in March for influenza. Found to have chronic kidney disease. At that time he was told to hold the Lasix. Family complained the leg swelling is getting worse. There is no chest pain. There has no diaphoresis. Family states that patient is still taking 20 mg of Lasix per day. No fever no chills. No chest pain or shortness of breath. No diaphoresis. No new pain. Patient from home. Related Data Home Medications ?Medication ?Instructions ?Recorded ?Confirmed insulin glargine 100 unit/mL (3 15 unit subcut BEDTIME 05/08/23 05/08/23 mL) subcutaneous pen Previous Rx's ?Medication ?Instructions ?Recorded insulin lispro 100 unit/mL 1 sliding scale dose subcut 03/21/23 subcutaneous pen (Humalog KwikPen USEASDIRECTD #15 mL (U-100) Insulin) apixaban 2.5 mg tablet (Eliquis) 2.5 mg PO BID #30 tabs 05/10/23 atorvastatin 80 mg tablet 80 mg PO BEDTIME #30 tabs 05/10/23 calcitriol 0.25 mcg capsule 0.25 mcg PO DAILY #30 caps 05/10/23 clopidogrel 75 mg tablet 75 mg PO DAILY #30 tabs 05/10/23 donepezil 5 mg tablet 5 mg PO BEDTIME #30 tabs 05/10/23 ferrous sulfate 324 mg (65 mg 324 mg PO DAILY #30 tabs 05/10/23 iron) tablet,delayed release melatonin 3 mg tablet 6 mg (2 x 3 mg) PO BEDTIME PRN 05/10/23 Insomnia #60 tabs mirtazapine 30 mg tablet 30 mg PO BEDTIME #30 tabs 05/10/23 omeprazole 40 mg capsule,delayed 40 mg PO DAILY #30 caps 05/10/23 release pantoprazole 40 mg intravenous 40 mg IVPUSH DAILY@0630 #30 ea 05/10/23 solution (Protonix) sodium bicarbonate 650 mg tablet 650 mg PO TID #90 tabs 05/10/23 insulin lispro 100 unit/mL 1 sliding scale dose subcut 05/21/23 subcutaneous pen USEASDIRECTD #15 mL torsemide 20 mg tablet 20 mg PO BID 14 days #28 tabs 05/21/23 Allergies Allergy/AdvReac Type Severity Reaction Status Date / Time No Known Allergies Allergy Verified 05/21/23 12:54 Review of Systems Review of Systems: No coughing no congestion or respiratory symptoms. Yes all other systems are reviewed and are negative [facility] Past Medical History Attestation statement: The following information was validated with the patient. Medical History Pneumonia Infiltrative cardiomyopathy CKD (chronic kidney disease) stage 4, GFR 15-29 ml/min Congestive heart failure Anemia in chronic kidney disease (CKD) GRISEL (acute kidney injury) CKD (chronic kidney disease) Hyperglycemia Elevated serum creatinine Chronic kidney disease History of insulin dependent diabetes mellitus Mood disorder Vascular dementia CVA (cerebral vascular accident) DVT (deep venous thrombosis) Social History Social History Household Members: Family Housing: Apartment Do you presently have visiting nurse or other home services: No Comment: pt is low falls risk Patient Tobacco Use Status: Former Tobacco user Quit Date: 04/09/23 Tobacco use type: Cigarette Cigarette Packs Per Day: 0.5 Cigarettes Per Day: 10.0 Years Smoked: 7 Smoked in Last 30 Days: No e-Cigarette/Vaping Use: Never Used Second Hand Smoke Exposure: No Use of substances other than those prescribed or required for medical reasons: No Substance Use Type: Crack/Cocaine, IV Drugs and Opiates Advance Directives: No Advance Directives Information Provided: Yes service: No Physical Exam ED Vital Signs: Vital Signs - 24 hr 05/21/23 12:53 05/21/23 18:23 05/21/23 19:54 Temperature 98.8 F 97.7 F 98.1 F Pulse Rate 83 84 88 Respiratory Rate 20 18 14 Blood Pressure 153/86 H 153/86 H 142/74 H Pulse Oximetry 97 98 93 Oxygen Delivery Method Nasal Cannula Room Air Room Air CPAP BMI result Body Mass Index 25.0 Appearance: Alert. Oriented X3. No acute distress. Eyes: Pupils equal, round and reactive to light. ENT: Pharynx normal. Neck: Normal inspection. Neck supple. No lymph nodes noted. No crepitus CVS: Normal heart rate and rhythm. Pulses normal. Normal S1 and S2 Respiratory: No respiratory distress. Breath sounds normal. No Wheezing. No rales Abdomen: Soft and nontender. No rigidity. No distention. good BS x4 Skin: Skin warm and dry. Normal skin color. Normal skin turgor. Extremities: 2+ lower extremity edema. Neurovascular intact to all extremities. No Lacerations. No Rash Neuro: Oriented X 3. No motor deficit. No sensory deficit. Moving all extermities. No slurred speech Medical Decision Making Medical Decision Making [facility] Narrative: Patient's O2 sat is 98% on room air. Lungs are clear. Chest x-ray showed pleural effusion approximately the same maybe slightly worse there has no focal infiltrate. Patient's white count is normal. He is on Eliquis. BNP is 800 this is approximately baseline. Creatinine is for this is approximately baseline. Patient's potassium is normal. No evidence for hyperkalemia. Will require follow-up with renal. Question if patient is taking Lasix. Patient states he is taking 20 mg of Lasix daily. However on examining patient's paperwork, his discharge paperwork told him to stop taking the Lasix. Given the kidney functions about the same at this time will ask patient to follow up closely with Nephrology. Given the symptoms of bilateral he is on Eliquis it is unlikely to be DVT. Case was discussed with Dr. Bates once patient get an additional 40 mg of Lasix immediately. Start patient on furosemide 20 mg b.i.d.. Follow up with him closely on an outpatient basis. He is currently in stable condition. Differential Diagnosis Differential Diagnoses: The differential diagnosis associated with the presentation includes Admission/Observation Consideration of admission/observation: Escalation of care including admission/observation considered Consult Healthcare Provider Nephrology Dr. Wu Lab Data [facility] Lab Attestation statement: I reviewed the patient's lab results. 05/21/23 13:15 05/21/23 13:15 Labs: Lab Results 05/21/23 Range/Units 13:15 WBC 10.5 (4.8-10.8) X10*3/uL RBC 2.95 L (4.60-5.80) X10*6/uL Hgb 8.2 L (14.0-18.0) g/dl Hct 25.4 L (42.0-52.0) % MCV 86.1 (80.0-98.0) fL MCH 27.8 (27.0-33.0) pg MCHC 32.3 (31.0-36.0) g/dl RDW 16.6 H (11.0-16.0) % Plt Count 399 D (160-400) X10*3/uL MPV 9.7 (9.4-12.4) fL Immature Gran % (Auto) 0.8 H (0.0-0.4) % Neut % (Auto) 62.6 (45-73) % Lymph % (Auto) 23.6 (20-40) % [place] % (Auto) 6.6 (2-11) % Eos % (Auto) 5.9 H (0-4) % Baso % (Auto) 0.5 (0-2) % Lymph # (Auto) 2.5 (1.2-4.9) X10*3/uL [place] # (Auto) 0.7 (0.1-1.2) X10*3/uL Eos # (Auto) 0.6 H (0.0-0.4) X10*3/uL Baso # (Auto) 0.1 (0.0-0.2) X10*3/uL Abs Immat Gran (auto) 0.08 H (0.00-0.03) X10*3/uL Absolute Neuts (auto) 6.6 (2.0-8.3) x10*3/uL Absolute Nucleated RBC 0.000 (0.0-0.012) X10*3/uL Nucleated RBC % (auto) 0.0 (0.0-0.2) /100WBC Sodium 139 (135-145) mmol/L Potassium 4.7 (3.3-5.1) mmol/L Chloride 115 H (96-108) mmol/L Carbon Dioxide 14 L (22-29) mmol/L Anion Gap 15 (12-20) BUN 80 H (9-16) mg/dL Creatinine 4.11 H* (0.5-1.4) mg/dL Estim Creat Clear Calc 18.9 Estimated GFR 16 Random Glucose 246 H (60-115) mg/dL Calcium 8.7 (8.4-10.2) mg/dL Magnesium 2.1 (1.6-2.6) mg/dL Total Bilirubin 0.2 (0.0-1.0) mg/dL Direct Bilirubin < 0.2 (0.0-0.5) mg/dL AST 16 (5-37) U/L ALT 26 (0-40) U/L Alkaline Phosphatase 229 H (39-117) U/L B-Natriuretic Peptide 803 H (<100) pg/mL Total Protein 6.3 L (6.5-8.0) g/dL Albumin 3.3 L (3.5-5.0) g/dL Independent Interpretation I performed an independent interpretation of an: Plain X-Ray (Grossly lungs are clear small pleural effusion on the right side) Radiology Impression Discussion of test interpretation with radiology: I have reviewed the radiologist's reading. Independent Historian Clinical information obtained from an independent historian. History obtained from or confirmed by: Spouse External Record Review External record reviewed: Inpatient record Chronic Conditions Patient?s care impacted by: Diabetes Chronic kidney failure Social Determinants Patient?s care significantly limited by Social Determinants of Health including: Low income and Problems related to primary support group Discharge Plan Discharge Clinical Impression: Pedal edema Patient Disposition: Home, Self-Care Instructions: Leg Edema (ED) Prescriptions: New torsemide 20 mg tablet 20 mg PO BID 14 Days Qty: 28 0RF insulin lispro 100 unit/mL insulin pen 1 sliding scale dose subcut USEASDIRECTD Qty: 15 0RF No Action insulin lispro [Humalog KwikPen Insulin] 100 unit/mL Insulin Pen 1 sliding scale dose SUBCUT USEASDIRECTD Qty: 15 0RF Protocol: Insulin Correction Scale Less than or equal to 110 ---- Give (units): 0 111 to 150 Give (units): 0 151 to 200 Give (units): 2 201 to 250 Give (units): 4 251 to 300 Give (units): 6 301 to 350 Give (units): 8 Greater than 350 Give (units): 10 Call MD if Blood Glucose > : 450 insulin glargine 100 unit/mL (3 mL) insulin pen 15 unit SUBCUT BEDTIME atorvastatin 80 mg Tablet 80 mg PO BEDTIME Qty: 30 3RF donepezil 5 mg Tablet 5 mg PO BEDTIME Qty: 30 3RF pantoprazole [Protonix] 40 mg Recon Soln 40 mg IVPUSH DAILY@0630 Qty: 30 3RF melatonin 3 mg Tablet 6 mg PO BEDTIME PRN (Reason: Insomnia) Qty: 60 3RF clopidogrel 75 mg Tablet 75 mg PO DAILY Qty: 30 3RF sodium bicarbonate 650 mg Tablet 650 mg PO TID Qty: 90 3RF mirtazapine 30 mg Tablet 30 mg PO BEDTIME Qty: 30 3RF ferrous sulfate 324 mg (65 mg iron) Tablet,Delayed Release (Dr/Ec) 324 mg PO DAILY Qty: 30 3RF Eliquis 2.5 mg Tablet 2.5 mg PO BID Qty: 30 3RF calcitriol 0.25 mcg Capsule 0.25 mcg PO DAILY Qty: 30 3RF omeprazole 40 mg capsule,delayed release(DR/EC) 40 mg PO DAILY Qty: 30 3RF Referrals: Chucho Bates MD [Physician] - 05/25/23 Print Language: Cook Islander
[2023-05-21 19:54] VITALS: BP 142/74; PULSE 88; RESP 14; TEMP 36.7; O2SAT 93
[2023-05-21] MEDS: Furosemide 40 MG/4 ML VIAL IVPUSH (21:37)
[2023-05-21 21:42] VITALS: BP 146/84; PULSE 86; RESP 16; TEMP 36.7; O2SAT 97
== END 2023-05-21 21:42 | disposition home or self-care (01) ==
PROVIDERS: Physician Assistant; Emergency Provider Emergency Medicine Emergency Medical Services
DX: R60.0 Localized edema (principal); J90 Pleural effusion, not elsewhere classified; E11.9 Type 2 diabetes mellitus without complications; Z79.4 Long term (current) use of insulin; Z79.899 Other long term (current) drug therapy
CPT/HCPCS: 36415; 71046; 80048; 80076; 83735; 83880; 85025; 96374; 99284; J1940

== ENCOUNTER 2023-05-26 10:48 | Outpatient (AMB) | payer MEDICAID, SELFPAY ==
[2023-05-26 11:17] VITALS: BP 154/78; PULSE 82; O2SAT 96; BMI 23.0
--- NOTE | 2023-05-26 11:17 | HO.NEPHOV ---
HPI HPI Comments History of Present Illness Details 47-year-old male with pertinent history of CVA, DVT on Eliquis, mood disorder, vascular dementia, history of IV drugs (cocaine) use disorder, chronic kidney disease, gastroesophageal reflux disease, mood disorder who presents to the emergency department for evaluation of elevated blood glucose. Patient was discharged from a rehab facility in [place] after an acute CVA Currently home with family Appetite is good No nausea or vomiting COUNT INCLUDES [facility] Medical History (Updated 05/26/23 @ 11:38 by Timi Steinberg MD) Anemia in chronic kidney disease (CKD) Pneumonia Infiltrative cardiomyopathy CKD (chronic kidney disease) stage 4, GFR 15-29 ml/min Congestive heart failure GRISEL (acute kidney injury) CKD (chronic kidney disease) Hyperglycemia Elevated serum creatinine Chronic kidney disease History of insulin dependent diabetes mellitus Mood disorder Vascular dementia CVA (cerebral vascular accident) DVT (deep venous thrombosis) Social History Household Members: Family Housing: Apartment Do you presently have visiting nurse or other home services: No Comment: pt is low falls risk Patient Tobacco Use Status: Former Tobacco user Quit Date: 04/09/23 Tobacco use type: Cigarette Cigarette Packs Per Day: 0.5 Cigarettes Per Day: 10.0 Years Smoked: 7 e-Cigarette/Vaping Use: Never Used Second Hand Smoke Exposure: No Substance Use Type: Crack/Cocaine, IV Drugs and Opiates service: No Vital Signs 05/26/23 11:17 Height 5 ft 5 in Weight 138 lb BMI 23.0 BP 154/78 H Blood Pressure Location Lt brachial Position Sitting Pulse 82 Pulse Source Pulse Oximeter Pulse Oximetry (%) 96 Oxygen Delivery Method Room Air Physical Exam Vital Signs: Last Vital Signs Pulse 82 05/26/23 11:17 BP 154/78 H 05/26/23 11:17 Pulse Ox 96 05/26/23 11:17 Oxygen Delivery Method Room Air 05/26/23 11:17 BMI result Body Mass Index 23.0 Const General: comfortable Nutritional Appearance: well nourished Orientation/consciousness: patient oriented x3 HEENT Head: No normal to inspection Mouth: moist mucous membranes Neck Neck: Yes supple and Yes no JVD Resp Auscultation: clear to auscultation bilaterally, no rales and rub present Cardio Jugular venous distension: no JVD Palpation: no palpable S3 and no palpable S4 Heart sounds: no rubs GI Palpation (GI): Soft to palpation and nontender Percussion: No Fluid wave present General: Yes no CVA tenderness Back/Spine/Pelvis Back: no CVA tenderness Skin General skin exam: no rashes or lesions noted Neuro General: patient oriented x3 Extrem General: Yes no pedal edema and No clubbing Assessment & Plan Assessment & Plan (1) CKD (chronic kidney disease) stage 4, GFR 15-29 ml/min: Code(s): N18.4 - Chronic kidney disease, stage 4 (severe) (2) Anemia in chronic kidney disease (CKD): Code(s): N18.9 - Chronic kidney disease, unspecified; D63.1 - Anemia in chronic kidney disease Qualifiers: Chronic kidney disease stage: stage 4 (severe) Qualified Code(s): N18.4 - Chronic kidney disease, stage 4 (severe); D63.1 - Anemia in chronic kidney disease Plan CKD approaching ESRD NO s/s of uremia Discussed renal replacement therapy in the very near future Once they agree, i will arrange for AVF Anemia Administered REtacrit 86221 U sq left arm- no complications Optimze BP Low salt diet SHPT: On Calcitriol No indication for dialysis today Discussed with family Orders: Orders AMB Epoetin Injection Practice Supplied Today D63.1 - Anemia in chronic kidney disease, N18.4 - Chronic kidney disease, stage 4 (severe) Medications: New epoetin aruna-epbx 10,000 units subcut ONCE 1 mL 0RF D63.1 - Anemia in chronic kidney disease, N18.4 - Chronic kidney disease, stage 4 (severe) Coding Level of Care Code Est Pt Level 4 (10493) Diagnoses CKD (chronic kidney disease) stage 4, GFR 15-29 ml/min N18.4 Anemia in stage 4 chronic kidney disease N18.4; D63.1 Chronic kidney disease stage: stage 4 (severe) Results Reviewed Nephrology Results: Hgb 8.2 g/dl (14.0-18.0) L 05/21/23 WBC 10.5 X10*3/uL (4.8-10.8) 05/21/23 Plt Count 399 X10*3/uL (160-400) 05/21/23 Sodium 139 mmol/L (135-145) 05/21/23 Potassium 4.7 mmol/L (3.3-5.1) 05/21/23 Chloride 115 mmol/L (96-108) H 05/21/23 Carbon Dioxide 14 mmol/L (22-29) L 05/21/23 BUN 80 mg/dL (9-16) H 05/21/23 Creatinine 4.11 mg/dL (0.5-1.4) H* 05/21/23 Calcium 8.7 mg/dL (8.4-10.2) 05/21/23 Phosphorus 4.7 mg/dL (2.7-4.5) H 04/10/23 Urine Protein 100 (2+) mg/dL (Neg-Trace) H 05/08/23
== END 2023-05-26 11:39 | disposition home or self-care (01) ==
PROVIDERS: Referring Provider Family Medicine; Visit Provider Internal Medicine Hypertension Specialist
DX: N18.4 Chronic kidney disease, stage 4 (severe) (principal); D63.1 Anemia in chronic kidney disease
CPT/HCPCS: 99214

== ENCOUNTER → 2023-05-26 10:48 | Outpatient (BNVA) | payer MEDICAID, SELFPAY | PROVIDERS: Visit Provider Internal Medicine Hypertension Specialist | DX: N18.4 Chronic kidney disease, stage 4 (severe) (principal); D63.1 Anemia in chronic kidney disease | CPT/HCPCS: 99212; Q5106 ==

== ENCOUNTER 2023-06-09 10:18 | Outpatient (AMB) | payer MEDICAID, SELFPAY ==
[2023-06-09 10:21] VITALS: BP 180/100; PULSE 89; O2SAT 98; BMI 23.5
--- NOTE | 2023-06-09 10:21 | HO.NEPHOV ---
Vital Signs 06/09/23 10:21 06/09/23 10:47 Height 5 ft 5 in Weight 141 lb BMI 23.5 BP 180/100 H 160/90 H Blood Pressure Location Rt brachial Rt brachial Position Sitting Sitting Pulse 89 Pulse Source Pulse Oximeter Pulse Oximetry (%) 98 Oxygen Delivery Method Room Air Intake Visit Reasons: Anemia in CKD/ 2 weeks fu/ Confirmed Feeder Operator Automatic Required: No Accompanied by: Brother Allergies No Known Allergies Allergy (Verified 06/09/23 10:23) HPI Comments Details: 47-year-old male with pertinent history of CVA, DVT on Eliquis, mood disorder, vascular dementia, history of IV drugs (cocaine) use disorder, chronic kidney disease, gastroesophageal reflux disease, mood disorder who presents to the emergency department for evaluation of elevated blood glucose. Patient was discharged from a rehab facility in [place] after an acute CVA Currently home with family Appetite is good No nausea or vomiting As per family ,he spends 3-4 hours in hot shower!! PFSH Medical History (System 06/06/23 @ 13:54 by Doreen Reed) Anemia in chronic kidney disease (CKD) Pneumonia Infiltrative cardiomyopathy CKD (chronic kidney disease) stage 4, GFR 15-29 ml/min Congestive heart failure GRISEL (acute kidney injury) CKD (chronic kidney disease) Hyperglycemia Elevated serum creatinine Chronic kidney disease History of insulin dependent diabetes mellitus Mood disorder Vascular dementia CVA (cerebral vascular accident) DVT (deep venous thrombosis) Social History Household Members: Family Housing: Apartment Do you presently have visiting nurse or other home services: No Comment: pt is low falls risk Patient Tobacco Use Status: Former Tobacco user Quit Date: 04/09/23 Tobacco use type: Cigarette Cigarette Packs Per Day: 0.5 Cigarettes Per Day: 10.0 Years Smoked: 7 e-Cigarette/Vaping Use: Never Used Second Hand Smoke Exposure: No Substance Use Type: Crack/Cocaine, IV Drugs and Opiates service: No Physical Exam Vital Signs: Last Vital Signs Pulse 89 06/09/23 10:21 BP 180/100 H 06/09/23 10:21 Pulse Ox 98 06/09/23 10:21 Oxygen Delivery Method Room Air 06/09/23 10:21 BMI result Body Mass Index 23.5 Const General: comfortable Nutritional Appearance: well nourished Orientation/consciousness: patient oriented x3 HEENT Head: No normal to inspection Mouth: moist mucous membranes Neck Neck: Yes supple and Yes no JVD Resp Auscultation: clear to auscultation bilaterally, no rales and rub present Cardio Jugular venous distension: no JVD Palpation: no palpable S3 and no palpable S4 Heart sounds: no rubs GI Palpation (GI): Soft to palpation and nontender Percussion: No Fluid wave present General: Yes no CVA tenderness Back/Spine/Pelvis Back: no CVA tenderness Skin General skin exam: no rashes or lesions noted Neuro General: patient oriented x3 Extrem General: Yes no pedal edema and No clubbing Results Reviewed Nephrology Results: Hgb 8.2 g/dl (14.0-18.0) L 05/21/23 WBC 10.5 X10*3/uL (4.8-10.8) 05/21/23 Plt Count 399 X10*3/uL (160-400) 05/21/23 Sodium 139 mmol/L (135-145) 05/21/23 Potassium 4.7 mmol/L (3.3-5.1) 05/21/23 Chloride 115 mmol/L (96-108) H 05/21/23 Carbon Dioxide 14 mmol/L (22-29) L 05/21/23 BUN 80 mg/dL (9-16) H 05/21/23 Creatinine 4.11 mg/dL (0.5-1.4) H* 05/21/23 Calcium 8.7 mg/dL (8.4-10.2) 05/21/23 Phosphorus 4.7 mg/dL (2.7-4.5) H 04/10/23 Urine Protein 100 (2+) mg/dL (Neg-Trace) H 05/08/23 Assessment & Plan Assessment & Plan (1) CKD (chronic kidney disease) stage 4, GFR 15-29 ml/min: Code(s): N18.4 - Chronic kidney disease, stage 4 (severe) Category: Medical (2) Anemia in chronic kidney disease (CKD): Code(s): N18.9 - Chronic kidney disease, unspecified; D63.1 - Anemia in chronic kidney disease Category: Medical Qualifiers: Chronic kidney disease stage: stage 4 (severe) Qualified Code(s): N18.4 - Chronic kidney disease, stage 4 (severe); D63.1 - Anemia in chronic kidney disease Plan CKD approaching ESRD NO s/s of uremia Discussed renal replacement therapy in the very near future Once they agree, i will arrange for AVF Mom is yet to decide Anemia Administered REtacrit [id number] U sq left arm- no complications HTN Optimze BP ADD AMLODIPINE 5 mg dialy(06/09/23) Low salt diet SHPT: On Calcitriol No indication for dialysis today Discussed with family Medications: New amlodipine 5 mg PO DAILY 30 tabs 0RF Coding Level of Care Code Est Pt Level 4 (36287) Diagnoses CKD (chronic kidney disease) stage 4, GFR 15-29 ml/min N18.4 Anemia in stage 4 chronic kidney disease N18.4; D63.1 Chronic kidney disease stage: stage 4 (severe)
[2023-06-09 10:47] VITALS: BP 160/90
== END 2023-06-09 10:53 | disposition home or self-care (01) ==
PROVIDERS: PCP Family Medicine; Referring Provider Family Medicine; Visit Provider Internal Medicine Hypertension Specialist
DX: N18.4 Chronic kidney disease, stage 4 (severe) (principal); D63.1 Anemia in chronic kidney disease
CPT/HCPCS: 99214

== ENCOUNTER → 2023-06-09 10:18 | Outpatient (BNVA) | payer MEDICAID, SELFPAY | PROVIDERS: PCP Family Medicine; Visit Provider Internal Medicine Hypertension Specialist | DX: E11.22 Type 2 diabetes mellitus with diabetic chronic kidney disease (principal); N18.4 Chronic kidney disease, stage 4 (severe); D63.1 Anemia in chronic kidney disease; Z79.01 Long term (current) use of anticoagulants; Z79.899 Other long term (current) drug therapy | CPT/HCPCS: 99212; Q5106 ==

== ENCOUNTER 2023-06-15 13:17 | Outpatient (REF) | payer MEDICAID, SELFPAY ==
[2023-06-15 14:52] LABS: MANUAL DIFF FLAG NO
[2023-06-15 15:42] LABS: Basophils Absolute Auto 0.1 X10*3/uL (0.0-0.2); Basophils Percent Auto 0.5 % (0-2); Eosinophils Absolute Auto 0.8 X10*3/uL (0.0-0.4); Hematocrit 34.7 % (42.0-52.0); Hemoglobin 11.1 g/dl (14.0-18.0); Imm Gran Abs Auto 0.06 X10*3/uL (0.00-0.03); Imm Gran Pct Auto 0.6 % (0.0-0.4); Lymphocytes Absolute Auto 2.3 X10*3/uL (1.2-4.9); Mean Corpuscular Hemoglobin 27.4 pg (27.0-33.0); Mean Corpuscular Volume 85.7 fL (80.0-98.0); Mean Platelet Volume 10.4 fL (9.4-12.4); Monocytes Absolute Auto 0.8 X10*3/uL (0.1-1.2); Monocytes Percent Auto 8.4 % (2-11); Neutrophils Absolute Auto 5.9 x10*3/uL (2.0-8.3); Neutrophils Percent Auto 59.5 % (45-73); Platelet Count 325 X10*3/uL (160-400); Red Blood Count 4.05 X10*6/uL (4.60-5.80); Red Cell Distribution Width 15.3 % (11.0-16.0); White Blood Count 9.9 X10*3/uL (4.8-10.8)
[2023-06-15 16:16] LABS: B Type Natriuretic Peptide 367 pg/mL (<100)
[2023-06-15 16:43] LABS: Parathyroid Hormone Intact 238.6 pg/mL (8.7-77.1)
[2023-06-15 17:05] LABS: Alanine Aminotransferase 38 U/L (0-40); Albumin Level 4.1 g/dL (3.5-5.0); Alkaline Phosphatase 166 U/L (39-117); Anion Gap 17 (12-20); Aspartate Amino Transferase 21 U/L (5-37); Bilirubin Total 0.4 mg/dL (0.0-1.0); Blood Urea Nitrogen 90 mg/dL (9-16); Calcium 9.5 mg/dL (8.4-10.2); Carbon Dioxide 18 mmol/L (22-29); Chloride 110 mmol/L (96-108); Cholesterol 121 mg/dL (<200); Estimated Glomerular Filt Rate 13; Glucose Random 231 mg/dL (60-115); HDL Cholesterol 69 mg/dL (>40); LDL Cholesterol Calculated 44 mg/dL (<100); Potassium 5.3 mmol/L (3.3-5.1); Sodium 140 mmol/L (135-145); Total Protein 7.4 g/dL (6.5-8.0); Triglycerides 42 mg/dL (<150)
== END 2023-06-15 13:18 | disposition home or self-care (01) ==
LOC: HO.LAB 13:17
PROVIDERS: Internal Medicine Hypertension Specialist; PCP Family Medicine; Visit Provider Nurse Practitioner
DX: I42.8 Other cardiomyopathies (principal); I50.22 Chronic systolic (congestive) heart failure; N18.4 Chronic kidney disease, stage 4 (severe)
CPT/HCPCS: 36415; 80053; 80061; 83880; 83970; 85025; 86803; 99212

== ENCOUNTER 2023-06-15 13:17 | Outpatient (AMB) | payer MEDICAID, SELFPAY ==
--- NOTE | 2023-06-15 13:33 | MHC.OFFVIS ---
Vital Signs 06/15/23 13:34 Height 5 ft 5 in Weight 143 lb 4.807 oz BMI 23.8 BP 138/80 Blood Pressure Location Lt brachial Position Sitting Pulse 89 Pulse Source Pulse Oximeter Pulse Oximetry (%) 96 Oxygen Delivery Method Room Air Intake Visit Reasons: r/s 06/09/23 6 wks followup Intake Note: 6 week follow up pt legs are swollen Utilization Management Nurse Required: Yes Utilization Management Nurse Name: JOHNNIE [id number] Allergies No Known Allergies Allergy (Verified 06/09/23 10:23) Medication List - Last Reconciled 06/15/23 by Katerin Hogue NP amlodipine 5 mg PO DAILY apixaban (Eliquis) 2.5 mg PO BID atorvastatin 80 mg PO BEDTIME calcitriol 0.25 mcg PO DAILY clopidogrel 75 mg PO DAILY donepezil 5 mg PO BEDTIME ferrous sulfate 324 mg PO DAILY insulin glargine 15 units subcut BEDTIME insulin lispro (Humalog KwikPen (U-100) Insulin) 1 sliding scale dose subcut USEASDIRECTD insulin lispro (Humalog KwikPen (U-100) Insulin) 1 sliding scale dose See Protocol subcut USEASDIRECTD insulin lispro 1 sliding scale dose subcut USEASDIRECTD melatonin 6 mg (2 x 3 mg) PO BEDTIME PRN mirtazapine 30 mg PO BEDTIME omeprazole 40 mg PO DAILY pantoprazole (Protonix) 40 mg IVPUSH DAILY@0630 sodium bicarbonate 650 mg PO TID torsemide 20 mg PO BID 14 days HPI Comments Details: 48-year-old male presents today for a follow-up. He has a medical history of chronic kidney disease, diabetes, vascular dementia, and anemia. He was found to be fluid overloaded, with acute kidney injury, and his echo revealed suspicion for amyloidosis. He presents with his brother and mother today. His brother and mother do most of the talking. They all deny any reports of chest pains, shortness of breath, dizziness, or any other concerns. He has been eating well and home and has not smoked or drank. They report he has had some swelling in his ankles recently. It has gone down. He has not heard regarding the MRI yet. [facility] Medical History (Updated 06/15/23 @ 14:06 by Katerin Hogue NP) Infiltrative cardiomyopathy Anemia in chronic kidney disease (CKD) Pneumonia CKD (chronic kidney disease) stage 4, GFR 15-29 ml/min Congestive heart failure GRISEL (acute kidney injury) CKD (chronic kidney disease) Hyperglycemia Elevated serum creatinine Chronic kidney disease History of insulin dependent diabetes mellitus Mood disorder Vascular dementia CVA (cerebral vascular accident) DVT (deep venous thrombosis) Social History Household Members: Family Housing: Apartment Do you presently have visiting nurse or other home services: No Comment: pt is low falls risk Patient Tobacco Use Status: Former Tobacco user Quit Date: 04/09/23 Tobacco use type: Cigarette Cigarette Packs Per Day: 0.5 Cigarettes Per Day: 10.0 Years Smoked: 7 e-Cigarette/Vaping Use: Never Used Second Hand Smoke Exposure: No Substance Use Type: Crack/Cocaine, IV Drugs and Opiates service: No Review of Systems Const Denies weakness ENT Denies dizziness Card Denies chest pain, Denies chest pain with activity, Denies syncope, Denies rapid heart rate, Denies pedal edema, Denies edema, Denies leg edema, Denies lightheadedness, Denies palpitations, Denies dyspnea, Denies dyspnea on exertion and Denies orthopnea Resp Denies cough, Denies dyspnea and Denies dyspnea on exertion GI Denies hematochezia and Denies change in stool character Musc Denies abnormal gait, Denies muscle cramps, Denies muscle weakness, Denies numbness, Denies radiating pain into limb and Denies tingling Neuro Denies abnormal gait, Denies dizziness, Denies syncope, Denies numbness, Denies tingling and Denies weakness Endo Denies palpitations Physical Exam Vital Signs: Last Vital Signs Pulse 89 06/15/23 13:34 BP 138/80 06/15/23 13:34 Pulse Ox 96 06/15/23 13:34 Oxygen Delivery Method Room Air 06/15/23 13:34 BMI result Body Mass Index 23.8 Assessment & Plan Assessment & Plan (1) Infiltrative cardiomyopathy: Code(s): I42.8 - Other cardiomyopathies Category: Medical (2) CKD (chronic kidney disease) stage 4, GFR 15-29 ml/min: Code(s): N18.4 - Chronic kidney disease, stage 4 (severe) Category: Medical (3) Congestive heart failure: Code(s): I50.9 - Heart failure, unspecified Category: Medical Qualifiers: Heart failure type: systolic Heart failure chronicity: chronic Qualified Code(s): I50.22 - Chronic systolic (congestive) heart failure Plan 04/02/23 Echocardiogram showed suspicion of amyloidosis. Ordered Cardiac MRI to assess for amyloidosis. Has not been performed yet. We will check on this. He has CKD approaching ESD - follows with nephrology. Discussed in great detail about a low salt diet and daily weights after first void of the day. He has scant amount of swelling in his legs. Will send for lab work. Continue to not smoke or drink alcohol. Will follow-up after MRI. Orders: Orders Basic Metabolic Panel 06/15/23 I42.8 - Other cardiomyopathies B Type Natriuretic Peptide 06/15/23 I42.8 - Other cardiomyopathies Coding Level of Care Code Est Pt Level 4 (81989) Diagnoses Infiltrative cardiomyopathy I42.8 CKD (chronic kidney disease) stage 4, GFR 15-29 ml/min N18.4 Chronic systolic congestive heart failure I50.22 Heart failure type: systolic Heart failure chronicity: chronic
[2023-06-15 13:34] VITALS: BP 138/80; PULSE 89; O2SAT 96; BMI 23.8
== END 2023-06-15 14:31 | disposition home or self-care (01) ==
PROVIDERS: PCP Family Medicine; Visit Provider Nurse Practitioner
DX: I42.8 Other cardiomyopathies (principal); N18.4 Chronic kidney disease, stage 4 (severe); I50.22 Chronic systolic (congestive) heart failure
CPT/HCPCS: 99214

== ENCOUNTER 2023-06-23 11:37 | Outpatient (REF) | payer MEDICAID, SELFPAY ==
[2023-06-23 14:07] LABS: Anion Gap 17 (12-20); Blood Urea Nitrogen 84 mg/dL (9-16); Calcium 8.8 mg/dL (8.4-10.2); Carbon Dioxide 16 mmol/L (22-29); Chloride 111 mmol/L (96-108); Glucose Random 274 mg/dL (60-115); Potassium 4.4 mmol/L (3.3-5.1); Sodium 140 mmol/L (135-145)
[2023-06-23 14:17] LABS: Estimated Glomerular Filt Rate 15
== END 2023-06-23 11:38 | disposition home or self-care (01) ==
LOC: HO.HHCL 11:37
PROVIDERS: Visit Provider Internal Medicine Hypertension Specialist
DX: N18.4 Chronic kidney disease, stage 4 (severe) (principal)
CPT/HCPCS: 36415; 80048

== ENCOUNTER 2023-06-30 11:45 | Outpatient (AMB) | payer MEDICAID, SELFPAY ==
[2023-06-30 11:47] VITALS: BP 146/76; PULSE 83; O2SAT 99; BMI 24.1
--- NOTE | 2023-06-30 11:47 | HO.NEPHOV_ITS ---
Vital Signs 06/30/23 11:47 Height 5 ft 5 in Weight 145 lb BMI 24.1 BP 146/76 H Blood Pressure Location Lt brachial Position Sitting Pulse 83 Pulse Source Pulse Oximeter Pulse Oximetry (%) 99 Oxygen Delivery Method Room Air Intake Visit Reasons: Anemia in CKD/ Retacrit 3 weeks fu/ Confirmed Allergies No Known Allergies Allergy (Verified 06/30/23 11:49) HPI Comments Details: 47-year-old male with pertinent history of CVA, DVT on Eliquis, mood disorder, vascular dementia, history of IV drugs (cocaine) use disorder, chronic kidney disease, gastroesophageal reflux disease, mood disorder who presents to the emergency department for evaluation of elevated blood glucose. Patient was discharged from a rehab facility in [place] after an acute CVA Currently home with family Appetite is good No nausea or vomiting c/o edema [facility] Medical History (Updated 06/30/23 @ 12:02 by Timi Steinberg MD) CKD (chronic kidney disease) stage 4, GFR 15-29 ml/min Infiltrative cardiomyopathy Anemia in chronic kidney disease (CKD) Pneumonia Congestive heart failure GRISEL (acute kidney injury) CKD (chronic kidney disease) Hyperglycemia Elevated serum creatinine Chronic kidney disease History of insulin dependent diabetes mellitus Mood disorder Vascular dementia CVA (cerebral vascular accident) DVT (deep venous thrombosis) Social History Household Members: Family Housing: Apartment Do you presently have visiting nurse or other home services: No Comment: pt is low falls risk Patient Tobacco Use Status: Former Tobacco user Quit Date: 04/09/23 Tobacco use type: Cigarette Cigarette Packs Per Day: 0.5 Cigarettes Per Day: 10.0 Years Smoked: 7 e-Cigarette/Vaping Use: Never Used Second Hand Smoke Exposure: No Substance Use Type: Crack/Cocaine, IV Drugs and Opiates service: No Physical Exam Vital Signs: Last Vital Signs Pulse 83 06/30/23 11:47 BP 146/76 H 06/30/23 11:47 Pulse Ox 99 06/30/23 11:47 Oxygen Delivery Method Room Air 06/30/23 11:47 BMI result Body Mass Index 24.1 Const General: comfortable Nutritional Appearance: well nourished Orientation/consciousness: patient oriented x3 HEENT Head: No normal to inspection Mouth: moist mucous membranes Neck Neck: Yes supple and Yes no JVD Resp Auscultation: clear to auscultation bilaterally, no rales and rub present Cardio Jugular venous distension: no JVD Palpation: no palpable S3 and no palpable S4 Heart sounds: no rubs GI Palpation (GI): Soft to palpation and nontender Percussion: No Fluid wave present General: Yes no CVA tenderness Back/Spine/Pelvis Back: no CVA tenderness Skin General skin exam: no rashes or lesions noted Neuro General: patient oriented x3 Extrem General: Yes no pedal edema and No clubbing Results Reviewed Nephrology Results: Hgb 11.1 g/dl (14.0-18.0) L 06/15/23 WBC 9.9 X10*3/uL (4.8-10.8) 06/15/23 Plt Count 325 X10*3/uL (160-400) 06/15/23 Sodium 140 mmol/L (135-145) 06/23/23 Potassium 4.4 mmol/L (3.3-5.1) 06/23/23 Chloride 111 mmol/L (96-108) H 06/23/23 Carbon Dioxide 16 mmol/L (22-29) L 06/23/23 BUN 84 mg/dL (9-16) H 06/23/23 Creatinine 4.31 mg/dL (0.5-1.4) H* 06/23/23 Calcium 8.8 mg/dL (8.4-10.2) 06/23/23 PTH Intact 238.6 pg/mL (8.7-77.1) H 06/15/23 Urine Protein 100 (2+) mg/dL (Neg-Trace) H 05/08/23 Assessment & Plan Assessment & Plan (1) CKD (chronic kidney disease) stage 4, GFR 15-29 ml/min: Code(s): N18.4 - Chronic kidney disease, stage 4 (severe) Category: Medical (2) Anemia in chronic kidney disease (CKD): Code(s): N18.9 - Chronic kidney disease, unspecified; D63.1 - Anemia in chronic kidney disease Category: Medical Qualifiers: Chronic kidney disease stage: stage 4 (severe) Qualified Code(s): N18.4 - Chronic kidney disease, stage 4 (severe); D63.1 - Anemia in chronic kidney disease Plan CKD approaching ESRD No s/s of uremia Discussed renal replacement therapy in the very near future Once they agree, i will arrange for AVF Mom is yet to decide Anemia REceived REtacrit [id number] U in May HCT improved No Epogen today HTN Optimze BP Keep AMLODIPINE 5 mg dialy(06/09/23) Low salt diet SHPT: On Calcitriol No indication for dialysis today Discussed with family Orders: Orders Parathyroid Hormone Intact 6 Weeks D63.1 - Anemia in chronic kidney disease, N18.4 - Chronic kidney disease, stage 4 (severe) Complete Blood Count Auto Diff 6 Weeks D63.1 - Anemia in chronic kidney disease, N18.30 - Chronic kidney disease, stage 3 unspecified, N18.4 - Chronic kidney disease, stage 4 (severe) Basic Metabolic Panel 6 Weeks D63.1 - Anemia in chronic kidney disease, N18.4 - Chronic kidney disease, stage 4 (severe) Coding Level of Care Code Est Pt Level 4 (81715) Diagnoses CKD (chronic kidney disease) stage 4, GFR 15-29 ml/min N18.4 Anemia in stage 4 chronic kidney disease N18.4; D63.1 Chronic kidney disease stage: stage 4 (severe)
== END 2023-06-30 12:06 | disposition home or self-care (01) ==
PROVIDERS: PCP Family Medicine; Referring Provider Family Medicine; Visit Provider Internal Medicine Hypertension Specialist
DX: N18.4 Chronic kidney disease, stage 4 (severe) (principal); D63.1 Anemia in chronic kidney disease
CPT/HCPCS: 99214

== ENCOUNTER → 2023-06-30 11:45 | Outpatient (BNVA) | payer MEDICAID, SELFPAY | PROVIDERS: PCP Family Medicine; Visit Provider Internal Medicine Hypertension Specialist | DX: N18.4 Chronic kidney disease, stage 4 (severe) (principal); D63.1 Anemia in chronic kidney disease | CPT/HCPCS: 99212 ==

== ENCOUNTER 2023-07-05 18:34 | Emergency (ER) | payer MEDICAID, SELFPAY ==
[2023-07-05 19:07] VITALS: BP 146/76; PULSE 65; RESP 16; TEMP 36.9; O2SAT 99; BMI 23.3
[2023-07-05 19:56] LABS: MANUAL DIFF FLAG NO
[2023-07-05 19:57] LABS: Basophils Absolute Auto 0.1 X10*3/uL (0.0-0.2); Basophils Percent Auto 0.4 % (0-2); Eosinophils Absolute Auto 0.1 X10*3/uL (0.0-0.4); Eosinophils Percent Auto 0.9 % (0-4); Hematocrit 32.7 % (42.0-52.0); Hemoglobin 10.8 g/dl (14.0-18.0); Imm Gran Abs Auto 0.06 X10*3/uL (0.00-0.03); Imm Gran Pct Auto 0.5 % (0.0-0.4); Lymphocytes Absolute Auto 1.7 X10*3/uL (1.2-4.9); Lymphocytes Percent Auto 13.5 % (20-40); Mean Corpuscular Hemoglobin 27.9 pg (27.0-33.0); Mean Corpuscular Volume 84.5 fL (80.0-98.0); Mean Platelet Volume 10.6 fL (9.4-12.4); Monocytes Absolute Auto 0.7 X10*3/uL (0.1-1.2); Monocytes Percent Auto 5.8 % (2-11); Neutrophils Absolute Auto 9.9 x10*3/uL (2.0-8.3); Neutrophils Percent Auto 78.9 % (45-73); Platelet Count 224 X10*3/uL (160-400); Red Blood Count 3.87 X10*6/uL (4.60-5.80); Red Cell Distribution Width 14.4 % (11.0-16.0); White Blood Count 12.6 X10*3/uL (4.8-10.8)
[2023-07-05 20:21] LABS: Ethanol < 10 mg/dL
[2023-07-05 20:25] LABS: Alanine Aminotransferase 43 U/L (0-40); Albumin Level 4.2 g/dL (3.5-5.0); Alkaline Phosphatase 186 U/L (39-117); Anion Gap 21 (12-20); Aspartate Amino Transferase 26 U/L (5-37); Bilirubin Total 0.4 mg/dL (0.0-1.0); Blood Urea Nitrogen 86 mg/dL (9-16); Calcium 9.6 mg/dL (8.4-10.2); Carbon Dioxide 19 mmol/L (22-29); Chloride 106 mmol/L (96-108); Creatinine Clr Calc Pharmacy 14.8; Estimated Glomerular Filt Rate 12; Glucose Random 327 mg/dL (60-115); Sodium 141 mmol/L (135-145); Total Protein 7.2 g/dL (6.5-8.0)
[2023-07-05 21:10] LABS: Appearance Urine Clear; Color Urine Yellow; Glucose Urine UA 500 mg/dL (Negative); Leukocyte Esterase Urine Negative (Negative); Nitrite Urine Negative (Negative); PH 5.5 (5.0-9.0); Specific Gravity - Urine 1.015 (1.005-1.025); UMIC TRIGGER UACC YES; Urine Blood Small (1+) (Negative); Urine Ketones Negative (Negative); Urine Protein 300 (3+) mg/dL (Neg-Trace)
[2023-07-05 21:20] LABS: Amphetamine Screen Urine Not Detected (Not Detect); Barbiturates, Urine Not Detected (Not Detect); Benzodiazepines Screen Urine Not Detected (Not Detect); Buprenorphine Scr Not Detected (Not Detect); Cannabinoid Screen Urine Not Detected (Not Detect); Cocaine Screen Urine Not Detected (Not Detect); Fentanyl, urine Not Detected (Not Detect); Methadone Screen, Urine Not Detected (Not Detect); Opiate Screen Urine Not Detected (Not Detect); Oxycodone Screen Urine Not Detected (Not Detect); Phencyclidine Screen Urine Not Detected (Not Detect)
[2023-07-05 21:25] LABS: Bacteria Urine None Seen (None Seen); Calcium Oxalate Crystals Urine Present; RBC Urine 0-2 /HPF (0-2); Squamous Epithelial Cell Urine 0-2 /HPF (0-2); WBC Urine 0-5 /HPF (0-5)
[2023-07-05] MEDS: Mirtazapine 30 MG TABLET PO (22:10)
[2023-07-05] MEDS: Atorvastatin Calcium 80 MG TABLET PO (22:10)
[2023-07-05] MEDS: Donepezil HCl 5 MG TABLET PO (22:10)
[2023-07-05] MEDS: Torsemide 20 MG TABLET PO (22:10)
[2023-07-05] MEDS: Insulin Glargine,Hum.rec.anlog 100 UNIT/ML 10 ML VIAL 18 UNIT SUBCUT (22:10)
[2023-07-05] MEDS: Apixaban 2.5 MG TABLET PO (22:10)
[2023-07-05] MEDS: Sodium Bicarbonate 650 MG TABLET PO (22:10)
--- NOTE | 2023-07-05 22:12 | ED.PSYCH ---
HPI - Psych General Chief Complaint: Psychiatric Symptoms Stated Complaint: Crisis Evaluation Time Seen by Provider: 07/05/23 19:20 Source: patient and family Mode of arrival: ambulatory Limitations: no limitations History of Present Illness ED Provider: Dr. Tanya Jama HPI Narrative: Patient comes to the emergency room, patient has no idea why he is here. Patient was found in the waiting room by himself. Patient states that he feels well and has no complaints. I spoke with the patient's mother and sister. Patient has history of dementia. 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 According to the patient's mother and sister, today the patient escaped home, was lost for a few hours, police department found the patient wandering in [place]. The sister reports that last year, patient left home when they were living in [place], in the middle of the winter. Patient was found hypothermic, unresponsive and was in ?a coma for several days. Patient's mother requesting to have case management involved for permanent placement. According to the patient's sister, patient got diagnosed with dementia in [place]. Related Data Home Medications ?Medication ?Instructions ?Recorded ?Confirmed insulin glargine 100 unit/mL (3 18 unit subcut BEDTIME 07/05/23 07/05/23 mL) subcutaneous pen (Lantus Solostar U-100 Insulin) insulin lispro 100 unit/mL See Rx Instructions .Route 07/05/23 07/05/23 subcutaneous pen .COMPLEX PRN Hyperglycemia Previous Rx's ?Medication ?Instructions ?Recorded insulin lispro 100 unit/mL 1 sliding scale dose subcut 03/21/23 subcutaneous pen (Humalog KwikPen USEASDIRECTD #15 mL (U-100) Insulin) apixaban 2.5 mg tablet (Eliquis) 2.5 mg PO BID #30 tabs 05/10/23 atorvastatin 80 mg tablet 80 mg PO BEDTIME #30 tabs 05/10/23 calcitriol 0.25 mcg capsule 0.25 mcg PO DAILY #30 caps 05/10/23 clopidogrel 75 mg tablet 75 mg PO DAILY #30 tabs 05/10/23 donepezil 5 mg tablet 5 mg PO BEDTIME #30 tabs 05/10/23 ferrous sulfate 324 mg (65 mg 324 mg PO DAILY #30 tabs 05/10/23 iron) tablet,delayed release melatonin 3 mg tablet 6 mg (2 x 3 mg) PO BEDTIME PRN 05/10/23 Insomnia #60 tabs mirtazapine 30 mg tablet 30 mg PO BEDTIME #30 tabs 05/10/23 omeprazole 40 mg capsule,delayed 40 mg PO DAILY #30 caps 05/10/23 release sodium bicarbonate 650 mg tablet 650 mg PO TID #90 tabs 05/10/23 torsemide 20 mg tablet 20 mg PO BID 14 days #28 tabs 05/21/23 amlodipine 5 mg tablet 5 mg PO DAILY #30 tabs 06/09/23 Allergies Allergy/AdvReac Type Severity Reaction Status Date / Time No Known Allergies Allergy Verified 07/05/23 19:09 Review of Systems Review of Systems: Constitutional : No Weight loss, No Fever, No Chills, No Night Sweats, No Fatigue, No Malaise ENT/Mouth : No Hearing loss, No Ear Pain, No Nasal Congestion, No Sinus Pain, No Hoarseness, No sore throat, No Rhinorrhea, No Swallowing Difficulty Eyes: No Eye Pain, No Swelling, No Redness, No Foreign Body, No Discharge, No Vision Changes Cardiovascular : No Chest Pain, No SOB, No Dyspnea on Exertion, No Orthopnea, No Edema, No Palpitations Respiratory : No Cough, No Sputum, No Wheezing, No Smoke Exposure, No Dyspnea Gastrointestinal : No Nausea, No Vomiting, No Diarrhea, No Constipation, No abdominal Pain, No Hematochezia, No Melena Genitourinary : no irregular bleeding, No Dysuria, No Urinary Frequency, No Hematuria, No Urinary Incontinence, No Urgency, No Flank Pain, No Urinary Flow Changes, No Hesitancy Musculoskeletal : No joint pain, No Myalgias, No Joint Swelling Skin : No Skin Lesions, No rash Neuro : No Weakness, No Numbness, No Paresthesias, No Loss of Consciousness, No Dizziness, No Headache Psych : No Anxiety/Panic, No Depression, No SI/HI/AH/VH, No Social Issues, Heme/Lymph: No Bruising, No Bleeding,No Lymphadenopathy Endocrine : No Polyuria, No Polydipsia, No Temperature Intolerance PMFSH Past Medical History Medical History (Updated 07/05/23 @ 23:41 by Tanya Jama MD) Dementia CKD (chronic kidney disease) stage 4, GFR 15-29 ml/min Infiltrative cardiomyopathy Anemia in chronic kidney disease (CKD) Pneumonia Congestive heart failure GRISEL (acute kidney injury) CKD (chronic kidney disease) Hyperglycemia Elevated serum creatinine Chronic kidney disease History of insulin dependent diabetes mellitus Mood disorder Vascular dementia CVA (cerebral vascular accident) DVT (deep venous thrombosis) Social History Social History Household Members: Family Housing: Apartment Do you presently have visiting nurse or other home services: No Comment: pt is low falls risk Patient Tobacco Use Status: Former Tobacco user Quit Date: 04/09/23 Tobacco use type: Cigarette Cigarette Packs Per Day: 0.5 Cigarettes Per Day: 10.0 Years Smoked: 7 e-Cigarette/Vaping Use: Never Used Second Hand Smoke Exposure: No Substance Use Type: Crack/Cocaine, IV Drugs and Opiates Advance Directives: Yes Advance Directives on File: Yes Advance Directives Date on File: 04/05/23 Do you have a plan to hurt others: No Plan service: No Physical Exam Vital Signs: Vital Signs: Last Vital Signs Temp 98.4 F 07/05/23 19:07 Pulse 65 07/05/23 19:07 Resp 16 07/05/23 19:07 BP 146/76 H 07/05/23 19:07 Pulse Ox 99 07/05/23 19:07 O2 Del Method Room Air 07/05/23 19:07 BMI result Body Mass Index 23.3 Const: Other: Appearance: Alert. No acute distress, well-appearing Eyes: Pupils equal, round and reactive to light. ENT: Pharynx normal. Neck: Normal inspection. Neck supple. No lymph nodes noted. No crepitus CVS: Normal heart rate and rhythm. Pulses normal. Normal S1 and S2 Respiratory: No respiratory distress. Breath sounds normal. No Wheezing. No rales Abdomen: Soft and nontender. No rigidity. No distention. Skin: Skin warm and dry. Normal skin color. Normal skin turgor. Extremities: No lower extremity edema. No Lacerations. No Rash Neuro: No motor deficit. No sensory deficit. Moving all extremities. No slurred speech. CN 2 through 12 grossly intact Psych: calm, cooperative, normal affect Medications Administered Generic Name Dose Route Start Last Admin Trade Name Freq PRN Reason Stop Dose Admin Apixaban 2.5 mg 07/05/23 22:00 07/05/23 22:10 Apixaban 2.5 Mg Tablet PO 2.5 mg BID JETHRO Administration Atorvastatin Calcium 80 mg 07/05/23 22:00 07/05/23 22:10 Atorvastatin Calcium 80 Mg Tablet PO 80 mg BEDTIME JETHRO Administration Donepezil HCl 5 mg 07/05/23 22:00 07/05/23 22:10 Donepezil Hcl 5 Mg Tablet PO 5 mg BEDTIME JETHRO Administration Insulin Glargine 18 unit 07/05/23 22:00 07/05/23 22:10 Insulin Glargine,Hum.Rec.Anlog 100 Unit/Ml 10 Ml Vial SUBCUT 18 unit BEDTIME JETHRO Administration Mirtazapine 30 mg 07/05/23 22:00 07/05/23 22:10 Mirtazapine 30 Mg Tablet PO 30 mg BEDTIME JETHRO Administration Sodium Bicarbonate 650 mg 07/05/23 22:00 07/05/23 22:10 Sodium Bicarbonate 650 Mg Tablet PO 650 mg TID JETHRO Administration Torsemide 20 mg 07/05/23 22:00 07/05/23 22:10 Torsemide 20 Mg Tablet PO 20 mg BID JETHRO Administration Protocol Medical Decision Making Medical Decision Making [facility] Narrative: -my interpretation of labs: Patient's white blood cell count is 12.6, patient has no signs of infection. Patient's chemistry shows a creatinine of 5.05, patient known to have chronic kidney disease secondary to type 2 diabetes. Patient has a glucose of 327, patient will be receiving his home medications and insulin based on sliding scale. -case management consult pending. At this time, recommendations per case management: Care team consult, since patient is too young to have dementia, although may be vascular dementia from the CVA? -care team consult pending -patient is voluntarily here, no SI or HI, section 12 his not indicated Physician of sedation started at 22:10 Differential Diagnosis Differential Diagnoses: The differential diagnosis associated with the presentation includes (Polysubstance abuse, dementia, UTI) Admission/Observation Consideration of admission/observation: Escalation of care including admission/observation considered (Patient under physician observation willing to be seen by the care team) Lab Data [facility] Lab Attestation statement: I reviewed the patient's lab results. 07/05/23 19:50 07/05/23 19:50 Labs: Lab Results 05/21/24 05/21/24 Range/Units 19:50 21:00 WBC 12.6 H (4.8-10.8) X10*3/uL RBC 3.87 L (4.60-5.80) X10*6/uL Hgb 10.8 L (14.0-18.0) g/dl Hct 32.7 L (42.0-52.0) % MCV 84.5 (80.0-98.0) fL MCH 27.9 (27.0-33.0) pg MCHC 33.0 (31.0-36.0) g/dl RDW 14.4 (11.0-16.0) % Plt Count 224 D (160-400) X10*3/uL MPV 10.6 (9.4-12.4) fL Immature Gran % (Auto) 0.5 H (0.0-0.4) % Neut % (Auto) 78.9 H (45-73) % Lymph % (Auto) 13.5 L (20-40) % Fountain % (Auto) 5.8 (2-11) % Eos % (Auto) 0.9 (0-4) % Baso % (Auto) 0.4 (0-2) % Lymph # (Auto) 1.7 (1.2-4.9) X10*3/uL Fountain # (Auto) 0.7 (0.1-1.2) X10*3/uL Eos # (Auto) 0.1 (0.0-0.4) X10*3/uL Baso # (Auto) 0.1 (0.0-0.2) X10*3/uL Abs Immat Gran (auto) 0.06 H (0.00-0.03) X10*3/uL Absolute Neuts (auto) 9.9 H (2.0-8.3) x10*3/uL Absolute Nucleated RBC 0.000 (0.0-0.012) X10*3/uL Nucleated RBC % (auto) 0.0 (0.0-0.2) /100WBC Sodium 141 (135-145) mmol/L Potassium 5.0 (3.3-5.1) mmol/L Chloride 106 (96-108) mmol/L Carbon Dioxide 19 L (22-29) mmol/L Anion Gap 21 H (12-20) BUN 86 H (9-16) mg/dL Creatinine 5.05 H* (0.5-1.4) mg/dL Estim Creat Clear Calc 14.8 Estimated GFR 12 Random Glucose 327 H (60-115) mg/dL Calcium 9.6 D (8.4-10.2) mg/dL Total Bilirubin 0.4 (0.0-1.0) mg/dL AST 26 (5-37) U/L ALT 43 H (0-40) U/L Alkaline Phosphatase 186 H (39-117) U/L Total Protein 7.2 (6.5-8.0) g/dL Albumin 4.2 (3.5-5.0) g/dL Urine Color Yellow Urine Appearance Clear Urine pH 5.5 (5.0-9.0) Ur Specific [place] 1.015 (1.005-1.025) Urine Protein 300 (3+) H (Neg-Trace) mg/dL Urine Glucose (UA) 500 H (Negative) mg/dL Urine Ketones Negative (Negative) mg/dL Urine Blood Small (1+) H (Negative) Urine Nitrite Negative (Negative) Ur Leukocyte Esterase Negative (Negative) Urine RBC 0-2 (0-2) /HPF Urine WBC 0-5 (0-5) /HPF Ur Squamous Epith Cells 0-2 (0-2) /HPF Calcium Oxalate Crystal Present Urine Bacteria None Seen (None Seen) Hyaline Casts 6-10 (0-2) /LPF Urine Opiates Screen Not Detected (Not Detect) Ur Buprenorphine Scrn Not Detected (Not Detect) ng/mL Ur Oxycodone Screen Not Detected (Not Detect) ng/mL Urine Methadone Screen Not Detected (Not Detect) ng/mL Urine Fentanyl Screen Not Detected (Not Detect) Ur Barbiturates Screen Not Detected (Not Detect) Ur Phencyclidine Scrn Not Detected (Not Detect) Ur Amphetamines Screen Not Detected (Not Detect) U Benzodiazepines Scrn Not Detected (Not Detect) Urine Cocaine Screen Not Detected (Not Detect) U Marijuana (THC) Screen Not Detected (Not Detect) Ethyl Alcohol < 10 mg/dL Critical Care Time Critical Care Time Critical Care Time: Yes Total Critical Care Time: 35 Attestation: I have personally provided critical care time. Time includes review of lab data, radiology results, discussion with consultants, and monitoring for potential decompensation. Intervention performed as documented. Discharge Plan Discharge Clinical Impression: Dementia Patient Disposition: Home, Self-Care Prescriptions: No Action torsemide 20 mg tablet 20 mg PO BID 14 Days Qty: 28 0RF insulin glargine [Lantus Solostar U-100 Insulin] 100 unit/mL (3 mL) insulin pen 18 unit subcut BEDTIME insulin lispro 100 unit/mL insulin pen See Rx Instructions .ROUTE .COMPLEX PRN (Reason: Hyperglycemia) Rx Instructions: see above insulin lispro [Humalog KwikPen Insulin] 100 unit/mL Insulin Pen 1 sliding scale dose SUBCUT USEASDIRECTD Qty: 15 0RF Protocol: Insulin Correction Scale Less than or equal to 110 ---- Give (units): 0 111 to 150 Give (units): 0 151 to 200 Give (units): 2 201 to 250 Give (units): 4 251 to 300 Give (units): 6 301 to 350 Give (units): 8 Greater than 350 Give (units): 10 Call MD if Blood Glucose > : 450 atorvastatin 80 mg Tablet 80 mg PO BEDTIME Qty: 30 3RF donepezil 5 mg Tablet 5 mg PO BEDTIME Qty: 30 3RF melatonin 3 mg Tablet 6 mg PO BEDTIME PRN (Reason: Insomnia) Qty: 60 3RF clopidogrel 75 mg Tablet 75 mg PO DAILY Qty: 30 3RF sodium bicarbonate 650 mg Tablet 650 mg PO TID Qty: 90 3RF mirtazapine 30 mg Tablet 30 mg PO BEDTIME Qty: 30 3RF ferrous sulfate 324 mg (65 mg iron) Tablet,Delayed Release (Dr/Ec) 324 mg PO DAILY Qty: 30 3RF Eliquis 2.5 mg Tablet 2.5 mg PO BID Qty: 30 3RF calcitriol 0.25 mcg Capsule 0.25 mcg PO DAILY Qty: 30 3RF omeprazole 40 mg capsule,delayed release(DR/EC) 40 mg PO DAILY Qty: 30 3RF amlodipine 5 mg tablet 5 mg PO DAILY Qty: 30 0RF Interventions: [place]-Suicide Risk Severity Scale Last Done: 07/05/23 21:35 Print Language: Portuguese
[2023-07-06 06:26] VITALS: BP 125/78; PULSE 70; RESP 16; TEMP 36.8; O2SAT 100
--- NOTE | 2023-07-06 06:55 | PC.NURSE ---
Patient slept through the night, no distress observed/reported, VSS, case management consult ordered, pending evaluation, patient's Creatinine 5.05 provider notified/no new order, CC made aware of the case, will continue to monitor
--- NOTE | 2023-07-06 07:08 | PC.NURSE ---
Assumed care of patient at 0645. Patient is observed sleeping in their bed. No signs of distress observed/reported. Breathing is even and unlabored.
[2023-07-06] MEDS: Omeprazole 40 MG CAPSULE.DR PO (07:15)
[2023-07-06] MEDS: Torsemide 20 MG TABLET PO ×2 (08:35→20:20)
[2023-07-06] MEDS: Sodium Bicarbonate 650 MG TABLET PO ×3 (08:35→20:23)
[2023-07-06] MEDS: Ferrous Sulfate 324 MG TABLET.DR PO (08:36)
[2023-07-06] MEDS: Apixaban 2.5 MG TABLET PO ×2 (08:36→20:23)
[2023-07-06] MEDS: amLODIPine Besylate 5 MG TABLET PO (08:36)
[2023-07-06] MEDS: Clopidogrel Bisulfate 75 MG TABLET PO (08:36)
[2023-07-06] MEDS: calcitrioL 0.25 MCG CAPSULE PO (09:09)
[2023-07-06 11:39] LABS: Glucose, Whole Blood 292 mg/dL (60-115)
[2023-07-06] MEDS: Insulin Lispro 100 UNIT/ML 3 ML VIAL SUBCUT ×3 (11:57→20:24)
--- NOTE | 2023-07-06 12:57 | MHC.CM.ED ---
Received case management consult overnight. Care team consult is still pending. Will defer CM until cleared by Care Team.
[2023-07-06] MEDS: Acetaminophen 325 MG TABLET 650 MG PO (15:27)
--- NOTE | 2023-07-06 15:33 | MHC.CM.ED ---
Received case management consult overnight. Patient came to the ER after he was found wandering. Work up essentially negative. 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 Patient has been living with his mother/HCP, Tracey since then. Met with patient, mother Tracey, brother Yeyo and staff interpreter. Tracey verifies patient lives with her ambulates independently and had no services prior to coming to the hospital. Patient has been eloping recently, making it difficult to provide 24/7 care for patient. Tracey recently has developed some medical issues. Due to elopement risk, patient will need locked unit. Referral broadcasted in [facility] within 25 miles. At this time [facility] has a bed and is reviewing to see if they can offer a bed. Tracey aware and would agree to bed at [facility] if they are able to offer. Patient is agreeable to placement at this time. Continue to monitor for d/c needs.
[2023-07-06 16:49] VITALS: BP 130/74; PULSE 84; RESP 16; TEMP 37.1; O2SAT 99
[2023-07-06 18:13] LABS: Glucose, Whole Blood 167 mg/dL (60-115)
[2023-07-06 18:20] LABS: COVID-19 Test Negative (Negative); IDNOW Serial# 58CA691E
[2023-07-06 20:10] LABS: Glucose, Whole Blood 365 mg/dL (60-115)
[2023-07-06 20:20] VITALS: BP 119/72
[2023-07-06] MEDS: Mirtazapine 30 MG TABLET PO (20:20)
[2023-07-06] MEDS: Atorvastatin Calcium 80 MG TABLET PO (20:20)
[2023-07-06] MEDS: Donepezil HCl 5 MG TABLET PO (20:23)
[2023-07-06] MEDS: Insulin Glargine,Hum.rec.anlog 100 UNIT/ML 10 ML VIAL 18 UNIT SUBCUT (20:24)
[2023-07-06 20:25] VITALS: BP 119/72; PULSE 79; RESP 18; TEMP 36.8; O2SAT 98
[2023-07-07 00:20] LABS: Glucose, Whole Blood 354 mg/dL (60-115)
[2023-07-07 00:57] VITALS: BP 136/80; PULSE 82; RESP 16; TEMP 36.4; O2SAT 99
[2023-07-07] MEDS: Omeprazole 40 MG CAPSULE.DR PO (06:03)
--- NOTE | 2023-07-07 06:43 | PC.NURSE ---
Patient slept through the night, no distress observed/reported, denied SI/HI/AVH, patient is case management pending placement, VSS, meds and meals compliant, HS POC was 365 covered with 10 units as ordered, will continue to monitor
[2023-07-07 07:48] LABS: Glucose, Whole Blood 174 mg/dL (60-115)
[2023-07-07] MEDS: Insulin Lispro 100 UNIT/ML 3 ML VIAL SUBCUT ×4 (07:52→20:12)
[2023-07-07] MEDS: Apixaban 2.5 MG TABLET PO ×2 (09:06→20:11)
[2023-07-07] MEDS: Torsemide 20 MG TABLET PO ×2 (09:06→20:13)
[2023-07-07] MEDS: Ferrous Sulfate 324 MG TABLET.DR PO (09:06)
[2023-07-07] MEDS: Clopidogrel Bisulfate 75 MG TABLET PO (09:06)
[2023-07-07] MEDS: amLODIPine Besylate 5 MG TABLET PO (09:06)
[2023-07-07] MEDS: Sodium Bicarbonate 650 MG TABLET PO ×3 (09:06→20:11)
[2023-07-07 09:11] LABS: Glucose, Whole Blood 326 mg/dL (60-115)
--- NOTE | 2023-07-07 09:35 | PC.NURSE ---
Assumed care of patient at 0645, patient appears to be in no apparent distress this morning, respirations even and unlabored, skin pwd. Patient's blood sugars have been elevated today and yesterday. MD aware. Continue plan of care for case management follow up
[2023-07-07 09:39] LABS: Glucose, Whole Blood 322 mg/dL (60-115)
[2023-07-07] MEDS: calcitrioL 0.25 MCG CAPSULE PO (09:44)
[2023-07-07 13:10] LABS: Glucose, Whole Blood 282 mg/dL (60-115)
[2023-07-07 14:00] VITALS: RESP 14
--- NOTE | 2023-07-07 17:34 | PC.NURSE ---
Patient has has uneventful day thus far, had two family visitors, slept and ate 100% of meals. Patient calm and cooperative, offering no complaints. Continue plan of care for case management follow up
[2023-07-07 18:41] LABS: Glucose, Whole Blood 345 mg/dL (60-115)
[2023-07-07 20:07] LABS: Glucose, Whole Blood 360 mg/dL (60-115)
[2023-07-07] MEDS: Atorvastatin Calcium 80 MG TABLET PO (20:11)
[2023-07-07] MEDS: Donepezil HCl 5 MG TABLET PO (20:11)
[2023-07-07 20:13] VITALS: BP 145/78
[2023-07-07] MEDS: Insulin Glargine,Hum.rec.anlog 100 UNIT/ML 10 ML VIAL 18 UNIT SUBCUT (20:13)
[2023-07-07 20:15] VITALS: BP 145/78; PULSE 89; RESP 16; TEMP 36.9; O2SAT 98
[2023-07-07] MEDS: Mirtazapine 30 MG TABLET PO (20:15)
[2023-07-07 21:26] LABS: Glucose, Whole Blood 158 mg/dL (60-115)
[2023-07-08 02:42] VITALS: BP 128/79; PULSE 86; RESP 16; TEMP 36.7; O2SAT 100
[2023-07-08] MEDS: Omeprazole 40 MG CAPSULE.DR PO (06:15)
--- NOTE | 2023-07-08 06:19 | PC.NURSE ---
Patient slept through the night, no distress observed/reported, meds and meals compliant, case management pending placement, VSS, will continue to monitor
[2023-07-08 07:26] LABS: Glucose, Whole Blood 169 mg/dL (60-115)
[2023-07-08] MEDS: Insulin Lispro 100 UNIT/ML 3 ML VIAL SUBCUT ×4 (07:31→20:55)
--- NOTE | 2023-07-08 07:35 | PC.NURSE ---
Assumed care of patient at 0645, patient up in bed getting ready for breakfast. Blood glucose improving from previous days readings. 2 units administered per APR protocol. Patient offering no complaints to this RN at this time. Continue plan of care for case management follow up
[2023-07-08] MEDS: Clopidogrel Bisulfate 75 MG TABLET PO (08:22)
[2023-07-08] MEDS: calcitrioL 0.25 MCG CAPSULE PO (08:22)
[2023-07-08] MEDS: Apixaban 2.5 MG TABLET PO ×2 (08:22→20:55)
[2023-07-08] MEDS: amLODIPine Besylate 5 MG TABLET PO (08:24)
[2023-07-08] MEDS: Sodium Bicarbonate 650 MG TABLET PO ×3 (08:24→19:41)
[2023-07-08] MEDS: Torsemide 20 MG TABLET PO ×2 (08:24→19:41)
[2023-07-08] MEDS: Ferrous Sulfate 324 MG TABLET.DR PO (08:25)
--- NOTE | 2023-07-08 08:50 | MHC.CM.ED ---
Addendum entered by Huma Bull 07/08/23 12:41: [facility] is not able to offer a bed. Referral broadcasted within 50 miles to all facilities that are contracted with [facility]. Original Note: Patient remains in ER BH Pod. [facility] is not able to offer a bed due to his age. [facility] is reviewing. Continue to monitor for d/c needs.
[2023-07-08] MEDS: Acetaminophen 325 MG TABLET 650 MG PO (12:01)
[2023-07-08 13:08] LABS: Glucose, Whole Blood 379 mg/dL (60-115)
--- NOTE | 2023-07-08 13:13 | PC.NURSE ---
aware of elevated POC
[2023-07-08 14:15] VITALS: BP 124/71; PULSE 84; RESP 16; TEMP 36.3; O2SAT 99
[2023-07-08 14:21] LABS: Glucose, Whole Blood 331 mg/dL (60-115)
--- NOTE | 2023-07-08 17:44 | MHC.CM.ED ---
CM spoke with brother and mother at length, as they had questions about placement. They understand that CM has referred 50 miles, but would like something closer. They are aware that [facility] cannot offer a bed, and [facility] cannot offer a bed.They are aware that patient needs a locked unit, as he wonders. They had concerns about patient taking medications. Reviewed MAR with them; pt is med compliant. They are concerned about patient kidney and cardiac functions, as patient has specialists for this. Dr. Lam aware. Will order appropriate labs. Family very worried about patient but admit they can no longer care for him. They are both weepy. CM offered emotional support. Family has CM contact information and are aware they can visit patient. CM will follow for safe discharge plan.
[2023-07-08 18:17] LABS: Glucose, Whole Blood 377 mg/dL (60-115)
--- NOTE | 2023-07-08 19:12 | PC.NURSE ---
patient appears to remain at rest at present respirations are even are unlabored patient appears in no distress.
[2023-07-08] MEDS: Lidocaine 4 % Patch ADH..PATCH 1 PATCH TRANSDERMA (19:39)
[2023-07-08] MEDS: Insulin Glargine,Hum.rec.anlog 100 UNIT/ML 10 ML VIAL 20 UNIT SUBCUT (19:40)
[2023-07-08] MEDS: Donepezil HCl 5 MG TABLET PO (19:41)
[2023-07-08] MEDS: Mirtazapine 30 MG TABLET PO (19:41)
[2023-07-08] MEDS: Atorvastatin Calcium 80 MG TABLET PO (19:41)
[2023-07-08 19:50] VITALS: BP 141/76; PULSE 93; RESP 16; TEMP 37.3; O2SAT 99
[2023-07-08 20:54] LABS: Glucose, Whole Blood 238 mg/dL (60-115)
[2023-07-09 04:54] LABS: Glucose, Whole Blood 163 mg/dL (60-115)
[2023-07-09 04:55] VITALS: BP 123/76; PULSE 85; RESP 16; TEMP 36.8; O2SAT 100
[2023-07-09 07:18] LABS: Glucose, Whole Blood 197 mg/dL (60-115)
[2023-07-09] MEDS: Sodium Bicarbonate 650 MG TABLET PO ×3 (07:56→21:03)
[2023-07-09] MEDS: Clopidogrel Bisulfate 75 MG TABLET PO (07:56)
[2023-07-09] MEDS: Torsemide 20 MG TABLET PO ×2 (07:56→20:55)
[2023-07-09] MEDS: Apixaban 2.5 MG TABLET PO ×2 (07:56→20:55)
[2023-07-09] MEDS: Omeprazole 40 MG CAPSULE.DR PO (07:56)
[2023-07-09] MEDS: amLODIPine Besylate 5 MG TABLET PO (07:57)
[2023-07-09] MEDS: Ferrous Sulfate 324 MG TABLET.DR PO (07:58)
[2023-07-09] MEDS: Insulin Lispro 100 UNIT/ML 3 ML VIAL SUBCUT ×4 (07:58→20:56)
[2023-07-09 08:02] VITALS: BP 165/92; PULSE 88; RESP 15; TEMP 37.1; O2SAT 100
[2023-07-09] MEDS: calcitrioL 0.25 MCG CAPSULE PO (08:15)
[2023-07-09 13:04] LABS: Glucose, Whole Blood 284 mg/dL (60-115)
[2023-07-09 13:31] VITALS: RESP 18
[2023-07-09 13:43] VITALS: RESP 18
[2023-07-09 16:44] VITALS: BP 105/60; PULSE 84; RESP 16; TEMP 36.8; O2SAT 96
[2023-07-09 18:30] LABS: Glucose, Whole Blood 227 mg/dL (60-115)
--- NOTE | 2023-07-09 19:44 | PC.NURSE ---
patient appears to remain at rest at present respirations are even and unlabored patient appears in no distress.
[2023-07-09 20:44] LABS: Glucose, Whole Blood 229 mg/dL (60-115)
[2023-07-09] MEDS: Atorvastatin Calcium 80 MG TABLET PO (20:55)
[2023-07-09] MEDS: Donepezil HCl 5 MG TABLET PO (20:55)
[2023-07-09] MEDS: Mirtazapine 30 MG TABLET PO (20:55)
[2023-07-09] MEDS: Insulin Glargine,Hum.rec.anlog 100 UNIT/ML 10 ML VIAL 20 UNIT SUBCUT (20:56)
[2023-07-10 04:06] LABS: Glucose, Whole Blood 263 mg/dL (60-115)
[2023-07-10 04:07] VITALS: BP 131/78; PULSE 90; RESP 16; TEMP 36.1; O2SAT 97
[2023-07-10 06:42] LABS: Glucose, Whole Blood 265 mg/dL (60-115)
--- NOTE | 2023-07-10 07:07 | PC.NURSE ---
Assumed care of patient at 0645. Patient is observed resting quietly in their bed. No signs of distress observed. Breathing is even and unlabored. Will continue plan of care.
[2023-07-10] MEDS: Insulin Lispro 100 UNIT/ML 3 ML VIAL SUBCUT ×4 (07:36→20:38)
[2023-07-10] MEDS: Omeprazole 40 MG CAPSULE.DR PO (07:37)
[2023-07-10 07:47] VITALS: BP 143/90; PULSE 91; RESP 16; TEMP 36.8; O2SAT 100
[2023-07-10] MEDS: Ferrous Sulfate 324 MG TABLET.DR PO (08:47)
[2023-07-10] MEDS: Apixaban 2.5 MG TABLET PO ×2 (08:47→20:31)
[2023-07-10] MEDS: Torsemide 20 MG TABLET PO ×2 (08:47→20:31)
[2023-07-10] MEDS: amLODIPine Besylate 5 MG TABLET PO (08:47)
[2023-07-10] MEDS: Clopidogrel Bisulfate 75 MG TABLET PO (08:48)
[2023-07-10] MEDS: Sodium Bicarbonate 650 MG TABLET PO ×3 (08:48→20:31)
[2023-07-10] MEDS: Acetaminophen 325 MG TABLET 650 MG PO (09:09)
[2023-07-10] MEDS: calcitrioL 0.25 MCG CAPSULE PO (09:15)
[2023-07-10] MEDS: Lidocaine 4 % Patch ADH..PATCH 1 PATCH TRANSDERMA (10:51)
[2023-07-10 11:36] LABS: Glucose, Whole Blood 320 mg/dL (60-115)
[2023-07-10 16:46] LABS: Glucose, Whole Blood 257 mg/dL (60-115)
[2023-07-10] MEDS: Acetaminophen 325 MG TABLET 975 MG PO (18:03)
--- NOTE | 2023-07-10 19:34 | PC.NURSE ---
patient appears to remain at rest at present respirations are even and are unlabored, patient did ask for analgesic for back pain and had received tylenol around 1800. patient appears in no distress
[2023-07-10] MEDS: Atorvastatin Calcium 80 MG TABLET PO (20:31)
[2023-07-10] MEDS: Donepezil HCl 5 MG TABLET PO (20:31)
[2023-07-10] MEDS: Mirtazapine 30 MG TABLET PO (20:32)
[2023-07-10 20:33] VITALS: BP 166/96; PULSE 92; RESP 15; TEMP 36.8; O2SAT 98
[2023-07-10] MEDS: Insulin Glargine,Hum.rec.anlog 100 UNIT/ML 10 ML VIAL 20 UNIT SUBCUT (20:38)
[2023-07-10 20:52] LABS: Glucose, Whole Blood 290 mg/dL (60-115)
--- NOTE | 2023-07-11 03:28 | PC.NURSE ---
pt resting comfortably with eyes closed, breathing even and unlabored, no apparent distress noted at this time
--- NOTE | 2023-07-11 06:24 | PC.NURSE ---
pt reporting a slight nose bleed when he blew his nose, now resolved.
[2023-07-11 06:33] VITALS: BP 134/82; PULSE 86; RESP 15; TEMP 36.7; O2SAT 98
[2023-07-11 06:47] LABS: Glucose, Whole Blood 178 mg/dL (60-115)
--- NOTE | 2023-07-11 06:53 | PC.NURSE ---
Assumed care of patient at 0645. Patient is observed taking a shower. No signs of distress observed. Breathing is even and unlabored. Will continue plan of care.
[2023-07-11] MEDS: Insulin Lispro 100 UNIT/ML 3 ML VIAL SUBCUT ×4 (07:26→20:16)
[2023-07-11] MEDS: Omeprazole 40 MG CAPSULE.DR PO (07:26)
[2023-07-11] MEDS: Lidocaine 4 % Patch ADH..PATCH 1 PATCH TRANSDERMA (07:41)
[2023-07-11] MEDS: Acetaminophen 325 MG TABLET 975 MG PO (07:42)
[2023-07-11] MEDS: Ferrous Sulfate 324 MG TABLET.DR PO (08:51)
[2023-07-11] MEDS: amLODIPine Besylate 5 MG TABLET PO (08:51)
[2023-07-11] MEDS: Apixaban 2.5 MG TABLET PO ×2 (08:52→20:15)
[2023-07-11] MEDS: Clopidogrel Bisulfate 75 MG TABLET PO (08:52)
[2023-07-11] MEDS: Sodium Bicarbonate 650 MG TABLET PO ×3 (08:52→20:15)
[2023-07-11] MEDS: Torsemide 20 MG TABLET PO ×2 (08:52→20:18)
[2023-07-11] MEDS: Cyclobenzaprine HCl 5 MG TABLET PO (09:20)
[2023-07-11 11:34] LABS: Glucose, Whole Blood 381 mg/dL (60-115)
[2023-07-11] MEDS: calcitrioL 0.25 MCG CAPSULE PO (11:56)
--- NOTE | 2023-07-11 12:01 | PC.NURSE ---
POC Check Communication PT's POC was 381. Dr. Guzman aware. Covered with 10 units of insulin. Will continue plan of care.
[2023-07-11 14:00] VITALS: BP 157/89; PULSE 87; TEMP 37.2; O2SAT 99
[2023-07-11 16:37] LABS: Glucose, Whole Blood 166 mg/dL (60-115)
--- NOTE | 2023-07-11 17:45 | PC.NURSE ---
Nursing Communication PT was concerned about possibly having low blood sugar. Vocational Rehabilitation Counselor checked patients POC and it was a 191. At 1630 the POC was 166 and the patient got 2 units of insulin coverage per sliding scale. ZEN Maria was made aware. Orders are to monitor the patient until next scheduled POC at 2100 when the patient will be covered again by a sliding scale as well as lantus. Will continue plan of care and observation.
[2023-07-11 20:14] LABS: Glucose, Whole Blood 191 mg/dL (60-115)
[2023-07-11 20:14] LABS: Glucose, Whole Blood 347 mg/dL (60-115)
[2023-07-11] MEDS: Donepezil HCl 5 MG TABLET PO (20:15)
[2023-07-11] MEDS: Mirtazapine 30 MG TABLET PO (20:16)
[2023-07-11] MEDS: Insulin Glargine,Hum.rec.anlog 100 UNIT/ML 10 ML VIAL 20 UNIT SUBCUT (20:16)
[2023-07-11] MEDS: Atorvastatin Calcium 80 MG TABLET PO (20:16)
[2023-07-11 20:18] VITALS: BP 170/94
[2023-07-11 20:20] VITALS: BP 170/94; PULSE 92; RESP 14; TEMP 37; O2SAT 97
[2023-07-11 22:25] LABS: Glucose, Whole Blood 92 mg/dL (60-115)
--- NOTE | 2023-07-12 06:18 | PC.NURSE ---
Patient slept through the night, meds and meals compliant, denied SI/HI/AVH, no other distress observed/reported, VSS, patient is a case management case, disposition pending traffic enumerator care placement, patient POC at 2006 was 347 covered with 8 units + received 20 units of Lantus, follow up POC at 2219 was 92, provider notified/no new order, patient snacked well, showered, will continue to monitor.
[2023-07-12 06:32] VITALS: BP 135/83; PULSE 102; RESP 18; TEMP 36.7; O2SAT 95
[2023-07-12 07:32] LABS: Glucose, Whole Blood 339 mg/dL (60-115)
[2023-07-12 07:34] VITALS: BP 143/85; PULSE 90; RESP 18; TEMP 37.4; O2SAT 99
[2023-07-12] MEDS: Insulin Lispro 100 UNIT/ML 3 ML VIAL SUBCUT ×4 (07:47→21:08)
[2023-07-12] MEDS: Omeprazole 40 MG CAPSULE.DR PO (07:47)
[2023-07-12 08:03] VITALS: BP 143/85
[2023-07-12] MEDS: Apixaban 2.5 MG TABLET PO ×2 (08:03→20:09)
[2023-07-12] MEDS: amLODIPine Besylate 5 MG TABLET PO (08:03)
[2023-07-12] MEDS: Torsemide 20 MG TABLET PO ×2 (08:03→20:09)
[2023-07-12] MEDS: Clopidogrel Bisulfate 75 MG TABLET PO (08:03)
[2023-07-12] MEDS: Sodium Bicarbonate 650 MG TABLET PO ×3 (08:03→20:09)
[2023-07-12] MEDS: calcitrioL 0.25 MCG CAPSULE PO (08:03)
[2023-07-12] MEDS: Ferrous Sulfate 324 MG TABLET.DR PO (08:03)
--- NOTE | 2023-07-12 09:38 | PC.NURSE ---
Assumed care of patient at 0645, patient in no apparent distress, ambulating around BH pod with steady gait, offering no complaints to this RN. Patient has been showering more frequently for comfort. Patient's blood sugar has been elevated again, MD aware, no new orders at this time
[2023-07-12 09:39] LABS: Glucose, Whole Blood 349 mg/dL (60-115)
[2023-07-12 11:46] LABS: Glucose, Whole Blood 258 mg/dL (60-115)
[2023-07-12 13:25] LABS: Glucose, Whole Blood 215 mg/dL (60-115)
[2023-07-12 15:27] VITALS: BP 146/87; PULSE 92; RESP 20; TEMP 36.8; O2SAT 100
[2023-07-12] MEDS: Acetaminophen 325 MG TABLET 975 MG PO (17:12)
[2023-07-12 18:08] LABS: Glucose, Whole Blood 193 mg/dL (60-115)
--- NOTE | 2023-07-12 19:07 | PC.NURSE ---
patient appears to remain at rest at present respirations are even and unlabored patient appears in no distress.
[2023-07-12] MEDS: Atorvastatin Calcium 80 MG TABLET PO (20:09)
[2023-07-12] MEDS: Mirtazapine 30 MG TABLET PO (20:09)
[2023-07-12] MEDS: Donepezil HCl 5 MG TABLET PO (20:09)
[2023-07-12 20:50] VITALS: BP 173/86; PULSE 92; RESP 18; TEMP 36.5; O2SAT 100
[2023-07-12] MEDS: Insulin Glargine,Hum.rec.anlog 100 UNIT/ML 10 ML VIAL 20 UNIT SUBCUT (21:08)
[2023-07-12 21:09] LABS: Glucose, Whole Blood 212 mg/dL (60-115)
[2023-07-13 00:19] VITALS: BP 178/101; PULSE 92; RESP 18; TEMP 36.6; O2SAT 100
--- NOTE | 2023-07-13 07:19 | PC.NURSE ---
Assumed care of patient at 0645, patient appears to be sleeping, respirations even and unlabored, no apparent distress noted. Continue plan of care for case management follow up
[2023-07-13] MEDS: Omeprazole 40 MG CAPSULE.DR PO (07:35)
[2023-07-13 07:41] LABS: Glucose, Whole Blood 110 mg/dL (60-115)
[2023-07-13 08:01] VITALS: BP 125/85; PULSE 98; RESP 16; TEMP 36.5; O2SAT 99
[2023-07-13] MEDS: Torsemide 20 MG TABLET PO ×2 (08:05→20:57)
[2023-07-13] MEDS: amLODIPine Besylate 5 MG TABLET PO (08:05)
[2023-07-13] MEDS: Clopidogrel Bisulfate 75 MG TABLET PO (08:05)
[2023-07-13] MEDS: calcitrioL 0.25 MCG CAPSULE PO (08:06)
[2023-07-13] MEDS: Apixaban 2.5 MG TABLET PO ×2 (08:06→20:57)
[2023-07-13] MEDS: Ferrous Sulfate 324 MG TABLET.DR PO (08:06)
[2023-07-13] MEDS: Sodium Bicarbonate 650 MG TABLET PO ×3 (08:06→20:57)
[2023-07-13 11:48] LABS: Creatinine Clr Calc Pharmacy 13.2; Estimated Glomerular Filt Rate 11
--- NOTE | 2023-07-13 11:59 | PC.NURSE ---
Ben's daughter's number [phone]
[2023-07-13] MEDS: Insulin Lispro 100 UNIT/ML 3 ML VIAL SUBCUT ×3 (14:11→22:00)
--- NOTE | 2023-07-13 14:15 | PC.NURSE ---
MD aware of elevated blood sugar, scheduled sliding scale insulin administered
[2023-07-13 15:40] VITALS: BP 116/72; PULSE 82; RESP 13; TEMP 37; O2SAT 99
[2023-07-13] MEDS: Cyclobenzaprine HCl 5 MG TABLET PO (17:13)
[2023-07-13] MEDS: Lidocaine 4 % Patch ADH..PATCH 1 PATCH TRANSDERMA (17:13)
--- NOTE | 2023-07-13 18:18 | PC.NURSE ---
RE: belongings All Ben's belongings are in locker 6
[2023-07-13 18:24] LABS: Glucose, Whole Blood 213 mg/dL (60-115)
[2023-07-13 18:24] LABS: Glucose, Whole Blood 440 mg/dL (60-115)
--- NOTE | 2023-07-13 18:29 | MHC.CM.ED ---
Clinical updates sent locally and referrals 100 miles made.
--- NOTE | 2023-07-13 19:30 | PC.NURSE ---
patient appears in no distress patient socializing with peer in group area patient was redirected about covering up as danika was opened upon arrival
[2023-07-13 20:24] VITALS: BP 148/88; PULSE 92; RESP 16; TEMP 36.8; O2SAT 99
[2023-07-13] MEDS: Donepezil HCl 5 MG TABLET PO (20:57)
[2023-07-13] MEDS: Atorvastatin Calcium 80 MG TABLET PO (20:57)
[2023-07-13] MEDS: Mirtazapine 30 MG TABLET PO (20:57)
[2023-07-13 21:59] LABS: Glucose, Whole Blood 155 mg/dL (60-115)
[2023-07-13] MEDS: Insulin Glargine,Hum.rec.anlog 100 UNIT/ML 10 ML VIAL 20 UNIT SUBCUT (22:00)
[2023-07-14 06:17] VITALS: BP 128/74; PULSE 76; RESP 16; TEMP 37.1; O2SAT 100
[2023-07-14 06:20] LABS: Glucose, Whole Blood 129 mg/dL (60-115)
[2023-07-14] MEDS: Acetaminophen 325 MG TABLET 975 MG PO (06:22)
[2023-07-14] MEDS: Cyclobenzaprine HCl 5 MG TABLET PO (06:22)
[2023-07-14] MEDS: Omeprazole 40 MG CAPSULE.DR PO (06:22)
[2023-07-14] MEDS: amLODIPine Besylate 5 MG TABLET PO (09:09)
[2023-07-14] MEDS: Ferrous Sulfate 324 MG TABLET.DR PO (09:09)
[2023-07-14] MEDS: calcitrioL 0.25 MCG CAPSULE PO (09:09)
[2023-07-14] MEDS: Sodium Bicarbonate 650 MG TABLET PO ×3 (09:09→21:16)
[2023-07-14] MEDS: Apixaban 2.5 MG TABLET PO ×2 (09:09→21:16)
[2023-07-14] MEDS: Torsemide 20 MG TABLET PO ×2 (09:09→21:16)
[2023-07-14] MEDS: Clopidogrel Bisulfate 75 MG TABLET PO (09:09)
[2023-07-14 12:00] LABS: Glucose, Whole Blood 303 mg/dL (60-115)
[2023-07-14] MEDS: Insulin Lispro 100 UNIT/ML 3 ML VIAL SUBCUT ×2 (13:36→21:21)
[2023-07-14 14:11] VITALS: BP 137/78; PULSE 92; RESP 16; TEMP 37.3; O2SAT 99
[2023-07-14 14:50] LABS: Glucose, Whole Blood 195 mg/dL (60-115)
--- NOTE | 2023-07-14 16:00 | PC.NURSE ---
patient remains within behavioral control, no obvious signs/symptoms of distress noted. conversing freely with staff and patients in [facility]. has taken showers today, ambulates independently with steady gait. medicated per the APR.
[2023-07-14 16:09] LABS: Glucose, Whole Blood 92 mg/dL (60-115)
[2023-07-14 17:22] LABS: Glucose, Whole Blood 159 mg/dL (60-115)
--- NOTE | 2023-07-14 19:20 | PC.NURSE ---
patient appears to remain at rest at present, relxed in client room, appears in no distress.
[2023-07-14 20:12] VITALS: BP 159/91; PULSE 103; RESP 18; TEMP 37.3; O2SAT 99
[2023-07-14] MEDS: Mirtazapine 30 MG TABLET PO (21:15)
[2023-07-14] MEDS: Donepezil HCl 5 MG TABLET PO (21:16)
[2023-07-14] MEDS: Atorvastatin Calcium 80 MG TABLET PO (21:16)
[2023-07-14] MEDS: Insulin Glargine,Hum.rec.anlog 100 UNIT/ML 10 ML VIAL 20 UNIT SUBCUT (21:16)
[2023-07-14 21:24] LABS: Glucose, Whole Blood 298 mg/dL (60-115)
[2023-07-15 06:49] LABS: Glucose, Whole Blood 71 mg/dL (60-115)
[2023-07-15 06:59] VITALS: BP 156/86; PULSE 98; RESP 16; TEMP 36.7; O2SAT 99
[2023-07-15] MEDS: Cyclobenzaprine HCl 5 MG TABLET PO (07:35)
[2023-07-15] MEDS: Lidocaine 4 % Patch ADH..PATCH 1 PATCH TRANSDERMA (07:36)
[2023-07-15] MEDS: Omeprazole 40 MG CAPSULE.DR PO (07:36)
[2023-07-15] MEDS: Acetaminophen 325 MG TABLET 975 MG PO ×2 (07:36→13:37)
[2023-07-15] MEDS: amLODIPine Besylate 5 MG TABLET PO (08:48)
[2023-07-15] MEDS: Clopidogrel Bisulfate 75 MG TABLET PO (08:48)
[2023-07-15] MEDS: Apixaban 2.5 MG TABLET PO ×2 (08:48→22:24)
[2023-07-15] MEDS: Sodium Bicarbonate 650 MG TABLET PO ×3 (08:48→22:24)
[2023-07-15] MEDS: calcitrioL 0.25 MCG CAPSULE PO (08:48)
[2023-07-15] MEDS: Torsemide 20 MG TABLET PO ×2 (08:48→22:26)
[2023-07-15] MEDS: Ferrous Sulfate 324 MG TABLET.DR PO (08:48)
--- NOTE | 2023-07-15 09:19 | MHC.CM.ED ---
Addendum entered by Huma Bull 07/15/23 13:49: Patient's mother/HCP, Tracey and sister on-site. Updates provided. Both are aware that we are trying to find LTC placement. Spoke with Rosalinda from [facility]. She will be on-site on Tuesday to meet with patient. Original Note: Patient remains in ER BH pod. Patient has been coopeative with care. No bed offers at this time. Referral broadcasted to all facilities within the [facility] that are contracted with [facility] [employer]. 231 referrals made. Continue to monitor for d/c needs.
[2023-07-15 09:23] VITALS: BP 161/92; PULSE 95; RESP 18; TEMP 37.1; O2SAT 100
[2023-07-15 11:22] LABS: Glucose, Whole Blood 333 mg/dL (60-115)
[2023-07-15] MEDS: Insulin Lispro 100 UNIT/ML 3 ML VIAL SUBCUT ×3 (11:52→22:24)
[2023-07-15 13:57] LABS: Glucose, Whole Blood 110 mg/dL (60-115)
--- NOTE | 2023-07-15 16:51 | PC.NURSE ---
MD Communication Patient had a POC glucose of 380. MD aware. Coverage with 10 units. Will continue plan of care.
[2023-07-15 16:56] LABS: Glucose, Whole Blood 380 mg/dL (60-115)
[2023-07-15 16:57] VITALS: BP 151/88; PULSE 94; RESP 17; TEMP 36.8; O2SAT 100
[2023-07-15 21:15] LABS: Glucose, Whole Blood 434 mg/dL (60-115)
--- NOTE | 2023-07-15 21:50 | PC.NURSE ---
Notified provider of elevated POC. Called pharmacy for recommendation on lantus increase as requested by provider. Pharmacy recommended 25units and to encourage PT's family to not bring in non diabetic friendly snacks/meals
[2023-07-15] MEDS: Donepezil HCl 5 MG TABLET PO (22:24)
[2023-07-15] MEDS: Atorvastatin Calcium 80 MG TABLET PO (22:24)
[2023-07-15] MEDS: Mirtazapine 30 MG TABLET PO (22:24)
[2023-07-15] MEDS: Insulin Glargine,Hum.rec.anlog 100 UNIT/ML 10 ML VIAL 25 UNIT SUBCUT (22:25)
[2023-07-15 22:26] VITALS: BP 156/81
[2023-07-15 22:29] VITALS: BP 156/81; PULSE 100; RESP 16; TEMP 36.9; O2SAT 99
[2023-07-15] MEDS: Melatonin 3 MG TABLET 6 MG PO (23:18)
[2023-07-16 01:30] VITALS: BP 129/72; PULSE 87; RESP 15; TEMP 37.1; O2SAT 99
[2023-07-16 06:17] LABS: Glucose, Whole Blood 88 mg/dL (60-115)
--- NOTE | 2023-07-16 08:05 | PC.NURSE ---
Assumed care of patient at 0645, patient ambulatory around BH pod this am, now in shower. Holding POC and meds until patient gets out of shower. Continue plan of care for case management follow up
[2023-07-16 08:30] LABS: Glucose, Whole Blood 105 mg/dL (60-115)
[2023-07-16] MEDS: Sodium Bicarbonate 650 MG TABLET PO ×3 (08:33→20:05)
[2023-07-16] MEDS: Apixaban 2.5 MG TABLET PO ×2 (08:33→20:05)
[2023-07-16] MEDS: Clopidogrel Bisulfate 75 MG TABLET PO (08:33)
[2023-07-16] MEDS: calcitrioL 0.25 MCG CAPSULE PO (08:34)
[2023-07-16] MEDS: amLODIPine Besylate 5 MG TABLET PO (08:34)
[2023-07-16] MEDS: Torsemide 20 MG TABLET PO ×2 (08:34→20:06)
[2023-07-16] MEDS: Ferrous Sulfate 324 MG TABLET.DR PO (08:34)
[2023-07-16] MEDS: Omeprazole 40 MG CAPSULE.DR PO (08:34)
[2023-07-16 13:20] LABS: Glucose, Whole Blood 198 mg/dL (60-115)
[2023-07-16] MEDS: Insulin Lispro 100 UNIT/ML 3 ML VIAL SUBCUT ×3 (13:28→20:05)
[2023-07-16] MEDS: Acetaminophen 325 MG TABLET 975 MG PO (15:57)
[2023-07-16 17:23] LABS: Glucose, Whole Blood 358 mg/dL (60-115)
[2023-07-16 20:05] LABS: Glucose, Whole Blood 442 mg/dL (60-115)
[2023-07-16] MEDS: Insulin Glargine,Hum.rec.anlog 100 UNIT/ML 10 ML VIAL 25 UNIT SUBCUT (20:05)
[2023-07-16] MEDS: Donepezil HCl 5 MG TABLET PO (20:05)
[2023-07-16] MEDS: Atorvastatin Calcium 80 MG TABLET PO (20:05)
[2023-07-16] MEDS: Mirtazapine 30 MG TABLET PO (20:05)
[2023-07-16 20:06] VITALS: BP 151/90
[2023-07-16 20:12] VITALS: BP 151/90; PULSE 98; RESP 17; TEMP 37.1; O2SAT 99
[2023-07-16 21:24] LABS: Glucose, Whole Blood 327 mg/dL (60-115)
[2023-07-17 03:19] VITALS: BP 134/81; PULSE 94; RESP 16; TEMP 36.6; O2SAT 98
--- NOTE | 2023-07-17 06:49 | PC.NURSE ---
Patient slept through the night, no distress observed/reported, no behavior issues, disposition case management pending placement, meds and meals compliant, VSS, will continue to monitor.
[2023-07-17] MEDS: Omeprazole 40 MG CAPSULE.DR PO (07:26)
--- NOTE | 2023-07-17 07:29 | PC.NURSE ---
Assumed care of patient at 0645, patient is resting in his bedroom, no apparent distress is noted. POC taken, result of 66. Patient is up eating breakfast at this time, offers no complaints to this RN. Patient reports mild back pain, does not request medications for it at this time. Continue plan of care for case management follow up
[2023-07-17 07:32] LABS: Glucose, Whole Blood 66 mg/dL (60-115)
[2023-07-17 08:21] VITALS: BP 131/89
[2023-07-17] MEDS: Ferrous Sulfate 324 MG TABLET.DR PO (08:21)
[2023-07-17] MEDS: Torsemide 20 MG TABLET PO ×2 (08:21→20:43)
[2023-07-17] MEDS: Apixaban 2.5 MG TABLET PO ×2 (08:21→20:43)
[2023-07-17] MEDS: amLODIPine Besylate 5 MG TABLET PO (08:21)
[2023-07-17] MEDS: Sodium Bicarbonate 650 MG TABLET PO ×3 (08:22→20:42)
[2023-07-17] MEDS: calcitrioL 0.25 MCG CAPSULE PO (08:22)
[2023-07-17] MEDS: Clopidogrel Bisulfate 75 MG TABLET PO (08:22)
[2023-07-17] MEDS: Cyclobenzaprine HCl 5 MG TABLET PO (08:27)
[2023-07-17 12:56] LABS: Glucose, Whole Blood 175 mg/dL (60-115)
[2023-07-17] MEDS: Insulin Lispro 100 UNIT/ML 3 ML VIAL SUBCUT ×3 (13:24→20:43)
[2023-07-17] MEDS: Acetaminophen 325 MG TABLET 975 MG PO ×2 (13:47→20:05)
[2023-07-17 15:09] VITALS: BP 151/91; PULSE 96; RESP 18; TEMP 36.8; O2SAT 98
--- NOTE | 2023-07-17 16:17 | PC.NURSE ---
Patient continues to have uneventful day, offering no complaints to this RN, ambulating around BH pod with steady gait, showered without issue.
[2023-07-17 18:00] LABS: Glucose, Whole Blood 251 mg/dL (60-115)
--- NOTE | 2023-07-17 19:51 | PC.NURSE ---
this rn assumed care, pt requesting pain medication for lower back at this time. aware. pt sitting in common area, no acute distress noted.
[2023-07-17] MEDS: Lidocaine 4 % Patch ADH..PATCH 1 PATCH TRANSDERMA (20:04)
--- NOTE | 2023-07-17 20:08 | PC.NURSE ---
pt medicated per mar, tolerated well with water. pt requesting lidocaine patch as well, patch placed on lower back.
[2023-07-17 20:37] LABS: Glucose, Whole Blood 307 mg/dL (60-115)
[2023-07-17] MEDS: Mirtazapine 30 MG TABLET PO (20:42)
[2023-07-17] MEDS: Donepezil HCl 5 MG TABLET PO (20:42)
[2023-07-17] MEDS: Atorvastatin Calcium 80 MG TABLET PO (20:42)
[2023-07-17 20:43] VITALS: BP 156/84
[2023-07-17] MEDS: Insulin Glargine,Hum.rec.anlog 100 UNIT/ML 10 ML VIAL 25 UNIT SUBCUT (20:43)
--- NOTE | 2023-07-17 20:50 | PC.NURSE ---
pt medicated per mar, tolerated well with water. pt given insulin per poc protocol.
--- NOTE | 2023-07-17 23:18 | PC.NURSE ---
pt reported to this RN he feels his sugar is low, POC obtained, noted to be 53. pt given juice at this time, reports feeling better, repeat POC.
[2023-07-17 23:19] LABS: Glucose, Whole Blood 53 mg/dL (60-115)
--- NOTE | 2023-07-18 00:26 | PC.NURSE ---
pt repeat POC 167 at this time.
[2023-07-18 00:29] LABS: Glucose, Whole Blood 167 mg/dL (60-115)
[2023-07-18] MEDS: Omeprazole 40 MG CAPSULE.DR PO (06:08)
--- NOTE | 2023-07-18 06:11 | PC.NURSE ---
pt medicated per mar, pt tolerated well with water.
[2023-07-18 06:13] VITALS: BP 144/61; PULSE 94; RESP 17; TEMP 36.6; O2SAT 96
[2023-07-18 07:10] LABS: Glucose, Whole Blood 111 mg/dL (60-115)
[2023-07-18] MEDS: Ferrous Sulfate 324 MG TABLET.DR PO (08:49)
[2023-07-18] MEDS: amLODIPine Besylate 5 MG TABLET PO (08:49)
[2023-07-18] MEDS: Apixaban 2.5 MG TABLET PO ×2 (08:49→20:26)
[2023-07-18] MEDS: Torsemide 20 MG TABLET PO ×2 (08:49→20:26)
[2023-07-18] MEDS: Sodium Bicarbonate 650 MG TABLET PO ×3 (08:49→20:26)
[2023-07-18] MEDS: Clopidogrel Bisulfate 75 MG TABLET PO (08:49)
[2023-07-18] MEDS: calcitrioL 0.25 MCG CAPSULE PO (08:49)
[2023-07-18 11:50] LABS: Glucose, Whole Blood 285 mg/dL (60-115)
[2023-07-18] MEDS: Insulin Lispro 100 UNIT/ML 3 ML VIAL SUBCUT (11:52)
[2023-07-18] MEDS: Acetaminophen 325 MG TABLET 975 MG PO (15:18)
[2023-07-18] MEDS: Cyclobenzaprine HCl 5 MG TABLET PO (15:20)
[2023-07-18 15:28] VITALS: BP 141/75; PULSE 94; RESP 17; TEMP 36.3; O2SAT 99
[2023-07-18 17:01] LABS: Glucose, Whole Blood 502 mg/dL (60-115)
[2023-07-18 17:01] LABS: Glucose, Whole Blood 552 mg/dL (60-115)
[2023-07-18] MEDS: Insulin Lispro 100 UNIT/ML 3 ML VIAL 14 UNIT SUBCUT ×2 (17:25→19:15)
--- NOTE | 2023-07-18 17:32 | PC.NURSE ---
Critical POC Patient had a POC of 502. A recheck was completed with a reading of 552. MD was made aware. MD with orders. 14 units of insulin once and to recheck POC in 1 hour.
[2023-07-18 18:32] LABS: Glucose, Whole Blood 462 mg/dL (60-115)
--- NOTE | 2023-07-18 18:50 | PC.NURSE ---
Critical POC POC of 462. made aware. Awaiting orders.
[2023-07-18 20:02] LABS: Anion Gap 19 (12-20); Blood Urea Nitrogen 88 mg/dL (9-16); Calcium 9.4 mg/dL (8.4-10.2); Carbon Dioxide 19 mmol/L (22-29); Chloride 104 mmol/L (96-108); Creatinine Clr Calc Pharmacy 12.5; Estimated Glomerular Filt Rate 10; Glucose Random 448 mg/dL (60-115); Potassium 4.9 mmol/L (3.3-5.1); Sodium 137 mmol/L (135-145)
--- NOTE | 2023-07-18 20:04 | PC.NURSE ---
patient adjourns to room after sitting with peer in group area for the last hour, sent message to provider in reagrd to creatinine (compared with 07/13/23 measurement)
[2023-07-18] MEDS: Atorvastatin Calcium 80 MG TABLET PO (20:26)
[2023-07-18] MEDS: Mirtazapine 30 MG TABLET PO (20:26)
[2023-07-18] MEDS: Donepezil HCl 5 MG TABLET PO (20:26)
[2023-07-18] MEDS: Insulin Glargine,Hum.rec.anlog 100 UNIT/ML 10 ML VIAL 25 UNIT SUBCUT (21:25)
[2023-07-18 21:27] LABS: Glucose, Whole Blood 97 mg/dL (60-115)
[2023-07-19] MEDS: Melatonin 3 MG TABLET 6 MG PO (00:15)
[2023-07-19 03:22] VITALS: BP 149/91; PULSE 92; RESP 16; TEMP 36.6; O2SAT 99
[2023-07-19] MEDS: Omeprazole 40 MG CAPSULE.DR PO (07:27)
[2023-07-19] MEDS: Insulin Lispro 100 UNIT/ML 3 ML VIAL SUBCUT ×2 (07:27→19:10)
[2023-07-19 07:47] LABS: Glucose, Whole Blood 160 mg/dL (60-115)
[2023-07-19] MEDS: Torsemide 20 MG TABLET PO ×2 (09:08→20:43)
[2023-07-19] MEDS: Clopidogrel Bisulfate 75 MG TABLET PO (09:08)
[2023-07-19] MEDS: Apixaban 2.5 MG TABLET PO ×2 (09:08→20:15)
[2023-07-19] MEDS: Ferrous Sulfate 324 MG TABLET.DR PO (09:08)
[2023-07-19] MEDS: Sodium Bicarbonate 650 MG TABLET PO ×3 (09:08→20:15)
[2023-07-19] MEDS: calcitrioL 0.25 MCG CAPSULE PO (09:09)
[2023-07-19] MEDS: amLODIPine Besylate 5 MG TABLET PO (09:09)
[2023-07-19 11:57] LABS: Glucose, Whole Blood 146 mg/dL (60-115)
--- NOTE | 2023-07-19 13:42 | MHC.CM.ED ---
Patient remains in ER BH Pod. Rosalinda from [facility] on-site to visit patient. Rosalinda will report to facility and get back to if they are able to offer a bed. Continue to monitor for d/c needs.
[2023-07-19] MEDS: 0.9 % Sodium Chloride 1,000 ML 500 ML IV (17:01)
[2023-07-19 17:46] VITALS: BP 165/84; PULSE 94; RESP 17; TEMP 36.4; O2SAT 99
[2023-07-19 17:50] LABS: Glucose, Whole Blood 346 mg/dL (60-115)
[2023-07-19 20:04] LABS: Glucose, Whole Blood 291 mg/dL (60-115)
[2023-07-19] MEDS: Atorvastatin Calcium 80 MG TABLET PO (20:15)
[2023-07-19] MEDS: Mirtazapine 30 MG TABLET PO (20:15)
[2023-07-19] MEDS: Insulin Glargine,Hum.rec.anlog 100 UNIT/ML 10 ML VIAL 25 UNIT SUBCUT (20:15)
[2023-07-19 20:43] VITALS: BP 151/91
[2023-07-19] MEDS: Donepezil HCl 5 MG TABLET PO (20:45)
--- NOTE | 2023-07-20 00:11 | PC.NURSE ---
patient accompanied by security back to prev room, ericka removed, d/t eliquis t/w checked for bleeding at site, absent. patient was smiling and appeared content as settled in bed
[2023-07-20 02:35] LABS: Glucose, Whole Blood 185 mg/dL (60-115)
[2023-07-20 02:35] LABS: Glucose, Whole Blood 164 mg/dL (60-115)
[2023-07-20 03:40] VITALS: BP 155/89; PULSE 96; RESP 17; TEMP 36.9; O2SAT 99
[2023-07-20] MEDS: Melatonin 3 MG TABLET 6 MG PO (04:43)
[2023-07-20 07:46] LABS: Glucose, Whole Blood 86 mg/dL (60-115)
[2023-07-20] MEDS: Omeprazole 40 MG CAPSULE.DR PO (08:06)
[2023-07-20 08:53] VITALS: BP 129/82; PULSE 104; RESP 16; TEMP 37.1; O2SAT 100
[2023-07-20] MEDS: amLODIPine Besylate 5 MG TABLET PO (08:57)
[2023-07-20] MEDS: Ferrous Sulfate 324 MG TABLET.DR PO (08:57)
[2023-07-20] MEDS: Apixaban 2.5 MG TABLET PO ×2 (08:57→21:07)
[2023-07-20] MEDS: Sodium Bicarbonate 650 MG TABLET PO ×3 (08:57→21:07)
[2023-07-20] MEDS: Clopidogrel Bisulfate 75 MG TABLET PO (08:57)
[2023-07-20] MEDS: calcitrioL 0.25 MCG CAPSULE PO (08:57)
[2023-07-20] MEDS: Torsemide 20 MG TABLET PO ×2 (08:58→21:05)
[2023-07-20 09:38] LABS: Glucose, Whole Blood 319 mg/dL (60-115)
[2023-07-20 10:05] LABS: Anion Gap 18 (12-20); Blood Urea Nitrogen 88 mg/dL (9-16); Calcium 9.4 mg/dL (8.4-10.2); Carbon Dioxide 22 mmol/L (22-29); Chloride 104 mmol/L (96-108); Potassium 5.2 mmol/L (3.3-5.1); Sodium 139 mmol/L (135-145)
[2023-07-20 10:07] LABS: Creatinine Clr Calc Pharmacy 14.8; Estimated Glomerular Filt Rate 12; Glucose Random 355 mg/dL (60-115)
[2023-07-20] MEDS: Insulin Lispro 100 UNIT/ML 3 ML VIAL 8 UNIT SUBCUT (10:27)
[2023-07-20] MEDS: Sodium Zirconium Cyclosilicate 5 GM POWD.PACK PO (10:27)
[2023-07-20] MEDS: Acetaminophen 325 MG TABLET 975 MG PO (10:28)
[2023-07-20 11:33] LABS: Glucose, Whole Blood 245 mg/dL (60-115)
[2023-07-20] MEDS: Insulin Lispro 100 UNIT/ML 3 ML VIAL SUBCUT ×3 (11:38→21:06)
--- NOTE | 2023-07-20 12:27 | MHC.CM.ED ---
Patient remains in ER BH pod. Mine, liaison for [facility] on-site to meet with patient. Continue to monitor for d/c needs.
[2023-07-20 13:44] LABS: Glucose, Whole Blood 64 mg/dL (60-115)
--- NOTE | 2023-07-20 16:35 | PC.NURSE ---
assumed care of pt at 1500, pt resting quietly on bed w book, pt denies any needs at this time. spoke w Tracey Jimenez (mother) via airset caster to update on pt location/visiting hours.
[2023-07-20 16:47] LABS: Glucose, Whole Blood 345 mg/dL (60-115)
[2023-07-20 18:33] VITALS: BP 172/88; PULSE 102; RESP 18; TEMP 36.7; O2SAT 99
[2023-07-20 20:04] LABS: Glucose, Whole Blood 249 mg/dL (60-115)
[2023-07-20 21:05] VITALS: BP 172/88
[2023-07-20] MEDS: Donepezil HCl 5 MG TABLET PO (21:06)
[2023-07-20] MEDS: Insulin Glargine,Hum.rec.anlog 100 UNIT/ML 10 ML VIAL 25 UNIT SUBCUT (21:06)
[2023-07-20] MEDS: Mirtazapine 30 MG TABLET PO (21:07)
[2023-07-20] MEDS: Atorvastatin Calcium 80 MG TABLET PO (21:07)
[2023-07-20 22:54] LABS: Glucose, Whole Blood 153 mg/dL (60-115)
[2023-07-21 05:40] VITALS: RESP 14
--- NOTE | 2023-07-21 05:40 | PC.NURSE ---
Resumed care of pt at 0530. PT appears to be sleeping. respirations even and unlabored. safety precautions in place. call pagan within reach. plan of care ongoing
[2023-07-21 06:21] LABS: Glucose, Whole Blood 150 mg/dL (60-115)
[2023-07-21 06:30] VITALS: BP 147/76; PULSE 69; RESP 18; TEMP 36.7; O2SAT 96
[2023-07-21] MEDS: Omeprazole 40 MG CAPSULE.DR PO (06:34)
--- NOTE | 2023-07-21 07:23 | PC.NURSE ---
RE: Insulin on 07/11 @ 2870 This RN entered insulin dosage as 215 in error. Dosage was supposed to be for 4 units of insulin
[2023-07-21 08:05] LABS: Glucose, Whole Blood 115 mg/dL (60-115)
[2023-07-21] MEDS: amLODIPine Besylate 5 MG TABLET PO (10:30)
[2023-07-21] MEDS: Apixaban 2.5 MG TABLET PO ×2 (10:30→21:20)
[2023-07-21] MEDS: Sodium Bicarbonate 650 MG TABLET PO ×3 (10:30→21:20)
[2023-07-21] MEDS: Clopidogrel Bisulfate 75 MG TABLET PO (10:30)
[2023-07-21] MEDS: Ferrous Sulfate 324 MG TABLET.DR PO (10:30)
--- NOTE | 2023-07-21 10:32 | PC.NURSE ---
pt reports back ache and requests prn tylenol
[2023-07-21] MEDS: Acetaminophen 325 MG TABLET 975 MG PO ×2 (10:33→21:46)
[2023-07-21] MEDS: Torsemide 20 MG TABLET PO (11:11)
[2023-07-21] MEDS: calcitrioL 0.25 MCG CAPSULE PO (11:12)
--- NOTE | 2023-07-21 12:05 | MHC.CM.ED ---
Patient remains in ER overflow. Patient cooperative with care. Has not been exit seeking. Spoke with Mine of [facility]. They do not have a bed available but recommended sending referral to [facility]. Clinical updates sent to [facility] via [facility]. Continue to monitor for d/c needs.
[2023-07-21 12:41] LABS: Glucose, Whole Blood 272 mg/dL (60-115)
[2023-07-21] MEDS: Insulin Lispro 100 UNIT/ML 3 ML VIAL SUBCUT ×2 (12:50→21:19)
[2023-07-21 14:59] VITALS: BP 170/94; PULSE 97; RESP 20; TEMP 36.7; O2SAT 99
[2023-07-21 17:13] LABS: Glucose, Whole Blood 123 mg/dL (60-115)
[2023-07-21 21:06] LABS: Glucose, Whole Blood 294 mg/dL (60-115)
[2023-07-21] MEDS: Insulin Glargine,Hum.rec.anlog 100 UNIT/ML 10 ML VIAL 25 UNIT SUBCUT (21:20)
[2023-07-21] MEDS: Mirtazapine 30 MG TABLET PO (21:20)
[2023-07-21] MEDS: Atorvastatin Calcium 80 MG TABLET PO (21:20)
[2023-07-21] MEDS: Melatonin 3 MG TABLET 6 MG PO (21:46)
[2023-07-22] MEDS: Omeprazole 40 MG CAPSULE.DR PO (06:01)
[2023-07-22 06:08] VITALS: BP 170/93; PULSE 74; RESP 17; TEMP 36.2; O2SAT 98
[2023-07-22 08:05] LABS: Glucose, Whole Blood 64 mg/dL (60-115)
[2023-07-22] MEDS: Clopidogrel Bisulfate 75 MG TABLET PO (08:40)
[2023-07-22] MEDS: Apixaban 2.5 MG TABLET PO ×2 (08:40→20:02)
[2023-07-22] MEDS: amLODIPine Besylate 5 MG TABLET PO (08:40)
[2023-07-22] MEDS: Sodium Bicarbonate 650 MG TABLET PO ×3 (08:40→20:02)
[2023-07-22] MEDS: Torsemide 20 MG TABLET PO ×2 (08:40→20:02)
[2023-07-22] MEDS: Ferrous Sulfate 324 MG TABLET.DR PO (08:40)
[2023-07-22] MEDS: calcitrioL 0.25 MCG CAPSULE PO (08:41)
--- NOTE | 2023-07-22 09:01 | MHC.CM.ED ---
Addendum entered by Aline Taylor 07/22/23 14:05: CM SPOKE TO ALEXA AGAIN, THEY ARE NOW UNABLE TO OFFER AT [facility] BUT DO HAVE A BED OPEN AT [facility] THEY WILL NEED AN MDS AND CAN TAKE PT ON TUESDAY PENDING PTS MOTHER IS ABLE TO SIGN CONSENTS Original Note: OMAR SPOKE TO [facility] PRINTING WORKER SUPERVISOR, ALEXA [phone] SHE REPORTS SHE DID MEET WITH PT ON SITE AND WILL BE ABLE TO OFFER A BED SHE SAYS SHE WILL SPEAK TO ADMIN AT THE SNF AND HAVE THE COVERING LIAISON REACH OUT THEY WILL NOT BE ABLE TO ACCEPT OVER THE WEEKEND AND WILL BE IN TOUCH ON TUESDAY
[2023-07-22 11:45] LABS: Glucose, Whole Blood 93 mg/dL (60-115)
[2023-07-22 15:42] VITALS: BP 166/94; PULSE 97; TEMP 36.8; O2SAT 98
[2023-07-22 17:02] LABS: Glucose, Whole Blood 529 mg/dL (60-115)
[2023-07-22 18:11] LABS: MANUAL DIFF FLAG NO
[2023-07-22] MEDS: 0.9 % Sodium Chloride 1,000 ML 999 ML IV (18:20)
[2023-07-22] MEDS: Insulin Regular, Human 100 UNIT/ML 10 ML VIAL IVPUSH ×2 (18:20→19:59)
[2023-07-22 18:25] LABS: Basophils Absolute Auto 0.1 X10*3/uL (0.0-0.2); Eosinophils Absolute Auto 0.5 X10*3/uL (0.0-0.4); Eosinophils Percent Auto 6.9 % (0-4); Hematocrit 33.3 % (42.0-52.0); Hemoglobin 10.8 g/dl (14.0-18.0); Imm Gran Abs Auto 0.03 X10*3/uL (0.00-0.03); Imm Gran Pct Auto 0.4 % (0.0-0.4); Lymphocytes Absolute Auto 1.9 X10*3/uL (1.2-4.9); Mean Corpuscular HGB Conc 32.4 g/dl (31.0-36.0); Mean Corpuscular Hemoglobin 27.6 pg (27.0-33.0); Mean Corpuscular Volume 84.9 fL (80.0-98.0); Mean Platelet Volume 10.5 fL (9.4-12.4); Monocytes Absolute Auto 0.5 X10*3/uL (0.1-1.2); Monocytes Percent Auto 6.1 % (2-11); Neutrophils Absolute Auto 4.7 x10*3/uL (2.0-8.3); Neutrophils Percent Auto 60.6 % (45-73); Platelet Count 259 X10*3/uL (160-400); Red Blood Count 3.92 X10*6/uL (4.60-5.80); Red Cell Distribution Width 13.9 % (11.0-16.0); White Blood Count 7.7 X10*3/uL (4.8-10.8)
[2023-07-22 18:49] LABS: Alanine Aminotransferase 68 U/L (0-40); Albumin Level 3.9 g/dL (3.5-5.0); Alkaline Phosphatase 173 U/L (39-117); Anion Gap 18 (12-20); Aspartate Amino Transferase 55 U/L (5-37); Bilirubin Total 0.3 mg/dL (0.0-1.0); Blood Urea Nitrogen 78 mg/dL (9-16); Calcium 8.6 mg/dL (8.4-10.2); Carbon Dioxide 15 mmol/L (22-29); Chloride 109 mmol/L (96-108); Creatinine Clr Calc Pharmacy 16.5; Estimated Glomerular Filt Rate 14; Glucose Random 575 mg/dL (60-115); Lipase 17 U/L (8-78); Potassium 5.5 mmol/L (3.3-5.1); Sodium 136 mmol/L (135-145); Total Protein 6.9 g/dL (6.5-8.0)
--- NOTE | 2023-07-22 18:49 | PC.NURSE ---
Patient with elevated blood sugar prior to eating dinner, provider aware and new orders obtained. Patient difficulty to place IV, multiple attempts by multiple RNs to place IV. Fluids started per order . Critical labs reported to provider (creat 4.52, glucose 575)Patient without ss of hyperglycemia. family in to visit patient this afternoon and brought patient snacks that he has at bedside
[2023-07-22 19:13] LABS: Glucose, Whole Blood 466 mg/dL (60-115)
[2023-07-22 19:13] LABS: Glucose, Whole Blood 475 mg/dL (60-115)
--- NOTE | 2023-07-22 19:14 | PC.NURSE ---
assumed care of pt at this time. poc 474. Marlo ZALDIVAR made aware. awaiting insulin order. ivf infusing. pt axox4. denies cp/sob/n/v/d. resp even and unlabored.
--- NOTE | 2023-07-22 19:46 | PC.NURSE ---
delay in insulin administration as pt is in overflow and need 2nd rn cosign. nurse discharge planner aware.
[2023-07-22 20:02] VITALS: BP 151/84; PULSE 72; RESP 15; O2SAT 96
[2023-07-22] MEDS: Insulin Lispro 100 UNIT/ML 3 ML VIAL 10 UNIT SUBCUT (20:02)
[2023-07-22] MEDS: Atorvastatin Calcium 80 MG TABLET PO (20:02)
[2023-07-22] MEDS: Donepezil HCl 5 MG TABLET PO (20:02)
[2023-07-22] MEDS: Mirtazapine 30 MG TABLET PO (20:02)
[2023-07-22 20:36] LABS: Glucose, Whole Blood 346 mg/dL (60-115)
--- NOTE | 2023-07-22 21:13 | PC.NURSE ---
recheck glucose at 2029 at 346, 0 198. Marlo ZALDIVAR aware, to hold lispro due at 2099 d/t glucose drop from 2029 to 2109. per PA to continue with lantus administration, dose changed per PA. pt is axox4, resting comfortably in bed watching tv. call pagan within reach.
[2023-07-22 21:15] LABS: Glucose, Whole Blood 198 mg/dL (60-115)
[2023-07-22] MEDS: Insulin Glargine,Hum.rec.anlog 100 UNIT/ML 10 ML VIAL 30 UNIT SUBCUT (21:51)
--- NOTE | 2023-07-22 22:13 | PC.NURSE ---
Addendum entered by Ariane Porter 07/22/23 22:23: poc 141 Original Note: poc 147, lantus given per PA. pt resting comfortably in bed watching tv. pt denies any pain/concerns. call pagan within reach. will reassess poc.
[2023-07-22 22:18] LABS: Glucose, Whole Blood 141 mg/dL (60-115)
[2023-07-22 23:08] LABS: Glucose, Whole Blood 88 mg/dL (60-115)
--- NOTE | 2023-07-22 23:08 | PC.NURSE ---
poc 88, pt given half cup juice per request & to prevent hypoglycemia. pt is axox3, sitting up in bed reading a book. call pagan within reach.
[2023-07-22 23:54] LABS: Glucose, Whole Blood 83 mg/dL (60-115)
--- NOTE | 2023-07-22 23:56 | PC.NURSE ---
poc 83, pt reports he feels sx of hypoglycemia (weak/tired per pt). half cup of juice provided. pt resting comfortably in bed. call pagan within reach.
[2023-07-23 00:47] LABS: Glucose, Whole Blood 85 mg/dL (60-115)
--- NOTE | 2023-07-23 02:27 | PC.NURSE ---
Addendum entered by Ariane Porter 07/23/23 02:44: recheck poc 84. Original Note: poc 66, juice provided, will recheck in 15 min. pt is axox3, resp even and unlabored. tremulous at baseline, no diaphoresis noted. call pagan within reach.
[2023-07-23 02:30] LABS: Glucose, Whole Blood 66 mg/dL (60-115)
[2023-07-23 02:47] LABS: Glucose, Whole Blood 84 mg/dL (60-115)
[2023-07-23 05:02] LABS: Glucose, Whole Blood 66 mg/dL (60-115)
--- NOTE | 2023-07-23 05:02 | PC.NURSE ---
Addendum entered by Ariane Porter 07/23/23 05:42: recheck 82. pt ambulatory with steady gait to bathroom. Original Note: poc 66. juice given. will recheck poc. MD Dr. Lynn made aware.
[2023-07-23 05:05] VITALS: BP 158/90; PULSE 86; RESP 18; TEMP 36.8; O2SAT 96
[2023-07-23 05:45] LABS: Glucose, Whole Blood 82 mg/dL (60-115)
[2023-07-23] MEDS: Omeprazole 40 MG CAPSULE.DR PO (06:34)
[2023-07-23 07:35] VITALS: BP 181/100; PULSE 94; RESP 18; TEMP 37; O2SAT 99
[2023-07-23 07:51] LABS: Glucose, Whole Blood 71 mg/dL (60-115)
--- NOTE | 2023-07-23 09:13 | MHC.EDTECH ---
Patient given breakfast tray
--- NOTE | 2023-07-23 09:31 | MHC.EDTECH ---
Patient took a shower and bed was completely changed
[2023-07-23] MEDS: Apixaban 2.5 MG TABLET PO ×2 (09:37→20:30)
[2023-07-23] MEDS: Ferrous Sulfate 324 MG TABLET.DR PO (09:37)
[2023-07-23] MEDS: Clopidogrel Bisulfate 75 MG TABLET PO (09:37)
[2023-07-23] MEDS: Sodium Bicarbonate 650 MG TABLET PO ×3 (09:37→20:27)
[2023-07-23] MEDS: amLODIPine Besylate 5 MG TABLET PO (11:31)
[2023-07-23] MEDS: calcitrioL 0.25 MCG CAPSULE PO (11:31)
[2023-07-23] MEDS: Torsemide 20 MG TABLET PO ×2 (11:31→20:27)
--- NOTE | 2023-07-23 11:31 | PC.NURSE ---
delay in medications d/t medication not being readily available in overflow pyxis. medication delivered from pharmacy/administered.
[2023-07-23 11:51] LABS: Glucose, Whole Blood 73 mg/dL (60-115)
--- NOTE | 2023-07-23 15:00 | MHC.CM.ED ---
Patient remains in ER overflow. Patient's ceuoio-qy-xaz, Jazzy spoke to CM as family rep today. All questions regarding [facility] answered. Family will discuss if patient will d/c to facility or return home. Anticipate patient will be here over the weekend. Continue to monitor for d/c needs.
--- NOTE | 2023-07-23 15:01 | PC.NURSE ---
pt a&ox2 throughout entire shift as this is his baseline d/t hx of dementia. pt pleasantly confused and sometimes forgetful. pt is independent baseline. no use of assistive devices needed. pt ambulated to the bathroom/took a shower independently. pt ate 100% of breakfast/lunch tray. POC's remained wnl. per CM notes - at this time, HCP was invoked so he currently remains as a bed search in ED overflow. pt medicated per provider order throughout entire shift. pt calm/cooperative/pleasant. makes his needs known.
[2023-07-23 15:25] VITALS: BP 141/76; PULSE 93; RESP 16; TEMP 36.4; O2SAT 100
[2023-07-23 16:49] LABS: Glucose, Whole Blood 233 mg/dL (60-115)
[2023-07-23] MEDS: Insulin Lispro 100 UNIT/ML 3 ML VIAL SUBCUT ×2 (16:59→20:39)
[2023-07-23 20:16] LABS: Glucose, Whole Blood 292 mg/dL (60-115)
[2023-07-23 20:27] VITALS: BP 156/91
[2023-07-23] MEDS: Mirtazapine 30 MG TABLET PO (20:27)
[2023-07-23] MEDS: Atorvastatin Calcium 80 MG TABLET PO (20:27)
[2023-07-23] MEDS: Donepezil HCl 5 MG TABLET PO (20:27)
[2023-07-23] MEDS: Melatonin 3 MG TABLET 6 MG PO (20:33)
[2023-07-23] MEDS: Acetaminophen 325 MG TABLET 975 MG PO (20:33)
[2023-07-23] MEDS: Cyclobenzaprine HCl 5 MG TABLET PO (20:34)
[2023-07-23] MEDS: Insulin Glargine,Hum.rec.anlog 100 UNIT/ML 10 ML VIAL 30 UNIT SUBCUT (20:39)
[2023-07-23 20:42] VITALS: BP 156/91; PULSE 91; RESP 20; TEMP 36.7; O2SAT 100
[2023-07-24 00:24] LABS: Glucose, Whole Blood 138 mg/dL (60-115)
[2023-07-24 06:22] VITALS: BP 160/90; PULSE 88; RESP 20; TEMP 36.6; O2SAT 100
[2023-07-24 07:29] LABS: Glucose, Whole Blood 46 mg/dL (60-115)
[2023-07-24 08:01] LABS: Glucose, Whole Blood 99 mg/dL (60-115)
--- NOTE | 2023-07-24 08:16 | MHC.EDTECH ---
checked patients BG this morning. the reading was 46. nurse asked tech to give patient some orange juice and crackers and peanut butter. rechecked patients BG 30 minutes later and reading was 99. patient then ate breakfast and asked for a shower after breakfast.
[2023-07-24 10:57] VITALS: BP 160/90
[2023-07-24] MEDS: amLODIPine Besylate 5 MG TABLET PO (10:57)
[2023-07-24] MEDS: Clopidogrel Bisulfate 75 MG TABLET PO (10:57)
[2023-07-24 10:58] VITALS: BP 160/90
[2023-07-24] MEDS: Sodium Bicarbonate 650 MG TABLET PO ×3 (10:58→21:43)
[2023-07-24] MEDS: Apixaban 2.5 MG TABLET PO ×2 (10:58→21:48)
[2023-07-24] MEDS: Torsemide 20 MG TABLET PO ×2 (10:58→21:49)
[2023-07-24] MEDS: Ferrous Sulfate 324 MG TABLET.DR PO (10:59)
[2023-07-24 12:06] LABS: Glucose, Whole Blood 210 mg/dL (60-115)
[2023-07-24] MEDS: Insulin Lispro 100 UNIT/ML 3 ML VIAL SUBCUT ×3 (12:31→21:52)
[2023-07-24] MEDS: calcitrioL 0.25 MCG CAPSULE PO (12:31)
[2023-07-24 17:45] LABS: Glucose, Whole Blood 168 mg/dL (60-115)
[2023-07-24 18:26] VITALS: BP 176/88; PULSE 99; RESP 18; O2SAT 98
[2023-07-24 21:08] LABS: Glucose, Whole Blood 254 mg/dL (60-115)
--- NOTE | 2023-07-24 21:32 | PC.NURSE ---
Spoke with Andi Maria regarding patient's insulin and the fact patient was low this morning after getting full dose of insulin last night. Recommended that patient take full dose of fast acting insulin but only 20 units of the lantus for tonight.
[2023-07-24] MEDS: Atorvastatin Calcium 80 MG TABLET PO (21:43)
[2023-07-24] MEDS: Melatonin 3 MG TABLET 6 MG PO (21:43)
[2023-07-24] MEDS: Mirtazapine 30 MG TABLET PO (21:43)
[2023-07-24] MEDS: Acetaminophen 325 MG TABLET 975 MG PO (21:45)
[2023-07-24 21:49] VITALS: BP 164/93
[2023-07-24] MEDS: Cyclobenzaprine HCl 5 MG TABLET PO (21:49)
[2023-07-24] MEDS: Insulin Glargine,Hum.rec.anlog 100 UNIT/ML 10 ML VIAL 30 UNIT SUBCUT (21:51)
[2023-07-24] MEDS: Donepezil HCl 5 MG TABLET PO (22:37)
[2023-07-25 02:20] LABS: Glucose, Whole Blood 47 mg/dL (60-115)
--- NOTE | 2023-07-25 02:25 | PC.NURSE ---
pt asked staff to check POC, feeling weak. POC 47. given juices and sandwich, eating now
[2023-07-25 03:22] LABS: Glucose, Whole Blood 253 mg/dL (60-115)
[2023-07-25 05:50] VITALS: PULSE 72; RESP 16; TEMP 36.9; O2SAT 98
--- NOTE | 2023-07-25 06:12 | MHC.EDTECH ---
Patient 0600 vitals taken ,patient use the bathroom times 3 ,Patient blood sugar was low during the night ,Patient drank 360 ml orange juice and ate a sun butter and jelly sandwich .
[2023-07-25] MEDS: Famotidine 20 MG TABLET PO (06:38)
[2023-07-25 06:40] LABS: Glucose, Whole Blood 506 mg/dL (60-115)
--- NOTE | 2023-07-25 07:00 | PC.NURSE ---
messaged to provider about POC dropping last night after Lantus.
[2023-07-25 09:40] VITALS: BP 132/74
[2023-07-25] MEDS: Clopidogrel Bisulfate 75 MG TABLET PO (09:40)
[2023-07-25] MEDS: amLODIPine Besylate 5 MG TABLET PO (09:40)
[2023-07-25] MEDS: Apixaban 2.5 MG TABLET PO ×2 (09:40→20:53)
[2023-07-25] MEDS: Sodium Bicarbonate 650 MG TABLET PO ×3 (09:40→20:53)
[2023-07-25] MEDS: Torsemide 20 MG TABLET PO ×2 (09:40→20:53)
[2023-07-25] MEDS: Ferrous Sulfate 324 MG TABLET.DR PO (09:40)
[2023-07-25] MEDS: calcitrioL 0.25 MCG CAPSULE PO (09:42)
--- NOTE | 2023-07-25 10:54 | MHC.CM.ED ---
Patient remains in ER overflow. Patient's mother/HCP, Tracey, is agreeable to transfer to [facility]. Tracey will sign consent forms once they are sent to . Anticipate patient will leave ER tomorrow at 10am. Jeanne BAIRES booked. [facility] with chart. Patient, Tracey, Ronda RN and Jacque ZAMAN aware. Continue to monitor for d/c needs.
[2023-07-25 12:01] LABS: Glucose, Whole Blood 169 mg/dL (60-115)
[2023-07-25 12:02] LABS: Glucose, Whole Blood 128 mg/dL (60-115)
[2023-07-25] MEDS: Insulin Lispro 100 UNIT/ML 3 ML VIAL SUBCUT ×3 (12:12→20:53)
[2023-07-25 15:12] VITALS: BP 162/90; PULSE 98; RESP 18; TEMP 36.9; O2SAT 98
[2023-07-25 16:30] LABS: Glucose, Whole Blood 345 mg/dL (60-115)
--- NOTE | 2023-07-25 18:31 | PC.NURSE ---
Pt calm and cooperative. Independently ambulating. Takes meds whole. Good PO intake.
--- NOTE | 2023-07-25 19:02 | PC.NURSE ---
this rn assumed care of pt, pt speaking to family on phone at this time, no acute distress noted. plan of care continues.
[2023-07-25 20:21] LABS: Glucose, Whole Blood 277 mg/dL (60-115)
--- NOTE | 2023-07-25 20:43 | PC.NURSE ---
pharmacy contacted for medication to be brought to overflow at this time.
[2023-07-25 20:51] VITALS: BP 174/92; PULSE 99; RESP 16; TEMP 36.3; O2SAT 99
[2023-07-25] MEDS: Mirtazapine 30 MG TABLET PO (20:53)
[2023-07-25] MEDS: Donepezil HCl 5 MG TABLET PO (20:53)
[2023-07-25] MEDS: Atorvastatin Calcium 80 MG TABLET PO (20:53)
--- NOTE | 2023-07-25 20:59 | PC.NURSE ---
pt medicated per mar, pt tolerated well with water. insulin coverage per protocol administered.
[2023-07-26 05:36] VITALS: BP 171/86; PULSE 73; RESP 16; TEMP 37.2; O2SAT 98
--- NOTE | 2023-07-26 05:40 | MHC.EDTECH ---
,awake at 0545 ,vitals taken this pct assumed care of patient at 0300 ,patient slept all night up at 0545 ,vitals taken and fresh water given ,Patient went to bathroom void and back to bed .
[2023-07-26] MEDS: Famotidine 20 MG TABLET PO (05:47)
[2023-07-26 05:48] LABS: Glucose, Whole Blood 105 mg/dL (60-115)
[2023-07-26 07:54] LABS: MANUAL DIFF FLAG NO
[2023-07-26 07:59] LABS: Basophils Percent Auto 0.4 % (0-2); Eosinophils Absolute Auto 0.6 X10*3/uL (0.0-0.4); Hemoglobin 9.9 g/dl (14.0-18.0); Imm Gran Abs Auto 0.04 X10*3/uL (0.00-0.03); Imm Gran Pct Auto 0.4 % (0.0-0.4); Lymphocytes Absolute Auto 2.2 X10*3/uL (1.2-4.9); Lymphocytes Percent Auto 20.9 % (20-40); Mean Corpuscular Hemoglobin 27.8 pg (27.0-33.0); Mean Corpuscular Volume 84.3 fL (80.0-98.0); Mean Platelet Volume 9.7 fL (9.4-12.4); Monocytes Absolute Auto 1.3 X10*3/uL (0.1-1.2); Monocytes Percent Auto 12.5 % (2-11); Neutrophils Absolute Auto 6.3 x10*3/uL (2.0-8.3); Neutrophils Percent Auto 59.8 % (45-73); Platelet Count 232 X10*3/uL (160-400); Red Blood Count 3.56 X10*6/uL (4.60-5.80); Red Cell Distribution Width 13.9 % (11.0-16.0); White Blood Count 10.6 X10*3/uL (4.8-10.8)
[2023-07-26 08:21] LABS: Anion Gap 15 (12-20); Blood Urea Nitrogen 92 mg/dL (9-16); Calcium 8.9 mg/dL (8.4-10.2); Carbon Dioxide 22 mmol/L (22-29); Chloride 112 mmol/L (96-108); Creatinine Clr Calc Pharmacy 14.8; Estimated Glomerular Filt Rate 12; Glucose Random 91 mg/dL (60-115); Magnesium 2.1 mg/dL (1.6-2.6); Phosphorus 4.8 mg/dL (2.7-4.5); Potassium 4.1 mmol/L (3.3-5.1); Sodium 145 mmol/L (135-145)
--- NOTE | 2023-07-26 08:47 | MHC.EDTECH ---
Pt ate 100% of his breakfast 240cc of juice
--- NOTE | 2023-07-26 08:54 | PC.NURSE ---
pt currently in shower, will medicate when he gets out.
[2023-07-26 09:22] VITALS: BP 171/86
[2023-07-26] MEDS: amLODIPine Besylate 5 MG TABLET PO (09:22)
[2023-07-26] MEDS: Clopidogrel Bisulfate 75 MG TABLET PO (09:22)
[2023-07-26] MEDS: Apixaban 2.5 MG TABLET PO (09:22)
[2023-07-26] MEDS: Sodium Bicarbonate 650 MG TABLET PO (09:22)
[2023-07-26 09:23] VITALS: BP 171/86
[2023-07-26] MEDS: Ferrous Sulfate 324 MG TABLET.DR PO (09:23)
[2023-07-26] MEDS: Torsemide 20 MG TABLET PO (09:23)
--- NOTE | 2023-07-26 09:25 | PC.NURSE ---
pt awake/alert to baseline, oob ambulating with steady gait to take shower, pt medicated upon return- meds whole with water, denies pain/discomfort, ate 100% of breakfast, vss, lungs clear throughout, rr equal/non labored, pt awaiting discharge will continue to monitor
--- NOTE | 2023-07-26 09:40 | PC.NURSE ---
this nurse attempted to call report to facility spoke with Lady who stated that the patient is not located on her screen and isnt able to transfer me to the appropriate nurse to take report. this nurse communicated this back to our geriatric case manager who is contacting the facility liaison
[2023-07-26 11:43] VITALS: BP 171/86; PULSE 73; RESP 16; TEMP 37.2
== END 2023-07-26 11:43 ==
PROVIDERS: Emergency Medicine; Internal Medicine; Physician Assistant; Emergency Provider Emergency Medicine Emergency Medical Services; PCP Family Medicine
DX: F03.90 Unspecified dementia, unspecified severity, without behavioral disturbance, psychotic disturbance, mood disturbance, and anxiety (principal); E11.65 Type 2 diabetes mellitus with hyperglycemia; E11.22 Type 2 diabetes mellitus with diabetic chronic kidney disease; N18.4 Chronic kidney disease, stage 4 (severe); I50.9 Heart failure, unspecified; Z86.73 Personal history of transient ischemic attack (TIA), and cerebral infarction without residual deficits; Z86.718 Personal history of other venous thrombosis and embolism; Z79.4 Long term (current) use of insulin
CPT/HCPCS: 36415; 80048; 80053; 80307; 81001; 82565; 82947; 83690; 83735; 84100; 85025; 87635; 99285

== ENCOUNTER 2023-10-10 14:26 | Outpatient (AMB) | payer MEDICAID, SELFPAY ==
--- NOTE | 2023-10-10 14:31 | HO.NEPHOV_ITS ---
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 Required: No Accompanied by: CENTRIFUGAL STATION OPERATOR Allergies No Known Allergies Allergy (Verified 10/10/23 14:34) Medication List - Last Reconciled 10/10/23 by Timi Steinberg MD amlodipine (Norvasc) 5 mg PO DAILY amlodipine 5 mg PO DAILY apixaban (Eliquis) 2.5 mg PO BID apixaban (Eliquis) 2.5 mg PO BID atorvastatin 80 mg PO BEDTIME atorvastatin 80 mg PO BEDTIME calcitriol 0.25 mcg PO DAILY calcitriol 0.25 mcg PO DAILY clopidogrel 75 mg PO DAILY clopidogrel (Plavix) 75 mg PO DAILY cyclobenzaprine 5 mg PO BID PRN donepezil 5 mg PO BEDTIME donepezil (Aricept) 5 mg PO BEDTIME famotidine (Pepcid) 20 mg PO DAILY ferrous sulfate 324 mg PO DAILY ferrous sulfate 324 mg PO DAILY insulin glargine (Lantus Solostar U-100 Insulin) 18 units subcut BEDTIME insulin lispro see above insulin lispro 1 sliding scale dose subcut USEASDIRECTD lidocaine 5% 1 patch topical DAILY melatonin 6 mg (2 x 3 mg) PO BEDTIME PRN melatonin 5 mg PO BEDTIME PRN mirtazapine 30 mg PO BEDTIME mirtazapine (Remeron) 30 mg PO BEDTIME omeprazole 40 mg PO DAILY sodium bicarbonate 650 mg PO TID sodium bicarbonate 650 mg PO TID torsemide 20 mg PO BID 14 days torsemide 20 mg PO BID HPI Comments Details: 47-year-old male with pertinent history of CVA, DVT on Eliquis, mood disorder, vascular dementia, history of IV drugs (cocaine) use disorder, chronic kidney disease, gastroesophageal reflux disease, mood disorder who presents to the emergency department for evaluation of elevated blood glucose. Patient was discharged from a rehab facility in [place] after an acute CVA Appetite is good No nausea or vomiting [facility] Medical History (Updated 07/27/23 @ 00:01 by Ankita Ramos) Dementia CKD (chronic kidney disease) stage 4, GFR 15-29 ml/min Infiltrative cardiomyopathy Anemia in chronic kidney disease (CKD) Pneumonia Congestive heart failure GRISEL (acute kidney injury) CKD (chronic kidney disease) Hyperglycemia Elevated serum creatinine Chronic kidney disease History of insulin dependent diabetes mellitus Mood disorder Vascular dementia CVA (cerebral vascular accident) DVT (deep venous thrombosis) Social History Household Members: Family Housing: Apartment Do you presently have visiting nurse or other home services: No Comment: pt is low falls risk Patient Tobacco Use Status: Former Tobacco user Tobacco use type: Cigarette Cigarette Packs Per Day: 0.5 Cigarettes Per Day: 10.0 Years Smoked: 7 e-Cigarette/Vaping Use: Never Used Second Hand Smoke Exposure: No Substance Use Type: Crack/Cocaine, IV Drugs and Opiates Advance Directives Date on File: 04/05/23 service: No Physical Exam Vital Signs: Last Vital Signs Pulse 105 H 10/10/23 14:32 BP 96/68 10/10/23 14:32 Pulse Ox 99 10/10/23 14:32 Oxygen Delivery Method Room Air 10/10/23 14:32 BMI result Body Mass Index 23.3 Const General: comfortable; No acute distress Orientation/consciousness: patient oriented x3 Eyes General: appearance normal, both eyes and all related structures Visual Walker: normal visual walker by confrontation Neck Neck: Yes supple and Yes no JVD Resp Effort & Inspection: normal respiratory effort and respiratory effort not decreased Auscultation: rhonchi Cardio Palpation: no palpable S3 and no palpable S4 Heart sounds: no rubs GI Inspection: Yes normal to inspection Palpation (GI): Soft to palpation Percussion: Yes normal to percussion Auscultation: normal bowel sounds General: Yes no CVA tenderness Back/Spine/Pelvis Back: no CVA tenderness Skin General skin exam: no petechiae and no purpura Neuro General: patient oriented x3 and no focal motor deficits Extrem General: No clubbing and No edema Results Reviewed Nephrology Results: Hgb 9.9 g/dl (14.0-18.0) L 07/26/23 WBC 10.6 X10*3/uL (4.8-10.8) 07/26/23 Plt Count 232 X10*3/uL (160-400) 07/26/23 Sodium 145 mmol/L (135-145) 07/26/23 Potassium 4.1 mmol/L (3.3-5.1) 07/26/23 Chloride 112 mmol/L (96-108) H 07/26/23 Carbon Dioxide 22 mmol/L (22-29) 07/26/23 BUN 92 mg/dL (9-16) H 07/26/23 Creatinine 5.05 mg/dL (0.5-1.4) H* 07/26/23 Calcium 8.9 mg/dL (8.4-10.2) 07/26/23 Phosphorus 4.8 mg/dL (2.7-4.5) H 07/26/23 PTH Intact 238.6 pg/mL (8.7-77.1) H 06/15/23 Urine Protein 300 (3+) mg/dL (Neg-Trace) H 07/05/23 Assessment & Plan Assessment & Plan (1) CKD (chronic kidney disease) stage 4, GFR 15-29 ml/min: Code(s): N18.4 - Chronic kidney disease, stage 4 (severe) Category: Medical (2) Anemia in chronic kidney disease (CKD): Code(s): N18.9 - Chronic kidney disease, unspecified; D63.1 - Anemia in chronic kidney disease Category: Medical Qualifiers: Chronic kidney disease stage: stage 4 (severe) Qualified Code(s): N18.4 - Chronic kidney disease, stage 4 (severe); D63.1 - Anemia in chronic kidney disease Plan CKD approaching ESRD No s/s of uremia Discussed renal replacement therapy in the very near future Once they agree, i will arrange for AVF Anemia Received REtacrit 30427 U in May HCT improved No Epogen today HTN Optimize BP Keep AMLODIPINE 5 mg dialy(06/09/23) Low salt diet SHPT: On Calcitriol No absolute indication for dialysis yet Discussed with family Lab work ordered Orders: Orders Complete Blood Count Auto Diff Today N18.4 - Chronic kidney disease, stage 4 (severe) Comprehensive Met. Panel Today N18.4 - Chronic kidney disease, stage 4 (severe) Parathyroid Hormone Intact Today N18.4 - Chronic kidney disease, stage 4 (severe) Coding Level of Care Code Est Pt Level 4 (28570) Diagnoses CKD (chronic kidney disease) stage 4, GFR 15-29 ml/min N18.4 Anemia in stage 4 chronic kidney disease N18.4; D63.1 Chronic kidney disease stage: stage 4 (severe)
[2023-10-10 14:32] VITALS: BP 96/68; PULSE 105; O2SAT 99; BMI 23.3
== END 2023-10-10 14:49 | disposition home or self-care (01) ==
PROVIDERS: PCP Family Medicine; Visit Provider Internal Medicine Hypertension Specialist
DX: N18.4 Chronic kidney disease, stage 4 (severe) (principal); D63.1 Anemia in chronic kidney disease
CPT/HCPCS: 99214

== ENCOUNTER → 2023-10-10 14:26 | Outpatient (BNVA) | payer MEDICAID, SELFPAY | PROVIDERS: PCP Family Medicine; Visit Provider Internal Medicine Hypertension Specialist | DX: N18.4 Chronic kidney disease, stage 4 (severe) (principal); D63.1 Anemia in chronic kidney disease | CPT/HCPCS: 99212 ==

== ENCOUNTER 2023-11-11 12:54 | Outpatient (AMB) | payer MEDICAID, SELFPAY ==
[2023-11-11 13:38] VITALS: BP 100/62; PULSE 103; BMI 22.9
--- NOTE | 2023-11-11 13:38 | MHC.OFFVIS ---
Vital Signs 11/11/23 13:38 Height 5 ft 5 in Weight 137 lb 9.095 oz BMI 22.9 BP 100/62 Blood Pressure Location Lt brachial Position Sitting Pulse 103 H Pulse Source Pulse Oximeter Intake Visit Reasons: f/u after MRI [facility] Lamp Wirer: Lamp Wirer Present Allergies No Known Allergies Allergy (Verified 10/10/23 14:34) Medication List - Last Reconciled 11/11/23 by Keren Reyes BATTERY CHARGER CONVEYOR LINE-C amlodipine (Norvasc) 5 mg PO DAILY apixaban (Eliquis) 2.5 mg PO BID atorvastatin 80 mg PO BEDTIME calcitriol 0.25 mcg PO DAILY clopidogrel (Plavix) 75 mg PO DAILY cyclobenzaprine 5 mg PO BID PRN donepezil 5 mg PO BEDTIME donepezil (Aricept) 5 mg PO BEDTIME famotidine (Pepcid) 20 mg PO DAILY ferrous sulfate 324 mg PO DAILY insulin glargine (Lantus Solostar U-100 Insulin) 18 units subcut BEDTIME insulin lispro see above insulin lispro 1 sliding scale dose subcut USEASDIRECTD lidocaine 5% 1 patch topical DAILY melatonin 6 mg (2 x 3 mg) PO BEDTIME PRN mirtazapine (Remeron) 30 mg PO BEDTIME omeprazole 40 mg PO DAILY sodium bicarbonate 650 mg PO TID torsemide 20 mg PO BID HPI HPI f/u after MRI [facility]: Details: Ben is a 48-year-old male with past medical history of chronic kidney disease, vascular dementia who had echocardiogram with low normal EF, elevated filling pressures and strain imaging suspicious for amyloidosis. He underwent a cardiac MRI and now presents for follow-up. Today he reports that he has been doing generally well. Does notice some shortness of breath with physical exertion. No PND, orthopnea or edema. No chest discomfort at rest or with activity. No palpitations, presyncope, syncope, falls. He takes his meds as directed. He resides at a senior living facility. Staff member present with him. [facility] Medical History Dementia CKD (chronic kidney disease) stage 4, GFR 15-29 ml/min Infiltrative cardiomyopathy Anemia in chronic kidney disease (CKD) Pneumonia Congestive heart failure GRISEL (acute kidney injury) CKD (chronic kidney disease) Hyperglycemia Elevated serum creatinine Chronic kidney disease History of insulin dependent diabetes mellitus Mood disorder Vascular dementia CVA (cerebral vascular accident) DVT (deep venous thrombosis) Social History Household Members: Family Housing: Apartment Do you presently have visiting nurse or other home services: No Comment: pt is low falls risk Patient Tobacco Use Status: Former Tobacco user Tobacco use type: Cigarette Cigarette Packs Per Day: 0.5 Cigarettes Per Day: 10.0 Years Smoked: 7 e-Cigarette/Vaping Use: Never Used Second Hand Smoke Exposure: No Substance Use Type: Crack/Cocaine, IV Drugs and Opiates Advance Directives Date on File: 04/05/23 service: No Review of Systems Const All systems reviewed & are unremarkable except as noted in HPI and below ENT Denies dizziness Card Denies chest pain, Denies chest pain at rest, Denies chest pain with activity, Denies rapid heart rate, Denies pedal edema, Denies edema, Denies leg edema, Denies lightheadedness, Denies palpitations, Denies dyspnea, Reports dyspnea on exertion and Denies orthopnea Resp Denies cough, Denies dyspnea and Reports dyspnea on exertion GI Denies hematochezia and Denies change in stool character Musc Denies abnormal gait, Denies limited range of motion, Denies muscle cramps, Denies muscle weakness, Denies numbness, Denies radiating pain into limb, Denies stiffness and Denies tingling Neuro Denies abnormal gait, Denies dizziness, Denies numbness and Denies tingling Endo Denies palpitations Physical Exam Vital Signs: Last Vital Signs Pulse 103 H 11/11/23 13:38 BP 100/62 11/11/23 13:38 BMI result Body Mass Index 22.9 Const General: cooperative, healthy appearing, comfortable and no acute distress Orientation/consciousness: patient oriented x3 Neck Neck: Yes normal visual inspection Resp Effort & Inspection: normal respiratory effort Auscultation: clear to auscultation bilaterally, no crackles, no rales, no rhonchi and no wheezes Cardio Rate: regular rate Rhythm: regular rhythm Heart sounds: S1 normal heart sound present, S2 normal heart sound present, no murmurs and no rubs Neuro General: patient oriented x3 Extrem General: Yes normal to inspection, No no pedal edema and No calf tenderness Psych Appearance: grossly normal Mental Status: mental status grossly normal Speech and movement: Normal speech and movement present Assessment & Plan Assessment & Plan (1) Cardiomyopathy: Code(s): I42.9 - Cardiomyopathy, unspecified Category: Medical Plan: [facility] [place] with severe acidosis. During his admission he had an echocardiogram EF 50-55%, strain pattern suspicious for amyloidosis, mildly elevated right atrial pressure, mild pulmonary hypertension. An outpatient cardiac MRI was ordered. He did have a repeat echocardiogram at [facility] in July 2023 which showed severe global hypokinesis with regional variation, left ventricular EF 25-30%, unable to assess diastolic function. He was admitted to [facility] in August with large bilateral pleural effusion. He has known advanced chronic kidney disease and he was discharged with torsemide 40 mg daily. His other discharge meds did not include neurohormonal modulation. Cardiac MRI was done on 10/07/2020 showing EF 31% LV with global hypokinesis, does not meet criteria for LV noncompaction cardiomyopathy, no T1 evidence of diffuse myocardial fibrosis, no T2 evidence of myocardial edema. Today he reports that he has some shortness of breath with physical activity. He does not appear fluid overloaded on exam. Pulse rate today is elevated at 103. Will have him continue on torsemide 40 mg daily. Will have him stop amlodipine and start on metoprolol XL 25 mg b.i.d. for neurohormonal modulation. Will have him reduce it to once daily if his blood pressure does not tolerate b.i.d. dosing. Unable to use Prateek/Arb due to CKD. Will check a nuclear stress test for further evaluation. Can exercise if able however may need to use Lexiscan. He has a history of anemia, most recent hematocrit in our system was 30.0. He does report intermittent heart palpitations like his heart is beating fast. Will Holter Holter monitor for further evaluation. Cardiology follow-up when test results are available. Emergency care if needed for concerning symptoms. (2) Infiltrative cardiomyopathy: Code(s): I42.8 - Other cardiomyopathies Category: Medical Plan: Not confirmed based on cardiac MRI (3) CKD (chronic kidney disease) stage 4, GFR 15-29 ml/min: Code(s): N18.4 - Chronic kidney disease, stage 4 (severe) Category: Medical Plan: Follows with Nephrology. Most recent creatinine in our system 5.05. He is nearing end-stage renal disease. (4) Palpitations: Code(s): R00.2 - Palpitations Category: Medical Plan: As above Plan Time spent on chart review, documentation, interview and assessment Orders: Orders NM cardiolite stress test Today I42.9 - Cardiomyopathy, unspecified ECG 3 day holter monitor Today R00.2 - Palpitations CA stress test Today I42.9 - Cardiomyopathy, unspecified Medications: New metoprolol succinate ER 25 mg PO BID 60 tabs 5RF Discontinued amlodipine (Norvasc) Discontinued Reason: Doctor's Order 5 mg PO DAILY 30 tabs 0RF Coding Level of Care Code Est Pt Level 4 (22851) Diagnoses Cardiomyopathy I42.9 Infiltrative cardiomyopathy I42.8 CKD (chronic kidney disease) stage 4, GFR 15-29 ml/min N18.4 Palpitations R00.2 Time Spent (min) 28
== END 2023-11-11 14:31 | disposition home or self-care (01) ==
PROVIDERS: PCP Family Medicine; Visit Provider Nurse Practitioner Family
DX: I42.9 Cardiomyopathy, unspecified (principal); I42.8 Other cardiomyopathies; N18.4 Chronic kidney disease, stage 4 (severe); R00.2 Palpitations
CPT/HCPCS: 99214

== ENCOUNTER → 2023-11-11 12:54 | Outpatient (BNVA) | payer MEDICAID, SELFPAY | PROVIDERS: PCP Family Medicine; Visit Provider Nurse Practitioner Family | DX: I42.9 Cardiomyopathy, unspecified (principal); I42.8 Other cardiomyopathies; R00.2 Palpitations; N18.4 Chronic kidney disease, stage 4 (severe) | CPT/HCPCS: 99212 ==

== ENCOUNTER 2024-01-02 11:49 | Outpatient (AMB) | payer MEDICAID, SELFPAY ==
[2024-01-02 12:51] VITALS: BP 134/82; PULSE 71; BMI 24.3
--- NOTE | 2024-01-02 12:51 | A.OFFVIS_ITS ---
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: No Data Systems Analyst: Data Systems Analyst Present Allergies No Known Allergies Allergy (Verified 01/02/24 12:54) Medication List - Last Reconciled 01/02/24 by ENZO Sheffield apixaban (Eliquis) 2.5 mg PO BID atorvastatin 80 mg PO BEDTIME calcitriol 0.25 mcg PO DAILY clopidogrel (Plavix) 75 mg PO DAILY cyclobenzaprine 5 mg PO BID PRN donepezil 5 mg PO BEDTIME donepezil (Aricept) 5 mg PO BEDTIME famotidine (Pepcid) 20 mg PO DAILY ferrous sulfate 324 mg PO DAILY insulin glargine (Lantus Solostar U-100 Insulin) 18 units subcut BEDTIME insulin lispro see above insulin lispro 1 sliding scale dose subcut USEASDIRECTD lidocaine 5% 1 patch topical DAILY melatonin 6 mg (2 x 3 mg) PO BEDTIME PRN metoprolol succinate ER 25 mg PO BID mirtazapine (Remeron) 30 mg PO BEDTIME omeprazole 40 mg PO DAILY sodium bicarbonate 650 mg PO TID torsemide 20 mg PO BID HPI HPI 2-3m follow up: Details: Ben is a 48-year-old male with past medical history of chronic kidney disease, vascular dementia who had echocardiogram with low normal EF, elevated filling pressures and strain imaging suspicious for amyloidosis. He underwent a cardiac MRI with no amyloidosis found. Did have a repeat echocardiogram done at [facility] 07/31/2023 that showed EF 25-30%. On follow-up visit a nuclear stress test and Holter monitor were ordered. He was ordered to start on metoprolol last visit. He was not put on Prateek or Arb due to chronic kidney disease. He now presents for follow-up. Today he reports that he has been doing generally well. Does notice some mild shortness of breath with physical exertion. No PND, orthopnea or edema. No chest discomfort at rest or with activity. No palpitations, presyncope, syncope, falls. He takes his meds as directed. [facility] Staff member present with him. His cardiac tests were not completed for unclear reason. His med list does not include metoprolol. [facility] Medical History Dementia CKD (chronic kidney disease) stage 4, GFR 15-29 ml/min Infiltrative cardiomyopathy Anemia in chronic kidney disease (CKD) Pneumonia Congestive heart failure GRISEL (acute kidney injury) CKD (chronic kidney disease) Hyperglycemia Elevated serum creatinine Chronic kidney disease History of insulin dependent diabetes mellitus Mood disorder Vascular dementia CVA (cerebral vascular accident) DVT (deep venous thrombosis) Social History Household Members: Family Housing: Apartment Do you presently have visiting nurse or other home services: No Comment: pt is low falls risk Patient Tobacco Use Status: Former Tobacco user Tobacco use type: Cigarette Cigarette Packs Per Day: 0.5 Cigarettes Per Day: 10.0 Years Smoked: 7 e-Cigarette/Vaping Use: Never Used Second Hand Smoke Exposure: No Substance Use Type: Crack/Cocaine, IV Drugs and Opiates Advance Directives Date on File: 04/05/23 service: No Review of Systems Const All systems reviewed & are unremarkable except as noted in HPI and below ENT Denies dizziness Card Denies chest pain, Denies chest pain at rest, Denies chest pain with activity, Denies rapid heart rate, Denies pedal edema, Denies edema, Denies leg edema, Denies lightheadedness, Denies palpitations, Denies dyspnea, Denies dyspnea on exertion and Denies orthopnea Resp Denies cough, Denies dyspnea and Denies dyspnea on exertion GI Denies hematochezia and Denies change in stool character Musc Denies abnormal gait, Denies limited range of motion, Denies muscle cramps, Den ies muscle weakness, Denies numbness, Denies radiating pain into limb, Denies stiffness and Denies tingling Neuro Denies abnormal gait, Denies dizziness, Denies numbness and Denies tingling Endo Denies palpitations Physical Exam Vital Signs: BMI result Body Mass Index 24.3 Const General: cooperative, healthy appearing, comfortable and no acute distress Orientation/consciousness: patient oriented x3 Neck Neck: Yes normal visual inspection Resp Effort & Inspection: normal respiratory effort Auscultation: clear to auscultation bilaterally, no crackles, no rales, no rhonchi and no wheezes Cardio Rate: regular rate Rhythm: regular rhythm Heart sounds: S1 normal heart sound present, S2 normal heart sound present, no murmurs and no rubs Neuro General: patient oriented x3 Extrem General: Yes normal to inspection, No no pedal edema and No calf tenderness Psych Appearance: grossly normal Mental Status: mental status grossly normal Speech and movement: Normal speech and movement present Assessment & Plan Assessment & Plan (1) Cardiomyopathy: Code(s): I42.9 - Cardiomyopathy, unspecified Category: Medical Plan: [facility] [place] admission 04/01/2023 with severe acidosis. During his admission he had an echocardiogram EF 50-55%, strain pattern suspicious for amyloidosis, mildly elevated right atrial pressure, mild pulmonary hypertension. An outpatient cardiac MRI was done and did not show findings of amyloidosis. He did have a repeat echocardiogram at [facility] in July 2023 which showed severe global hypokinesis with regional variation, left ventricular EF 25-30%, unable to assess diastolic function. He was admitted to [facility] in August with large bilateral pleural effusion. He has known advanced chronic kidney disease and he was discharged with torsemide 40 mg daily. On last visit a nuclear stress test and Holter monitor were ordered. He was to stop amlodipine and start on metoprolol. Today he reports he has been doing generally well since his last visit. [facility] and the staff member that his present does not know any calls for cardiac testing. His nuclear stress test and Holter monitor have not been completed. His med list today does not include metoprolol. Instructions written on his [facility] facility paperwork: Nuclear stress test, limited echocardiogram and Holter monitor are ordered. We gave them a card to have them call centralized scheduling to arrange. Since he travels from [place] and has to have transportation a 1 day stress test is requested. Will have him start on metoprolol XL 25 mg daily. He does not appear fluid overloaded on exam. He has some mild shortness of breath with exertion otherwise no symptoms. He is currently on torsemide 20 mg daily. Signs and symptoms of heart failure reviewed with him and SNF staff member. Unable to use Prateek/Arb due to CKD. Cardiology follow-up 3 months, sooner if needed. (2) Infiltrative cardiomyopathy: Code(s): I42.8 - Other cardiomyopathies Category: Medical Plan: Not confirmed based on cardiac MRI. At present it is unknown if his cardiomyopathy is ischemic versus nonischemic (3) CKD (chronic kidney disease) stage 4, GFR 15-29 ml/min: Code(s): N18.4 - Chronic kidney disease, stage 4 (severe) Category: Medical Plan: Follows with Nephrology. Most recent creatinine in our system 5.05. He is nearing end-stage renal disease. Plan Time spent on chart review, documentation, interview and assessment Orders: Orders CA Echo Limited Today I42.9 - Cardiomyopathy, unspecified Coding Level of Care Code Est Pt Level 3 (07821) Complex EM visit Add On G2211 Diagnoses Cardiomyopathy I42.9 Infiltrative cardiomyopathy I42.8 CKD (chronic kidney disease) stage 4, GFR 15-29 ml/min N18.4 Time Spent (min) 26
== END 2024-01-02 13:19 | disposition home or self-care (01) ==
PROVIDERS: PCP Family Medicine; Visit Provider Nurse Practitioner Family
DX: I42.9 Cardiomyopathy, unspecified (principal); I42.8 Other cardiomyopathies; N18.4 Chronic kidney disease, stage 4 (severe)
CPT/HCPCS: 99213

== ENCOUNTER → 2024-01-02 11:49 | Outpatient (BNVA) | payer MEDICAID, SELFPAY | PROVIDERS: PCP Family Medicine; Visit Provider Nurse Practitioner Family | DX: I42.8 Other cardiomyopathies (principal); I42.9 Cardiomyopathy, unspecified; N18.4 Chronic kidney disease, stage 4 (severe) | CPT/HCPCS: 99212 ==

== ENCOUNTER 2024-01-09 14:07 | Outpatient (AMB) | payer MEDICAID, SELFPAY ==
--- NOTE | 2024-01-09 14:15 | HO.NEPHOV_ITS ---
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 CAR ATTENDANT Allergies No Known Allergies Allergy (Verified 01/09/24 14:18) Medication List - Last Reconciled 01/09/24 by Timi Steinberg MD apixaban (Eliquis) 2.5 mg PO BID atorvastatin 80 mg PO BEDTIME calcitriol 0.25 mcg PO DAILY clopidogrel (Plavix) 75 mg PO DAILY cyclobenzaprine 5 mg PO BID PRN donepezil (Aricept) 5 mg PO BEDTIME famotidine (Pepcid) 20 mg PO DAILY ferrous sulfate 324 mg PO DAILY insulin glargine (Lantus Solostar U-100 Insulin) 18 units subcut BEDTIME insulin lispro see above insulin lispro 1 sliding scale dose subcut USEASDIRECTD lidocaine 5% 1 patch topical DAILY melatonin 6 mg (2 x 3 mg) PO BEDTIME PRN metoprolol succinate ER 25 mg PO BID sodium bicarbonate 650 mg PO TID sodium zirconium cyclosilicate (Lokelma) 10 grams PO DAILY torsemide 20 mg PO BID trazodone 50 mg PO BEDTIME PRN HPI Comments Details: 47-year-old male with pertinent history of CVA, DVT on Eliquis, mood disorder, vascular dementia, history of IV drugs (cocaine) use disorder, chronic kidney disease, gastroesophageal reflux disease, mood disorder who presents to the emergency department for evaluation of elevated blood glucose. Patient was discharged from a rehab facility in [place] after an acute CVA Appetite is good No nausea or vomiting Currently in Rehab in [place], [place] On [facility] Medical History Dementia CKD (chronic kidney disease) stage 4, GFR 15-29 ml/min Infiltrative cardiomyopathy Anemia in chronic kidney disease (CKD) Pneumonia Congestive heart failure GRISEL (acute kidney injury) CKD (chronic kidney disease) Hyperglycemia Elevated serum creatinine Chronic kidney disease History of insulin dependent diabetes mellitus Mood disorder Vascular dementia CVA (cerebral vascular accident) DVT (deep venous thrombosis) Social History Household Members: Family Housing: Apartment Do you presently have visiting nurse or other home services: No Comment: pt is low falls risk Patient Tobacco Use Status: Former Tobacco user Tobacco use type: Cigarette Cigarette Packs Per Day: 0.5 Cigarettes Per Day: 10.0 Years Smoked: 7 e-Cigarette/Vaping Use: Never Used Second Hand Smoke Exposure: No Substance Use Type: Crack/Cocaine, IV Drugs and Opiates Advance Directives Date on File: 04/05/23 service: No Physical Exam Vital Signs: Last Vital Signs Pulse 94 01/09/24 14:16 BP 130/80 01/09/24 14:30 Pulse Ox 98 01/09/24 14:16 Oxygen Delivery Method Room Air 01/09/24 14:16 BMI result Body Mass Index 24.8 Results Reviewed Nephrology Results: Hgb 9.9 g/dl (14.0-18.0) L 07/26/23 WBC 10.6 X10*3/uL (4.8-10.8) 07/26/23 Plt Count 232 X10*3/uL (160-400) 07/26/23 Sodium 145 mmol/L (135-145) 07/26/23 Potassium 4.1 mmol/L (3.3-5.1) 07/26/23 Chloride 112 mmol/L (96-108) H 07/26/23 Carbon Dioxide 22 mmol/L (22-29) 07/26/23 BUN 92 mg/dL (9-16) H 07/26/23 Creatinine 5.05 mg/dL (0.5-1.4) H* 07/26/23 Calcium 8.9 mg/dL (8.4-10.2) 07/26/23 Phosphorus 4.8 mg/dL (2.7-4.5) H 07/26/23 PTH Intact 238.6 pg/mL (8.7-77.1) H 06/15/23 Urine Protein 300 (3+) mg/dL (Neg-Trace) H 07/05/23 Assessment & Plan Assessment & Plan (1) CKD (chronic kidney disease) stage 4, GFR 15-29 ml/min: Code(s): N18.4 - Chronic kidney disease, stage 4 (severe) Category: Medical (2) Anemia in chronic kidney disease (CKD): Code(s): N18.9 - Chronic kidney disease, unspecified; D63.1 - Anemia in chronic kidney disease Category: Medical Qualifiers: Chronic kidney disease stage: stage 4 (severe) Qualified Code(s): N18.4 - Chronic kidney disease, stage 4 (severe); D63.1 - Anemia in chronic kidney di sease Plan CKD approaching ESRD No s/s of uremia Discussed renal replacement therapy in the very near future Once they agree, i will arrange for AVF Anemia Due to EPO deficiency. Check hematocrit No Epogen today HTN Optimize BP Keep AMLODIPINE 5 mg dialy(06/09/23) Low salt diet SHPT: On Calcitriol History of hyperkalemia keep on Lokelma and low-potassium diet No absolute indication for dialysis yet Lab work ordered Orders: Orders Basic Metabolic Panel Today N18.4 - Chronic kidney disease, stage 4 (severe) Parathyroid Hormone Intact Today N18.4 - Chronic kidney disease, stage 4 (severe) Complete Blood Count no Diff Today N18.4 - Chronic kidney disease, stage 4 (severe) Phosphorus Today N18.4 - Chronic kidney disease, stage 4 (severe) Coding Level of Care Code Est Pt Level 4 (35262) Complex EM visit Add On G2211 Diagnoses CKD (chronic kidney disease) stage 4, GFR 15-29 ml/min N18.4 Anemia in stage 4 chronic kidney disease N18.4; D63.1 Chronic kidney disease stage: stage 4 (severe)
[2024-01-09 14:16] VITALS: BP 150/90; PULSE 94; O2SAT 98; BMI 24.8
[2024-01-09 14:30] VITALS: BP 130/80
== END 2024-01-09 14:36 | disposition home or self-care (01) ==
PROVIDERS: PCP Family Medicine; Visit Provider Internal Medicine Hypertension Specialist
DX: N18.4 Chronic kidney disease, stage 4 (severe) (principal); D63.1 Anemia in chronic kidney disease
CPT/HCPCS: 99214

== ENCOUNTER → 2024-01-09 14:07 | Outpatient (BNVA) | payer MEDICAID, SELFPAY | PROVIDERS: PCP Family Medicine; Visit Provider Internal Medicine Hypertension Specialist | DX: N18.4 Chronic kidney disease, stage 4 (severe) (principal); D63.1 Anemia in chronic kidney disease | CPT/HCPCS: 99212 ==

== ENCOUNTER 2024-02-28 10:35 | Outpatient (AMB) | payer MEDICAID, SELFPAY ==
--- NOTE | 2024-02-28 10:41 | HO.NEPHOV ---
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 Required: No Accompanied by: Family/Other Allergies No Known Allergies Allergy (Verified 02/28/24 10:45) Medication List - Last Reconciled 02/28/24 by Timi Steinberg MD apixaban (Eliquis) 2.5 mg PO BID atorvastatin 80 mg PO BEDTIME calcitriol 0.25 mcg PO DAILY clopidogrel (Plavix) 75 mg PO DAILY cyclobenzaprine 5 mg PO BID PRN donepezil (Aricept) 5 mg PO BEDTIME famotidine (Pepcid) 20 mg PO DAILY ferrous sulfate 324 mg PO DAILY insulin glargine (Lantus Solostar U-100 Insulin) 18 units subcut BEDTIME insulin lispro see above insulin lispro 1 sliding scale dose subcut USEASDIRECTD lidocaine 5% 1 patch topical DAILY melatonin 6 mg (2 x 3 mg) PO BEDTIME PRN metoprolol succinate ER 25 mg PO BID sodium bicarbonate 650 mg PO TID sodium zirconium cyclosilicate (Lokelma) 10 grams PO DAILY torsemide 20 mg PO BID trazodone 50 mg PO BEDTIME PRN HPI Comments Details: 47-year-old male with pertinent history of CVA, DVT on Eliquis, mood disorder, vascular dementia, history of IV drugs (cocaine) use disorder, chronic kidney disease, gastroesophageal reflux disease, mood disorder who presents to the emergency department for evaluation of elevated blood glucose. Patient was discharged from a rehab facility in [place] after an acute CVA Appetite is good No nausea or vomiting Currently in Rehab in [place], [place] On Lokelma 02/28/24 Accompanied by family OVerall doing OK No nausea or vomiting NO dyspnea NO edema Has gained 5 lbs Appetite is good [facility] Medical History Dementia CKD (chronic kidney disease) stage 4, GFR 15-29 ml/min Infiltrative cardiomyopathy Anemia in chronic kidney disease (CKD) Pneumonia Congestive heart failure GRISEL (acute kidney injury) CKD (chronic kidney disease) Hyperglycemia Elevated serum creatinine Chronic kidney disease History of insulin dependent diabetes mellitus Mood disorder Vascular dementia CVA (cerebral vascular accident) DVT (deep venous thrombosis) Social History Household Members: Family Housing: Apartment Do you presently have visiting nurse or other home services: No Comment: pt is low falls risk Patient Tobacco Use Status: Former Tobacco user Tobacco use type: Cigarette Cigarette Packs Per Day: 0.5 Cigarettes Per Day: 10.0 Years Smoked: 7 e-Cigarette/Vaping Use: Never Used Second Hand Smoke Exposure: No Substance Use Type: Crack/Cocaine, IV Drugs and Opiates Advance Directives Date on File: 04/05/23 service: No Physical Exam Vital Signs: Last Vital Signs Pulse 94 02/28/24 10:42 BP 144/80 H 02/28/24 10:42 Pulse Ox 97 02/28/24 10:42 Oxygen Delivery Method Room Air 02/28/24 10:42 BMI result Body Mass Index 25.8 Comfortable Neck supple no JVD. Lungs entry equal no rales. Heart S1-S2 heard no gallop or rub. Abdomen soft nontender. Neuro alert awake oriented. No asterixis. Extremities no edema. Results Reviewed Nephrology Results: Hgb 9.9 g/dl (14.0-18.0) L 07/26/23 WBC 10.6 X10*3/uL (4.8-10.8) 07/26/23 Plt Count 232 X10*3/uL (160-400) 07/26/23 Sodium 145 mmol/L (135-145) 07/26/23 Potassium 4.1 mmol/L (3.3-5.1) 07/26/23 Chloride 112 mmol/L (96-108) H 07/26/23 Carbon Dioxide 22 mmol/L (22-29) 07/26/23 BUN 92 mg/dL (9-16) H 07/26/23 Creatinine 5.05 mg/dL (0.5-1.4) H* 07/26/23 Calcium 8.9 mg/dL (8.4-10.2) 07/26/23 Phosphorus 4.8 mg/dL (2.7-4.5) H 07/26/23 Urine Protein 300 (3+) mg/dL (Neg-Trace) H 07/05/23 Assessment & Plan Assessment & Plan (1) CKD (chronic kidney disease) stage 4, GFR 15-29 ml/min: Code(s): N18.4 - Chronic kidney disease, stage 4 (severe) Category: Medical (2) Anemia in chronic kidney disease (CKD): Code(s): N18.9 - Chronic kidney disease, unspecified; D63.1 - Anemia in chronic kidney disease Category: Medical Qualifiers: Chronic kidney disease stage: stage 4 (severe) Qualified Code(s): N18.4 - Chronic kidney disease, stage 4 (severe); D63.1 - Anemia in chronic kidney disease Plan CKD approaching ESRD No s/s of uremia Discussed renal replacement therapy in the very near future Once they agree, i will arrange for AVF Anemia Due to EPO deficiency. Check hematocrit if HgB < 9 gm, start Epogen 86801 U q weekly HTN Optimize BP Restart AMLODIPINE at 2.5 mg dialy if SBP stays > 140 mmHG Low salt diet SHPT: On Calcitriol Calcium normal Chekc iPTH History of hyperkalemia keep on Lokelma and low-potassium diet Recent K is normal No absolute indication for dialysis YET Check renal panel monthly Orders: Orders Parathyroid Hormone Intact 1 Month D63.1 - Anemia in chronic kidney disease, N18.4 - Chronic kidney disease, stage 4 (severe) Phosphorus 1 Month D63.1 - Anemia in chronic kidney disease, N18.4 - Chronic kidney disease, stage 4 (severe) IRON PROFILE 1 Month D63.1 - Anemia in chronic kidney disease, N18.4 - Chronic kidney disease, stage 4 (severe) Basic Metabolic Panel 1 Month D63.1 - Anemia in chronic kidney disease, N18.4 - Chronic kidney disease, stage 4 (severe) Complete Blood Count no Diff 1 Month D63.1 - Anemia in chronic kidney disease, N18.4 - Chronic kidney disease, stage 4 (severe) Ferritin 1 Month D63.1 - Anemia in chronic kidney disease, N18.4 - Chronic kidney disease, stage 4 (severe) Coding Level of Care Code Est Pt Level 5 (41768) Diagnoses CKD (chronic kidney disease) stage 4, GFR 15-29 ml/min N18.4 Anemia in stage 4 chronic kidney disease N18.4; D63.1 Chronic kidney disease stage: stage 4 (severe)
[2024-02-28 10:42] VITALS: BP 144/80; PULSE 94; O2SAT 97; BMI 25.8
== END 2024-02-28 11:06 | disposition home or self-care (01) ==
PROVIDERS: PCP Family Medicine; Visit Provider Internal Medicine Hypertension Specialist
DX: N18.4 Chronic kidney disease, stage 4 (severe) (principal); D63.1 Anemia in chronic kidney disease
CPT/HCPCS: 99214

== ENCOUNTER → 2024-02-28 10:35 | Outpatient (BNVA) | payer MEDICAID, SELFPAY | PROVIDERS: PCP Family Medicine; Visit Provider Internal Medicine Hypertension Specialist | DX: N18.4 Chronic kidney disease, stage 4 (severe) (principal); D63.1 Anemia in chronic kidney disease | CPT/HCPCS: 99212 ==

== ENCOUNTER → 2024-04-13 12:30 | Outpatient (REF) | payer MEDICAID, SELFPAY ==
--- NOTE | 2024-04-13 12:35 | CA_ITS ---
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 There is normal left ventricular wall thickness. The left ventricular systolic function is moderate to severely decreased. The visually estimated ejection fraction is between 25-30%. Findings Left Ventricle Normal left ventricular cavity size. There is normal left ventricular wall thickness. The left ventricular systolic function is moderate to severely decreased. The visually estimated ejection fraction is between 25-30%. There is moderate global hypokinesis. Pericardium/Pleural There is no evidence of pericardial effusion. Prior Study Comparison Changes noted compared to prior study dated: 03/31/2023. Moderate to severe LV dysfunction. Measurements 2D Linear Measurements IVSd: 0.81 0.6-0.9/0.6-1.0 cm LVIDd: 5.76 3.9-5.3/4.2-5.9 cm LVIDd Index: 3.49 2.4-3.2/2.2-3.1 cm/m2 LVIDs: 4.40 2.0-3.6 cm LVPWd: 0.81 0.7-1.1 cm LV Mass: 219.28 67-162/88-224 g LV Mass Index: 132.90 43-95/49-115 g/m2 LVOT Diam: 2.10 3.0+(-)1.3 cm 2D Systolic Function EF 4C: 41.30 >55% EF 2C: 40.50 >55% EF BiP: 40.80 >55% LVOT LVOT Pk Deandre: 0.82 LVOT Mn Deandre: 0.59 LVOT VTI: 0.18 LVOT Pk Grad: 3.00 LVOT Mn Grad: 2.00 LVOT Diam: 2.10 LVOT Area: 3.46 Updated in Other Vendor System with Status of Final Otis Robles MD electronically signed on 04/15/2024 1:43:56 PM with status of Final
--- OUTSIDE RECORDS SUMMARY | 2024-04-13 14:39 | XMS_ITS | Clinical Summary ---
Author Organization [employer] Address [address] [facility] [address] [place] [address] Care Team Providers Care Agricultural Research Technologist Name Role Phone Maria Victoria Khalil AUSTYN Primary Care Provider [phone] Allergies No known active allergies Medications atorvastatin (Lipitor) 80 MG tablet Take 1 tablet by mouth at bedtime. Active clopidogrel (Plavix) 75 MG tablet Take 1 tablet by mouth 1 (one) time each day. Active apixaban (Eliquis) 2.5 MG tablet Take 1 tablet by mouth 2 times daily. Active insulin pen needle (UltiCare Micro Pen [place]) 32G x 4 mm misc Inject under the skin if needed. Use with insulin pens four times a day Active FREESTYLE LITE test strip Use to test blood glucose 4 times a day 100 each 04/07/19 24 Active Blood Glucose Monitoring Suppl (FreeStyle Lite) device Inject under the skin in the morning. Use as directed to test blood sugar 1 each 04/07/19 24 Active TRUEplus Lancets 30G misc 1 each 4 times daily. Use to test blood glucose 4 times a day 100 each 04/07/19 24 Active calcitriol (Rocaltrol) 0.25 MCG capsule Take 0.25 mcg by mouth Once daily. 04/21/19 24 Active omeprazole (PriLOSEC) [address] capsule Take 40 mg by mouth in the morning. 05/10/19 24 Active sodium bicarbonate 650 MG tablet Take 650 mg by mouth 3 times daily. 05/10/19 24 Active Continuous Glucose Hospital Tray Service Worker (FreeStyle Kelvin 2 [place]) deviceIndications: Uncontrolled diabetes mellitus with hyperosmolarity without coma, with long-term current use of insulin ([facility]) Scan sensor every 8 hours 1 each 3 06/03/19 24 Active Continuous Glucose Sensor (FreeStyle Kelvin 2 Sensor) miscIndications:Un controlled diabetes mellitus with hyperosmolarity without coma, with long-term current use of insulin ([facility]) Apply 1 sensor every 14 days 2 each 2 06/03/19 24 Active insulin glargine (Lantus SoloStar) 100 UNIT/ML penIndications:Unc ontrolled diabetes mellitus with hyperosmolarity without coma, with long-term current use of insulin ([facility]) Inject 18 Units under the skin at bedtime. 3 mL 3 06/03/19 24 Active donepezil (Aricept) 5 MG tabletIndications: Moderate dementia with other behavioral disturbance, unspecified dementia type (CMS/HCC) Take 1 tablet (5 mg) by mouth at bedtime. 30 tablet 1 06/03/19 24 Active torsemide (Demadex) 20 MG tabletIndications: CKD (chronic kidney disease) stage 4, GFR 15-29 ml/min ([facility]),Infiltra tive cardiomyopathy (CMS/HCC) Take 1 tablet (20 mg) by mouth 2 times daily. For 14 days 60 tablet 1 06/03/19 24 Active ferrous sulfate 324 (65 Fe) MG EC tablet Take 324 mg by mouth Once per day. 06/02/19 24 Active amLODIPine (Norvasc) 5 MG tablet Take 5 mg by mouth Once per day. 06/09/19 24 Active mirtazapine (Remeron) 30 MG tabletIndications: Moderate dementia with other behavioral disturbance, unspecified dementia type (CMS/HCC) TAKE 1 TABLET BY MOUTH AT BEDTIME 30 tablet 06/28/19 24 Active insulin lispro (HumaLOG) 100 UNIT/ML injectionIndicatio ns:IVDU (intravenous drug user) INJECT SUBCUTANEOUSLY BEFORE MEALS PER SLIDING SCALE 151 to 200, 2 units; 201-250, 4 units; 251 to 300, 6 units; 301 to 350, 10 units; > 350, 10 units, call MD if > 450 mg/dl 15 mL 1 08/19/19 24 Active Hospital, Clinic, or Other Facility Administered Medication Ordered Dose Route Frequency Start Date End Date Status Insulin Lispro solution 10 UnitsIndications:Uncontrolled diabetes mellitus with hyperosmolarity without coma, with long-term current use of insulin ([facility]/HCC) 10 Units IJ Once 06/03/2023 Active Active Problems Problem Noted Date Diagnosed Date Hypertension secondary to other renal disorders 06/04/2023 Assessment & Plan (06/04/2023 11:05 AM EDT): Above goal today, torsemide renewed, taking medications as prescribed, denies chest pain or pressure, Moderate dementia 06/04/2023 Assessment & Plan (06/04/2023 11:04 AM EDT): Referred to case management CKD (chronic kidney disease) stage 4, GFR 15-29 ml/min 06/02/2023 Assessment & Plan (06/04/2023 10:58 AM EDT): Followed by renal CVA (cerebral vascular accident) 06/02/2023 Overview (06/03/2023): 12/06 found unconscious after Assessment & Plan (06/04/2023 10:54 AM EDT): Continue current regimen of atorvastatin 80 and clopidogrel 75 mg until further input from cardiology History of CVA (cerebrovascular accident) 2023 Deep vein thrombosis (DVT) of proximal lower ext remity 06/02/2023 Assessment & Plan (06/04/2023 11:02 AM EDT): On eliquis, date of onset and provocation status unknown Reviewed s/s of bleeding, denies hematuria or bruising, Continue until outside notes available for review IVDU (intravenous drug user) 06/02/2023 Assessment & Plan (06/04/2023 11:03 AM EDT): Reports 5 years sobriety Vascular dementia 06/02/2023 Assessment & Plan (06/04/2023 10:56 AM EDT): Continue aricept 5 mg, referral to neuro DM (diabetes mellitus) type II, controlled, with peripheral vascular disorder 06/02/2023 Assessment & Plan (06/04/2023 11:05 AM EDT): Administed 10 units of humalog in clinic, repeat blood sugar in 400s, check sugars in 3-4 hours, repeat administration of humalog per sliding scale if unreadable go to ER for hyperglycemia, increase hydration Cgm ordered Referral for eye exam, Referral to pharmacy for additional med management Continue lantus Infiltrative cardiomyopathy 05/09/2023 Overview (05/09/2023): Amid work up for possible cardiac amyloidosis (mri ordered) 05/07 Assessment & Plan (06/04/2023 11:04 AM EDT): Referral to cardiology Encounters Date Type Department Care Team Description 04/10/2024 1:45 PM EST Office Visit [facility] OPTOMETRY [facility] [place] [address] Abiel, Isabel, OD Myopia of both eyes (Primary Dx) from Last 3 Months Immunizations Name Administration Dates Next Due Hep B, adult 01/18/2013,03/09/2011,02/02/2011 Influenza injectable quadriv alent preservative free 02/02/2016 Influenza, IIV3, injectable 11/20/2011,0 10/06/2009,11/06/2008,11/19,12/13/2006 Influenza, Injectable, MDCK, preservative free 11/22/2014 Pneumococcal Conjugate PCV 20 07/28/2023 Pneumococcal Polysaccharide PPSV23 11/23/2012,,02/24/2007 RSV Adjuvant 09/21/2023 TD (adult), 2 Lf tetanus tox oid, preservative free, adsorbed 02/24/2007 Tdap 05/05/2016 Family History Medical History Relation Name Comments Diabetes type II Mother Relation Name Status Comments Mother Social History Tobacco Use Types Packs/Day Years Used Date Smoking Tobacco: Former Cigarettes Tobacco Cessation:Counseling Given: Not Answered Depression Answer Date Recorded Patient Health Questionnaire-9 Score 0 06/03/2023 Patient Health Questionnaire-9 Score 0 06/03/2023 Last PHQ-9: Questionnaire Data Not on file 0 06/03/2023 Housing Stability Answer Date Recorded What is your housing situation today? I have sander aguilar 04/05/[address] you li ve. Do you have problems with any of the following? None of the above 04/05/2023 Food Insecurity Answer Date Recorded Within the past 12 months, y ou worried that your food would run out before you got money to buy more: Never True 04/05/2023 Within the past 12 months,th e food you bought just didn't last and you didn't have enough money to get more: Never True Transportation Answer Date Recorded In the past 12 months, has l ack of transportation kept you from medical appts, meetings, work or from getting things needed for daily living? No 06/03/2023 Utilities Answer Date Recorded In the past 12 months, has t he electric, gas, oil or water company threatened to shut off services in your home? No 04/05/2023 Depression Answer Date Recorded Patient Health Questionnaire-2 Score 0 06/03/2023 Sex and Gender Information Value Date Recorded Sex Assigned at Male 12/14/2021 10:15 AM EDT Legal Sex Male 10:15 AM EDT Gender Identity Male 04/05/2023 10:33 AM EST Sexual Orientation Straight 04/05/2023 10 :33 AM EST Last Filed Vital Signs Vital Sign Reading Time Taken Comments Blood Pressure 160/92 06/16/2023 4:29 PM EDT Pulse 95 06/03/2023 2:15 PM EDT Temperature - - Respiratory Rate 14 06/03/2023 2:15 PM EDT Oxygen Saturation 98% 06/03/2023 2:15 PM EDT Inhaled Oxygen Concentration - - Weight 64.5 kg (142 lb 3.2 oz) 06/03/2023 2:15 P M EDT Height 165.1 cm (5' 5 ) 06/03/2023 2:15 PM EDT Body Mass Index 23.66 06/03/2023 2:15 PM EDT Plan of Treatment Health Maintenance Due Date Last Done Comments CT Colonography 1974 Colonoscopy 1974 Colorectal Cancer Screening 1974 FIT DNA/Cologuard 1974 FIT 1974 FOBT 1974 HIV Screening 1974 Sigmoidoscopy 1974 Diabetes: Foot Exam 1984 Alcohol/Substance Use Screening 1986 Family Planning (PISQ) 1989 Hepatitis C Screening 1992 Diabetes: Urine Protein Screening 1993 Diabetes: Hemoglobin A1C 09/02/2023 06/03/2023 COVID-19 Vaccine ( season) 2023 Zoster Vaccines (1 of 2) 2024 Depression Screening 06/02/2024 06/03/2023, 06/03/19 SDOH Screening 06/02/2024 06/03/2023 Tobacco Screening 06/02/2024 06/03/2023 Lipid Panel 06/14/2024 06/15/2023 Eye Exam 11/23/2024 11/24/2023, 11/14, 11/24/2023, Additional history exists DTaP/Tdap/Td Vaccines (2 - Td or Tdap) 05/05/2026 05/05/2016, 02/24/2007 RSV Patients and Patients Aged 60 years or older (1 - 1-dose 75+ series) 2049 09/21/2023 Hepatitis B Vaccines Completed 01/18/2013, 03/09/2011, 02/02/2011 Pneumococcal Vaccine: Pediatrics (0 to 5 Years) and At-Risk Patients (6 to 49) Years) Completed 07/28/2023, 11/23/2012, 11/20/2011, Additional history exists Influenza Vaccine Completed 12/05/2023, , 11/22/2014, Additional history exists HIB Vaccines Aged Out No longer eligi ble based on patient's age to complete this topic HPV Vaccines Aged Out No longer eligi ble based on patient's age to complete this topic Hepatitis A Vaccines Aged Out No long er eligible based on patient's age to complete this topic IPV Vaccines Aged Out No longer eligi ble based on patient's age to complete this topic Meningococcal Vaccine Aged Out No joselito vick eligible based on patient's age to complete this topic RSV under 20 months Aged Out No longe r eligible based on patient's age to complete this topic Rotavirus Vaccines Aged Out No longer eligible based on patient's age to complete this topic Goals Goal Patient Goal Type Associated Problems Recent Progress Patient-Stated? Author Blood Pressure < 140/90 Blood Pressure 160/92(2023 4:29 PM EDT) No Keke Ortiz, PharmTerry Take your medication every day Lifestyle No Keke Ortiz, PharmTerry Note: Start medboxes Hemoglobin A1c < 7 Result Component 7.7( 4:08 PM EDT) No Keke Ortiz PharmD Procedures Procedure Name Priority Date/Time Associated Diagnosis Comments LIPID PANEL, STANDARD Routine 06/15/2023 2:50 PM EDT CKD (chronic kidney disease) stage 4, GFR 15-29 ml/min ([facility]) POCT GLYCATED HEMOGLOBIN, TOTAL Routine 06/03/2023 4:08 PM EDT Uncontrolled diabetes mellitus with hyperosmolarity without coma, with long-term current use of insulin ([facility]) from Last 3 Months or Most Recently Relevant to Health Maintenance Results * Lipid Panel, Standard (06/15/2023 2:50 PM EDT) Triglycerides 42 <150 mg/dL [facility] Comment:Desirable Triglyceri de: less than 150 mg/dLBorderline High Triglyceride 150-199 mg/dLHigh Triglyceride: 200-499 mg/dLVery High Triglyceride: greater than or equal to 5OO mg/dL Cholesterol 121 <200 mg/dL [facility] Comment:Desirable Cholestero l: less than 200 mg/dLBorderline High Cholesterol: 200-239 mg/dLHigh Cholesterol: greater than 239 mg/dL LDL Cholesterol Calculated 44 <100 mg/dL [facility] Comment:Desirable LDL: less than 100 mg/dLNear Optimal/Above Optimal LDL: 110- 129 mg/dLBorderline High LDL: 130-159 mg/dLHigh LDL: 160-189 mg/dLVery High LDL: greater than or equal to 190 mg/dL HDL Cholesterol 69 >40 mg/dL [facility] Comment:Desirable HDL: great er than 40 mg/dL Note: This HDL assay may give artificially low results in patients with liver disease. Blood Venous blood specimen / Unknown 06/15/2023 2:50 PM EDT 06/15/2023 2:51 PM EDT us Maria Victoria Khalil [facility] BLOOD ORDERABLES Final Resul t [facility] [address] [place] [address] [phone] * (ABNORMAL) POCT A1C (06/03/2023 4:08 PM EDT) Hemoglobin A1C 7.7(A) 4.0 - 6.0 % QC Media Lot # [id number] Lot# Expiration Date Blood 06/03/2023 4:08 PM EDT Maria Victoria Khalli NP POINT OF CARE TEST ENTER/EDIT OR DERABLES Final Result from Last 3 Months or Most Recently Relevant to Health Maintenance Insurance [facility] STANDARD Care Teams Agricultural Research Technologist Relationship Specialty Start Date End Date Maria Victoria Khalil NP [address] [place] [id number] PCP - General Family Medicine 06/03/23
--- OUTSIDE RECORDS SUMMARY | 2024-04-13 14:39 | XMS_ITS | Encounter Summary ---
Author Organization [employer] Address [address] [facility] 7t [place] [address] Care Team Providers Care Radial Drill Press Operator Name Role Phone Maria Victoria Khalil NP Primary Care Provider Reason for Visit * Reason Onset Date Comments FYI 07/06/2023 Encounter Details Date Type Department Care Team ([facility] st Contact Info) Description 07/06/2023 Telephone [facility] MEDICINE [address] [place] [address] Maria Victoria Khalil NP [address] [place] [address] Social History Tobacco Use Types Packs/Day Years Used Date Smoking Tobacco: Former Cigarettes Depression Answer Date Recorded Patient Health Questionnaire-9 [...] Orientation Straight 04/05/2023 10 :33 AM EST documented as of this encounter Miscellaneous Notes * Telephone Encounter - Monique Snow RN - 07/06/2023 11:00 AM EDT See previous message . Will route this message to Maria Victoria Reaves NP for review . TY. * Telephone Encounter - Job Ng - 07/06/2023 9:17 AM EDT Tc from mom calling to update pcp on yesterdays no show. Mom stated they attempted to bring pt to appt yesterday but pt went missing in which pcp advised for mom report it to the officials [place]. Mom reports pt has been found and is now in [facility] evaluation, If any questions or concerns please contact mom at [phone]. documented in this encounter Plan of Treatment Not on file documented as of this encounter Goals Goal Patient Goal Type Associated Problems Recent Progress Patient-Stated? Author Blood Pressure < 140/90 Blood Pressure 160/92(2023 4:29 PM EDT) No Keke Ortiz, PharmD Take your medication every day Lifestyle No Keke Ortiz, PharmD Note: Start medboxes Hemoglobin A1c < 7 Result Component 7.7( 4:08 PM EDT) No Keke Ortiz, PharmD documented as of this encounter Visit Diagnoses Not on filedocumented in this encounter Additional Health Concerns Assessment Noted Time PHQ-9 Depression Total Score: 0 04/19/20 24 2:23 PM EDT documented as of this encounter Care Teams Radial Drill Press Operator Relationship Specialty Start Date End Date Maria Victoria Khalil NP [address] [place] [address] PCP - General Family Medicine 06/03/23 documented as of this encounter
--- OUTSIDE RECORDS SUMMARY | 2024-04-13 14:39 | XMS_ITS | Encounter Summary ---
Author Organization [employer] Address [address] [place] [address] Care Team Providers Care Car Customizer Name Role Phone Maria Victoria Khalil AUSTYN Primary Care Provider [phone] Encounter Details Date Type Department Care Team ([facility] st Contact Info) Description 04/10/2024 1:45 PM EST Office Visit [facility] OPTOMETRY [address] [place] [address] Abiel, Isabel, OD [address] [place] [address] Myopia of both eyes (Primary Dx) Social History Tobacco Use Types Packs/Day Years Used Date Smoking Tobacco: Former Cigarettes Depression Answer Date Recorded Patient Health Questionnaire-9 Score 0 06/03/2023 Patient Health Questionnaire-9 Score 0 06/03/2023 Last PHQ-9: Questionnaire Data Not on file 0 06/03/2023 Housing Stability Answer Date Recorded What is your housing situation today? I have sandermartin aguilar 04/05/[address] you [...] t he electric, gas, oil or water [employer] threatened to shut off services in your home? No 04/05/2023 Depression Answer Date Recorded Patient Health Questionnaire-2 Score 0 06/03/2023 Sex and Gender Information Value Date Recorded Sex Assigned at Male 12/14/2021 10:15 AM EDT Legal Sex Male 10:15 AM EDT Gender Identity Male 04/05/2023 10:33 AM EST Sexual Orientation Straight 04/05/2023 10 :33 AM EST documented as of this encounter Progress Notes * Isabel Beebe OD - 04/10/2024 1:45 PM EST MH glasses were dispensed. documented in this encounter Plan of Treatment Not on file documented as of this encounter Goals Goal Patient Goal Type Associated Problems Recent Progress Patient-Stated? Author Blood Pressure < 140/90 Blood Pressure 160/92(2023 4:29 PM EDT) No Keke Ortiz, PharmTerry Take your medication every day Lifestyle No Keke Ortiz, Lois Note: Start medboxes Hemoglobin A1c < 7 Result Component 7.7( 4:08 PM EDT) No Keke Ortiz PharmD documented as of this encounter Visit Diagnoses Diagnosis Myopia of both eyes- Primary documented in this encounter Additional Health Concerns Assessment Noted Time PHQ-9 Depression Total Score: 0 06/03/19 24 2:23 PM EDT documented as of this encounter Care Teams Car Customizer Relationship Specialty Start Date End Date Maria Victoria Khalil NP [address] [place] [phone] PCP - General Family Medicine 06/03/23 documented as of this encounter
--- OUTSIDE RECORDS SUMMARY | 2024-04-13 14:39 | XMS_ITS | Encounter Summary ---
Author Organization [employer] Address [address] [facility] [address] [place] [address] Care Team Providers Care Rougher Merchant Mill Name Role Phone Maria Victoria Khalil NP Primary Care Provider [phone] Reason for Visit * Reason Comments Med Refill Encounter Details Date Type Department Care Team ([facility] st Contact Info) Description 07/15/2023 Refill [facility] MEDICINE [address] [place] [address] Maria Victoria Khalil NP [address] [place] [address] Social History Tobacco Use Types Packs/Day Years [...] AM EST documented as of this encounter Plan of Treatment Not on file documented as of this encounter Goals Goal Patient Goal Type Associated Problems Recent Progress Patient-Stated? Author Blood Pressure < 140/90 Blood Pressure 160/92(2023 4:29 PM EDT) No Keke Ortiz PharmD Take your medication every day Lifestyle No Keke Ortiz PharmD Note: Start medboxes Hemoglobin A1c < 7 Result Component 7.7( 4:08 PM EDT) No Keke Ortiz PharmD documented as of this encounter Visit Diagnoses Not on filedocumented in this encounter Additional Health Concerns Assessment Noted Time PHQ-9 Depression Total Score: 0 06/03/19 24 2:23 PM EDT documented as of this encounter Care Teams Rougher Merchant Mill Relationship Specialty Start Date End Date Maria Victoria Khalil NP [address] [place] [address] PCP - General Family Medicine 06/03/23 documented as of this encounter
== END ==
LOC: HO.CARD 12:30
PROVIDERS: Visit Provider Nurse Practitioner Family
DX: I42.9 Cardiomyopathy, unspecified (principal); R00.2 Palpitations
CPT/HCPCS: 93225; 93308

== ENCOUNTER → 2024-04-13 12:35 | Outpatient (BNV) | payer MEDICAID, SELFPAY | PROVIDERS: Visit Provider Internal Medicine Cardiovascular Disease | DX: I42.8 Other cardiomyopathies (principal) | CPT/HCPCS: 93227; 93308 ==

== ENCOUNTER → 2024-04-24 10:23 | Outpatient (REF) | payer MEDICAID, SELFPAY ==
--- NOTE | 2024-04-24 10:28 | CA_ITS ---
Acquisition Time: 2024-04-24 10:53:52 Total Exercise Time: 00:04:45 Test Indications: CARDIOMYOPATHY Medications: SEE H&P Protocol: AUDELIA Max HR: 148 BPM 87% of Pred: 170 BPM Max BP: 166/84 mmHG Max Work Load: 6.6 METS Exercise Stress Test with exercise 4 mins 45 secs of Audelia Protocol, achieving 87% MPHR, with reports of SOB, no chest pain, with isolated PVCs, with normotensive response to exercise. With horizontal ST depression inferiorly and V3-V6, meeting criteria for ischemia. In recovery, HR returned to baseline slowly, breathing improved and ST segment improved gradually. Nuclear images pending. Test reviewed with Dr. Schroeder. Referred By: Keren Reyes Electronically Signed By: Carlos Kaur
--- OUTSIDE RECORDS SUMMARY | 2024-04-24 12:23 | XMS_ITS | Encounter Summary ---
Author Organization [employer] Address [address] [place] [address] Care Team Providers Care Dispensing Optician Apprentice Name Role Phone Maria Victoria Khalil AUSTYN Primary Care Provider [phone] Encounter Details Date Type Department Care Team ([facility] st Contact Info) Description 04/10/2024 1:45 PM EST Office Visit [facility] OPTOMETRY [address] [place] [address] Abiel, Isabel, OD [address] [place] [address] Myopia of both eyes (Primary Dx) Social [...] t he electric, gas, oil or water [employer] threatened to shut off services in your [...] documented as of this encounter Care Teams Dispensing Optician Apprentice Relationship Specialty Start Date End Date Maria Victoria Khalil NP [address] [place] [id number] PCP - General Family Medicine 06/03/23 documented as of this encounter
--- OUTSIDE RECORDS SUMMARY | 2024-04-24 12:23 | XMS_ITS | Clinical Summary ---
Author Organization [id number] Address [address] [facility] [address] [place] [address] Care Team Providers Care Manager Combination Name Role Phone Maria Victoria Khalil AUSTYN Primary Care Provider [phone] Allergies No known active allergies Medications atorvastatin (Lipitor) 80 MG tablet Take 1 tablet by mouth at bedtime. Active clopidogrel (Plavix) 75 MG tablet Take 1 tablet by mouth 1 (one) time each day. Active apixaban (Eliquis) 2.5 MG tablet Take 1 tablet by mouth 2 times daily. Active insulin pen needle (UltiCare Micro Pen [place]) 32G x 4 mm misc Inject under [...] times daily. 05/10/19 24 Active Continuous Glucose Carrot Buncher (FreeStyle Kelvin 2 [place]) deviceIndications: Uncontrolled diabetes mellitus with hyperosmolarity without coma, with long-term current use of insulin ([facility]) Scan sensor every 8 hours 1 each 3 06/03/19 24 Active Continuous Glucose Sensor (FreeStyle Kelvin 2 Sensor) miscIndications:Un controlled diabetes mellitus with hyperosmolarity without coma, with long-term current use of insulin ([facility]) Apply 1 sensor every 14 days 2 each 2 06/03/19 24 Active insulin glargine (Lantus SoloStar) 100 UNIT/ML penIndications:Unc ontrolled diabetes mellitus with hyperosmolarity without coma, with long-term current use of insulin (CMS/[facility]) Inject 18 Units under the skin at bedtime. 3 mL 3 06/03/19 24 Active donepezil (Aricept) 5 MG tabletIndications: Moderate dementia with other behavioral disturbance, unspecified dementia type (CMS/HCC) Take 1 tablet (5 mg) by mouth at bedtime. 30 tablet 1 06/03/19 24 Active torsemide (Demadex) 20 MG tabletIndications: CKD (chronic kidney disease) stage 4, GFR 15-29 ml/min (CMS/[facility]),Infiltra tive cardiomyopathy (CMS/HCC) Take 1 tablet (20 [...] coma, with long-term current use of insulin ([facility]/HCC) 10 Units IJ Once 06/03/2023 Active Active [...] Description 04/10/2024 1:45 PM EST Office Visit [facility] [place] [address] Abiel, Isabel, OD Myopia of both eyes [...] 2) 2024 Depression Screening 06/02/2024 06/03/2023, 06/03/19 24 SDOH Screening 06/02/2024 06/03/2023 Tobacco Screening 06/02/2024 06/03/2023 Lipid Panel 06/14/2024 06/15/2023 Eye Exam 11/23/2024 11/24/2023, 11/14, 11/24/2023, Additional history exists DTaP/Tdap/Td Vaccines (2 - Td or Tdap) 05/05/2026 05/05/2016, 02/24/2007 RSV Patients and Patients Aged 60 years or older (1 - 1-dose 75+ series) 2049 09/21/2023 Hepatitis B Vaccines Completed 01/18/2013, 03/09/2011, 02/02/2011 Pneumococcal Vaccine: 50+ Years Completed 07/28/2023, 11/23/2012, 11/20/2011, Additional history exists [...] kidney disease) stage 4, GFR 15-29 ml/min ([facility]) POCT GLYCATED HEMOGLOBIN, TOTAL Routine 06/03/2023 4:08 PM EDT Uncontrolled diabetes mellitus with hyperosmolarity without coma, with long-term current use of insulin ([facility]) from Last 3 Months or Most Recently Relevant to Health Maintenance Results * Lipid Panel, Standard (06/15/2023 2:50 PM EDT) Triglycerides 42 <150 mg/dL [facility] Comment:Desirable Triglyceri de: less than 150 mg/dLBorderline High Triglyceride 150-199 mg/dLHigh Triglyceride: 200-499 mg/dLVery High Triglyceride: greater than or equal to 5OO mg/dL Cholesterol 121 <200 mg/dL [facility] Comment:Desirable Cholestero l: less than 200 mg/dLBorderline High Cholesterol: 200-239 mg/dLHigh Cholesterol: greater than 239 mg/dL LDL Cholesterol Calculated 44 <100 mg/dL [facility] Comment:Desirable LDL: less than 100 mg/dLNear Optimal/Above Optimal LDL: 110- 129 mg/dLBorderline High LDL: 130-159 mg/dLHigh LDL: 160-189 mg/dLVery High LDL: greater than or equal to 190 mg/dL HDL Cholesterol 69 >40 mg/dL [facility] Comment:Desirable HDL: great er than 40 mg/dL Note: This HDL assay may give artificially low results in patients with liver disease. Blood Venous blood specimen / Unknown 06/15/2023 2:50 PM EDT 06/15/2023 2:51 PM EDT us Maria Victoria Khalil NP LAB BLOOD ORDERABLES Final Resul t [facility] [address] [place] [phone] [phone] * (ABNORMAL) POCT A1C (06/03/2023 4:08 PM EDT) Hemoglobin A1C 7.7(A) 4.0 - 6.0 % QC Media Lot # [id number] Lot# Expiration Date Blood 06/03/2023 4:08 PM EDT Maria Victoria Khalil NP POINT OF CARE TEST ENTER/EDIT OR DERABLES Final Result from Last 3 Months or Most Recently Relevant to Health Maintenance Insurance [facility] STANDARD * Guarantor: Ben Farmer Account Type Relation to Patient Date of Phone Billing Address Personal/Family Self [phone] Care Teams Manager Combination Relationship Specialty Start Date End Date Maria Victoria Khalil NP [address] [place] [id number] PCP - General Family Medicine 06/03/23
--- OUTSIDE RECORDS SUMMARY | 2024-04-24 12:23 | XMS_ITS | Encounter Summary ---
Author Organization [employer] Address [address] [facility] 7[address] [place] [address] Care Team Providers Care Concrete Boom Pump Operator Name Role Phone Maria Victoria Khalil NP Primary Care Provider [phone] Reason for Visit * Reason Comments Med Refill Encounter Details Date Type Department Care Team ([facility] st Contact Info) Description 07/15/2023 Refill [facility] [address] [place] [address] Maria Victoria Khalil NP [address] [place] [address] Social History Tobacco Use Types Packs/Day Years [...] documented as of this encounter Care Teams Concrete Boom Pump Operator Relationship Specialty Start Date End Date Maria Victoria Khalil NP [address] [place] [address] PCP - General Family Medicine 06/03/23 documented as of this encounter
--- OUTSIDE RECORDS SUMMARY | 2024-04-24 12:23 | XMS_ITS | Clinical Summary ---
Author Organization [facility] Address [address] [place] [address] Care Team Providers Care Campus Supervisor Name Role Phone Ariana Murdock MD Primary Care Provider [phone] Social History Tobacco Use Types Packs/Day Years Used Date Smoking Tobacco: Never Assessed Sex and Gender Information Value Date Recorded Sex Assigned at Not on file Legal Sex Male 10:55 AM EDT Gender Identity Not on file Sexual Orientation Not on file Plan of Treatment Health Maintenance Due Date Last Done Comments Hepatitis B Vaccine (1 of 3 - 19+ 3-dose series) 1993 01/18/2013, 03/09/2011, 02/02/2011 Pneumococcal Vaccine: Pediat rics (0 to 5 Years) and At-Risk Patients (6 to 64 Years) (3 of 3 - PCV) 11/23/2013 11/23/2012, 02/24/2007 Colorectal Cancer Screening: Annual FOBT 04/24/2023 Colorectal Cancer Screening: Colonoscopy 04/24/2023 Colorectal Cancer Screening: Sigmoidoscopy 04/24/2023 Diabetes: Ophthalmology Exam 08/09/2023 Diabetes: Pedal Pulse Checked 08/09/2023 Diabetes: Sensory Foot Exam 08/09/2023 Diabetes: Visual Foot Exam 08/09/2023 Diabetes: Hemoglobin A1C 09/02/2023 06/03/2023 Influenza Vaccine (#1) 2023 02/02/2016, 2014 Insurance [place] Care Teams Campus Supervisor Relationship Specialty Start Date End Date Ariana Murdock MD [address] [place] [id number] PCP - General Family Medicine 08/02/23
--- OUTSIDE RECORDS SUMMARY | 2024-04-24 12:23 | XMS_ITS | Encounter Summary ---
Author Organization [employer] Address [address] [facility] 7[address] [place] [address] Care Team Providers Care Measurement Technician Name Role Phone Maria Victoria Khalil NP Primary Care Provider [phone] Reason for Visit * Reason Onset Date Comments FYI 07/06/2023 Encounter Details Date Type Department Care Team ([facility] st Contact Info) Description 07/06/2023 Telephone [facility] [address] [place] [address] Maria Victoria Khalil NP [address] [place] [address] Social History Tobacco Use Types Packs/Day Years [...] has been found and is now in [facility] evaluation, If any questions or concerns please contact mom at [phone]. documented in this encounter Plan of Treatment [...] documented as of this encounter Care Teams Measurement Technician Relationship Specialty Start Date End Date Maria Victoria Khalil NP [address] [place] [address] PCP - General Family Medicine 06/03/23 documented as of this encounter
== END ==
LOC: HO.CARD 10:23
PROVIDERS: PCP Family Medicine; Visit Provider Nurse Practitioner Family
DX: I42.9 Cardiomyopathy, unspecified (principal)
CPT/HCPCS: 93017

== ENCOUNTER → 2024-04-24 10:28 | Outpatient (BNV) | payer MEDICAID, SELFPAY | PROVIDERS: PCP Family Medicine | DX: R06.02 Shortness of breath (principal); I49.3 Ventricular premature depolarization | CPT/HCPCS: 78452; 93016; 93018 ==

== ENCOUNTER 2024-04-30 13:03 | Outpatient (AMB) | payer MEDICAID, SELFPAY ==
[2024-04-30 13:06] VITALS: BP 156/84; PULSE 98; O2SAT 98; BMI 25.5
--- NOTE | 2024-04-30 13:06 | HO.NEPHOV ---
Vital Signs 04/30/24 13:06 Height 5 ft 5 in Weight 153 lb BMI 25.5 BP 156/84 H Blood Pressure Location Lt brachial Position Sitting Pulse 98 Pulse Source Pulse Oximeter Pulse Oximetry (%) 98 Oxygen Delivery Method Room Air Intake Visit Reasons: CKD/ Conf Cardboard Inserter Required: No Accompanied by: Family/Other Allergies No Known Allergies Allergy (Verified 04/30/24 13:11) Medication List - Last Reviewed 04/30/24 by JESSICA Cunningham apixaban (Eliquis) 2.5 mg PO BID atorvastatin 80 mg PO BEDTIME calcitriol 0.25 mcg PO DAILY clopidogrel (Plavix) 75 mg PO DAILY cyclobenzaprine 5 mg PO BID PRN donepezil (Aricept) 5 mg PO BEDTIME famotidine (Pepcid) 20 mg PO DAILY ferrous sulfate 324 mg PO DAILY insulin glargine (Lantus Solostar U-100 Insulin) 18 units subcut BEDTIME insulin lispro see above insulin lispro 1 sliding scale dose subcut USEASDIRECTD lidocaine 5% 1 patch topical DAILY melatonin 6 mg (2 x 3 mg) PO BEDTIME PRN metoprolol succinate ER 50 mg PO DAILY mirtazapine 30 mg PO DAILY sodium bicarbonate 650 mg PO TID sodium zirconium cyclosilicate (Lokelma) 10 grams PO DAILY torsemide 20 mg PO BID HPI Comments Details: 47-year-old male with pertinent history of CVA, DVT on Eliquis, mood disorder, vascular dementia, history of IV drugs (cocaine) use disorder, chronic kidney disease, gastroesophageal reflux disease, mood disorder who presents to the emergency department for evaluation of elevated blood glucose. Patient was discharged from a rehab facility in [place] after an acute CVA Appetite is good No nausea or vomiting Currently in Rehab in [place], [place] On Lokelma 02/28/24 Accompanied by family; OVerall doing OK; No nausea or vomiting ; NO dyspnea ;NO edema Has gained 5 lbs; Appetite is good 04/30/24 Here for follow-up.. Accompanied by family members. No nausea or vomiting. No shortness of breath. No edema. Appetite is fair. All medications lab results were reviewed [facility] Medical History Dementia CKD (chronic kidney disease) stage 4, GFR 15-29 ml/min Infiltrative cardiomyopathy Anemia in chronic kidney disease (CKD) Pneumonia Congestive heart failure GRISEL (acute kidney injury) CKD (chronic kidney disease) Hyperglycemia Elevated serum creatinine Chronic kidney disease History of insulin dependent diabetes mellitus Mood disorder Vascular dementia CVA (cerebral vascular accident) DVT (deep venous thrombosis) Social History Household Members: Family Housing: Apartment Do you presently have visiting nurse or other home services: No Comment: pt is low falls risk Patient Tobacco Use Status: Former Tobacco user Tobacco use type: Cigarette Cigarette Packs Per Day: 0.5 Cigarettes Per Day: 10.0 Years Smoked: 7 e-Cigarette/Vaping Use: Never Used Second Hand Smoke Exposure: No Substance Use Type: Crack/Cocaine, IV Drugs and Opiates Advance Directives Date on File: 04/05/23 service: No Physical Exam Vital Signs: Last Vital Signs Pulse 98 04/30/24 13:06 BP 156/84 H 04/30/24 13:06 Pulse Ox 98 04/30/24 13:06 Oxygen Delivery Method Room Air 04/30/24 13:06 BMI result Body Mass Index 25.5 Comfortable Neck supple no JVD. Lungs entry equal no rales. Heart S1-S2 heard no gallop or rub. Abdomen soft nontender. Neuro alert awake oriented. No asterixis. Extremities : Trace edema. Results Reviewed Results Reviewed: 04/10/2024. Creatinine 7.1 Hemoglobin 8.7 Nephrology Results: No Data to Display Assessment & Plan Assessment & Plan (1) CKD (chronic kidney disease) stage 4, GFR 15-29 ml/min: Code(s): N18.4 - Chronic kidney disease, stage 4 (severe) Category: Medical (2) Anemia in chronic kidney disease (CKD): Code(s): N18.9 - Chronic kidney disease, unspecified; D63.1 - Anemia in chronic kidney disease Category: Medical Qualifiers: Chronic kidney disease stage: stage 4 (severe) Qualified Code(s): N18.4 - Chronic kidney disease, stage 4 (severe); D63.1 - Anemia in chronic kidney disease (3) CKD (chronic kidney disease) stage 5, GFR less than 15 ml/min: Code(s): N18.5 - Chronic kidney disease, stage 5 Category: Medical Plan CKD approaching ESRD No s/s of uremia Recent creatinine 7.1. He will be needing renal replacement therapy I will arrange for a PermCath. He is on both Eliquis and Plavix. These need to be held prior to insertion of PermCath Once PermCath is inserted ,I will arrange for hemodialysis. There are 2 dialysis clinics closer to where he is currently located.( [facility] and [facility] in [place]) Anemia Due to EPO deficiency. start Epogen 42909 U q weekly HTN Optimize BP Keep amlodipine Low salt diet SHPT: On Calcitriol Calcium normal History of hyperkalemia keep on Lokelma and low-potassium diet Recent K is normal Orders: Orders IR cvc insert central tunnel Today N18.5 - Chronic kidney disease, stage 5 Basic Metabolic Panel Today N18.5 - Chronic kidney disease, stage 5 Coding Level of Care Code Est Pt Level 5 (73451) Diagnoses CKD (chronic kidney disease) stage 4, GFR 15-29 ml/min N18.4 Anemia in stage 4 chronic kidney disease N18.4; D63.1 Chronic kidney disease stage: stage 4 (severe) CKD (chronic kidney disease) stage 5, GFR less than 15 ml/min N18.5
== END 2024-04-30 13:28 | disposition home or self-care (01) ==
LOC: HO.HKA 13:04
PROVIDERS: PCP Family Medicine; Visit Provider Internal Medicine Hypertension Specialist
DX: N18.4 Chronic kidney disease, stage 4 (severe) (principal); D63.1 Anemia in chronic kidney disease; N18.5 Chronic kidney disease, stage 5
CPT/HCPCS: 99215

== ENCOUNTER → 2024-04-30 13:03 | Outpatient (BNVA) | payer MEDICAID, SELFPAY | PROVIDERS: PCP Family Medicine; Visit Provider Internal Medicine Hypertension Specialist | DX: N18.5 Chronic kidney disease, stage 5 (principal); D63.1 Anemia in chronic kidney disease; Z86.73 Personal history of transient ischemic attack (TIA), and cerebral infarction without residual deficits; Z86.718 Personal history of other venous thrombosis and embolism; Z79.01 Long term (current) use of anticoagulants | CPT/HCPCS: 99212 ==

== ENCOUNTER 2024-05-11 10:08 | Day surgery (SDC) | payer MEDICAID, SELFPAY ==
[2024-05-11] VITALS (11 sets, daily range): BP systolic 152–172; BP diastolic 74–97; PULSE 82–87; RESP 15–18; TEMP 37–37.1; O2SAT 91–95; BMI 25.5
--- NOTE | ~2024-05-11 | IR_ITS ---
History: Renal failure Procedure performed: Ultrasound and fluoroscopic-guided placement of a tunneled hemodialysis catheter Physician: Stas Ventura MD Anesthesia: IV fentanyl; 10 mL 1% lidocaine Specimen: None Line: 14.5 Syriac dual lumen tunneled hemodialysis catheter measuring 23 cm tip to cuff Estimated blood loss: Minimal Complications: None Procedure in detail: Informed and written consent was obtained. Ultrasound of the right neck showed a patent right internal jugular vein. The right neck and chest were prepped and draped. 1% lidocaine was injected subcutaneously at the right neck under ultrasound guidance and extended to the surface of the vein. A small incision was made in the skin with a #11 blade. Through the incision and under ultrasound guidance with permanent recordings and direct visualization of needle entry into the patent vein, the right internal jugular vein was catheterized in an antegrade fashion. After placement of the microwire, the transitional dilator was placed and left in place. Next, at the expected location for the catheter exit site in the right upper chest, 1% lidocaine was injected subcutaneously and extended along a subcutaneous tract to the neck incision. A small incision was made at the catheter exit site. We then tunneled a dual-lumen hemodialysis catheter measuring 23 cm tip to cuff from the catheter exit site in the chest to the right neck incision. Through the transitional dilator, a Mckinney wire was advanced to the inferior vena cava over which serial dilatation was performed until the peel-away sheath could be placed. The tunnelled catheter was then inserted through the peel-away sheath, which was removed. A saved fluoroscopic image shows that the new catheter terminates in the right atrium. It was tested and flushes and aspirates appropriately. It was locked with heparin. The neck incision was closed with Dermabond. The catheter was sutured at the exit site with 3-0 Prolene. An overlying sterile dressing was placed. Summary: Successful placement of a tunneled hemodialysis catheter via the right internal jugular vein. Electronically signed by: David Ventura MD 05/14/2024 01:09 PM EDT
[2024-05-11 11:17] LABS: MANUAL DIFF FLAG NO
[2024-05-11 11:18] LABS: Basophils Absolute Auto 0.1 X10*3/uL (0.0-0.2); Basophils Percent Auto 0.8 % (0-2); Eosinophils Absolute Auto 0.5 X10*3/uL (0.0-0.4); Eosinophils Percent Auto 4.7 % (0-4); Hematocrit 21.9 % (42.0-52.0); Imm Gran Abs Auto 0.05 X10*3/uL (0.00-0.03); Imm Gran Pct Auto 0.5 % (0.0-0.4); Lymphocytes Absolute Auto 1.8 X10*3/uL (1.2-4.9); Lymphocytes Percent Auto 17.2 % (20-40); Mean Corpuscular HGB Conc 31.5 g/dl (31.0-36.0); Mean Corpuscular Hemoglobin 27.4 pg (27.0-33.0); Mean Corpuscular Volume 86.9 fL (80.0-98.0); Mean Platelet Volume 9.2 fL (9.4-12.4); Monocytes Absolute Auto 0.7 X10*3/uL (0.1-1.2); Monocytes Percent Auto 6.1 % (2-11); Neutrophils Absolute Auto 7.6 x10*3/uL (2.0-8.3); Neutrophils Percent Auto 70.7 % (45-73); Platelet Count 373 X10*3/uL (160-400); Red Blood Count 2.52 X10*6/uL (4.60-5.80); Red Cell Distribution Width 14.2 % (11.0-16.0); White Blood Count 10.7 X10*3/uL (4.8-10.8)
[2024-05-11 11:21] LABS: Hemoglobin 6.9 g/dl (14.0-18.0)
[2024-05-11 11:39] LABS: Blood Urea Nitrogen 65 mg/dL (9-16); Creatinine Clr Calc Pharmacy 11.5; Estimated Glomerular Filt Rate 9
--- NOTE | 2024-05-11 13:45 | PC.NURSE ---
Critical values reported to Dr. Ventura. No action taken prior to pt being brought to procedure.
[2024-05-11] MEDS: ceFAZolin Sodium/Dextrose,Iso 2 GM/50 ML PIGGYBACK IV (13:55)
[2024-05-11] MEDS: fentaNYL citrate/PF 100 MCG/2 ML VIAL 25 MCG IVPUSH ×2 (14:30→14:40)
[2024-05-11] MEDS: oxyCODONE HCl Immed Release 5 MG TABLET PO (16:00)
== END 2024-05-11 16:30 | disposition home or self-care (01) ==
PROVIDERS: Radiology Diagnostic Radiology; Radiology Vascular & Interventional Radiology; Visit Provider Internal Medicine Hypertension Specialist
DX: N18.5 Chronic kidney disease, stage 5 (principal); D63.1 Anemia in chronic kidney disease; Z99.2 Dependence on renal dialysis; F39 Unspecified mood [affective] disorder; F01.50 Vascular dementia, unspecified severity, without behavioral disturbance, psychotic disturbance, mood disturbance, and anxiety; I42.8 Other cardiomyopathies; K21.9 Gastro-esophageal reflux disease without esophagitis; E11.9 Type 2 diabetes mellitus without complications; Z86.73 Personal history of transient ischemic attack (TIA), and cerebral infarction without residual deficits; Z86.718 Personal history of other venous thrombosis and embolism; Z79.4 Long term (current) use of insulin; Z79.01 Long term (current) use of anticoagulants; Z79.82 Long term (current) use of aspirin; Z79.899 Other long term (current) drug therapy; F14.11 Cocaine abuse, in remission; Z87.891 Personal history of nicotine dependence
CPT/HCPCS: 36415; 36558; 82565; 84520; 85025; C1750; C1769; J0690; J1644; J2003; J3010

== ENCOUNTER → 2024-05-11 13:24 | Outpatient (BNV) | payer MEDICAID, SELFPAY | PROVIDERS: Visit Provider Radiology Vascular & Interventional Radiology | DX: N18.4 Chronic kidney disease, stage 4 (severe) (principal) | CPT/HCPCS: 36558; 76937; 77001 ==

== ENCOUNTER 2024-07-13 09:09 | Outpatient (AMB) | payer MEDICAID, SELFPAY ==
[2024-07-13 09:16] VITALS: BP 132/72; PULSE 78; BMI 23.9
--- NOTE | 2024-07-13 09:16 | A.OFFVIS_ITS ---
Vital Signs 07/13/24 09:16 Height 5 ft 5 in Weight 143 lb 11.862 oz BMI 23.9 BP 132/72 Blood Pressure Location Lt brachial Position Sitting Pulse 78 Pulse Source Monitor Intake Visit Reasons: follow up after testing Venetian Blind Maker Required: No Fitness Worker: Fitness Worker Present Allergies No Known Allergies Allergy (Verified 04/30/24 13:11) Medication List - Last Reconciled 07/13/24 by ENZO Sheffield apixaban (Eliquis) 2.5 mg PO BID atorvastatin 80 mg PO BEDTIME calcitriol 0.25 mcg PO DAILY clopidogrel (Plavix) 75 mg PO DAILY cyclobenzaprine 5 mg PO BID PRN donepezil (Aricept) 5 mg PO BEDTIME famotidine (Pepcid) 20 mg PO DAILY ferrous sulfate 324 mg PO DAILY insulin glargine (Lantus Solostar U-100 Insulin) 18 units subcut BEDTIME insulin lispro see above insulin lispro 1 sliding scale dose subcut USEASDIRECTD lidocaine 5% 1 patch topical DAILY magnesium hydroxide 30 mL PO DAILY PRN melatonin 6 mg (2 x 3 mg) PO BEDTIME PRN metoprolol succinate ER 50 mg PO DAILY mirtazapine 30 mg PO DAILY nifedipine ER 60 mg PO DAILY pantoprazole DR 40 mg PO DAILY sodium bicarbonate 650 mg PO TID sodium zirconium cyclosilicate (Lokelma) 10 grams PO DAILY torsemide 20 mg PO BID HPI HPI follow up after testing: Details: Ben is a 49-year-old male with past medical history of chronic kidney disease, vascular dementia, prior echo concerns for amyloidosis followed by cardiac MRI with no amyloidosis found, newer cardiomyopathy with echo done at [facility] 07/31/2023 that showed EF 25-30%. Since last visit he underwent a nuclear stress test, echocardiogram and Holter monitor and now presents for follow-up. Today he reports that he has been doing generally well. Does notice some mild shortness of breath with stair climbing. No shortness of breath at rest, PND, orthopnea or edema. No chest discomfort at rest or with activity. No palpitations, presyncope, syncope, falls. He takes his meds as directed. He resides at a retirement facility and is mostly sedentary. Staff member present with him. He seems appropriate with me at this visit. [facility] Medical History Dementia CKD (chronic kidney disease) stage 4, GFR 15-29 ml/min Infiltrative cardiomyopathy Anemia in chronic kidney disease (CKD) Pneumonia Congestive heart failure GRISEL (acute kidney injury) CKD (chronic kidney disease) Hyperglycemia Elevated serum creatinine Chronic kidney disease History of insulin dependent diabetes mellitus Mood disorder Vascular dementia CVA (cerebral vascular accident) DVT (deep venous thrombosis) Social History Household Members: Family Housing: Apartment Do you presently have visiting nurse or other home services: No Comment: pt is low falls risk Patient Tobacco Use Status: Former Tobacco user Tobacco use type: Cigarette Cigarette Packs Per Day: 0.5 Cigarettes Per Day: 10.0 Years Smoked: 7 e-Cigarette/Vaping Use: Never Used Second Hand Smoke Exposure: No Substance Use Type: Crack/Cocaine, IV Drugs and Opiates Advance Directives Date on File: 04/05/23 service: No Review of Systems Const All systems reviewed & are unremarkable except as noted in HPI and below ENT Denies dizziness Card Denies chest pain, Denies chest pain at rest, Denies chest pain with activity, Denies rapid heart rate, Denies pedal edema, Denies edema, Denies leg edema, Denies lightheadedness, Denies palpitations, Denies dyspnea, Reports dyspnea on exertion and Denies orthopnea Resp Denies cough, Denies dyspnea and Reports dyspnea on exertion GI Denies hematochezia and Denies change in stool character Musc Denies abnormal gait, Reports limited range of motion, Reports muscle cramps, Denies muscle weakness, Denies numbness, Denies radiating pain into limb, Denies stiffness and Denies tingling Neuro Denies abnormal gait, Denies dizziness, Denies numbness and Denies tingling Endo Denies palpitations Physical Exam Vital Signs: Last Vital Signs Pulse 78 07/13/24 09:16 BP 132/72 07/13/24 09:16 BMI result Body Mass Index 23.9 Const General: cooperative, healthy appearing, comfortable and no acute distress Orientation/consciousness: patient oriented x3 Neck Neck: Yes normal visual inspection Resp Effort & Inspection: normal respiratory effort Auscultation: clear to auscultation bilaterally, no crackles, no rales, no rhonchi and no wheezes Cardio Rate: regular rate Rhythm: regular rhythm Heart sounds: S1 normal heart sound present, S2 normal heart sound present, no murmurs and no rubs Neuro General: patient oriented x3 Extrem General: Yes normal to inspection, No no pedal edema and No calf tenderness Psych Appearance: grossly normal Mental Status: mental status grossly normal Speech and movement: Normal speech and movement present Office Procedures EKG Details: Today, read by me, sinus rhythm with short NM interval, ST and T-wave abnormality lateral leads, unchanged from prior EKG, rate 78. [id number], Complete Results Reviewed Results Reviewed: Nuclear stress 04/24/24 Exercise Stress Test with exercise 4 mins 45 secs of Kuldip Protocol, achieving 87% MPHR, with reports of SOB, no chest pain, with isolated PVCs, with normotensive response to exercise. With horizontal ST depression inferiorly and V3-V6, meeting criteria for ischemia. In recovery, HR returned to baseline slowly, breathing improved and ST segment improved gradually. Nuclear images pending. Test reviewed with Dr. Schroeder. NM/NM cardiolite stress test IMPRESSION: 1. Myocardial perfusion imaging study shows no evidence of ischemia. 2. Gated LVEF is 30%. 3. Transient ischemic dilatation not present but LV cavity is dilated. EKG revealed suggestive of ischemia. Holter 04/13/24 * Total monitoring time 2 days. * Underlying rhythm is sinus with an average rate of 89/Min. * Rare supraventricular ectopy. Very brief runs. * Rare ventricular ectopy. * No significant pauses or high-grade AV blocks. * No patient markers or diary events. Limited echo 04/13/24 Conclusions: - Normal left ventricular cavity size. There is normal left ventricular wall thickness. The left ventricular systolic function is moderate to severely decreased. The visually estimated ejection fraction is between 25-30%. Assessment & Plan Assessment & Plan (1) Cardiomyopathy: Code(s): I42.9 - Cardiomyopathy, unspecified Category: Medical Plan: [facility] [place]20[place] with severe acidosis. During his admission he had an echocardiogram EF 50-55%, strain pattern suspicious for amyloidosis. An outpatient cardiac MRI was done and did not show findings of amyloidosis. He did have a repeat echocardiogram at [facility] in July 2023 which showed severe global hypokinesis with regional variation, left ventricular EF 25-30%. He was started on metoprolol XL for neurohormonal modulation. He was not started on Prateek/Arb due to chronic kidney disease. A repeat limited echocardiogram 04/13/2024 shows EF 25-30%. Nuclear stress test 04/24/2024 shows no evidence of ischemia. On exam today he does not appear fluid overloaded. He is now on hemodialysis 3 times weekly. Discussed ICD, procedure, risks, reason for use. He is agreeable to proceed if warranted. Continue metoprolol, continue torsemide 20 mg b.i.d.. Plan to discuss case with his primary guest services ambassador. Cardiology follow-up 4 months, sooner if needed. (2) Infiltrative cardiomyopathy: Code(s): I42.8 - Other cardiomyopathies Category: Medical Plan: Not confirmed based on cardiac MRI. At present it is unknown if his cardiomyopathy is ischemic versus nonischemic (3) CKD (chronic kidney disease) stage 4, GFR 15-29 ml/min: Code(s): N18.4 - Chronic kidney disease, stage 4 (severe) Category: Medical Plan: Follows with Nephrology. Most recent creatinine in our system 6.65. He is now end-stage renal disease and has started hemodialysis. (4) CKD (chronic kidney disease) stage 5, GFR less than 15 ml/min: Code(s): N18.5 - Chronic kidney disease, stage 5 Category: Medical Plan: Follows with Nephrology. Plan I discussed the patient's ongoing heart failure management, explaining that metoprolol is used and other options limited by impact to renal function. The role of dialysis in managing fluid retention was covered. I proposed an ICD implant, emphasizing its potential to manage life-threatening arrhythmias despite not boosting heart strength. Benefits, such as internal rhythm monitoring and correction, were highlighted with stress on implantation's permanence. Consent was obtained, with the patient expressing understanding and agreement. I outlined symptom monitoring strategies for fluid overload and instructed reporting any onset of chest pain. Patient Instructions: - Continue taking all prescribed medications as directed. - Attend dialysis sessions three times a week as scheduled. - Monitor for and report any new or worsening swelling in legs or shortness of breath. - Report any new chest pain or pressure immediately. - Await further information regarding potential ICD placement. - Keep hydrated as advised and maintain a balanced diet. - Follow up in cardiology as scheduled Patient was informed and verbally consented to the use of an ambient scribe for clinic note documentation during this visit. Visit time spent on chart review, interview, assessment, orders, documentation. Coding Level of Care Code Est Pt Level 4 (59007) Complex EM visit Add On G2211 Diagnoses Cardiomyopathy I42.9 Infiltrative cardiomyopathy I42.8 CKD (chronic kidney disease) stage 4, GFR 15-29 ml/min N18.4 CKD (chronic kidney disease) stage 5, GFR less than 15 ml/min N18.5 CPT Codes EKG - CPT: [id number], Complete ([id number]) Time Spent (min) 28
--- OUTSIDE RECORDS SUMMARY | 2024-07-13 09:19 | XMS_ITS | Continuity of Care Document ---
Author Organization [facility] Address [address] [place] [address] Phone Care Team Providers Care Cell Stripper Final Name Role Phone Marlo Zhao OD Unavailable Unavailable Allergies, Adverse Reactions, Alerts Substance Reaction Status Criticality No Known Allergies Active No Inform ation Medications Medication Instructions Dosage Effective Dates (start - stop) Status Comments Apidra SoloStar U-100 Insulin 100 unit/mL subcutaneous pen inject by subcutaneous route per prescriber's instructions. Insulin dosing requires individualization. 12 units in am and 14 units at night. - Active Lantus Solostar U-100 Insulin 100 unit/mL (3 mL) subcutaneous pen inject by subcutaneous route as per insulin protocol 34 units at night - Active amlodipine 10 mg tablet take 1 tablet by oral route every day 10 MG - Active telmisartan 20 mg tablet take 1 tablet by oral route every day 20 MG - Active Procedures Procedure Date FUNDUS PHOTOS REFRACTION OFFICE VISIT LEVEL 4 NEW Advance Directives Directive Yes / No Effective Date File Name No Information Encounters Encounter Description Practice Location Reason(s) For Visit Diagnoses Date Provider Providers Copied on Encounter [facility], [address], [place], [id number], [place] tel:[phone] [facility] No Information 2 Cece Sellers. [address], [address], [place], [id number] , [place]. tel:[phone] Referring Provider: [facility] [address] [place], [address]. tel:[phone] OFFICE VISIT LEVEL 4 [facility], [address], [place], [id number], [place] tel:[phone] [facility] Diabetic Evaluation (chief complaint) NPDR, severe with macular edema OUCombined Type Cataract OUNevus, Choroidal OS 2 Cece Sellers. [address], [address], [place], [id number] , [place]. tel:[phone] Referring Provider: [facility] [address] [place], [address]. tel:[phone] Family History Family Member Type Diagnosis Age At Onset Brother Problem (finding) Diabetes mellitus Father Problem cataract Mother Problem (finding) Diabetes mellitus Father Problem Cardiovascular disease Payers Payer name Insurance type Covered constitution party ID Authormarcya caryn(s) [facility] [id number] Social History Type Description Quantity Date Captured Comments Alcohol Use Details Unknown Caffeine Use Details Unknown Tobacco Use Status Smoking Status No Information Sex Male Chief Complaint And Reason For Visit No Information Reason For Referral Reason For Referral No Information Plan Of Treatment Date Type Action Status Goal Tobacco cessation counseling completed History Of Present Illness Encounter Date Complaint History Of Prese nt Illness Diabetic Evaluation Patient seen in consultation for evaluation and possible treatment of Type I Diabetic Evaluation in the right eye and left eye. Taking medication since 2004 and taking insulin. Averaged BS: 200-293 A1C: 18.4. Referred by Dr Elmore and was seen August 26/2022. would like report sent to him. Vision fluctuates w/hi and lo BS. Pt had laser done in both eyes by Dr Ventura and thinks it was done in February. Vision is poor and not wearing glasses. No pain or discomfort. Eyes itch and burn. Did not bring med list. Pulled from pharmacy. Could not reconcile. Functional Status Date Functional Assessmen t No Information Instructions Date Instruction Additional Infor dalton Refer to Dr. Karimi/Candelario/Berdia Re lated to NPDR, severe with macular edema OU Impression/Plan Related to NPDR, severe with macular edema OU Impression/Plan Related to Combi otoniel Type Cataract OU Impression/Plan Related to Nevus , Choroidal OS Assessments Type Assessment Date No Information Patient Care Teams Name Effective Dates (start - stop) Status Members No Information
== END 2024-07-13 10:03 | disposition home or self-care (01) ==
LOC: HO.HCS 09:10
PROVIDERS: Visit Provider Nurse Practitioner Family
DX: I42.9 Cardiomyopathy, unspecified (principal); I42.8 Other cardiomyopathies; N18.4 Chronic kidney disease, stage 4 (severe); N18.5 Chronic kidney disease, stage 5
CPT/HCPCS: 93010; 99214

== ENCOUNTER → 2024-07-13 09:09 | Outpatient (BNVA) | payer MEDICAID, SELFPAY | PROVIDERS: Visit Provider Nurse Practitioner Family | DX: I42.9 Cardiomyopathy, unspecified (principal); I42.8 Other cardiomyopathies; N18.5 Chronic kidney disease, stage 5; R94.31 Abnormal electrocardiogram [ECG] [EKG] | CPT/HCPCS: 93005; 99212 ==